=== PATIENT | female | born 1990 | race Caucasian/White ===

== ENCOUNTER 2023-01-03 21:58 | Emergency (ER) | payer OTHER, SELFPAY ==
--- NOTE | ~2023-01-03 | CT_ITS ---
EXAMINATION: CT abdomen pelvis w con DATE: 01/04/2023 01:39 INDICATION: Left lower quadrant abdominal tenderness, bloody stools TECHNIQUE: Computed tomography (CT) of the abdomen and pelvis was performed with 100 CC Omnipaque 350 intravenous contrast. Automated exposure control and iterative reconstruction technique were employe d. Exam dose: 1491.62 mGy-cm total exam DLP. COMPARISON: None. FINDINGS: The lung bases are clear. Normal heart size. No pericardial or pleural effusion. Diffuse hepatic steatosis. No hepatic, splenic, pancreatic, and adrenal or left renal space occupying mass lesion is detected. Status post right nephrectomy. Status post cholecystectomy. Normal appendix. No bowel obstruction, bowel wall thickening, pneumatosis or intraperitoneal free air . Normal caliber of the abdominal aorta no intraperitoneal or retroperitoneal or pelvic mass lesion or adenopathy or ascites. 2.1 x 3.1 cm left ovarian cyst. The uterus is retroverted. Urinary bladder is unremarkable. Included skeletal structures are unremarkable. IMPRESSION: Hepatic steatosis Status post cholecystectomy Status post right nephrectomy Normal appendix Left ovarian cyst Reviewed, dictated and finalized at [facility] Reviewed, dictated and finalized at [facility].
[2023-01-03 22:01] VITALS: BP 144/97; PULSE 108; RESP 20; TEMP 36.6; O2SAT 100
[2023-01-03 22:16] LABS: Basophils Absolute Auto 0.1 K/mm3 (0.0-0.1); Basophils Percent Auto 0.6 % (0.2-1.2); Eosinophils Absolute Auto 0.3 K/mm3 (0-0.3); Eosinophils Percent Auto 1.9 % (0-4.4); Hematocrit 41.6 % (37.0-47.0); Hemoglobin 13.7 g/dL (12.0-15.0); Immature Granulocyte Absolute 0.04 K/mm3 (0.00-0.031); Immature Granulocyte Percent A 0.3 % (0-0.5); Lymphocytes Percent Auto 26.9 % (18.3-44.2); Mean Corpuscular HGB Conc 32.9 g/dl (32-36); Mean Corpuscular Hemoglobin 28.4 pg (26-34); Mean Corpuscular Volume 86.3 fl (80-100); Mean Platelet Volume 9.4 fl (7.4-10.4); Monocytes Absolute Auto 0.9 K/mm3 (0.1-0.6); Monocytes Percent Auto 6.9 % (2.6-8.5); Neutrophils Absolute Auto 8.5 K/mm3 (1.3-6.7); Neutrophils Percent Auto 63.4 % (45.5-73.1); Platelet Count Result 339 k/mm3 (150-375); Red Blood Count 4.82 M/mm3 (4.2-5.4); Red Cell Distribution Width 12.9 % (11.5-14.5); White Blood Count 13.4 K/mm3 (4.5-10.0)
[2023-01-03 22:38] LABS: Appearance Urine Clear (Clear); Bacteria Urine None Seen /hpf; Bilirubin Urine Negative (Negative); Blood Urine Negative (Negative); Color Urine Yellow (Yellow); Glucose Urine UA Negative (Negative); Ketones Urine Negative (Negative); Leukocyte Esterase Ur Trace LEU/UL (Negative); Nitrate Urine Negative (Negative); Non Pathogenic Casts 0-2; Protein Urine Negative (Negative); RBC Urine 0-2 /hpf (0-2); Specific Grav Ur 1.022 (1.001-1.035); Squamous Epithelial Cell Urine None seen /hpf (Few); Urobilinogen Urine 0.2 mg/dL (<2.0); WBC Urine 0-5 /hpf; pH Urine 5.5 (5.0-9.0)
[2023-01-03 22:41] LABS: Add Urine Microscopic? YES
[2023-01-03 23:06] LABS: Alanine Aminotransferase 31 U/L (6-35); Albumin Level 4.2 g/dL (3.5-5.1); Alkaline Phosphatase 88 U/L (38-126); Anion Gap 9 mmol/L (8-16); Aspartate Amino Transferase 23 U/L (14-36); Bilirubin,Total 0.5 mg/dL (0.2-1.3); Blood Urea Nitrogen 15 mg/dL (7-17); Calcium 8.7 mg/dL (8.4-10.2); Carbon Dioxide 26 mmol/L (22-30); Chloride 102 mmol/L (98-107); Estimated CRCL calculation 125 ml/min; Estimated Glomerular Filt Rate > 60; Glucose 123 mg/dL (65-110); Lipase 104 U/L (23-300); Potassium 3.9 mmol/L (3.4-5.0); Sodium 137 mmol/L (137-145)
--- NOTE | 2023-01-04 00:56 | ED.ABDPAIN ---
HPI - Abdominal Pain General Chief Complaint: Abdominal Pain <EVELIO Yates Last Filed: 01/04/23 03:59> Stated Complaint: abd pain <EVELIO Yates Last Filed: 01/04/23 03:59> Time Seen by Provider: 01/04/23 00:08 <EVELIO Yates Last Filed: 01/04/23 03:59> History of Present Illness HPI narrative: Patient is a 32-year-old female here for evaluation of pelvic/lower abdominal cramping the past day. Patient states that she was seen by her MANAGER ADMINISTRATIVE last week for abnormal vaginal discharge and was diagnosed with BV. She was placed on Flagyl and completes her course today. States that since then she has developed a mild pelvic cramping, today the cramping increased and she was doubled over in pain. Pain is most severe in her left lower quadrant. She has a history of IBS and hemorrhoids and has been having increased bloody bowel movements over the past several days, has been using MiraLAX with improvement of her symptoms. Her vaginal discharge has improved, she had no vaginal bleeding, fevers, chills, vomiting, diarrhea. <EVELIO Yates Last Filed: 01/04/23 03:59> Related Data Allergies/Adverse Reactions: Allergies Allergy/AdvReac Type Severity Reaction Status Date / Time doxycycline Allergy Intermediate HIVES Verified 02/10/19 09:15 NSAIDS (Non-Steroidal Allergy Mild S/O Verified 02/10/19 09:15 Anti-Inflamma NEPHRECTOMY-ADVISED TO REFRAIN BY ASSEMBLER LEATHER GOODS <EVELIO Yates Last Filed: 01/04/23 03:59> Review of Systems Review of Systems: Gen.: Denies fevers or chills Eyes: Denies eye pain or visual change ENT: Denies congestion Respiratory: Denies shortness of breath or cough CV: Denies chest pain or palpitations GI: Reports abdominal pain, nausea denies burning, urgency, frequency or hematuria Musculoskeletal: Denies back pain or muscle pain Neuro: Denies numbness, tingling, weakness or focal weakness Skin: Denies rash Except as documented, all other systems reviewed and negative <Leena Parson PA-C - Last Filed: 01/04/23 03:59> Exam Narrative: APPEARANCE: No acute distress, nontoxic, resting in bed HEENT: Normocephalic, atraumatic EYES: PERRL, EOMI NECK: Supple, nontender, full range of motion without pain, no meningismus RESPIRATORY: No respiratory distress, clear to auscultation bilaterally with no rhonchi wheezing or rales CARDIOVASCULAR: RRR, no murmur ABDOMINAL: Tender to palpation in the left lower quadrant with moderate guarding, no rebound tenderness. : Complete visualization of the cervix is limited due to body habitus. Visualized portions are clear. There is a moderate amount of thin white discharge in the vaginal vault. Whiff test is negative. No CMT. MUSCULOSKELETAL: Moves all extremities. No clubbing, cyanosis or edema. NEURO: A and O ?3, following commands, speech normal, cranial nerves II through XII grossly intact,muscle strength 5 out of 5 bilateral upper and lower extremities SKIN:: Warm, dry. Normal Color PSYCHIATRIC: Normal affect/mood <Leena Parson PA-C - Last Filed: 01/04/23 03:59> Course Course Emergency Course: 0700: Signed out to the oncoming physician pending CT abdomen pelvis. <Jose Ramirez MD - Last Filed: 01/04/23 06:40> PEOPLESOFT DEVELOPER/PA Physician Supervision This is a was performed by both a physician and an APC. I performed all aspects of the MDM as documented w/ the following additions: 32-year-old female presenting with abdominal pain. White count slightly elevated. Metabolic panel within normal limits. Urinalysis did not indicate UTI. patient was signed out to the oncoming physician pending completion of her CT abdomen pelvis. <Jose Ramirez MD - Last Filed: 01/04/23 06:40> Reevaluation(s) Reevaluation #1: Patient care was signed out to me by Dr. Ramirez Plan at signout was to await for the CT scan with anticipated discharge to
[2023-01-04] MEDS: MORPHINE SULFATE (*CRX) 4 MG/ML INJ IV PUSH (01:00)
[2023-01-04] MEDS: ONDANSETRON INJ 4 MG/2 ML VIAL IV PUSH (01:00)
[2023-01-04 01:23] LABS: Lactic Acid Reflex 0.9 mmol/L (0.7-2.0)
[2023-01-04] MEDS: SODIUM CHLORIDE 0.9% IV 1,000 ML 999 ML IV CONT (02:26)
[2023-01-04] MEDS: MORPHINE SULFATE (*CRX) 2 MG/ML INJ IV PUSH (02:44)
[2023-01-04 02:48] VITALS: BP 130/77; PULSE 80; RESP 18; TEMP 36.6; O2SAT 99
[2023-01-04 04:30] VITALS: BP 121/71; PULSE 90; RESP 18; TEMP 36.6; O2SAT 99
[2023-01-04] MEDS: FAMOTIDINE 20 MG/2 ML VIAL IV PUSH (04:30)
[2023-01-04] MEDS: HYDROmorphone HCL INJ (*CRX) 1 MG/ML SYR 0.5 MG IV PUSH (06:56)
[2023-01-04 06:57] VITALS: BP 111/69; PULSE 80; RESP 18; O2SAT 99
[2023-01-04 07:21] VITALS: BP 126/78; PULSE 73; RESP 16; O2SAT 99
[2023-01-04 09:22] VITALS: BP 130/77; PULSE 76; RESP 16; O2SAT 100
== END 2023-01-04 09:23 | disposition home or self-care (01) ==
PROVIDERS: Emergency Medicine; Emergency Provider Physician Assistant; PCP Advanced Practice Midwife
DX: R10.32 Left lower quadrant pain (principal)
CPT/HCPCS: 36415; 74177; 80053; 81001; 81025; 83605; 83690; 85025; 87491; 87591; 87808; 96361; 96374; 96375; 99284; J1170; J2270; J2405; J7030; Q9967

== ENCOUNTER 2023-02-10 13:00 | Outpatient (RCR) | payer OTHER, SELFPAY ==
--- NOTE | 2023-01-17 10:40 | PTOPEVAL1 ---
Assessment and note entered by Evelyne Page DPT Evaluation Information Assessment Status Evaluation Subjective Information Pt reports pelvic pain, will get severe cramping and it is often the day after intercourse. Describes as feeling like period cramping or like a bruise. Diagnosed with bacterial vaginosis about 2 weeks ago and reports a lot of pain while she was taking the medicine for it. Has had the pelvic pain on and off for a few years but has gotten worse and more persistent. Reports when she is in pain she has trouble doing anything like cooking dinner, tends to just want to sit with a heating pad. Highest pain 10/10 and lowest 0/10. Went to ER for pain while taking the medicine for the BV. Urinates less than 10 times a night, recently urinating 1 time at night and sometimes feels sore . Leaks urine daily, the amount will vary depending on how often she coughs, sneezes, etc. Volume is typically small, has had instances where she will leak her full bladder but not often. BM usually 3-4 times a day. No periods- uterine ablation, but did have a history of heavy and painful periods. Pt has been 3 times, 3 vaginal deliveries in 2012, 2014, 2017. History of gall stones and was induced with her first, tearing with all 3. Pt reports family history of fibromyalgia, PCOS, and endo. Has a history of constipation, will often get bleeding from BM. Has to splint in order to have a BM often. Reported Pain Level Pain Score 1: Self Report Assessment PT Clinical Summary The patient is presenting to skilled therapy with a history of worsening pelvic pain. She also reports daily urinary incontinence. She presents with decreased hip/core strength, increased pelvic floor muscle tone and pain with palpation of pelvic floor. These impairments are contributing to her significant pain and difficulty with ADL's as well as her incontinence. She will highly benefit from therapy to reduce pain and improve function. Plan of Care Interventions Hot Pack/Cold Pack,Manual Therapy,Neuro Re- education,Patient/Caregiver Education,Therapeutic Activities,Therapeutic Exercise,Self-Care/Home Management PT Services Indicated Yes Treatment Frequency and
--- NOTE | 2023-01-29 11:35 | PCPTNOTE ---
Patient called to cancel appointment due to illness.
--- NOTE | 2023-02-20 12:40 | PCPTNOTE ---
Patient called to cancel ten minutes prior to appointment time due to illness.
--- NOTE | 2023-02-26 14:10 | PCPTNOTE ---
Patient did not show up for appointment scheduled on 02/26/23.
--- NOTE | 2023-03-03 13:24 | PCPTNOTE ---
Patient did no show up for appointment scheduled 03/03/23.
--- NOTE | 2023-03-24 13:20 | PTOPDC ---
Assessment and note entered by Evelyne Page, DPT Evaluation Information Assessment Status Discharge - Pt Not Present Subjective Information - Assessment PT Clinical Summary Patient has not attended therapy since 02/10/23. Per our attendance policy she will be discharged this date. Plan of Care PT Services Indicated No
== END 2023-03-24 14:09 | disposition home or self-care (01) ==
LOC: ANHGOSHPT 13:00
PROVIDERS: PCP Advanced Practice Midwife; Visit Provider Advanced Practice Midwife
DX: R10.2 Pelvic and perineal pain (principal)
CPT/HCPCS: 97110; 97112; 97140; 97163; 99199

== ENCOUNTER 2023-07-02 00:58 | Day surgery (SDC) | payer OTHER, SELFPAY ==
[2023-06-23 15:35] VITALS: BMI 46.4
--- NOTE | 2023-06-23 15:36 | PC.NURSE ---
Report to the Outpatient Waiting Room, entrance under the green pavilion located off [facility], at time _0600_ on date _[id number]_. Planned Procedure Time: _0730_. Time changes happen often and if your time is changed the preop area will call you the afternoon before. - You and your visitor will be asked to self-screen and do not enter if you have any COVID symptoms. - A mask is optional within the hospital at this time. Patients may have clear liquids (water, carbonated beverages, clear teas, apple juice) until 3 hours prior to surgery with a maximum of 20 ounces. - No food from midnight until time of surgery Take the following medications with a SIP of water the morning of surgery: ____None DO NOT STOP ANY OF YOUR OTHER PRESCRIPTION MEDICATIONS PRIOR TO SURGERY ?EXCEPT THE FOLLOWING Medications to discontinue per physician ____None Date to take last dose Please no make-up, nail tanzanian, hairspray, perfume, deodorant, or body powder the day of surgery. No jewelry (including any body piercings) or valuables the day of surgery, leave them at home. Please take a shower or bath the night before, or the morning of, surgery with an antibacterial soap. Wear comfortable, loose fitting clothing. - Jewelry must be removed prior to entering the operating room. Rings and piercings that are not removed may be cut off. - The hospital will not accept responsibility for valuables. - Please leave all valuables, including medications, at home the day of surgery. If you are going home after surgery, a licensed oil transport driver must drive you home. - NO public transportation without another adult if you receive anesthesia. - We recommend that an adult stay with you for 24 hours following discharge. - We also recommend that you do not drive, make important decision, drink alcoholic beverages, or take any drugs that were not prescribed by your health care provider for at least 24 hours after your discharge time. Follow any additional instructions given to you from your surgeon. If you or anyone in your household have experienced Covid symptoms in the past week, please notify your surgeon or the nurse liaison at the phone number below for possible testing. Telephone instructions given to __Patient___and asked if any additional questions and then verbalized understanding. Patient advised to call surgeon office or pre surgery nurse liaison [phone] if any additional questions.
[2023-07-02] VITALS (8 sets, daily range): BP systolic 120–155; BP diastolic 81–92; PULSE 70–90; RESP 13–20; TEMP 36.2–36.3; O2SAT 97–100
[2023-07-02] MEDS: ACETAMINOPHEN 500 MG TABLET 1000 MG PO (06:30)
[2023-07-02] MEDS: SCOPOLAMINE 1.5 MG PATCH TRANSDERM (06:47)
[2023-07-02] MEDS: LACTATED RINGERS 1,000 ML 30 ML IV CONT (06:48)
--- NOTE | 2023-07-02 07:01 | P.PNAN_ITS ---
Anes - Initial Pre Proc Eval Procedure: Operation Date: 07/02/23 07:30 Proposed Procedures p Diagnostic Laparoscopy - Ravi Bhatt MD Date/Time: 07/02/23 07:01 Surgeon: Ravi Bhatt MD Pre Op Diagnosis: Pelvic Pain Patient Data Age: 33 Gender: F Height: 1.63 m Weight: 121.5 kg Last Vital Signs Temp 36.3 C L 07/02/23 06:26 Pulse 90 07/02/23 06:26 Resp 20 07/02/23 06:26 BP 134/86 07/02/23 06:26 Pulse Ox 98 07/02/23 06:26 O2 Del Method Room Air 07/02/23 06:26 Allergies Allergy/AdvReac Type Severity Reaction Status Date / Time doxycycline Allergy Intermediate HIVES Verified 07/02/23 06:24 NSAIDS (Non-Steroidal Allergy Mild S/O Verified 07/02/23 06:24 Anti-Inflamma NEPHRECTOMY-ADVISED TO REFRAIN BY HUMAN PERFORMANCE CONSULTANT Home Medications Medication Instructions Recorded Confirmed Type cyclobenzaprine 10 mg tablet 10 mg PO TID PRN Pain 06/23/23 06/23/23 History sumatriptan 5 mg/actuation nasal 5 mg intranasal DAILY PRN Migraine 06/23/23 06/23/23 History spray Headache sumatriptan succinate 25 mg tablet 25 mg PO DAILY PRN Migraine 06/23/23 06/23/23 History Headache tramadol 50 mg tablet 50 mg PO TID PRN Pain 06/23/23 06/23/23 History Patient hx anesthesia problems: none Family hx anesthesia problems: none Results Review: All pre-operative results and documents have been reviewed as part of the pre- operative evaluation. [facility] Past Medical History Medical History (Updated 07/02/23 @ 07:01 by Chris Espinoza MD) GERD (gastroesophageal reflux disease) Morbid obesity Social History Social History Smoking status: Never smoker Alcohol intake: current Other substance usage details: thc gummies for anxiety. Living arrangements: with family Spiritual care concerns: No Anes - Eval Final PreProcedure Day of Procedure 07/02/23 07:01 Patient weight: morbidly obese Heart: regular rate and rhythm Lungs: clear to auscultation Airway: Mallampati scale class III Neurological: alert and oriented Last oral intake: >/= 8 hours ASA classification: III Emergent: no Anesthetic plan: proceed Anesthesia type and monitoring: general ETT and standard monitoring Results Review: All pre-operative results and documents have been reviewed as part of the pre- operative evaluation. Informed Consent: The patient's anesthetic plan and its attendant risks and benefits were d iscussed with the patient/family/POA. Questions were solicited and answers provided to the satisfaction of the patient/family/POA.
--- NOTE | 2023-07-02 07:16 | WPDHPUPDATE1 ---
History and Physical Update Update Date/Time: 07/02/23 07:16 History and Physical has been reviewed, including an updated exam of the patient. There are NO changes in the patient's condition. Risks, benefits, and alternatives have been discussed and questions answered. Patient agrees to proceed with procedure.
[2023-07-02] MEDS: fentaNYL CITRATE INJ (*CRX) 100 MCG/2 ML VIAL 25 MCG IV PUSH ×4 (08:36→09:18)
--- NOTE | 2023-07-02 08:41 | W.PM.PROC2 ---
Procedure Note - Detailed Date of Procedure 07/02/23 Pre-op Diagnosis Pelvic Pain, left ovarian cyst Post-op Diagnosis Other (Left paratubal cyst) Procedure Performed Diagnostic laparoscopy Surgeon Ravi Bhatt MD Anesthesia General Indications Pelvic pain Findings Left paratubal cyst closely associated with the left ovary with linear connection at the distal end. Easily from the tube. Otherwise normal pelvis with some increased vascularity in the posterior cul-de-sac bilaterally. Description of Procedure The patient was taken to the operating room. She was prepped and draped in the dorsal lithotomy position after induction general anesthesia. A 5 mm incision was made with a scalpel on the abdominal skin in the left upper quadrant of the abdomen. A 5 mm trocar was inserted into the intra-abdominal cavity under direct visualization the scope. In the same fashion a 5 mm left lower quadrant trocar was inserted and a 5 mm infraumbilical trocar was inserted. Left paratubal cystectomy was performed. Cautery and scissors were used to separate the tube from the left ovary. It was taken out the left lower quadrant trocar site The pelvis was irrigated. The pneumoperitoneum was reduced. The trocars were removed. Skin was closed with subcuticular 4 micro. The patient's incisions were covered with Dermabond. She was taken recovery room in stable condition. Sponge lap and needle counts were correct x2. Complications No immediate complications Condition Stable Disposition Same day
[2023-07-02] MEDS: oxyCODONE HCL (*CRX) 5 MG TAB IR PO (09:50)
== END 2023-07-02 10:20 | disposition home or self-care (01) ==
PROVIDERS: PCP Family Medicine Sports Medicine; Visit Provider Obstetrics & Gynecology
PROC: (CPT 49320; principal; 2023-07-02 07:30)
DX: N83.8 Other noninflammatory disorders of ovary, fallopian tube and broad ligament (principal); E66.01 Morbid (severe) obesity due to excess calories; Z68.42 Body mass index [BMI] 45.0-49.9, adult; F12.90 Cannabis use, unspecified, uncomplicated
CPT/HCPCS: 58662; 88305; A9270; J0330; J2250; J2405; J2704; J3010; J7030; J7120; Q9968

== ENCOUNTER 2023-09-17 10:16 | Emergency (ER) | payer OTHER, SELFPAY ==
--- NOTE | ~2023-09-17 | XR_ITS ---
Thoracic spine: Clinical Indication: Back pain AP and lateral views were performed. No fracture is seen. There is normal alignment of the vertebrae. The intervertebral disc spaces appe ar normal. Paravertebral soft tissues appear normal. Impression: No significant abnormalities noted. Reviewed, dictated and finalized at [facility]. O SCRIPT WRITER Impression: No significant abnormalities noted.
[2023-09-17 10:32] VITALS: BP 124/95; PULSE 53; RESP 16; TEMP 36.3; O2SAT 99
[2023-09-17 10:40] VITALS: BP 124/95; PULSE 53; RESP 16; TEMP 36.3; O2SAT 99
--- NOTE | 2023-09-17 10:47 | ED.BACK ---
HPI - Back Pain/Injury General Chief Complaint: Back Pain/Injury Stated Complaint: BACK SPASMS Time Seen by Provider: 09/17/23 10:47 Source: patient Mode of arrival: ambulatory Limitations: no limitations History of Present Illness HPI Narrative: 33-year-old female presents complaint mid back spasm, tightness. Patient reports pain to right mid back for over a month it comes and goes. States it is annoying muscle pain, has been taking her 's cyclobenzaprine to treat pain and it does relieve the symptoms. Last took cyclobenzaprine last night and medication is now gone. Was at work this morning and having spasms all across mid back. Had to leave work early due to symptoms. Ambulatory with steady gait. No urinary symptoms. No radiation of pain to lower extremities, no numbness or tingling to lower extremities. All systems reviewed and negative except as noted above. Related Data Home Medications Medication Instructions Recorded Confirmed sumatriptan 5 mg/actuation nasal 5 mg intranasal DAILY PRN Migraine 06/23/23 09/17/23 spray Headache sumatriptan succinate 25 mg tablet 25 mg PO DAILY PRN Migraine 06/23/23 09/17/23 Headache Allergies Allergy/AdvReac Type Severity Reaction Status Date / Time doxycycline Allergy Intermediate HIVES Verified 09/17/23 10:33 NSAIDS (Non-Steroidal Allergy Mild S/O Verified 09/17/23 10:33 Anti-Inflamma NEPHRECTOMY-ADVISED TO REFRAIN BY DOG LICENSE OFFICER SUPERVISOR Review of Systems Review of Systems: CONSTITUTIONAL: Denies fever, chills, or sweats. EYES: Denies visual changes, redness, or discharge. ENT: Denies rhinorrhea, congestion, sore throat, or otalgia. CARDIOVASCULAR: Denies chest pain, palpitations, or edema. RESPIRATORY: Denies cough or dyspnea. GASTROINTESTINAL: Denies abdominal pain, nausea, vomiting, or diarrhea. GENITOURINARY: Denies dysuria or hematuria. SKIN: Denies rash or itching. MUSCULOSKELETAL: Ports mid back pain with spasm. NEUROLOGIC: Denies headache, numbness, or weakness. PSYCHIATRIC: Denies anxiety or depression. All other systems reviewed are negative, except as documented in HPI. [facility] Past Medical History Medical History (Updated 09/17/23 @ 11:39 by Mara Varghese NP) GERD (gastroesophageal reflux disease) Morbid obesity Social History Social History Smoking status: Never smoker Alcohol intake: current Other substance usage details: thc gummies for anxiety. Living arrangements: with family Spiritual care concerns: No Comments At time of signature, agree with nursing past medical, surgical, social and family history. There is no relevant family history pertinent to the presenting complaint. Exam Narrative: GENERAL: This is a well-nourished, well-developed patient, in no apparent distress. HEAD: normocephalic, atraumatic. EYES: PERRL. Sclera clear/white. Vision is grossly intact. EARS: External ears normal NOSE: External nose normal NECK: Neck supple, non-tender without lymphadenopathy, masses or thyromegaly. CARDIOVASCULAR: Regular rate and rhythm without murmurs, gallops, or rubs. RESPIRATORY: Clear to auscultation. Breath sounds equal bilaterally. No wheezes, rales, or rhonchi. SKIN: warm, Dry, intact with no suspicious lesions or rash, good texture and turgor. NEURO: awake, alert, and oriented to person, place and time. There were no obvious focal neurologic abnormalities. EXTREMITIES: No joint tenderness, effusion, or edema noted. BACK: tenderness to T10, T11, R thoracic muscular tenderness on palpation. ROM intact. Course Course Level of Care: Express Care Visit Vital Signs Vital signs: Vital Signs Temperature 36.3 C L 09/17/23 10:32 Pulse Rate 53 L 09/17/23 10:32 Respiratory Rate 16 09/17/23 10:32 Blood Pressure 124/95 H 09/17/23 10:32 Pulse Oximetry 99 09/17/23 10:32 Temperature 36.3 C L 09/17/23 10:40 Puls
== END 2023-09-17 11:43 | disposition home or self-care (01) ==
PROVIDERS: Emergency Provider Nurse Practitioner Family; PCP Internal Medicine Rheumatology
DX: S29.012A Strain of muscle and tendon of back wall of thorax, initial encounter (principal); X58.XXXA Exposure to other specified factors, initial encounter; K21.9 Gastro-esophageal reflux disease without esophagitis; E66.01 Morbid (severe) obesity due to excess calories; Z68.42 Body mass index [BMI] 45.0-49.9, adult
CPT/HCPCS: 72072; 99213; G0463

== ENCOUNTER 2024-08-24 17:33 | Emergency (ER) | payer OTHER, SELFPAY ==
--- NOTE | ~2024-08-24 | CT_ITS ---
EXAMINATION: CT brain wo con DATE: 08/24/2024 18:45 INDICATION: R sided SANTIAGO, vision changes . TECHNIQUE: Computed tomography (CT) of the head was performed without intravenous contrast. The mA wa s adjusted according to patient size. Iterative reconstruction technique was employed. The dose-lengt h product was 605.33 mGy-cm. COMPARISON: None. FINDINGS: No acute intracranial hemorrhage or extra-axial fluid collection. No hydrocephalus, mass, or herniation. No acute ischemic infarct. Unremarkable dural venous sinus attenuation. No acute osseous abnormality. The aerated spaces are clear. Arachnoid cyst in the posterior fossa. IMPRESSION: No acute intracranial process. Reviewed, dictated and finalized at location K. INGS DRAFTER
[2024-08-24 17:42] VITALS: BP 148/108; PULSE 85; RESP 16; TEMP 36.4; O2SAT 96
--- NOTE | 2024-08-24 18:37 | ED_ITS ---
HPI - General Adult General Chief complaint: Unspecified <Coco Lundberg APRN - Last Filed: 08/24/24 18:42> Stated complaint: numbness below the eye since this morning <Coco Lundberg APRN - Last Filed: 08/24/24 18:42> Time Seen by Provider: 08/24/24 18:25 <Coco Lundberg APRN - Last Filed: 08/24/24 18:42> Focused HPI: Patient is a 34-year-old female who presents to the ER with complaints of right sided facial numbness surrounding her right eye socket. She reports her symptoms started this morning when she woke up. The muscles on the right side of her jaw have been twitching and her right eye stings. She also endorses a right-sided headache that started this morning, but is now radiating up the back of her head. Patient reports she also has a metallic taste in her mouth, but she reports she started Desvenlafaxine five weeks ago and first noticed that symptoms when she started the medication. She denies any extremity weakness/ numbness/tingling, recent fevers, or rashes. GENERAL: Well-appearing, well-nourished, and in no acute distress. HEAD: Normocephalic, atraumatic. CHEST: Clear to auscultation. ?No respiratory distress. HEART: Regular rate and rhythm.? NEURO: ?Alert and oriented x3. Patient screened in triage and initial orders placed.? ?Additional care and dis position to be based upon?diagnostic testing and treatment. <Coco Lundberg APRN - Last Filed: 08/24/24 18:42> Related Data Home medications: Home Medications Medication Instructions Recorded Confirmed sumatriptan 5 mg/actuation nasal 5 mg intranasal DAILY PRN Migraine 06/23/23 09/17/23 spray Headache sumatriptan succinate 25 mg tablet 25 mg PO DAILY PRN Migraine 06/23/23 09/17/23 Headache <Coco Lundberg APRN - Last Filed: 08/24/24 18:42> Allergies/adverse reactions: Allergies Allergy/AdvReac Type Severity Reaction Status Date / Time doxycycline Allergy Intermediate HIVES Verified 09/17/23 10:33 NSAIDS (Non-Steroidal Allergy Mild S/O Verified 09/17/23 10:33 Anti-Inflamma NEPHRECTOMY-ADVISED TO REFRAIN BY CHAIR SPRING ASSEMBLER <Coco Lundberg APRN - Last Filed: 08/24/24 18:42> Review of Systems Review of Systems: CONSTITUTIONAL: Denies fever EYES: Denies visual changes GASTROINTESTINAL: Denies vomiting SKIN: Denies rash NEUROLOGIC: Reports headache. Denies numbness, or weakness. <Leena Chilel PA-C - Last Filed: 08/24/24 23:08> All systems reviewed & are unremarkable except as noted in HPI and below <Leena Chilel PA-C - Last Filed: 08/24/24 23:08> PMFSH Past Medical History Medical History: Medical History (Updated 08/24/24 @ 22:58 by Leena Chilel PA-C) GERD (gastroesophageal reflux disease) History of migraine Morbid obesity <Coco Lundberg APRN - Last Filed: 08/24/24 18:42> Surgical History Surgical History: Surgical History (Updated 08/24/24 @ 22:55 by Leena Chilel PA-C) History of nephrectomy <Coco Lundberg APRN - Last Filed: 08/24/24 18:42> Social History Social History: Social History Smoking status: Never smoker Alcohol intake: current Other substance usage details: thc gummies for anxiety. Living arrangements: with family Spiritual care concerns: No <Coco Lundberg APRN - Last Filed: 08/24/24 18:42> Exam Narrative: GENERAL: Well-appearing, well-nourished, and in no acute distress. HEAD: Normocephalic, atraumatic. EYES: PERRLA and EOMI. ENT: Nares clear, no rhinorrhea or epistaxis. Mucous membranes moist. Oropharynx without tonsillar hypertrophy exudate or other lesions. Bilateral TMs pearly borjas non-bulging NECK: Supple. No adenopathy or masses. CHEST: Clear to auscultation. No respiratory distress. No wheezes rales or rhonchi HEART: Regular rate and rhythm. No murmur heard. Normal peripheral pulses. ABDOMEN: Soft, nontender, nondistended, normal active bowel sounds. EXTREMITIES: Normal range of motion. No edema. Strength equal in bilateral upper and lower extremities (5/5) SKIN: Warm, dry, no rash. NEURO: No focal deficits. Alert and oriented x3. Cranial nerves 2-12 grossly intact. Normal gait PSYCH: Normal mood and affect <Leena Chilel PA-C - Last Filed: 08/24/24 23:08> Course Course Emergency Course: Patient updated on her workup. Reports improvement of her headache after [place]. She would like to be discharged <Leena Chilel PA-C - Last Filed: 08/24/24 23:08> Vital Signs Vital signs: Vital Signs Temperature 97.6 F 08/24/24 17:42 Pulse Rate 85 08/24/24 17:42 Respiratory Rate 16 08/24/24 17:42 Blood Pressure 148/108 H 08/24/24 17:42 Pulse Oximetry 96 08/24/24 17:42 Temperature 97.6 F 08/24/24 17:42 Pulse Rate 75 08/24/24 22:50 Respiratory Rate 18 08/24/24 22:50 Blood Pressure 137/96 H 08/24/24 22:50 Pulse Oximetry 99 08/24/24 22:50 <Coco Lundberg APRN - Last Filed: 08/24/24 18:42> Vital Signs Temperature 97.6 F 08/24/24 17:42 Pulse Rate 85 08/24/24 17:42 Respiratory Rate 16 08/24/24 17:42 Blood Pressure 148/108 H 08/24/24 17:42 Pulse Oximetry 96 08/24/24 17:42 Temperature 97.6 F 08/24/24 17:42 Pulse Rate 75 08/24/24 22:50 Respiratory Rate 18 08/24/24 22:50 Blood Pressure 137/96 H 08/24/24 22:50 Pulse Oximetry 99 08/24/24 22:50 <Leena Chilel PA-C - Last Filed: 08/24/24 23:08> Medical Decision Making MDM Narrative Medical decision making narrative: Patient presents the emergency department for tingling noted around her right eye. Also reporting an associated headache. She does have history of migraines. She is afebrile and nontoxic appearing. She is neurologically intact. CT brain without acute findings. Patient was updated on her workup thus far. She received a dose of [place] after medical screening exam with improvement in her headache. Reports she will have follow-up with her primary doctor tomorrow. She was given warnings to return to the ER <Leena Chilel PA-C - Last Filed: 08/24/24 23:08> Differential Diagnosis Differential Diagnosis: Huang's palsy, migraine, shingles <Leena Chilel PA-C - Last Filed: 08/24/24 23:08> Vital Signs Vital Signs: Vital Signs Temperature 97.6 F 08/24/24 17:42 Pulse Rate 85 08/24/24 17:42 Respiratory Rate 16 08/24/24 17:42 Blood Pressure 148/108 H 08/24/24 17:42 Pulse Oximetry 96 08/24/24 17:42 Temperature 97.6 F 08/24/24 17:42 Pulse Rate 75 08/24/24 22:50 Respiratory Rate 18 08/24/24 22:50 Blood Pressure 137/96 H 08/24/24 22:50 Pulse Oximetry 99 08/24/24 22:50 <Coco Lundberg, WHEEL INSTALLER - Last Filed: 08/24/24 18:42> Vital Signs Temperature 97.6 F 08/24/24 17:42 Pulse Rate 85 08/24/24 17:42 Respiratory Rate 16 08/24/24 17:42 Blood Pressure 148/108 H 08/24/24 17:42 Pulse Oximetry 96 08/24/24 17:42 Temperature 97.6 F 08/24/24 17:42 Pulse Rate 75 08/24/24 22:50 Respiratory Rate 18 08/24/24 22:50 Blood Pressure 137/96 H 08/24/24 22:50 Pulse Oximetry 99 08/24/24 22:50 <EVELIO Caicedo Last Filed: 08/24/24 23:08> Imaging Data Radiologist's impression: ITS Impressions Head CT 08/24/24 18:52 IMPRESSION: No acute intracranial process. <EVELIO Caicedo Last Filed: 08/24/24 23:08> Critical Care Time Critical Care Time Critical Care Time: No <EVELIO Caicedo Last Filed: 08/24/24 23:08> Discharge Plan Discharge Clinical Impression: Headache Qualifiers: Headache type: unspecified Headache chronicity pattern: acute headache Intractability: not intractable Qualified Code(s): R51.9 - Headache, unspecified <Coco Lundberg APRN - Last Filed: 08/24/24 18:42> Patient Disposition: Home, Self-Care <Coco Lundberg APRN - Last Filed: 08/24/24 18:42> Condition: Stable <Coco Lundberg APRN - Last Filed: 08/24/24 18:42> Instructions: Acute Headache (ED) <Coco Lundberg APRN - Last Filed: 08/24/24 18:42> Additional Instructions: Return to the ER if you experience fever, vision changes, vomiting, numbness/weakness, rash or any other symptoms that are concerning to you Follow up with your primary care doctor <Coco Lundberg APRN - Last Filed: 08/24/24 18:42> Prescriptions: No Action cyclobenzaprine 10 mg tablet 10 mg PO Q8H PRN (Reason: muscle spasm) Qty: 30 0RF sumatriptan succinate 25 mg tablet 25 mg PO DAILY PRN (Reason: Migraine Headache) sumatriptan 5 mg/actuation spray,non-aerosol 5 mg INTRANASAL DAILY PRN (Reason: Migraine Headache) <Coco Lundberg APRN - Last Filed: 08/24/24 18:42> Follow-up/Referrals: Peter,ESTEFANÍA Marcus [Primary Care Provider] - <Coco Lundberg APRN - Last Filed: 08/24/24 18:42>
[2024-08-24] MEDS: HYDROcodone/acetaminophen (*CRX) 5-325 MG TABLET 1 TAB PO (20:16)
[2024-08-24 22:50] VITALS: BP 137/96; PULSE 75; RESP 18; O2SAT 99
== END 2024-08-24 23:02 | disposition home or self-care (01) ==
PROVIDERS: Emergency Provider Physician Assistant; PCP Internal Medicine Rheumatology
DX: R51.9 Headache, unspecified (principal); K21.9 Gastro-esophageal reflux disease without esophagitis; E66.01 Morbid (severe) obesity due to excess calories; Z68.42 Body mass index [BMI] 45.0-49.9, adult
CPT/HCPCS: 70450; 99284; A9270

== ENCOUNTER 2024-09-01 09:42 | Emergency (ER) | payer OTHER, SELFPAY ==
--- NOTE | ~2024-09-01 | CT_ITS ---
EXAMINATION: CT brain wo con DATE: 09/01/2024 11:00 INDICATION: Headache. Head injury. TECHNIQUE: Computed tomography (CT) of the head was performed without intravenous contrast. The mA wa s adjusted according to patient size. Iterative reconstruction technique was employed. The dose-lengt h product was 605.33 mGy-cm. COMPARISON: Head CT 08/24/2024 FINDINGS: There is no intracranial hemorrhage, acute infarction, or abnormal intracranial mass lesion . There is a 5.9 x 2.5 cm arachnoid cyst posterior to the cerebellum. The ventricles are normal in si ze. The paranasal sinuses are clear. The mastoid air cells are normal. The orbits are normal. IMPRESSION: 1. No etiology for the patient's symptoms. Reviewed, dictated and finalized at location A. DATION RELATIONS DIRECTOR
--- NOTE | ~2024-09-01 | CT_ITS ---
EXAMINATION: CT cervical spine wo con DATE: 09/01/2024 11:00 INDICATION: Head injury. Neck pain. TECHNIQUE: Computed tomography (CT) of the cervical spine was performed without intravenous contrast. Automated exposure control and iterative reconstruction technique were employed. The dose-length pro duct was 497.48 mGy-cm. COMPARISON: None FINDINGS: There is 9 degrees dextrocurvature of cervical spine. Vertebral body heights and interverte bral disc heights are normal. C1 ring is ununited posteriorly, a normal variant. At C7-T1, there is m ild bilateral facet joint osteoarthritis. No neural foraminal stenosis or central canal stenosis. IMPRESSION: 1. No fracture. Reviewed, dictated and finalized at location A. BASE MANAGER IMPRESSION: 1. No fracture.
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
[2024-09-01 09:43] VITALS: BP 150/84; PULSE 81; RESP 16; TEMP 36.6; O2SAT 99
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
[2024-09-01] MEDS: MORPHINE SULFATE (*CRX) 4 MG/ML INJ IV PUSH (10:26)
[2024-09-01] MEDS: ONDANSETRON INJ 4 MG/2 ML VIAL IV PUSH (10:26)
[2024-09-01 10:55] LABS: Estimated CRCL calculation 111 ml/min; Estimated Glomerular Filt Rate > 60
[2024-09-01] MEDS: SODIUM CHLORIDE 0.9% IV 1,000 ML 999 ML IV CONT (11:27)
[2024-09-01 13:00] VITALS: BP 156/108; PULSE 75; RESP 16; O2SAT 98
== END 2024-09-01 13:00 | disposition home or self-care (01) ==
PROVIDERS: Emergency Provider Physician Assistant; PCP Internal Medicine Rheumatology
DX: S16.1XXA Strain of muscle, fascia and tendon at neck level, initial encounter (principal); S39.012A Strain of muscle, fascia and tendon of lower back, initial encounter; N28.9 Disorder of kidney and ureter, unspecified; E66.01 Morbid (severe) obesity due to excess calories; Z68.42 Body mass index [BMI] 45.0-49.9, adult; K21.9 Gastro-esophageal reflux disease without esophagitis; Z90.5 Acquired absence of kidney; Z90.49 Acquired absence of other specified parts of digestive tract; K76.0 Fatty (change of) liver, not elsewhere classified; V49.40XA Driver injured in collision with unspecified motor vehicles in traffic accident, initial encounter
CPT/HCPCS: 36415; 70450; 71260; 72125; 72129; 72132; 74177; 96361; 96374; 96375; 99284; J2270; J2405; J7030; Q9967

== ENCOUNTER 2024-10-11 10:50 | Outpatient (CLI) | payer BC, SELFPAY ==
--- NOTE | ~2024-10-11 | XR_ITS ---
XR shoulder LT min 2V Ordering provider: Hayes Wilkins, [place] History: . Lt shoulder pain . Comparison: None. FINDINGS: BONES: No acute fracture or dislocation. JOINT SPACES: The acromioclavicular joint is normal. The glenohumeral joint is normal. SOFT TISSUES: Normal. IMPRESSION: No acute osseous abnormality left shoulder. Reviewed, dictated and finalized at location A. COPTER CREW CHIEF
== END 2024-10-11 10:51 | disposition home or self-care (01) ==
PROVIDERS: PCP Internal Medicine Rheumatology; Visit Provider Chiropractor
DX: M25.512 Pain in left shoulder (principal)
CPT/HCPCS: 73030

== ENCOUNTER 2024-10-26 15:04 | Outpatient (CLI) | payer BC, SELFPAY ==
--- NOTE | ~2024-10-26 | MR_ITS ---
EXAMINATION: MR shoulder LT wo con DATE: 10/26/2024 15:42 INDICATION: Left shoulder injury. TECHNIQUE: Magnetic resonance imaging (MRI) of the left shoulder was performed without intravenous co ntrast. Sequences included axial PD-weighted FS FSE, coronal oblique PD-weighted FS FSE and T2-weight ed FS FSE, and sagittal oblique T2-weighted FS FSE and T1-weighted FSE. COMPARISON: Left shoulder radiographs 10/11/2024 FINDINGS: Coracoacromial arch: The acromion undersurface is curved in morphology (type II). There is mild acromioclavicular joint os teoarthritis. There is mild subacromial/subdeltoid bursitis. Rotator cuff: There is mild supraspinatus and infraspinatus tendinopathy. Teres minor tendon is normal. The subscap ularis tendon is normal. The rotator cuff muscle bellies are normal. Biceps tendon and glenoid labrum: Biceps tendon is in bicipital groove. Intra-articular biceps tendon is normal. The glenoid labrum is normal. Fluid: There is a small glenohumeral joint effusion. Bones/cartilage: Glenoid cartilage is normal. Humeral head cartilage is normal. IMPRESSION: 1. Mild rotator cuff tendinopathy. No tear. 2. Mild acromioclavicular joint osteoarthritis. 3. Mild subacromial/subdeltoid bursitis. 4. Small glenohumeral joint effusion. Reviewed, dictated and finalized at location A. DISCOVERY INFORMATICS SPECIALIST
== END 2024-10-26 15:05 | disposition home or self-care (01) ==
PROVIDERS: PCP Chiropractor; Visit Provider Internal Medicine Rheumatology
DX: S47.2XXD Crushing injury of left shoulder and upper arm, subsequent encounter (principal); X58.XXXA Exposure to other specified factors, initial encounter; M19.012 Primary osteoarthritis, left shoulder; M25.412 Effusion, left shoulder; M75.52 Bursitis of left shoulder
CPT/HCPCS: 73221

== ENCOUNTER 2024-12-03 14:11 | Emergency (ER) | payer BC, SELFPAY ==
[2024-12-03 14:58] VITALS: BP 137/86; PULSE 127; RESP 16; TEMP 36.5; O2SAT 98
--- NOTE | 2024-12-03 15:09 | ED.URI ---
HPI - URI/Sore Throat General Chief Complaint: Upper Respiratory Infection Stated Complaint: Fever and Vomiting Source: patient and RN notes reviewed Mode of arrival: ambulatory Limitations: no limitations History of Present Illness HPI Narrative: 34-year-old female presented for complaint of headache, body aches, sinus pressure/congestion, cough, fatigue, fever/chills. Reports 2 episodes of vomiting today. Drinking liquid IV. Son with influenza. Denies sob, wheezing. The taking anything for symptoms vomiting. MD elicited complaint: cough Related Data Home Medications ?Medication ?Instructions ?Recorded ?Confirmed ?Last Taken ?Type sumatriptan 5 mg/actuation nasal 5 mg intranasal DAILY PRN Migraine 06/23/23 12/03/24 07/01/23 History spray Headache desvenlafaxine succinate 50 mg 50 mg PO Q24H 12/03/24 12/03/24 Unknown History tablet,extended release 24 hr levothyroxine 25 mcg tablet 25 mcg PO DAILY 12/03/24 12/03/24 Unknown History methylphenidate HCl 18 mg 18 mg PO DAILY 12/03/24 12/03/24 Unknown History tablet,extended release 24 hr sumatriptan succinate 100 mg tablet 100 mg PO Q2H PRN migraine headache 12/03/24 12/03/24 Unknown History Allergies Allergy/AdvReac Type Severity Reaction Status Date / Time doxycycline Allergy Intermediate HIVES Verified 12/03/24 14:38 NSAIDS (Non-Steroidal Allergy Mild S/O Verified 12/03/24 14:38 Anti-Inflamma NEPHRECTOMY-ADVISED TO REFRAIN BY OBSTETRICS AND GYNECOLOGY PROFESSOR Review of Systems Review of Systems: Per HPI [facility] Past Medical History Medical History History of migraine GERD (gastroesophageal reflux disease) Morbid obesity Surgical History Surgical History History of nephrectomy Social History Social History Smoking status: Never smoker Alcohol intake: current Other substance usage details: thc gummies for anxiety. Living arrangements: with family Spiritual care concerns: No Exam Narrative: GENERAL: Ill-appearing, nontoxic no acute distress. EYES: conjunctivae clear ENT: Mucous membranes moist. TM pearly borjas with dull light reflex bilaterally; no tragal tenderness. Oropharynx erythematous without lesions or exudate, no drooling, no hoarseness, no trismus, uvula midline. No tripod positioning, muffled voice, soft palate or pharyngeal wall bulging NECK: Supple. No lymphadenopathy CHEST: Clear to auscultation, breath sounds equal. No wheezing, rhonchi, rales, or stridor. No respiratory distress, speaks in full sentences. HEART: Regular rate and rhythm. No murmur heard. SKIN: Warm, dry, no rash. NEURO: Alert and oriented x3. PSYCH: Normal mood and affect Course Course Emergency Course: Patient is aware of diagnosis, understands and agrees to treatment plan. Anticipatory guidance given. Patient agrees to follow-up as directed and is aware of reasons to seek care at the emergency department. Portions of this record may have been created with voice recognition software Level of Care: Express Care Visit Vital Signs Vital signs: Vital Signs Temperature 97.7 F 12/03/24 14:58 Pulse Rate 127 H 12/03/24 14:58 Respiratory Rate 16 12/03/24 14:58 Blood Pressure 137/86 12/03/24 14:58 Pulse Oximetry 98 12/03/24 14:58 Temperature 97.7 F 12/03/24 14:58 Pulse Rate 127 H 12/03/24 14:58 Respiratory Rate 16 12/03/24 14:58 Blood Pressure 137/86 12/03/24 14:58 Pulse Oximetry 98 12/03/24 14:58 reviewed MDM - URI/Sore Throat MDM Narrative Medical decision making narrative: Negative flu, COVID, strep. Likely too early for detecting influenza. Discussed physical exam findings. Advised supportive measures and signs/symptoms to go to the ER. Pt is appropriate for outpt treatment and f/u. Differential Diagnosis Differential diagnosis: Likely upper respiratory infection, sinusitis and viral infection Lab Data Labs: Lab Results 12/03/24 Range/Units 15:20 POC Influenza A Ag Negative (Negative) POC Influenza B Ag Negative (Negative) POC SARS CoV-2 Ag Negative (Negative) Discharge Plan Discharge Clinical Impression: Viral infection Patient Disposition: Home, Self-Care Condition: Stable Instructions: Influenza (ED) Additional Instructions: Influenza negative. You should avoid crowds until you are fever free for 24 hours without the use of fever reducing medications, or the symptoms are improved Rest. Drink plenty of fluids. Tylenol 1000mg every 8 hours as needed for pain/fever Flonase spray and Zyrtec (or Claritin/Maggy) for sinus pressure/congestion over the counter Cough syrup may cause drowsiness; avoid driving or take it at night time. Stay hydrated. Take small sips of fluid containing electrolytes frequently. Clear liquids (broth, jello, tea, sprite, pedialyte) [place] foods (bananas, rice, applesauce, toast, crackers) Avoid fatty, greasy, fried or spicy foods. Limit dairy until symptoms are improved. You should go to the hospital if you experience persistent nausea and vomiting that does not resolve and does not allow you to tolerate any food or fluids, fevers, increasing abdominal pain, persistent diarrhea, dizziness, fainting, or for any other concerns. Follow up with primary care provider in 3 days. Patient Language: [place] Prescriptions: New ondansetron 4 mg tablet,disintegrating 4 mg PO Q8H PRN (Reason: nausea and vomiting) Qty: 12 0RF No Action cyclobenzaprine 10 mg tablet 10 mg PO Q8H PRN (Reason: muscle spasm) Qty: 30 0RF sumatriptan succinate 100 mg tablet 100 mg PO Q2H PRN (Reason: migraine headache) desvenlafaxine succinate 50 mg tablet extended release 24 hr 50 mg PO Q24H levothyroxine 25 mcg tablet 25 mcg PO DAILY methylphenidate HCl 18 mg tablet extended release 24hr 18 mg PO DAILY sumatriptan 5 mg/actuation spray,non-aerosol 5 mg INTRANASAL DAILY PRN (Reason: Migraine Headache) tramadol 50 mg tablet 50 mg PO Q6H PRN (Reason: pain) Qty: 10 0RF methocarbamol 750 mg tablet 1,500 mg PO TID PRN (Reason: muscle spasm) Qty: 15 0RF Follow-up/Referrals: Peter,ESTEFANÍA Marcus [Primary Care Provider] - Stand Alone Forms: Work/School Release IP
[2024-12-03 15:22] LABS: EDCOVIDSCREEN Negative (Negative); EDINFLUASCREEN Negative (Negative); EDINFLUBSCREEN Negative (Negative)
== END 2024-12-03 15:33 | disposition home or self-care (01) ==
PROVIDERS: Emergency Provider Nurse Practitioner Family; PCP Internal Medicine Rheumatology
DX: B34.9 Viral infection, unspecified (principal); Z79.899 Other long term (current) drug therapy; Z20.822 Contact with and (suspected) exposure to COVID-19
CPT/HCPCS: 87426; 87804; 99213; G0463

== ENCOUNTER 2025-04-02 17:03 | Emergency (ER) | payer BC, SELFPAY ==
--- OUTSIDE RECORDS SUMMARY | 2025-04-02 17:05 | XMS_ITS ---
Author Organization Unknown Medications Medication Instructions Effective Dates (start - stop) Status 0.5 ML semaglutide 0.5 MG/ML Auto-Injector [Wegovy] - Completed topiramate 25 MG Oral Tablet [id number] 0:00:00Z - Completed fluconazole 150 MG Oral Tablet 2023-10-30 T00:00:00Z - Completed prednisone 10 MG Oral Tablet [id number] 0:00:00Z - Completed lorazepam 0.5 MG Oral Tablet [id number] 0:00:00Z - Completed - - Compl eted mupirocin 0.02 MG/MG Topical Ointment - Completed omeprazole 20 MG Delayed Rel ease Oral Capsule - Completed docusate sodium 50 MG / sennosides, INTERMEDIATE 8.6 MG Oral Tablet [Senexon S] - Completed - - Compl eted hydroxyzine pamoate 25 MG Or al Capsule - Completed nitrofurantoin, macrocrystal s 25 MG / nitrofurantoin, monohydrate 75 MG Oral Capsule - Completed omeprazole 20 MG Delayed Rel ease Oral Capsule - Completed levothyroxine sodium 0.025 M G Oral Tablet - Completed alprazolam 0.25 MG Oral Tablet 2023-08-27 T00:00:00Z - Completed cyclobenzaprine hydrochlorid e 10 MG Oral Tablet - Completed sumatriptan 25 MG Oral Tablet 2023-07-22 00:00:00Z - Completed metronidazole 500 MG Oral Tablet 00:00:00Z - Completed levothyroxine sodium 0.025 M G Oral Tablet - Completed hydroxyzine pamoate 25 MG Or al Capsule - Completed allopurinol 100 MG Oral Tablet 2023-09-25 T00:00:00Z - Completed tramadol hydrochloride 50 MG Oral Tablet - Completed phentermine hydrochloride 30 MG Oral Capsule - Completed tramadol hydrochloride 50 MG Oral Tablet - Completed quetiapine 25 MG Oral Tablet [id number] 0:00:00Z - Completed amoxicillin 875 MG / clavula shaw 125 MG Oral Tablet - Completed atorvastatin 10 MG Oral Tablet 2023-08-27 T00:00:00Z - Completed methocarbamol 750 MG Oral Tablet 00:00:00Z - Completed levothyroxine sodium 0.025 M G Oral Tablet - Completed - - Compl eted - - Compl eted acetaminophen 325 MG / hydro codone bitartrate 5 MG Oral Tablet - Completed fluconazole 150 MG Oral Tablet 2024-04-13 T00:00:00Z - Completed quetiapine 25 MG Oral Tablet [id number] 0:00:00Z - Completed fluconazole 150 MG Oral Tablet 2024-01-04 T00:00:00Z - Completed topiramate 25 MG Oral Tablet [id number] 0:00:00Z - Completed fluconazole 150 MG Oral Tablet 2023-10-28 T00:00:00Z - Completed sumatriptan 5 MG/ACTUAT [place] - Completed phentermine hydrochloride 15 MG Oral Capsule - Completed Patient Care team information Name Category Status Period Participants - - Proposed period not known -
--- OUTSIDE RECORDS SUMMARY | 2025-04-02 17:05 | XMS_ITS | Patient Health Record ---
Author Organization [facility] Office Address [address] [facility] [address] [place] [address] Care Team Providers Care Mercury Recoverer Name Role Phone Angeline Green Primary Care Provider Unavailab Jarrett Mcleod Unavailable [phone] Desyandy Leena Unavailable [phone] Allergies Allergen (clinical drug ingredient) Drug/Non Drug Allergy documented on EMR Reaction Allergy Type Onset Date Status diazepam Valium Unknown Drug Allergy Active doxycycline Doxycycline hives Drug Allergy Act cammie Non-steroidal anti-inflammatory agent (FN) NSAIDs Unknown Drug Allergy Active Results Component Value Reference Range Notes IRON, TIBC AND FERRITIN PANE L (5616) Reviewed date:01/31/2025 11:32:47 AM Interpretation: Performing Lab:[email or web address]-[id number] Yolanda Caballero, [id number] Stefanie Cordova MD Notes/Report: NON-FASTING; NON-FASTING; NON-FASTING; NON-FASTING; NON-FAST IRON, TOTAL 85 40-190 mcg/dL IRON BINDING CAPACITY 329 250-450 mcg/dL (arben c) % SATURATION 26 16-45 % (calc) FERRITIN 75 16-154 ng/mL LIPID PANEL, STANDARD (7600) Reviewed date:01/31/2025 11:32:47 AM Interpretation: Performing Lab:[facility] [id number] [facility] HospitalUxycfkfRE[address] Stefanie Cordova Notes/Report: NON-FASTING; NON-FASTING; NON-FASTING; NON-FASTING; NON-FAST CHOLESTEROL, TOTAL 198 <200 mg/dL HDL CHOLESTEROL 63 > OR = 50 mg/dL TRIGLYCERIDES 81 <150 mg/dL LDL-CHOLESTEROL 117 Reference range: <100 Desirable range <100 mg/dL for primary prevention; <70 mg/dL for patients with CHD or diabetic patients with > or = 2 CHD risk factors. LDL-C is now calculated using the Hayden calculation, which is a validated novel method providing better accuracy than the Friedewald equation in the estimation of LDL-C. Crow FLYNN et al. OTILIO. 2013;310(19): 4570-3673 (http://education.HipSwap/faq/SDB941) CHOL/HDLC RATIO 3.1 <5.0 (calc) NON HDL CHOLESTEROL 135 <130 mg/dL (calc) For patients with diabetes plus 1 major ASCVD risk factor, treating to a non-HDL-C goal of <100 mg/dL (LDL-C of <70 mg/dL) is considered a therapeutic option. COMPREHENSIVE METABOLIC PANJulienne Nobles (69042) Reviewed date:01/31/2025 11:32:47 AM Interpretation: Performing Lab:[place] [facility]NCal[place] [address] [place] [id number] [facility] Notes/Report: NON-FASTING; NON-FASTING; NON-FASTING; NON-FASTING; NON-FAST GLUCOSE 87 65-99 mg/dL Fasting reference interval UREA NITROGEN (BUN) 19 7-25 mg/dL CREATININE 0.70 0.50-0.97 mg/dL EGFR 115 > OR = 60 mL/min/1.73m2 BUN/CREATININE RATIO SEE NOTE: 6-22 (calc) Not Reported: BUN and Creatinine are within reference range. SODIUM 136 135-146 mmol/L POTASSIUM 4.3 3.5-5.3 mmol/L CHLORIDE 101 98-110 mmol/L CARBON DIOXIDE 28 20-32 mmol/L CALCIUM 9.2 8.6-10.2 mg/dL PROTEIN, TOTAL 6.9 6.1-8.1 g/dL ALBUMIN 4.1 3.6-5.1 g/dL GLOBULIN 2.8 1.9-3.7 g/dL (calc) ALBUMIN/GLOBULIN RATIO 1.5 1.0-2.5 (calc) BILIRUBIN, TOTAL 0.5 0.2-1.2 mg/dL ALKALINE PHOSPHATASE 83 31-125 U/L AST 13 10-30 U/L ALT 18 6-29 U/L MAGNESIUM (622) Reviewed date:01/31/2025 11:32:47 AM Interpretation: Performing Lab:Quan BARBOUR YaptaCal[place] [address] [address] Notes/Report: NON-FASTING; NON-FASTING; NON-FASTING; NON-FASTING; NON-FAST MAGNESIUM 2.1 1.5-2.5 mg/dL PHOSPHATE ( PHOSPHORUS) (7 18) Reviewed date:01/31/2025 11:32:47 AM Interpretation: Performing Lab:[place]OURCal[place] [address] [address] XjodfvyPM[address] [facility] Notes/Report: NON-FASTING; NON-FASTING; NON-FASTING; NON-FASTING; NON-FAST PHOSPHATE ( PHOSPHORUS) 3.1 2.5-4.5 mg/dL CBC (H/H, RBC, INDICES, WBC, PLT) (1759) Reviewed date:01/31/2025 11:32:47 AM Interpretation: Performing Lab:[facility] [id number] [address] [id number] [facility] Notes/Report: NON-FASTING; NON-FASTING; NON-FASTING; NON-FASTING; NON-FAST WHITE BLOOD CELL COUNT 11.2 3.8-10.8 Thousand/ uL RED BLOOD CELL COUNT 4.72 3.80-5.10 Million/uL HEMOGLOBIN 13.7 11.7-15.5 g/dL HEMATOCRIT 42.2 35.0-45.0 % MCV 89.4 80.0-100.0 fL MCH 29.0 27.0-33.0 pg MCHC 32.5 32.0-36.0 g/dL For adults, a slight decrease in the calculated MCHC value (in the range of 30 to 32 g/dL) is most likely not clinically significant; however, it should be interpreted with caution in correlation with other red cell parameters and the patient's clinical condition. RDW 12.9 11.0-15.0 % PLATELET COUNT 310 140-400 Thousand/uL MPV 9.4 7.5-12.5 fL PROTHROMBIN TIME-INR (8847) Reviewed date:01/31/2025 11:32:47 AM Interpretation: Performing Lab:[facility] [id number] [address] NzamzzlIC[address] [facility] Notes/Report: NON-FASTING; NON-FASTING; NON-FASTING; NON-FASTING; NON-FAST INR 1.0 Reference Range 0.9-1.1 Moderate-intensity Warfarin Therapy 2.0-3.0 Higher-intensity Warfarin Therapy 3.0-4.0 PT 10.8 9.0-11.5 sec For additional information, please refer to http://Gemmyo.NextEnergy/faq/COJ795 (This link is being provided for informational/ educational purposes only.) PARTIAL THROMBOPLASTIN TIME, ACTIVATED (763) Reviewed date:01/31/2025 11:32:47 AM Interpretation: Performing Lab:[place]NCal[place] [address] [address] Notes/Report: NON-FASTING; NON-FASTING; NON-FASTING; NON-FASTING; NON-FAST PARTIAL THROMBOPLASTIN TIME, ACTIVATED 30 23-32 sec This test has not been validated for monitoring unfractionated heparin therapy. For testing that is validated for this type of therapy, please refer to the Heparin Anti-Xa assay (test code 94995). For additional information, please refer to http://education.[facility]/faq/PTL289 (This link is being provided for informational/educational purposes only.) HEMOGLOBIN A1c (496) Reviewed date:01/31/2025 11:32:47 AM Interpretation: Performing Lab:[place] [address] [address] Notes/Report: NON-FASTING; NON-FASTING; NON-FASTING; NON-FASTING; NON-FAST HEMOGLOBIN A1c 5.5 <5.7 % of total Hgb Standards of Medical Care in Diabetes(ADA). For the purpose of screening for the presence of diabetes: <5.7% Consistent with the absence of diabetes 5.7-6.4% Consistent with increased risk for diabetes (prediabetes) > or =6.5% Consistent with diabetes This assay result is consistent with a decreased risk of diabetes. Currently, no consensus exists regarding use of hemoglobin A1c for diagnosis of diabetes in children. According to [place] Diabetes Association (ADA) guidelines, hemoglobin A1c <7.0% represents optimal control in non- diabetic patients. Different metrics may apply to specific patient populations. VITAMIN B12/FOLATE, SERUM PA SOL (2635) Reviewed date:01/31/2025 11:32:47 AM Interpretation: Performing Lab:Quan MERAZ-Cgywpg78025 Yolanda Caballero, IdmfjgTO[address] Stefanie Cordova MD Notes/Report: NON-FASTING; NON-FASTING; NON-FASTING; NON-FASTING; NON-FAST VITAMIN B12 207 859-1977 pg/mL Please Note: Although the reference range for vitamin B12 is 200-1100 pg/mL, it has been reported that between 5 and 10% of patients with values between 200 and 400 pg/mL may experience neuropsychiatric and hematologic abnormalities due to occult B12 deficiency; less than 1% of patients with values above 400 pg/mL will have symptoms. FOLATE, SERUM >24.0 Reference Range Low: <3.4 Borderline: 3.4-5.4 Normal: >5.4 VITAMIN D,25-OH,TOTAL,IA (17 306) Reviewed date:01/31/2025 11:32:47 AM Interpretation: Performing Lab:Quan MERAZ-Firyht28881 Yolanda Caballero, WojhgkMG[address] Stefanie Cordova MD Notes/Report: NON-FASTING; NON-FASTING; NON-FASTING; NON-FASTING; NON-FAST VITAMIN D,25-OH,TOTAL,IA 36 30-100 ng/mL Vitamin D Status 25-OH Vitamin D: Deficiency: <20 ng/mL Insufficiency: 20 - 29 ng/mL Optimal: > or = 30 ng/mL For 25-OH Vitamin D testing on patients on D2-supplementation and patients for whom quantitation of D2 and D3 fractions is required, the QuestAssureD(TM) 25-OH VIT D, (D2,D3), LC/MS/MS is recommended: order code 12920 (patients >2yrs). See Note 1 Note 1 For additional information, please refer to http://education.WolfGIS.com/faq/DKV767 (This link is being provided for informational/ educational purposes only.) PTH, INTACT WITHOUT CALCIUM (30595) Reviewed date:01/31/2025 11:32:47 AM Interpretation: Performing Lab:Quan MERAZ YaptaTiffanieVtgbey76734 Yolanda Caballero, GaqneaUG[address] Stefanie Cordova MD Notes/Report: NON-FASTING; NON-FASTING; NON-FASTING; NON-FASTING; NON-FAST PARATHYROID HORMONE, INTACT 33 16-77 pg/mL Interpretive Guide Intact PTH Calcium ------- Normal Parathyroid Normal Normal Hypoparathyroidism Low or Low Normal Low Hyperparathyroidism Primary Normal or High High Secondary High Normal or Low Tertiary High High Non-Parathyroid Hypercalcemia Low or Low Normal High VITAMIN B1 (THIAMINE), BLOOD , LC/MS/MS (5042) Reviewed date:01/31/2025 11:32:47 AM Interpretation: Performing Lab:Sim, [facility]-SraHoqylw[address] [place] [address], [address] HospitalOwemnrabnwCM[address] She Barros MD,PhD Notes/Report: NON-FASTING; NON-FASTING; NON-FASTING; NON-FASTING; NON-FAST VITAMIN B1 (THIAMINE), BLOOD, LC/MS/MS 148 78-185 nmol/L (Note) Vitamin supplementation within 24 hours prior to blood draw may affect the accuracy of the results. This test was developed and its analytical performance characteristics have been determined by [facility]. It has not been cleared or approved by FDA. This assay has been validated pursuant to the CLIA regulations and is used for clinical purposes. [facility] med fusion [address] [place] [address],[address] [facility] [id number] She Barros MD, PhD Reason For Referral Reason Pre - Bariatric Surg iwona Clearance Diagnosis 1 Morbid obesity (E66. 01) Referral Organization [facility] Office Referring Provider First Name Jarrett Referring Provider Last Name Matthew Referring Provider Speciality Surgery Referred Provider Claus Abdi Referred Provider Specialty Cardiology Referral Priority Routine Medications Medication SIG (Take, Route, Frequency, Duration) Notes Start Date End Date Status Pristiq 50 MG 1 tablet Orally Once a day Not-Taking ZyrTEC 10 MG 1 tablet Orally Once a day Not-Taking SUMAtriptan Succinate 100 MG 1 tablet as needed, may take second dose at least 2 hours after first dose up to 2 tablets per day as needed Orally Once a day Not-Taking LORazepam 0.5 MG 1 tablet at bedtime as needed Orally Once a day Not-Taking Ergocalciferol 1.25 MG (43401 UT) 1 capsule Orally every 7 days; Duration: 60 days 02/01/2025 04/02/2025 Active Cyanocobalamin 1000 MCG 1 tablet Orally Once a day; Duration: 60 days 02/01/2025 04/02/2025 Active Concerta 18 MG 1 tablet in the morning Orally Once a day Active QUEtiapine Fumarate 50 MG 1 tablet at be dtime Orally Once a day Active Dicyclomine HCl 10 MG 2 capsules Orally Three times a day prn Not-Taking [place]-3 Fish Oil 1000 MG 1 capsule Orall y Three times a day Active Cyclobenzaprine HCl 10 MG 1 tablet at be dtime as needed Orally Once a day Not-Taking Vitamin D3 1326224 UNIT/GM as directed Active Flonase Allergy Relief 50 MCG/ACT 1 spray in each nostril Nasally Twice a day Not-Taking traMADol HCl 50 MG 1 tablet as needed Orally Once a day Active Omeprazole 40 MG 1 capsule 1/2 to 1 hour before morning meal Orally Once a day; Duration: 30 day(s) 02/17/2025 Active Levothyroxine Sodium 25 MCG 1 tablet in the morning on an empty stomach Orally Once a day Active Social History Tobacco Use: Social History Observation Description Date Details (start date - stop date) Never Smoker NA - NA Tobacco Use/Smoking Question Answer Notes Tobacco use: nonsmoker Alcohol Screen (Audit-C) Question Answer Notes Did you have a drink contain ing alcohol in the past year? Yes How often did you have 6 or more drinks on one occasion in the past year? Never (0 point) How many drinks did you have on a typical day when you were drinking in the past year? 1 or 2 drinks (0 point) How often did you have a dri nk containing alcohol in the past year? Monthly or less (1 point) Problems Problem Type SNOMED Code ICD Code Onset Dates Problem Status W/U Status Risk Notes Problem Hypothyroidism (09478895) Hypothyroidism, unspecified (E03.9) Active confirmed Problem Vitamin deficiency (97704249) Deficiency of other vitamins (E56.8) Active confirmed Problem Anxiety disorder (258397456) Anxiety disorder, unspecified (F41.9) Active confirmed Problem Absent kidney (665796831) Acquired absence of kidney (Z90.5) Active confirmed Problem Vitamin D deficiency (44121447) Vitamin D deficiency (E55.9) Active confirmed Problem Vitamin deficiency (68698038) Vitamin deficiency (E56.9) Active confirmed Problem Gastric reflux (052146817) Gastric reflux (K21.9) Active confirmed Problem Type II diabetes mellitus without complication (924652305) Type 2 diabetes mellitus without complication, without long-term current use of insulin (E11.9) Active confirmed Problem Morbid obesity (686142490) Morbid obesity (E66.01) Active confirmed Problem Tendency to bleed (383355814) Tendency to bleed (D69.9) Active confirmed Problem Mixed hyperlipidemia (884311697) Hyperlipidemia, mixed (E78.2) Active confirmed Vital Signs Heart Rate 91 /min 03/25/2025 Height-cm 162.56 cm 03/25/2025 Blood pressure diastolic 86 mm Hg 03/25/2025 Weight-kg 114.31 kg 03/25/2025 Height 64 in 03/25/2025 Blood pressure systolic 133 mm Hg 03/25/2025 Weight 252 lbs 03/25/2025 BMI 43.25 kg/m2 03/25/2025 Encounters Encounter Location Date Provider Diagnosis [facility] [address] [facility] [address] [place] [address] 02/11/2025 Jarrett Matthew Morbid obesity E66.01 ; Gastric reflux K21.9 ; Anxiety disorder, unspecified F41.9 ; Deficiency of other vitamins E56.8 ; Counseling and coordination of care Z71.89 ; Vitamin deficiency E56.9 ; Acquired absence of kidney Z90.5 ; Hypothyroidism, unspecified E03.9 and Hyperlipidemia, mixed E78.[address] [facility] [address] [facility] [address] [place] [address] 02/28/2025 Jarrett Matthew Morbid obesity E66.01 ; S/P bariatric surgery Z98.84 ; Vitamin deficiency E56.9 ; Counseling and coordination of care Z71.89 ; Gastric reflux K21.9 ; Anxiety disorder, unspecified F41.9 ; Deficiency of other vitamins E56.8 ; Acquired absence of kidney Z90.5 ; Hypothyroidism, unspecified E03.9 and Hyperlipidemia, mixed E78.[address] [facility] [address] [facility] [address] [place] [address] 03/07/2025 Leena Desbiens Morbid obesity E66.01 ; S/P bariatric surgery Z98.84 ; Vitamin deficiency E56.9 ; Counseling and coordination of care Z71.89 ; Gastric reflux K21.9 ; Anxiety disorder, unspecified F41.9 ; Deficiency of other vitamins E56.8 ; Acquired absence of kidney Z90.5 ; Hypothyroidism, unspecified E03.9 and Hyperlipidemia, mixed E78.[address] [facility] [address] [facility] [address] [place] [address] 03/25/2025 Leena Desbiens S/P bariatric surgery Z98.84 ; Vitamin deficiency E56.9 ; Gastric reflux K21.9 ; Counseling and coordination of care Z71.89 ; Morbid obesity E66.01 ; Acquired absence of kidney Z90.5 ; Hypothyroidism, unspecified E03.9 and Hyperlipidemia, mixed E78.[address] [facility] [address] [facility] [address] [place] [address] 12/27/2024 Jarrett Sudhakaran Morbid obesity E66.01 ; Gastric reflux K21.9 ; Anxiety disorder, unspecified F41.9 ; Acquired absence of kidney Z90.5 ; Vitamin deficiency E56.9 ; Hypothyroidism, unspecified E03.9 ; Hyperlipidemia, mixed E78.2 and Counseling and coordination of care Z71.89 [facility] [address] [facility] [address] [place] [address] 01/27/2025 Leena Desbiens Morbid obesity E66.01 ; Gastric reflux K21.9 ; Anxiety disorder, unspecified F41.9 ; Vitamin deficiency E56.9 ; Counseling and coordination of care Z71.89 ; Acquired absence of kidney Z90.5 ; Hypothyroidism, unspecified E03.9 and Hyperlipidemia, mixed E78.2 [facility] [address] [facility] [address] [place] [address] 01/05/2025 Jarrett Sudhakaran Morbid obesity E66.[address] [facility] [address] [facility] [address] [place] [address] 01/31/2025 Jarrett Sudmichael B12 deficiency E53.8 and Vitamin D deficiency E55.9 [facility] [address] [place] [address] 02/08/2025 Jarrett Sudmichael [facility] [address] [place] [address] 02/17/2025 Jarrett Sudladonnaan [facility] [address] [place] [address] 02/24/2025 Jarrett Sudmichael [facility] [address] [place] [address] 03/21/2025 Jarrett Sudguillerminakartheo Assessments Encounter Date Diagnosis (ICD Code) Assessment Notes Treatment Notes Treatment Clinical Notes Section Notes 12/27/2024 Gastric reflux (ICD-10 - K21.9) Complains of reflux symptoms occasionally. Om omepraole PRRN We'll plan for an EGD to rule out H. pylori and any anatomic abnormality. 12/27/2024 Morbid obesity (ICD-10 - E66.01) Patient was recommended to optimize pre-op weight [...] gastric bypass. The use of a skilled pier master assistant will be required in the operating room due to the complexity of the case. Will plan to have physician pier master assistant or another highly trained surgeon monogram machine operator for this case. 01/05/2025 Morbid obesity (ICD-10 - E66.01) 01/27/2025 Morbid obesity (ICD-10 - E66.01) Weight change as in weight history. Total Weight lost since start of the program: -3 lbs. The patient had visited with the Dietitian since the last visit and are adjusting the diet. They started on an exercise program is helping with a weight loss plan. Continue on liquid protein diet replacement therapy. Based on the assessment of her obesity history and comorbid conditions, I recommend it is medically necessary for the patient to have bariatric surgery. Patient is pursuing sleeve gastrectomy. The use of a skilled pier master assistant will be required in the operating room due to the complexity of the case. Will plan to have physician pier master assistant or another highly trained surgeon monogram machine operator for this case. 01/31/2025 Vitamin D deficiency (ICD-10 - E55.9) 01/31/2025 B12 deficiency (ICD-10 - E53.8) 02/11/2025 Morbid obesity (ICD-10 - E66.01) Weight change as in weight history. Total Weight lost since start of the program: -3lbs Based on the assessment of her obesity history and comorbid conditions, I recommend it is medically necessary for the patient to have bariatric surgery. The use of a skilled pier master assistant will be required in the operating room due to the complexity of the case. Will plan to have physician pier master assistant or another highly trained surgeon monogram machine operator for this case. Weight change as in weight history. Total Weight lost since start of the program: -3 lbs. The patient had visited with the Dietitian since the last visit and are adjusting the diet. They started on an exercise program is helping with a weight loss plan. Continue on liquid protein diet replacement therapy. The use of a skilled pier master assistant will be required in the operating room due to the complexity of the case. Will plan to have physician pier master assistant or another highly trained surgeon monogram machine operator for this case. Patient was recommended to [...] bariatric surgery. Patient is pursuing sleeve gastrectomy. 02/28/2025 Morbid obesity (ICD-10 - E66.01) Change [...] gastric bypass. The use of a skilled pier master assistant will be required in the operating room due to the complexity of the case. Will plan to have physician pier master assistant or another highly trained surgeon monogram machine operator for this case. Weight change as in [...] achieved it. The use of a skilled pier master assistant will be required in the operating room due to the complexity of the case. Will plan to have physician pier master assistant or another highly trained surgeon monogram machine operator for this case. Patient was recommended to [...] gastric bypass. The use of a skilled pier master assistant will be required in the operating room due to the complexity of the case. Will plan to have physician pier master assistant or another highly trained surgeon monogram machine operator for this case. 03/07/2025 Morbid obesity (ICD-10 - E66.01) Change [...] on liquid protein diet replacement therapy. 03/25/2025 S/P bariatric surgery (ICD-10 - Z98.84) Surgery: s/p:Robotic sleeve gastrectomy . Date of surgery 02/22/25 . @ [facility] by Jarrett Castro Doing well postoperatively. Wounds healing well. Wounds healed well. No hernia palpable. Continue Actigall. Continue Prilosec for 6 months after surgery. Continue vitamins No lifting restriction . May use fibre supplementation like Bene fiber 1-2 teaspoon twice daily in the protein supplementation to prevent constipation. 03/25/2025 Vitamin deficiency (ICD-10 - E56.9) Will obtain routine post op labs before next visit 03/07/2025 S/P bariatric surgery (ICD-10 - Z98.84) s/p:Robotic sleeve gastrectomy . Date of surgery 02/22/25 . @ [facility] by Jarrett Castro Doing well postoperatively. Wounds [...] the protein supplementation to prevent constipation. 02/28/2025 S/P bariatric surgery (ICD-10 - Z98.84) s/p:. Date of surgery . @ [facility] , by Dr. Jarrett Castro Doing well [...] in the protein supplementation to prevent constipation. 02/11/2025 Gastric reflux (ICD-10 - K21.9) EGD done on 01/20/[address] Jarrett Castro reported no abnormalities, hiatal hernia. I will visualize the hiatal hernia inside the abdomen, and if it is significant enough to be repaired I will repair it, along with bariatric surgery. Pt complains of reflux symptoms occasionally. Complains of reflux symptoms occasionally. On Omeprazole PRN. 01/27/2025 Gastric reflux (ICD-10 - K21.9) EGD done on 01/20/25 by Jarrett Castro reported No abnormalities, Pathology H Pylori negative. 12/27/2024 Anxiety disorder, unspecified (ICD-10 - F41.9) Patient anxious about surgery and the course. Explained in detail the surgery. If on SSRI or anxiety medication, I will continue the same now and perioperatively. I will obtain a psychiatric evaluation for pre-operative clearance. 12/27/2024 Acquired absence of kidney (ICD-10 - Z90.5) H/o Right nephrectomy 2007. Kidney functions normal now. There is a left flank incision with no hernia. Patient had a Lap endometriosis and Cholecystectomy after this surgery, with minimal adhesions. So Laparoscopic Sleeve Gastrectomy is possible. 01/27/2025 Anxiety disorder, unspecified (ICD-10 - F41.9) Patient anxious about surgery and the course. Explained in detail the surgery. If on SSRI or anxiety medication, I will continue the same now and perioperatively. I will obtain a psychiatric evaluation for pre-operative clearance 02/11/2025 Anxiety disorder, unspecified (ICD-10 - F41.9) Patient [...] a psychiatric evaluation for pre-operative clearance. 02/28/2025 Vitamin deficiency (ICD-10 - E56.9) Obesity is associated with high incidence of vitamin deficiency. Will check blood for Vitamin D, Thiamin and B12 deficiency. Obesity is associated with high incidence of vitamin deficiency. Will check blood for Vitamin D, Thiamin and B12 deficiency. 03/07/2025 Vitamin deficiency (ICD-10 - E56.9) Starting patient on post op vitamin protocol Obesity is associated with high incidence of vitamin deficiency. Will check blood for Vitamin D, Thiamin and B12 deficiency. Obesity is associated with high incidence of vitamin deficiency. Will check blood for Vitamin D, Thiamin and B12 deficiency. 03/25/2025 Gastric reflux (ICD-10 - K21.9) No reflux symptoms since surgery 03/25/2025 Morbid obesity (ICD-10 - E66.01) Change [...] on liquid protein diet replacement therapy. 03/07/2025 Counseling and coordination of care (ICD-10 - Z71.89) Follow up with special agent fbi as scheduled I counseled the patient on [...] 10 minutes per day. Follow up with special agent fbi as scheduled Labs: None. Routine post op [...] Date and Place. Surgery: Date: Place: [facility] Patient should qualify for staying more than 2 midnights in hospital. Patient education, risk explained and consent : The patient meets the criteria as set by the [employer] [place] [employer] that recommends bariatric surgery on [...] and having very close follow-up with a special agent fbi and me. In addition they must continue [...] has attended pre operative education class by training program manager and the dietitian, but they will have additional education provided by the training program manager and special agent fbi at [facility]. Because of the significant changes in eating habits they will have to see a special agent fbi following surgery. I have informed them that [...] Xray. 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 Follow up with special agent fbi as scheduled 02/28/2025 Counseling and coordination of care (ICD-10 - Z71.89) Follow up with special agent fbi as scheduled Labs: None. Routine post op [...] Date and Place. Surgery: Date: Place: [facility] Patient should qualify for staying more than 2 midnights in hospital. Patient education, risk explained and consent : The patient meets the criteria as set by the [employer] [place] [employer] that recommends bariatric surgery on [...] and having very close follow-up with a special agent fbi and me. In addition they must continue [...] has attended pre operative education class by training program manager and the dietitian, but they will have additional education provided by the training program manager and special agent fbi at [facility]. Because of the significant changes in eating habits they will have to see a special agent fbi following surgery. I have informed them that [...] Xray. Dietitian consult for diet counseling EGD 02/11/2025 Deficiency of other vitamins (ICD-10 - E56.8) Labs completed to check for vitamin and mineral deficiencies. Replaced as necessary. 01/27/2025 Vitamin deficiency (ICD-10 - E56.9) Obesity is associated with high incidence of vitamin deficiency. Will check blood for Vitamin D, Thiamin and B12 deficiency 12/27/2024 Vitamin deficiency (ICD-10 - E56.9) Obesity is associated with high incidence of vitamin deficiency. Will check blood for Vitamin D, Thiamin and B12 deficiency. 01/27/2025 Counseling and coordination of care (ICD-10 - Z71.89) Counseled the patient about coordination of pre op testing and evaluations required. The following are testing or referrals that require follow up. Psychology/psychiat ry consult for pre-operative clearance. Blood work to evaluate for any vitamin and mineral deficiency. Cardiac consult for risk assessment and optimization before surgery 12/27/2024 Hypothyroidism, unspecified (ICD-10 - E03.9) Currently managed by primary care doctor. Will recheck TSH and will adjust medication as needed. 02/11/2025 Counseling and coordination of care (ICD-10 - Z71.89) Proposed Surgery, Date and Place. Surgery: Robotic Sleeve Gastrectomy Date: 02/22/2025 Place: [facility] Patient should qualify for staying more than 2 midnights in hospital. Patient education, risk explained and consent : The patient meets the criteria as set by the [employer] that recommends bariatric surgery on [...] and having very close follow-up with a special agent fbi and me. In addition they must continue [...] has attended pre operative education class by training program manager and the dietitian, but they will have additional education provided by the training program manager and special agent fbi at [facility]. Because of the significant changes in eating habits they will have to see a special agent fbi following surgery. I have informed them that [...] anatomic abnormality. Complains of reflux symptoms occasionally. [facility] We'll plan for an EGD to rule out H. pylori and any anatomic abnormality. 03/07/2025 Gastric reflux (ICD-10 - K21.9) EGD [...] anatomic abnormality. Complains of reflux symptoms occasionally. [facility] We'll plan for an EGD to rule out H. pylori and any anatomic abnormality. 03/25/2025 Acquired absence of kidney (ICD-10 - [...] and will adjust medication as needed. 03/07/2025 Anxiety disorder, unspecified (ICD-10 - F41.9) [...] a psychiatric evaluation for pre-operative clearance. 02/28/2025 Anxiety disorder, unspecified (ICD-10 - F41.9) [...] obtain a psychiatric evaluation for pre-operative clearance. 02/11/2025 Vitamin deficiency (ICD-10 - E56.9) Obesity is associated with high incidence of vitamin deficiency. Will check blood for Vitamin D, Thiamin and B12 deficiency. Obesity is associated with high incidence of vitamin deficiency. Will check blood for Vitamin D, Thiamin and B12 deficiency. 01/27/2025 Acquired absence of kidney (ICD-10 - Z90.5) H/o Right nephrectomy 2007. Kidney functions normal now. There is a left flank incision with no hernia. Patient had a Lap endometriosis and Cholecystectomy after this surgery, with minimal adhesions. So Laparoscopic Sleeve Gastrectomy is possible. 12/27/2024 Hyperlipidemia, mixed (ICD-10 - E78.2) Currently on no medication. Will check the Lipid panel. Patient was advised to decrease sugar and carbs in the diet and also fried food. Bariatric surgery will help improve the condition. 01/27/2025 Hypothyroidism, unspecified (ICD-10 - E03.9) Currently managed by primary care doctor. Will recheck TSH and will adjust medication as needed. 12/27/2024 Counseling and coordination of care (ICD-10 - Z71.89) Counseled the patient about coordination of pre op testing and evaluations required. The following are testing or referrals that require follow up. Psychology/psychiat ry consult for pre-operative clearance. Blood work to evaluate for any vitamin and mineral deficiency. EKG and Chest Xray. Dietitian consult for diet counseling EGD 02/11/2025 Acquired absence of kidney (ICD-10 - Z90.5) H/o Right nephrectomy 2007. Kidney functions normal now. There is a left flank incision with no hernia. Patient had a Lap endometriosis and Cholecystectomy after this surgery, with minimal adhesions. So Laparoscopic Sleeve Gastrectomy is possible. 03/07/2025 Deficiency of other vitamins (ICD-10 - E56.8) Labs completed to check for vitamin and mineral deficiencies. Replaced as necessary. 02/28/2025 Deficiency of other vitamins (ICD-10 - E56.8) Labs completed to check for vitamin and mineral deficiencies. Replaced as necessary. 03/25/2025 Hyperlipidemia, mixed (ICD-10 - E78.2) Currently on no medication. Will check the Lipid panel. Patient was advised to decrease sugar and carbs in the diet and also fried food. Bariatric surgery will help improve the condition. 03/07/2025 Acquired absence of kidney (ICD-10 - Z90.5) H/o Right nephrectomy 2007. Kidney functions normal now. There is a left flank incision with no hernia. Patient had a Lap endometriosis and Cholecystectomy after this surgery, with minimal adhesions. So Laparoscopic Sleeve Gastrectomy is possible. 02/11/2025 Hypothyroidism, unspecified (ICD-10 - E03.9) Currently managed by primary care doctor. Will recheck TSH and will adjust medication as needed. 02/28/2025 Acquired absence of kidney (ICD-10 - Z90.5) H/o Right nephrectomy 2007. Kidney functions normal now. There is a left flank incision with no hernia. Patient had a Lap endometriosis and Cholecystectomy after this surgery, with minimal adhesions. So Laparoscopic Sleeve Gastrectomy is possible. 01/27/2025 Hyperlipidemia, mixed (ICD-10 - E78.2) Currently on no medication. Will check the Lipid panel. Patient was advised to decrease sugar and carbs in the diet and also fried food. Bariatric surgery will help improve the condition. 02/11/2025 Hyperlipidemia, mixed (ICD-10 - E78.2) Currently on no medication. Will check the Lipid panel. Patient was advised to decrease sugar and carbs in the diet and also fried food. Bariatric surgery will help improve the condition. 02/28/2025 Hypothyroidism, unspecified (ICD-10 - E03.9) Currently managed by primary care doctor. Will recheck TSH and will adjust medication as needed. 03/07/2025 Hypothyroidism, unspecified (ICD-10 - E03.9) Currently managed by primary care doctor. Will recheck TSH and will adjust medication as needed. 02/28/2025 Hyperlipidemia, mixed (ICD-10 - E78.2) Currently on no medication. Will check the Lipid panel. Patient was advised to decrease sugar and carbs in the diet and also fried food. Bariatric surgery will help improve the condition. 03/07/2025 Hyperlipidemia, mixed (ICD-10 - E78.2) Currently on no medication. Will check the Lipid panel. Patient was advised to decrease sugar and carbs in the diet and also fried food. Bariatric surgery will help improve the condition. 02/11/2025 Other The patient meets the criteria as set by the [employer] that recommends bariatric surgery on [...] and having very close follow-up with a special agent fbi and me. In addition they must attend [...] will have additional education provided by the training program manager and special agent fbi at [facility]. Because of the significant changes in eating habits they will have to see a special agent fbi prior to and following surgery. I have [...] as improve or resolve comorbid medical conditions. 02/28/2025 Other The patient meets the criteria as set by the [employer] that recommends bariatric surgery on [...] and having very close follow-up with a special agent fbi and me. In addition they must attend [...] will have additional education provided by the training program manager and special agent fbi at [facility]. Because of the significant changes in eating habits they will have to see a special agent fbi prior to and following surgery. I have [...] as improve or resolve comorbid medical conditions. 03/07/2025 Other The patient meets the criteria as set by the [employer] that recommends bariatric surgery on [...] and having very close follow-up with a special agent fbi and me. In addition they must attend [...] will have additional education provided by the training program manager and special agent fbi at [facility]. Because of the significant changes in eating habits they will have to see a special agent fbi prior to and following surgery. I have [...] as improve or resolve comorbid medical conditions. 03/25/2025 Other 12/27/2024 Other The patient meets the criteria as set by the [employer] that recommends bariatric surgery on [...] and having very close follow-up with a special agent fbi and me. In addition they must attend [...] will have additional education provided by the training program manager and special agent fbi at [facility]. Because of the significant changes in eating habits they will have to see a special agent fbi prior to and following surgery. I have [...] as improve or resolve comorbid medical conditions. 01/27/2025 Other Plan Of Treatment Pending Test Test Name Order Date Electrocardiogram (ECG) 12/27/2024 Chest X-ray PA and lateral 12/27/2024 VITAMIN B12 (927) 01/31/2025 VITAMIN D,25-OH,TOTAL,IA (32263) 025 Next Appt Details Provider Name:Leena Jack , 05/23/2025 10:00:00 AM, [address], [place], [address], Provider Name:Leena Jack , 08/22/2025 10:30:00 AM, [address], [place], [address], Provider Name:Jarrett venegas, 02/24/2026 10:30:00 AM, [address] [facility] [address], [place], [address], Insurance Providers Payer Name Payer Address Payer Phone Subscriber Number Group Number Insured Name Patient Relationship to Insured Coverage Start Date Coverage End Date [facility] [address] [place] [address] [id number] Jyoti May Self - patient is the insured 4 Medical (General) History Medical History History ICD Code Please check off any of the following medical conditions you currently have or have had in the past:: Anxiety,Arthritis,Allergies,Depression,Fatty Liver,Fibromyalgia,GERD,Gallstones,Heartburn (acid reflux),Hemorrhoids,high cholesterol,Hypothyroidism,Kidney Stones / Disease,Snoring Do you have any other diseas e, condition or problem not listed above that you feel we should know about? If so, Please explain:: Migraines Surgical History Surgery Date(Month/Year) Right nephrectomy, gallbladd er removal, laparoscopic endometriosis exploratory procedure, uterine ablation, tonsillectomy, adenoidectomy gastric sleeve 02/22/25
--- OUTSIDE RECORDS SUMMARY | 2025-04-02 17:05 | XMS_ITS ---
Author Organization [facility] Office Address [address] [place] [address] Care Team Providers Care Plug Wirer Name Role Phone Angeline Green Primary Care Provider Unavailab neda Jarrett Castro Unavailable [phone] Leena Santiago Unavailable [phone] Allergies Allergen (clinical drug ingredient) Drug/Non Drug [...] Date End Date Status Cyanocobalamin 1000 MCG 1 tablet Orally Once a day; Duration: 60 days 02/01/2025 04/02/2025 Active Concerta 18 MG 1 tablet in the morning Orally Once a day Active QUEtiapine Fumarate 50 MG 1 tablet at be dtime Orally Once a day Active Wayne-3 Fish Oil 1000 MG 1 capsule Orall y Three times a day Active Vitamin D3 8135363 UNIT/GM as directed Active Cyclobenzaprine HCl 10 MG 1 tablet at be dtime as needed Orally Once a day Not-Taking Flonase Allergy Relief 50 MCG/ACT 1 spray [...] Once a day Active Pristiq 50 MG 1 tablet Orally Once [...] a day Not-Taking Dicyclomine HCl 10 MG 2 capsules Orally Three times a day prn Not-Taking Ergocalciferol 1.25 MG (39420 UT) 1 capsule Orally every 7 days; Duration: 60 days 02/01/2025 04/02/2025 Active Social History Tobacco Use: Social History Observation Description Date Details (start date - stop date) Never Smoker NA - NA Tobacco Use/Smoking Question Answer Notes Tobacco use: nonsmoker Vital Signs Blood pressure systolic 133 mm Hg 03/25/20 25 Blood pressure diastolic 86 mm Hg 025 Heart Rate 91 /min 03/25/2025 Height 64 in 03/25/2025 Weight 252 lbs 03/25/2025 BMI 43.25 kg/m2 03/25/2025 Height-cm 162.56 cm 03/25/2025 Weight-kg 114.31 kg 03/25/2025 Encounters Encounter Location Date Provider Diagnosis [facility] [id number] [place] [address] [address] [place] [address] 03/25/2025 Leena Santiago S/P bariatric surger y [...] . Date of surgery 02/22/25 . @ [facility] by Jarrett Castro Doing well postoperatively. 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 Follow up with nutrition faculty member as scheduled 03/25/2025 Morbid obesity (ICD-10 - [...] Bariatric surgery will help improve the condition. 03/25/2025 Other Plan Of Treatment Treatment Notes Assessment Notes S/P bariatric surgery Surgery: s/p:Robotic sleeve gastrectomy . Date of surgery 02/22/25 . @ [facility] by Jarrett Castro Doing well postoperatively. 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 Follow up with nutrition faculty member as scheduled Morbid obesity Change in weight [...] 3 month post op visit Provider Name:Leena Santiago , 05/23/2025 10:00:00 AM, [address], [place], [address], Provider Name:Leena Sanitago , 08/22/2025 10:30:00 AM, [address], [place], [address], Provider Name:Jarrett Rayo venegas, 02/24/2026 10:30:00 AM, [address], [place], [address], Progress Notes * Tyson MAYOB:1990 ( 35 yo F)Acc No.[id number]:03/25/2025 Patient: Belinda JAFFEVladislavDcJyoti Provider: Julienne Santiago PA-C :1990 A ge:35 Y S ex:Female Date:03/25/2025 Address:[address] [place], [place] [id number] Pcp:Angeline Green Check Out:12:22 PM 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 1 month PO VSG f/u. 2. [place] Post op 1 month. * HPI: P ost Op: Post op 1 month s /p Robotic Sleeve Gastrectomy 02/22/2025. S upport Groups P t is attending online. P rotein 6 0-75 grams per day. F luids 4 5 oz per day. E xercise D oing light exercises per day (eg. 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 Vitamins P atient is taking post op vitamins per protocol.. P ost op Course P atient is [...] sychiatric: - N egative. * Medical History: P lease check off any of the following medical conditions you currently have or have had in the past:: Anxiety,Arthritis,Allergies,Depression,Fatty Liver,Fibromyalgia,GERD,Gallstones,Heartburn (acid reflux),Hemorrhoids,high cholesterol,Hypothyroidism,Kidney Stones / Disease,Snoring, Do you have any other disease, condition or problem not listed above that you feel we should know about? If so, Please explain:: Migraines. * Medications: T aking Levothyroxine Sodium 25 MCG Tablet 1 tablet in the morning on an empty stomach Orally Once a day , Taking Omeprazole 40 MG Capsule Delayed Release 1 capsule 1/2 to 1 hour before morning meal Orally Once a day , Taking traMADol HCl 50 MG Tablet 1 tablet as needed Orally Once a day , Taking Vitamin D3 4070751 UNIT/GM Liquid as directed , Taking Wayne-3 Fish Oil 1000 MG Capsule 1 capsule Orally Three times a day , Taking QUEtiapine Fumarate 50 MG Tablet 1 tablet at bedtime Orally Once a day , Taking Concerta 18 MG Tablet Extended Release 1 tablet in the morning Orally Once a day , Taking Cyanocobalamin 1000 MCG Tablet 1 tablet Orally Once a day , stop date 04/02/2025, Taking Ergocalciferol 1.25 MG (94004 UT) Capsule 1 capsule Orally every 7 days , stop date 04/02/2025, Not-Taking LORazepam 0.5 MG Tablet 1 tablet at bedtime as needed Orally Once a day , Not-Taking SUMAtriptan Succinate 100 MG Tablet 1 tablet as needed, may take second dose at least 2 hours after first dose up to 2 tablets per day as needed Orally Once a day , Not-Taking ZyrTEC 10 MG Tablet Chewable 1 tablet Orally Once a day , Not-Taking Pristiq 50 MG Tablet Extended Release 24 Hour 1 tablet Orally Once a day , Not-Taking Dicyclomine HCl 10 MG Capsule 2 capsules Orally Three times a day prn , Not-Taking Flonase Allergy Relief 50 MCG/ACT Suspension 1 spray in each nostril Nasally Twice a day , Not-Taking Cyclobenzaprine HCl 10 MG Tablet 1 tablet at bedtime as needed Orally Once a day , Medication List reviewed and reconciled with the patient * Allergies: D oxycycline: hives - Criticality High, NSAIDs - Criticality High, Valium - Criticality High. Objective: * Vitals: B P:133/86mm Hg, HR:91/min, [...] . Date of surgery 02/22/25 . @ [facility] by Jarrett Castro Doing well postoperatively. Wounds [...] Notes: No reflux symptoms since surgery 5. 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 Follow up with nutrition faculty member as scheduled 6. A cquired absence of [...] Bariatric surgery will help improve the condition. ? 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
--- OUTSIDE RECORDS SUMMARY | 2025-04-02 17:05 | XMS_ITS | Clinical Summary ---
Author Organization [facility] Address [address] [place] [address] Care Team Providers Care Carpet Layer Name Role Phone Addison Berumen MD Unavailable [phone] Angeline Green NP Primary Care Provider [phone] Allergies Active Allergy Reactions Criticality Noted Date Comments Adhesive Unknown,Redness High 09/16/2019 Diazepam Headache Low 12/07/2020 Doxycycline Hives Medium 08/31/2020 Nsaids (Non-Steroidal Anti-Inflammatory Drug) Other (See comments) Low Can damage her kidney. Medications cyclobenzaprin e (FLEXERIL) 10 mg tablet Take 1 tablet (10 mg total) by mouth 2 (two) times a day as needed for muscle spasms 30 tablet 1 12/01/19 22 Active SUMAtriptan (IMITREX) 5 mg/actuation nasal sprayIndicatio ns:Migraine Administer 1 spray (5 mg total) into one nostril every 2 (two) hours as needed for migraine 6 each 1 11/19/19 23 Active traMADoL (ULTRAM) 50 mg tabletIndicati ons:Chronic pain syndrome Take 1 tablet (50 mg total) by mouth every 8 (eight) hours as needed for pain 60 tablet 11/22/19 23 Active dicyclomine (BENTYL) 10 mg capsule TAKE 1 CAPSULE (10 MG TOTAL) BY MOUTH 3 TIMES A DAY NEEDED FOR ABDOMINAL CRAMPING 90 capsule 06/03/20 23 Active UNABLE TO FIND Place 4 each under the tongue daily Med Name: Vitamin D sublingual spray - 4 sprays a day, 20,000 IU Active omega-3 fatty acids/fish oil (OMEGA 3 FISH OIL ORAL) Take 2 capsules by mouth daily Active MAGNESIUM L-THREONATE ORAL Take 2 tablets by mouth daily Active SUMAtriptan (IMITREX) 25 mg tabletIndicati ons:Migraine Take 1 tablet (25 mg total) by mouth once as needed for migraine May repeat dose once in 2 hours if no relief. Do not exceed 2 doses in 24 hours. 9 tablet 07/18/20 23 Active omeprazole (PriLOSEC) 20 mg capsuleIndicat ions:Gastroeso phageal reflux disease without esophagitis Take 2 capsules (40 mg total) by mouth 2 (two) times a day . Refills after this to come from her monologist 360 capsule 08/28/20 Active hydrOXYzine (VISTARIL) 25 mg capsule TAKE 1 CAPSULE BY MOUTH THREE TIMES A DAY NEEDED 09/03/20 Active atorvastatin (LIPITOR) 10 mg tablet TAKE 1 TABLET BY MOUTH EVERY DAY FOR 30 DAYS 08/27/20 23 Active levothyroxine (SYNTHROID) 25 mcg tablet TAKE 1 TABLET BY MOUTH EVERY DAY IN THE MORNING ON EMPTY STOMACH FOR 30 DAYS 08/27/20 23 Active simethicone (GAS-X) 125 mg capsule Take one pill up to 4 times daily as needed for problematic cramping, bloating, gas, or nausea issues. 120 capsule 3 09/19/20 23 Active senna-docusate (PERICOLACE) 8.6-50 mg Take 1-2 pills daily as needed for constipation issues. 60 tablet 3 09/19/20 23 Active LORazepam (ATIVAN) 0.5 mg tablet TAKE 1 TABLET BY MOUTH EVERY DAY AT BEDTIME NEEDED FOR 30 DAYS 11/06/19 24 Active phentermine 15 mg capsule TAKE 1 CAPSULE BY MOUTH EVERY DAY FOR 30 DAYS Active topiramate (TOPAMAX) 25 mg tablet Take 1 tablet (25 mg total) by mouth daily Act cammie Active Problems Problem Noted Date Diagnosed Date Hepatic steatosis 09/19/2023 History of cholecystectomy 09/19/2023 Chronic gastritis without bleeding 09/19/2023 Family history of cirrhosis of liver 09/19/2023 Slow transit constipation 09/19/2023 Gastroesophageal reflux disease 09/19/2023 Irritable bowel syndrome with constipation and d iarrhea 09/19/2023 Fatty liver 09/19/2023 S/P laparoscopic cholecystectomy 09/19/2023 FH: liver disease 09/19/2023 FH: colonic polyps 09/19/2023 Migraine without aura and wi thout status migrainosus, not intractable 07/18/2023 Assessment & Plan (07/18/2023 3:24 PM CDT): Patient gets a few times a month. Has Imitrex nasal as well as oral. Needs a refill on the oral. Patient rarely does take NSAIDs when Tylenol insufficient. Chronic pain in female pelvis 07/18/2023 Assessment & Plan (07/18/2023 3:25 PM CDT): Ultimately this would be deferred to Gynecology. She has had evaluation by Urology in the past and reports it was actually negative for interstitial cystitis. Has previously done pelvic floor physical therapy. Patient is wondering if this may be a degree of fibromyalgia and requests a referral to specialist for further evaluation. 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 She feels her mood is better since seeing a senior product development scientist. She did not like her psychiatrist so stops seeing them as she was unhappy with their recommendations to start medications other than the Seroquel. Patient did feel like Seroquel helped but reports Psychiatry did not want her to stay on it long-term by itself. Patient is able to contract for safety. I did give her the contact information for some alternative psychiatrist that she may try Assessment & Plan (05/08/2023 9:55 AM CDT): Continuing current regimen BP looks fine Discussed Ativan, ADHD meds. As Dr. Berumen is planning ADHD testing we likely should wait until the results. Let me know on the timing As long as THC remains abstained-from, we would have a freer hand to do therapies other than Strattera Awaiting labs ADD (attention deficit disorder) 12/07/2020 Overview (08/29/2023): Needs to see Psychiatry for management given comorbid anxiety and depression as well as history of marijuana use. Assessment & Plan (07/18/2023 3:35 PM CDT): Appears to been given the diagnosis in 2020 by her PCP at time that she was doing with comorbid anxiety. Unclear if this was ever truly ADHD or was related to anxiety depression. She was seeing Psychiatry but stopped seeing them as they would not prescribe her stimulant medications while using marijuana and they wanted her to start an alternative medication addition to the Seroquel for her comorbid anxiety and depression. Discussed with patient that treatment of potential ADHD in his setting of comorbid anxiety and depression would have to be deferred to Psychiatry. Assessment & Plan (06/12/2021 1:29 PM CDT): Increase concerta to 36 mg Assessment & Plan (12/07/2020 1:09 PM ALARM SECURITY OR SURVEILLANCE MONITOR): concerta 18 IBS (irritable bowel syndrome) 06/14/2020 Overview (07/18/2023): Reports diarrhea greater than constipation. Followed by GI remotely but needs new GI Assessment & Plan (07/18/2023 3:23 PM CDT): Struggles with diarrhea more so than constipation. Chronic condition. Flares when her mental health is not doing as well was under more stress. Patient needs a new GI doctor to follow with an request an updated referral given her previous GI physician has left. Referral provided Assessment & Plan (07/13/2020 3:23 PM CDT): Cont bentyl Assessment & Plan (06/14/2020 3:02 PM CDT): Cont benadryl Chronic pain syndrome 06/14/2020 Assessment & Plan (07/18/2023 3:26 PM CDT): We will refer to Rheumatology for their opinion. Ideally should not be on narcotics long-term. We will agree to sparing use of tramadol but if needing regularly then she will have to see pain management for this. Discussed with patient that use of narcotics for fibromyalgia most chronic pain syndromes is not recommended and if needed regularly needs to come from pain management physician. Discussed the use of narcotics and illicit substances like marijuana the same time is recommended against Assessment & Plan (07/13/2020 3:23 PM CDT): Cont elavil Assessment & Plan (06/14/2020 3:03 PM CDT): Add elavil 10 mg at hs Bulging lumbar disc 01/22/2018 MELANY (generalized anxiety disorder) 09/08/2017 Overview (08/29/2023): Patient needs to see psych if struggles with her mood for long-term management. Currently off medications and refusing to see psych as feels her mood is okay with use of occasional marijuana Patient had a gene site done by Psychiatry, Dr. Berumen. Antidepressants: Appears that she will respond better to Pristiq, Viibryd, Fetzima. Moderate interaction for trazodone, celexa, Lexapro, Prozac, Effexor, Wellbutrin. Recommended against use of Zoloft, amitriptyline, duloxetine, Luvox, nortriptyline, Paxil, Trintellix, imipramine, doxepin, desipramine, clomipramine, mirtazapine, selegiline Anxiolytics: Use as directed alprazolam, buspirone, clonazepam, Lunesta, day vertigo, Belsomra, Restoril and Ambien. Moderate interaction for Librium, Ativan, Serax, tranxene. Avoid diazepam and propranolol Preferred antipsychotics Saphris, Vraylar, kept light up, Latuda, Invega, Geodon, Navane Preferred mood stabilizers Tegretol, Lamictal, Trileptal and Depakote. Okay to use dexmethylphenidate, methylphenidate, guanfacine Assessment & Plan (07/18/2023 3:27 PM CDT): Patient had been followed by Psychiatry but stopped seeing them as she did not like the medical recommendations. Patient felt Seroquel was very effective for her mood. She is now seeing a senior product development scientist and notes mood is doing much better. She defers need for medication currently. She is aware that if mood struggles significantly then she will have to get back in with Psychiatry. I did provide her with contact information for an alternative Psychiatry group in the area that she may try. Assessment & Plan (10/23/2021 5:27 PM ALARM SECURITY OR SURVEILLANCE MONITOR): Add buspar Morbid obesity with BMI of 45.0-49.9, adult ([facility]) 09/08/2017 Assessment & Plan (07/18/2023 3:30 PM CDT): Chronic. Poorly controlled. Patient currently does not get much exercise other than walking to her classes. Given patient is not currently doing aggressive diet and exercise program she would not be a good candidate for use of weight loss drugs. Given patient's underlying mental health issues I would not be comfortable prescribing phentermine given there is increased risk for dependence. Using a medication that contains topiramate would be recommended against until mental status is been shown to be more stable given risk for aggravating underlying issues. She has some genetic markers as suggest bupropion would be an infected drug so this makes something like Contrave unlikely to be beneficial. She could be considered potentially for use of something like Wegovy if following aggressive diet and exercise program but if not working on the other half of the weight loss spectrum then I would be hesitant to use this given there is extremely high-risk recurrent weight gain with stopping it even if continue with diet and lifestyle. Additionally given patient's chronic gastric symptoms of indigestion and diarrhea she may not be able to tolerate the gastric side effects associated with the GLP 1 agonist. She was counseled at length to instead work on diet and behavioral modifications to help her with her weight loss Assessment & Plan (11/19/2022 8:53 PM ALARM SECURITY OR SURVEILLANCE MONITOR): BMI Follow-up includes: nutrition counseling, exercise counseling and education provided. Assessment & Plan (07/16/2022 3:09 PM CDT): Working on diet and exercise. Start Adipex-P for 3 months. Side effects discussed. Gastroesophageal reflux disease without esophagi tis 09/08/2017 Assessment & Plan (07/18/2023 3:24 PM CDT): Patient reports chronic acid indigestion/reflux with a history of severely high acid levels. Has had esophagitis in the past. Was followed by GI and was apparently recommended to stay on b.i.d. PPI long-term. No history of H pylori or ulcers. Patient is requesting a temporary refill on her PPI until can establish with new GI doctor. We did discuss risks with chronic use of PPIs including risk for low vitamin-D, B12 as well as magnesium. Patient reports she was previously intolerant to famotidine Assessment & Plan (10/23/2021 5:28 PM ALARM SECURITY OR SURVEILLANCE MONITOR): Start tagamet Assessment & Plan (01/04/2021 2:19 PM CDT): Currently on PPI, but concerned about bottle selector effects with her kidney - will f/u with nephrology for medication recommendation S/p nephrectomy 04/06/2013 Overview (09/18/2020): Right kidney removed Baseline 24hr urine 12/28/12 with less than measurable amount of protein Assessment & Plan (07/18/2023 3:35 PM CDT): Patient was advised that she should avoid use of NSAIDs given risk for damaging her 1 remaining kidney. She use extra-strength Tylenol for pain. We will agree to give her very rare use of tramadol. However this becomes a daily use then it will need to be stopped or she will have to see pain management long-term for management. Resolved Problems Problem Noted Date Diagnosed Date Resolved Date Encounter for medical examin priscila to establish care 11/19/2022 07/18/2023 Acute non-recurrent maxillary sinusitis 12/31/2021 07/18/2023 Assessment & Plan (12/31/2021 3:33 PM CDT): [facility] discharge follow-up 12/21/2021 07/18/2023 Assessment & Plan (11/19/2022 8:55 PM ALARM SECURITY OR SURVEILLANCE MONITOR): A(n) initial well visit to establish care has been performed today. Jyoti May is not up to date on screening tests. She is in need of Cervical cancer screening- . She is up to date on needed preventative vaccinations. We discussed healthy lifestyle habits, educational material has been given. Medications reviewed, changes documented as per the medical record and discussed with patient along with risks vs benefits. Considering podiatry Strattera trial, but I want to have the CAARS filled out before starting the med Labs as ordered Assessment & Plan (12/21/2021 10:59 AM CDT): Depression meds adjusted while in the hospital meds reviewed and reconciled Stopped her buspar and sertraline 3 day sago Still going to therapy Upper respiratory infection 08/06/2021 10/23/2021 Assessment & Plan (08/06/2021 2:41 PM ALARM SECURITY OR SURVEILLANCE MONITOR): pablo [facility]ana covid test Flank pain 03/15/2021 07/18/2023 Dysuria 03/15/2021 07/18/2023 Assessment & Plan (03/15/2021 11:54 AM CDT): -Continues to have dysuria. Could possibly be from residual inflammation from infection. -She tried Azo and reports it did not help. PLAN: -Given her history of diagnosis of IC, will have her follow IC diet until symptoms resolve. -She will be scheduled for cystoscopy due to gross hematuria. -Will follow up a few weeks after cysto to re-evaluate. Gross hematuria 03/15/2021 07/18/2023 Assessment & Plan (03/15/2021 11:54 AM CDT): -Patient concerned about amount of gross hematuria and given her history of R nephrectomy would like to ensure nothing more serious is going on. -She had CT done 03/07/21 and 09/2020. PLAN: -Will schedule cystoscopy for further evaluation UTI (urinary tract infection) 03/08/2021 10/23/2021 Assessment & Plan (03/08/2021 5:01 PM CDT): Change to cipro Depression 12/07/2020 07/18/2023 Assessment & Plan (09/05/2021 3:39 PM ALARM SECURITY OR SURVEILLANCE MONITOR): Add zoloft 25 mg Update 3 weeks Call if worsening Assessment & Plan (12/07/2020 1:07 PM ALARM SECURITY OR SURVEILLANCE MONITOR): lexapro Cough 07/13/2020 07/18/2023 Assessment & Plan (07/13/2020 3:28 PM CDT): singulair Atypical mole 07/13/2020 07/18/2023 Assessment & Plan (07/13/2020 3:31 PM CDT): Has been followed by derm Refer to derm Annual physical exam 06/14/2020 023 Assessment & Plan (06/12/2021 1:30 PM CDT): cb c Chem 7 Lipid lft tsh Free t4 Assessment & Plan (06/14/2020 2:55 PM CDT): Cont rx Hx of unilateral nephrectomy 09/08/2017 07/18/2023 Assessment & Plan (03/15/2021 11:37 AM CDT): -Performed around age 17 due to lowered kidney function and damaged ureter 2/2 stone. Cholecystitis 04/06/2013 07/18/2023 GBS (group B streptococcus) UTI complicating 04/06/2013 07/18/2023 Kidney stones 09/29/2007 07/18/2023 Assessment & Plan (03/15/2021 11:46 AM CDT): -History of multiple kidney stones around age 17 and was her first episode and had surgically treated. -Has had intermittent left flank pain. -CT done 03/07 showed no stones. She had CT 09/2020 and 01/2019 which did not note stones. PLAN: -Based on past imaging, it is unlikely that stone is cause of her pain. If she did pass stone that was not caught on imaging, it was likely small and passed on her own. CT doesn't note any further stones in kidney. -She was instructed to continue to hydrate well. Interstitial cystitis 09/29/20072022 Assessment & Plan (07/18/2023 3:31 PM CDT): Patient actually denies having this diagnosis. Reports she was seen by Urology remotely for this and they felt it was not interstitial cystitis Assessment & Plan (10/23/2021 5:27 PM ALARM SECURITY OR SURVEILLANCE MONITOR): Refer to PT for pelvic floor PT Assessment & Plan (03/15/2021 11:57 AM CDT): -Diagnosed many years ago by outside provider due to UTI symptoms and only 3 of 13 cultures positive. -She was previously on Elmiron; however, this was causing hair loss and stopped this. She has not had symptoms until last week. PLAN: -Handout on IC given to patient. Instructed to closely follow IC diet. Immunizations Immunization Administration Dates Next Due Influenza, Quadrivalent, Kasia l Culture-based MDCK, Preservative Free, Antibiotic Free, Intramuscular 07/08/2022,07/06/2021 Influenza, Trivalent, Cell Culture-based MDCK, Preservative Free, Antibiotic Free, Intramuscular 07/08/2022 Influenza, Unspecified 06/29/2021(Deferr ed: Patient Refused),06/29/2020(Deferred: Patient Refused) Pfizer SARS-CoV-2 Monovalent Vaccination (12+ Yrs) PURPLE 10/05/2021,09/14/2021 Pfizer Sars-Cov-2 Bivalent V accination (12+ YRS) 07/08/2022 Tdap 07/07/2015 Surgical History Surgery Date Site/Laterality Comments ABLATION 09/29/2018 - 09/28/2019 CHOLECYSTECTOMY 07/30/2013 - 08/28/2013 NEPHRECTOMY 07/30/2008 - 08/28/2008 Right TONSILLECTOMY 09/29/2001 - 09/28/2002 TOE SURGERY 09/29/1994 - 09/28/1995 ingrown toenails ADENOIDECTOMY 09/29/1992 - 09/28/1993 UPPER GASTROINTESTINAL ENDOSCOPY 03/29/2020 - 04/28/2020 COLONOSCOPY 09/29/2019 - 09/28/2020 DIAGNOSTIC LAPAROSCOPY 07/02/2023 Left paratubal cystectomy for left paratubal/ovarian cyst done at [facility] by Dr. Bhatt LAPAROSCOPIC ENDOMETRIOSIS FULGURATION 07/04/2023 Medical History Medical History Date Comments Kidney stones 2007 GERD (gastroesophageal reflux disease) 2008 IBS (irritable bowel syndrome) ADHD (attention deficit hyperactivity disorder) Depression GBS (group B streptococcus) UTI complicating pre gnancy 04/06/2013 Family History Medical History Relation Name Comments Cancer Father Heart disease Father Hodgkin's lymphoma Father exposure to Agent Riggins Leukemia Father Pancreatitis Father Colon polyps Mother Diabetes Mother Fibromyalgia Mother Anxiety disorder Other Depression Other Migraines Other Sudden Cardiac Paternal Grandmother Family history of sudden cardiac (SCD) - (Added by TW Conv) Diabetes Sister 1 Fibromyalgia Sister 1 Fibromyalgia Sister 2 Fibromyalgia Sister 3 Fibromyalgia Sister 4 Fibromyalgia Sister 5 Hypertension Sister 5 Relation Name Status Comments Brother Alive Daughter Alive Father Mother Alive Other Paternal Grandmother Sister 1 Alive Sister 2 Alive Sister 3 Alive Sister 4 Alive Sister 5 Alive Son 1 Alive Son 2 Alive Social History Tobacco Use Types Packs/Day Years Used Date Smoking Tobacco: Never Smokeless Tobacco: Never Tobacco Cessation:Counseling Given: Not Answered Alcohol Use Standard Drinks/Week Comments Never 0 (1 standard drink = 0.6 oz pur e alcohol) AUDIT-C Answer Date Recorded Q1: How often do you have a drink containing alc ohol? Never 09/19/2023 Average Number of Drinks Not on file 023 Frequency of Binge Drinking Not on file 08/30 PHQ-2 Answer Date Recorded PHQ-2 Total Score (If total score is 3 or more points, staff should administer the PHQ-9) 1 07/18/2023 Personal Safety Answer Date Recorded Have you ever been in or are you currently in a harmful physical or emotional relationship or is someone making you feel afraid or unsafe? 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 Not on file Not on file Not on file Obstetrics History Para Term AB IAB SAB Ectopic Multiple Livin g Live Births 1 Date Outcome GA Total Labor Labor/2nd/3rd Weight Sex Type Anes PTL Serina A1 A5 Name Clin Last Filed Vital Signs Vital Sign Reading Time Taken Comments Blood Pressure 148/78 12/15/2023 6:10 PM CDT Pulse 113 12/15/2023 6:10 PM CDT Temperature 36.8 C (98.3 F) 08/22/2023 8:17 AM ALARM SECURITY OR SURVEILLANCE MONITOR Respiratory Rate 14 12/15/2023 6:10 PM CDT Oxygen Saturation 98% 12/15/2023 6:10 PM CDT Inhaled Oxygen Concentration - - Weight 127 kg (280 lb) 12/15/2023 6:10 PM CDT Height 162.6 cm (5' 4) 12/15/2023 6:10 PM CDT Body Mass Index 48.06 12/15/2023 6:10 PM CDT Plan of Treatment Health Maintenance Due Date Last Done Comments Hepatitis C Screening 1989 Varicella Vaccines (1 of 2 - 13+ 2-dose series) 2002 Hepatitis B Screening 2007 Pneumococcal vaccine <65 (1 of 2 - PCV) 01/11/2008 Cervical Cancer Screening 12/01/2021 12/01/2020 Regular Well Visit/Exam 18-64 11/19/2023 11/19/2022, 07/16/2022, 06/12/2021, Additional history exists Covid-19 Vaccine ( season) 2024 07/08/2022, 10/05/2021, 09/14/2021 Depression Screening 07/18/2024 07/18/2023, 07/18/2023, 05/05/2023, Additional history exists Influenza Vaccine (#1) 2025 2, 07/08/2022, 07/06/2021 DTaP/Tdap/Td Vaccine (2 - Td or Tdap) 07/07/2025 07/07/2015 HPV Vaccines Aged Out No longer eligi ble based on patient's age to complete this topic Procedures Procedure Name Priority Date/Time Associated Diagnosis Comments HM PAP SMEAR WITH HPV Routine 12/01/2020 from Last 3 Months or Most Recently Relevant to Health Maintenance Results * HM PAP SMEAR WITH HPV (12/01/2020) Historical Provider HEALTH MAINTENANCE Final Result from Last 3 Months or Most Recently Relevant to Health Maintenance Insurance [facility] Care Teams Carpet Layer Relationship Specialty Start Date End Date Angeline Green NP [address] [place] [address] PCP - General Family Medicine 09/19/23 Addison Berumen MD [address] [place] [address] Referring Physician Psychiatry 05/05/23
--- OUTSIDE RECORDS SUMMARY | 2025-04-02 17:05 | XMS_ITS | Encounter Summary ---
Author Organization [facility] Facility Care Team Providers Care Solutions Operator Name Role Phone Simon Vance DO Primary Care Provider + Juan Sánchez DO Primary Care Provider + Armaan Chaudhary MD Primary Care Provider [phone] Addison Berumen MD Unavailable [phone] Doretha Morales MD Primary Care Provider Angeline Green NP Primary Care Provider [phone] Encounter Details Date Type Department Care Team (Latest Contact Info) Description 01/29/2017 Orders Only [facility] CLINCON[facility] ProviderDanika MD [address] [place] [address] Social History Tobacco Use Types Packs/Day Years Used Date Smoking Tobacco: Never Comments Unknown Sex and Gender Information Value Date Recorded Sex Assigned at Not on file 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 us Historical Provider Final Res ult documented in this encounter Visit Diagnoses Not on filedocumented in this encounter Additional Health Concerns Infection Onset Date Last Indicated Resolved Time COVID: Suspected 09/18/2020 09/19/2020 09/20/2020 6:26 AM SOAP INSPECTOR COVID19 09/19/2020 09/19/2020 10/03/2020 3:07 AM SOAP INSPECTOR COVID: Recovered Comment:Added based on recent COVID infection. 10/03/2020 11/28/2020 01/31/2021 3:05 AM C DT COVID: Suspected 10/18/2022 10/18/2022 10/18/2022 5:36 PM SOAP INSPECTOR COVID: Suspected 10/18/2022 10/18/2022 10/18/2022 10:16 PM SOAP INSPECTOR COVID: Suspected 10/24/2022 10/24/2022 10/24/2022 2:08 PM SOAP INSPECTOR COVID: Suspected 11/05/2022 11/05/2022 11/05/2022 2:48 PM SOAP INSPECTOR COVID: Suspected 06/05/2023 06/05/2023 06/05/2023 5:32 PM CDT COVID: Suspected 06/05/2023 06/05/2023 06/05/2023 11:23 PM CDT COVID: Suspected 08/22/2023 08/22/2023 08/22/2023 8:20 AM SOAP INSPECTOR COVID: Suspected 08/22/2023 08/22/2023 08/22/2023 8:21 AM SOAP INSPECTOR COVID19 08/22/2023 08/22/2023 09/01/2023 3:06 AM SOAP INSPECTOR COVID: Recovered Comment:Added based on recent COVID infection. 09/01/2023 09/19/2023 11/30/2023 3:[address] COVID: Suspected 12/15/2023 12/15/2023 12/15/2023 6:28 PM CDT Influenza, adult 12/15/2023 12/15/2023 12/22/2023 3:05 AM CDT documented as of this encounter Care Teams Solutions Operator Relationship Specialty Start Date End Date Simon Vance DO [address] [address] PCP - General 11/13/18 05/30/20 Juan Sánchez DO [address] [facility] [address] [place] [address] PCP - General Family Medicine 05/31/20 11/18/22 Armaan Chaudhary MD [address] [facility] [address] [place] [address] PCP - General Family Medicine 11/19/22 07/17/23 Doretha Morales MD [address] [place] [address] PCP - General Family Medicine 07/18/23 09/18/23 Angeline Green, CIGAR MAKER [address] [place] [address] PCP - General Family Medicine 09/19/23 Addison Berumen MD [address] [place] [address] Referring Physician Psychiatry 05/05/23 documented as of this encounter
--- OUTSIDE RECORDS SUMMARY | 2025-04-02 17:05 | XMS_ITS | Encounter Summary ---
Author Organization [facility] Healthcare Address [address] [place] [address] Care Team Providers Care Patient Care Associate Name Role Phone Addison Berumen MD Unavailable [phone] Angeline Green NP Primary Care Provider [phone] Reason for Visit * Auth/Cert (Routine) Specialty Diagnoses / Procedures Referred By Janet petit Referred To Contact Diagnoses Gastroesophageal reflux disease, unspecified whether esophagitis present Irritable bowel syndrome with constipation and diarrhea Chronic superficial gastritis without bleeding Fatty liver S/P laparoscopic cholecystectomy FH: liver disease FH: colonic polyps Gastroesophageal reflux disease, unspecified whether esophagitis present [K21.9] Irritable bowel syndrome with constipation and diarrhea [K58.2] Chronic superficial gastritis without bleeding [K29.30] Fatty liver [K76.0] S/P laparoscopic cholecystectomy [Z90.49] FH: liver disease [Z83.79] FH: colonic polyps [Z83.719] Procedures PA ESOPHAGOGASTRODUODENOSCOPY TRANSORAL DIAGNOSTIC ESOPHAGOGASTRODUODENOSCOPY Referral ID Status Reason Start Date Expiration Date Visits Re quested Visits Authorized [id number] 1 1 Encounter Details Date Type Department Care Team (Late st Contact Info) Description 05/26/2024 Hospital Encounter [facility] [address] [place] [address] Phil Jasmine MD [address] [place] [address] [place] [address] Social History Tobacco Use Types Packs/Day Years Used Date Smoking Tobacco: Never Smokeless Tobacco: Never Alcohol Use Standard Drinks/Week Comments Never 0 [...] on file 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 Advised pt to contact GI office when ready to r/s. Pt verbalized understanding. documented in this encounter Plan of Treatment Not on file documented as of this encounter Visit Diagnoses Diagnosis Chronic gastritis without bleeding Gastroesophageal reflux disease Esophageal reflux Irritable bowel syndrome with constipation and diarrhea Fatty liver Other chronic nonalcoholic liver disease S/P laparoscopic cholecystectomy Other postprocedural status FH: liver disease Family history of other digestive disorders FH: colonic polyps Family history of colonic polyps documented in this encounter Admitting Diagnoses Diagnosis Chronic gastritis without bleeding Gastroesophageal reflux disease Esophageal reflux Irritable bowel syndrome with constipation and diarrhea Fatty liver Other chronic nonalcoholic liver disease S/P laparoscopic cholecystectomy Other postprocedural status FH: liver disease Family history of other digestive disorders FH: colonic polyps Family history of colonic polyps documented in this encounter Care Teams Patient Care Associate Relationship Specialty Start Date End Date Angeline Green NP [address] [place] [address] PCP - General Family Medicine 09/19/23 Addison Berumen MD [address] [place] [address] Referring Physician Psychiatry 05/05/23 documented as of this encounter
--- OUTSIDE RECORDS SUMMARY | 2025-04-02 17:05 | XMS_ITS ---
Author Organization [facility] Office Address [address] [facility] [address] [place] [address] Care Team Providers Care Roads Supervisor Name Role Phone Angeline Green Primary Care Provider Unavailab Jarrett Mcleod Unavailable [phone] Leena Santiago Unavailable [phone] Allergies Allergen (clinical drug ingredient) Drug/Non Drug [...] End Date Status QUEtiapine Fumarate 50 MG 1 tablet at be dtime Orally Once a day Not-Taking Pristiq 50 MG 1 tablet Orally Once a day Active ZyrTEC 10 MG 1 tablet Orally Once a day Active Levothyroxine Sodium 25 MCG 1 tablet in the morning on an empty stomach Orally Once a day Active Omeprazole 40 MG 1 capsule 1/2 to 1 hour before morning meal Orally Once a day; Duration: 30 day(s) 02/17/2025 Active Ergocalciferol 1.25 MG (95695 UT) 1 capsule Orally every 7 days; Duration: 60 days 02/01/2025 04/02/2025 Not-Taking [place]-3 Fish Oil 1000 MG 1 capsule Orall y Three times a day Not-Taking SUMAtriptan Succinate 100 MG 1 tablet as needed, may take second dose at least 2 hours after first dose up to 2 tablets per day as needed Orally Once a day Active Vitamin D3 9123521 UNIT/GM as directed Not-Taking LORazepam 0.5 MG 1 tablet at bedtime as needed Orally Once a day Active Concerta 18 MG 1 tablet in the morning Orally Once a day Not-Taking Cyanocobalamin 1000 MCG 1 tablet Orally Once a day; Duration: 60 days 02/01/2025 04/02/2025 Not-Taking Cyclobenzaprine HCl 10 MG 1 tablet at be dtime as needed Orally Once a day Active traMADol HCl 50 MG 1 tablet as needed Orally Once a day Active Flonase Allergy Relief 50 MCG/ACT 1 [...] 03/07/2025 Encounters Encounter Location Date Provider Diagnosis [facility] [address] [place] [address] [address] [place] [address] 03/07/2025 Leena Santiago Morbid obesity E66.0 1 [...] . Date of surgery 02/22/25 . @ [facility] by Jarrett Castro Doing well postoperatively. [...] care (ICD-10 - Z71.89) Follow up with hand quilter as scheduled I counseled the patient on [...] 10 minutes per day. Follow up with hand quilter as scheduled Labs: None. Routine post op [...] Surgery, Date and Place. Surgery: Date: Place: [facility] Patient should qualify for staying more than 2 midnights in hospital. Patient education, risk explained and consent : The patient meets the criteria as set by the National [employer] of Health that recommends bariatric surgery on [...] and having very close follow-up with a hand quilter and me. In addition they must continue [...] has attended pre operative education class by c programmer and the dietitian, but they will have additional education provided by the c programmer and hand quilter at [facility]. Because of the significant changes in eating habits they will have to see a hand quilter following surgery. I have informed them that [...] the criteria as set by the National [employer] of Health that recommends bariatric surgery on [...] and having very close follow-up with a hand quilter and me. In addition they must attend [...] will have additional education provided by the c programmer and hand quilter at [facility]. Because of the significant changes in eating habits they will have to see a hand quilter prior to and following surgery. I have [...] . Date of surgery 02/22/25 . @ [facility] by Jarrett Castro Doing well postoperatively. [...] and coordination of care Follow up with hand quilter as scheduled I counseled the patient on [...] 10 minutes per day. Follow up with hand quilter as scheduled Labs: None. Routine post op [...] Surgery, Date and Place. Surgery: Date: Place: [facility] Patient should qualify for staying more than 2 midnights in hospital. Patient education, risk explained and consent : The patient meets the criteria as set by the National [employer] of Health that recommends bariatric surgery on [...] and having very close follow-up with a hand quilter and me. In addition they must continue [...] has attended pre operative education class by c programmer and the dietitian, but they will have additional education provided by the c programmer and hand quilter at [facility]. Because of the significant changes in eating habits they will have to see a hand quilter following surgery. I have informed them that [...] the criteria as set by the National [employer] of Health that recommends bariatric surgery on [...] and having very close follow-up with a hand quilter and me. In addition they must attend [...] will have additional education provided by the c programmer and hand quilter at [facility]. Because of the significant changes in eating habits they will have to see a hand quilter prior to and following surgery. I have [...] month follow up Provider Name:Leena Santiago , 05/23/2025 10:00:00 AM, [address], [place], [address], Provider Name:Leena Santiago , 08/22/2025 10:30:00 AM, [address], [place], [address], Provider Name:Jarrett venegas, 02/24/2026 10:30:00 AM, [address], [place], [address], Progress Notes * Tyson MAYOB:1990 ( 35 yo F)Acc No.[id number]:03/07/2025 Patient: Jyoti GUERRA Provider: Julienne Santiago PA-C :1990 A ge:35 Y S ex:Female Date:03/07/2025 Address:[address] [place], [place] [id number] Pcp:Angeline Green Check In:09:35 AM CSTCheck O ut:10:34 AM INFORMATION SYSTEMS DIRECTOR Subjective: * Chief Complaints: * 1 . 2 week PO VSG f/u. 2. Arcadio Post op 2 weeks. 3. Post Op Visit. * HPI: P ost Op: Post op [...] Please explain:: Migraines. * Medications: T aking LORazepam 0.5 MG Tablet 1 tablet at bedtime as needed Orally Once a day , Taking SUMAtriptan Succinate 100 MG Tablet 1 tablet as needed, may take second dose at least 2 hours after first dose up to 2 tablets per day as needed Orally Once a day , Taking ZyrTEC 10 MG Tablet Chewable 1 tablet Orally Once a day , Taking Pristiq 50 MG Tablet Extended Release 24 Hour 1 tablet Orally Once a day , Taking Levothyroxine Sodium 25 MCG Tablet 1 tablet in the morning on an empty stomach Orally Once a day , Taking Omeprazole 40 MG Capsule Delayed Release 1 capsule 1/2 to 1 hour before morning meal Orally Once a day , Taking Dicyclomine HCl 10 MG Capsule 2 capsules Orally Three times a day prn , Taking Flonase Allergy Relief 50 MCG/ACT Suspension 1 spray in each nostril Nasally Twice a day , Taking Cyclobenzaprine HCl 10 MG Tablet 1 tablet at bedtime as needed Orally Once a day , Taking traMADol HCl 50 MG Tablet 1 tablet as needed Orally Once a day , Not-Taking Vitamin D3 4382533 UNIT/GM Liquid as directed , Not-Taking [place]-3 Fish Oil 1000 MG Capsule 1 capsule Orally Three times a day , Not-Taking QUEtiapine Fumarate 50 MG Tablet 1 tablet at bedtime Orally Once a day , Not-Taking Concerta 18 MG Tablet Extended Release 1 tablet in the morning Orally Once a day , Not-Taking Cyanocobalamin 1000 MCG Tablet 1 tablet Orally Once a day , stop date 04/02/2025, Not-Taking Ergocalciferol 1.25 MG (87312 UT) Capsule 1 capsule Orally every 7 days , stop date 04/02/2025, Discontinued Repatha 140 MG/ML Solution Prefilled Syringe 1 mL Subcutaneous , Medication List reviewed and reconciled with the patient * Allergies: D oxycycline: hives - Criticality High, NSAIDs - Criticality High, Valium - Criticality High. Objective: * Vitals: B P:130/74mm Hg, HR:70/min, [...] . Date of surgery 02/22/25 . @ [facility] by Jarrett Castro Doing well postoperatively. [...] coordination of care Notes: Follow up with hand quilter as scheduled I counseled the patient on [...] 10 minutes per day. Follow up with hand quilter as scheduled Labs: None. Routine post op [...] Surgery, Date and Place. Surgery: Date: Place: [facility] Patient should qualify for staying more than 2 midnights in hospital. Patient education, risk explained and consent :The patient meets the criteria as set by the National [place] of Health that recommends bariatric surgery on [...] and having very close follow-up with a hand quilter and me. In addition they must continue [...] has attended pre operative education class by c programmer and the dietitian, but they will have additional education provided by the c programmer and hand quilter at [facility]. Because of the significant changes in eating habits they will have to see a hand quilter following surgery. I have informed them that the diet after surgery is a gradual progression from clear liquids to solid foods over a period of time. Bariatric surgery can affect them psychologically and emotionally, therefore they may require post-operative therapy with a psychologist. They will have to make sure that they are willing to make the commitment for life and be an active participant.Covid-19 specific risk with bariatric surgery, I explained [...] counseling EGD 5. G astric reflux Notes: EGD done on : by reported no [...] obtain a psychiatric evaluation for pre-operative clearance. ? 7. D eficiency of other vitamins Notes: [...] surgery will help improve the condition. ? 11. O thers Notes: The patient meets the criteria as set by the National [place] of Health that recommends bariatric surgery on [...] and having very close follow-up with a hand quilter and me. In addition they must attend [...] will have additional education provided by the c programmer and hand quilter at [facility]. Because of the significant changes in eating habits they will have to see a hand quilter prior to and following surgery. I have [...] 2 Weeks (Reason: 1 month follow up) * Billing Information: * Visit Code: * Procedure Codes: * Electronic signature of CAROLINE Craven on 04/02/2025 at 05:04 PM CDT Sign off status: Pending * Provider: Julienne Santiago PA-C Date: 03/07/2025 Generated for Porsche oliveira/Lisandra/Da on: 04/02/2025 05:04 PM CDT History and Physical Notes * [...] Index Post Op Post op Patient is 2 wee ks , s/p Robotic Sleeve Gastrectomy 02/22/25 [...]
--- OUTSIDE RECORDS SUMMARY | 2025-04-02 17:05 | XMS_ITS | Referral Summary ---
Author Organization [facility] at the [facility] Address [address] [place] [address] Care Team Providers Care Elder Assistant Name Role Phone Addison Berumen MD Unavailable [phone] Angeline Green NP Primary Care Provider [phone] Allergies Active Allergy Reactions Criticality Noted Date [...] Refills after this to come from her veneer manufacturer 360 capsule 08/28/20 Active hydrOXYzine (VISTARIL) 25 [...] her mood is better since seeing a nylon winder. 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 She is now seeing a nylon winder and notes mood is doing much better. She defers need for medication currently. She is aware that if mood struggles significantly then she will have to get back in with Psychiatry. I did provide her with contact information for an alternative Psychiatry group in the area that she may try. Assessment & Plan (10/23/2021 5:27 PM FRUIT OR NUT CROPS FARM MANAGER): Add buspar Morbid obesity with BMI of 45.0-49.9, adult ([facility]) 09/08/2017 Assessment & Plan (07/18/2023 [...] loss Assessment & Plan (11/19/2022 8:53 PM FRUIT OR NUT CROPS FARM MANAGER): BMI Follow-up includes: nutrition counseling, exercise counseling [...] famotidine Assessment & Plan (10/23/2021 5:28 PM FRUIT OR NUT CROPS FARM MANAGER): Start tagamet Assessment & Plan (01/04/2021 2:19 PM CDT): Currently on PPI, but concerned about ocean transportation intermediary effects with her kidney - will f/u [...] 07/18/2023 Assessment & Plan (11/19/2022 8:55 PM FRUIT OR NUT CROPS FARM MANAGER): A(n) initial well visit to establish care [...] 10/23/2021 Assessment & Plan (08/06/2021 2:41 PM FRUIT OR NUT CROPS FARM MANAGER): pablo saldana covid test Flank pain 03/15/2021 [...] 07/18/2023 Assessment & Plan (09/05/2021 3:39 PM FRUIT OR NUT CROPS FARM MANAGER): Add zoloft 25 mg Update 3 weeks Call if worsening Assessment & Plan (12/07/2020 1:07 PM FRUIT OR NUT CROPS FARM MANAGER): lexapro Cough 07/13/2020 07/18/2023 Assessment & Plan [...] cystitis Assessment & Plan (10/23/2021 5:27 PM FRUIT OR NUT CROPS FARM MANAGER): Refer to PT for pelvic floor PT [...] V accination (12+ YRS) 07/08/2022 Tdap 07/07/2015 Social History Tobacco Use Types Packs/Day Years [...] on file Legal Sex Female 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 Gender Identity Not on file Sexual Orientation Not on file 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 Not on file Not on file Last Filed Vital Signs Vital Sign Reading Time Taken Comments Blood Pressure 148/78 12/15/2023 6:10 PM CDT Pulse 113 12/15/2023 6:10 PM CDT Temperature 36.8 C (98.3 F) 08/22/2023 8:17 AM FRUIT OR NUT CROPS FARM MANAGER Respiratory Rate 14 12/15/2023 6:10 PM CDT Oxygen Saturation 98% 12/15/2023 6:10 PM CDT Inhaled Oxygen Concentration - - Weight 127 kg (280 lb) 12/15/2023 6:10 PM CDT Height 162.6 cm (5' 4) 12/15/2023 6:10 PM CDT Body Mass Index 48.06 12/15/2023 6:10 PM CDT Plan of Treatment Not on file Procedures Procedure Name Priority Date/Time Associated Diagnosis Comments PAP SMEAR WITH HPV Routine 12/01/2020 from Last 3 Months or Most Recently Relevant to Health Maintenance Results * PAP SMEAR WITH HPV (12/01/2020) Historical Provider HEALTH MAINTENANCE Final Result from Last 3 Months or Most Recently Relevant to Health Maintenance Insurance [facility] [address] [place] [address] [facility] Care Teams Elder Assistant Relationship Specialty Start Date End Date Angeline Green NP [address] [place] [address] PCP - General Family Medicine 09/19/23 Addison Berumen MD [address] [place] [address] Referring Physician Psychiatry 05/05/23
--- OUTSIDE RECORDS SUMMARY | 2025-04-02 17:06 | XMS_ITS | Clinical Summary ---
Author Organization [facility] Address [address] [place] [address] Care Team Providers Care Dsp Engineer Name Role Phone None, Provider MD Primary Care Provider Unavaila ble Allergies Active Allergy Reactions Criticality Noted Date Comments Doxycycline Rash Low 12/19/2014 Nsaids GI Upset 12/19/2014 Only 1 kidney Medications nystatin ointment 10/19/2019 Active fluconazole 200 MG tablet 10/21/2019 Active Multiple Vitamins-Minera ls (MULTIVITAMIN ADULT OR) Take 1 tablet by mouth daily. Active traMADol 50 MG tablet 10/13/2019 Active cyclobenzaprine 5 MG tablet Take 5 mg by mouth 3 (three) times daily as needed for Muscle Spasms. Active NON FORMULARYIndica tions:Q sciences, full spectrum hemp oil, antiinflammator y, Q max, Q biotics Indications: Q sciences, full spectrum hemp oil, antiinflammat ory, Q max, Q biotics Active rizatriptan (MAXALT) 5 MG tablet Take 1 tablet (5 mg total) by mouth as needed for Migraine. May repeat in 2 hours if needed times one dose 30 tablet 02/07/2024 Active Family History Medical History Relation Comments Cancer Father Hypertension Father Diabetes Mother Relation Status Comments Father Mother Alive Social History Tobacco Use Types Packs/Day Years Used Date Smoking Tobacco: Never Smokeless Tobacco: Never Alcohol Use Standard Drinks/Week Comments No 0 (1 standard drink = 0.6 oz pur e alcohol) AUDIT-C Answer Date Recorded Frequency of Alcohol Consumption Never 01/05/2019 Average Number of Drinks Not on file 019 Frequency of Binge Drinking Not on file 05/2019 Comments No Sex and Gender Information Value Date Recorded Sex Assigned at Not on file Legal Sex Female 8:04 PM CDT Gender Identity Not on file Sexual Orientation Not on file Last Filed Vital Signs Vital Sign Reading Time Taken Comments Blood Pressure 135/83 02/07/2024 5:25 PM CDT Pulse 70 02/07/2024 5:25 PM CDT Temperature 36.1 C (97 F) 02/07/2024 4:07 PM CDT Respiratory Rate 18 02/07/2024 5:25 PM CDT Oxygen Saturation 100% 02/07/2024 5:25 PM CDT Inhaled Oxygen Concentration - - Weight 123.4 kg (272 lb) 02/07/2024 4:07 PM CDT Height 162.6 cm (5' 4) 02/07/2024 4:07 PM CDT Body Mass Index 46.69 02/07/2024 4:07 PM CDT Plan of Treatment Health Maintenance Due Date Last Done Comments Cervical Cancer Screening Pa p Smear (Age 30 to 64) Every 3 Years 1989 Annual Physical 01/11/1992 Hepatitis C 2007 Hepatitis B Vaccines (1 of 3 - 19+ 3-dose series) 01/11/2008 Cervical Cancer Screening Pa p with HPV Testing (Age 30 to 64) Every 5 Years 2019 Cervical Cancer Screening wi th HPV 2019 COVID-19 Vaccine (2023-2 5 season) 2024 07/08/2022, 10/05/2021, 09/14/2021 DTaP, Tdap and Td Vaccines ( 2 - Td or Tdap) 07/07/2025 07/07/2015 HPV Vaccines Aged Out No longer eligi ble based on patient's age to complete this topic Meningococcal B Vaccine Aged Out No l onger eligible based on patient's age to complete this topic Meningococcal Vaccine Aged Out No bella gui eligible based on patient's age to complete this topic Pneumococcal Vaccine: Pediatrics (0 to 5 Years) and At-Risk Patients (6 to 49 Years) Aged Out No longer eligible b ased on patient's age to complete this topic RSV Immunizations Under 20 Months Aged Out No longer eligible b ased on patient's age to complete this topic Insurance [employer] Care Teams Dsp Engineer Relationship Specialty Start Date End Date None, Provider, PCP - General 07/08/19
--- OUTSIDE RECORDS SUMMARY | 2025-04-02 17:06 | XMS_ITS | Encounter Summary ---
Author Organization [facility] Address [address] [place] [address] Care Team Providers Care Plasma Table Operator Name Role Phone None, Provider Primary Care Provider Elva dubose Encounter Details Date Type Department Care Team (Late st Contact Info) Description 04/14/2020 Prep for Procedure [facility] [place], [place] [id number] Yue Harris MD [address] [place] [address] Social History Tobacco Use Types Packs/Day Years [...] on file Sexual Orientation Not on file COVID-19 Exposure Response Date Recorded In the last month, have you been in contact with someone who was confirmed or suspected to have Coronavirus / COVID-19? No / Unsure 04/14/2020 12:01 PM CDT documented as of this encounter Plan of Treatment Not on file documented as of this encounter Results * RESPIRATORY PCR PANEL 2 ([facility] PATIENTS ONLY) (04/13/2020 9:25 AM CDT) ADENOVIRUS PCR (RESP) NOT DETECTED NOT DETECTED 04/13/2020 1:50 PM CDT [facility] CORONAVIRUS 229E PCR (RESP) NOT DETECTED NOT DETECTED 04/13/2020 1:50 PM CDT [facility] CORONAVIRUS HKU1 PCR (RESP) NOT DETECTED NOT DETECTED 04/13/2020 1:50 PM CDT [facility] CORONAVIRUS NL63 PCR (RESP) NOT DETECTED NOT DETECTED 04/13/2020 1:50 PM CDT [facility] CORONAVIRUS OC43 PCR (RESP) NOT DETECTED NOT DETECTED 04/13/2020 1:50 PM CDT [facility] METAPNEUMOVIRUS PCR (RESP) NOT DETECTED NOT DETECTED 04/13/2020 1:50 PM CDT [facility] RHINOVIRUS/ENTEROV IRUS PCR (RESP) NOT DETECTED NOT DETECTED 04/13/2020 1:50 PM CDT [facility] INFLUENZA A PCR (RESP) NOT DETECTED NOT DETECTED 04/13/2020 1:50 PM CDT [facility] INFLUENZA B PCR (RESP) NOT DETECTED NOT DETECTED 04/13/2020 1:50 PM CDT [facility] PARAINFLUENZA 1 PCR (RESP) NOT DETECTED NOT DETECTED 04/13/2020 1:50 PM CDT [facility] PARAINFLUENZA 2 PCR (RESP) NOT DETECTED NOT DETECTED 04/13/2020 1:50 PM CDT [facility] PARAINFLUENZA 3 PCR (RESP) NOT DETECTED NOT DETECTED 04/13/2020 1:50 PM CDT [facility] PARAINFLUENZA 4 PCR (RESP) NOT DETECTED NOT DETECTED 04/13/2020 1:50 PM CDT [facility] RSV PCR (RESP) NOT DETECTED NOT DETECTED 04/13/2020 1:50 PM CDT [facility] B PARAPERTUSIS PCR (RESP) NOT DETECTED NOT DETECTED 04/13/2020 1:50 PM CDT [facility] BORDETELLA PERTUSSIS PCR (RESP) NOT DETECTED NOT DETECTED 04/13/2020 1:50 PM CDT [facility] CHLAMYDOPHILA PNEUMONIAE PCR (RESP) NOT DETECTED NOT DETECTED 04/13/2020 1:50 PM CDT [facility] MYCOPLASMA PNEUMONIAE PCR (RESP) NOT DETECTED NOT DETECTED 04/13/2020 1:50 PM CDT [facility] CORONAVIRUS SARS COV 2 PCR (RESP) NOT DETECTED NOT DETECTED 04/13/2020 1:50 PM CDT [facility] Comment: THE SARS-CoV-2 TEST HAS BEEN AUTHORIZED BY THE FDA UNDER AN EUA FOR USE BY AUTHORIZED LABORATORIES. NASOPHARYNGEAL STRUCTURE / Unknown 04/13/2020 9:25 AM CDT Yue Harris MD MICROBIOLOGY - GENERAL ORDERAB LES Final Result [facility] [address] [place] [address], [place] [phone] documented in this encounter Visit Diagnoses Diagnosis Heartburn- Primary documented in this encounter Care Teams Plasma Table Operator Relationship Specialty Start Date End Date None, Provider, PCP - General 07/08/19 documented as of this encounter
--- OUTSIDE RECORDS SUMMARY | 2025-04-02 17:06 | XMS_ITS | Data Portability ---
Author Organization [facility], [place] Address [address] [place] [address] Care Team Providers Care Accountant Cost Name Role Phone KASEY LANCASTER Primary Care Provider Assessment Encounter Date Assessment Date Assessment LastModified by Organization Details LastModified Time 11/17/2024 11/17/2024 Annual gynecological exam performed. Patient will come back in a year unless there are new symptoms. Suggest Calcium with Vitamin D if not eating in diet. Patient advised to get annual flu shot. Recommend yearly physicals and preform monthly breast exams. Genetic testing is available for patients with family history of cancer. Engage in safe sexual practices, use condoms. Encouraged to have daily exercise. Avoid tobacco and illicit drugs, moderation of alcohol. If BMI greater than 25 dietary consult advised. If you have any questions please call or email. pap collected Not available 11/17/2024 17:21:34 Plan of Treatment Reminders Order Date Submit Date Provider Last Modified By Organization Details Last Modified Time Details Appointments None recorded. Lab None recorded. Referral None recorded. Procedures None recorded. Surgeries None recorded. Imaging None recorded. Medication Orders Nystop 100,000 unit/gram topical powder 025 025 [id number], [address] [facility], [place], [place], [id number], 17:22:02 Patient TargetsNo targets recorded. Patient InstructionsNo instructions recorded. Reason for Referral None Reported. Results Created Date Observation Date Name Description Value Unit Range Abnormal Flag Note LastModifiedBy Organization Detail LastModifiedTime 11/17/1911/17/2024 IMAGE GUIDE D PAP AND HPV REGAR DLESS image guided Pap, HPV regardless of Pap result SEE RESULT S BELOW CASE REPOR T: Cytol ogy Gynec ologi arben Repor t Case: [id number] Autho wilberto grimm Provi ja: Finesse red, Monica RobinsLata, ESTEFANÍA Matias cted: 11/17 1727 Order ing Locat ion: [place] [facility] Recei lc: 11/18 0142 First Erica n: Kat Kolb Speci men: Eriac lee Pap - Image d, Cervi x STATE MENT OF ADEQU ACY: Satis facto ry for evalu ation Trans forma tion zone compo nent prese nt ----- ----- ----- ----- ----- ----- ----- ----- ----- ----- ----- ----- ----- ----- ----- ----- ----- ---- FINAL DIAGN OSIS: Negat cammie for Intra epith elial Ijeoma herndon or Yaa schaffer (NIL) . Elect megan carlson by Kat venegas on 2024 at 1425 [facility] [facility]IAN ----- ----- ----- ----- ----- ----- ----- ----- ----- ----- ----- ----- ----- ----- ----- ----- ----- ---- HPV RESUL TS: HPV mRNA E6/E7 : No HPV mRNA Detec evelyn NOTE: This high risk HPV mRNA assay detec ts fourt een high- risk HPV types (16, 18, 31, 33, 35, 39, 45, 51, 52, 56, 58, 59, 66, 68) witho ut diffe renti ation . COMME NT: This speci men was revie wed by a Cytot echno logis t and/o r Patho logis t (as indic ated in this repor t) after evalu ation using the Thinp rep Imagi ng Syste m. CLINI ARBEN INFOR MATIO N: Menst rual Statu s: LMP (if appli cable ): Clini arben Histo ry/Pr eviou s Pap: Type of Neopl dior (if appli cable ): Signi fican t Clini arben Findi ngs: Other Histo ry: Hormo db (if appli cable ): PAP EDUCA CJ L NOTE: The Pap Test is a scree jesus test with an inher ent false negat cammie rate. Liqui d-bas ed sampl ing may decre ase, but will not elimi shaw, false negat cammie resul ts. A negat cammie resul t does not precl ude the prese nce and/o r devel opmen t of disea se, since the prese nce of abnor mal cells in the sampl e depen ds on the locat ion of the lesio n and sampl ing techn ique. Joel nued regul ar scree jesus is the best metho d of cance r preve ntion . If repor evelyn cytol ogic findi ng do not corre late with physi arben and/o r histo rical findi ngs, furth er inves tigat ion is recom martín d, as clini francesco joy nted. Not Available [facility] (Lab) [address], [place], [address], 11/21/2024 23:59:00 Result Notes None recorded. Problems Name Problem SNOMED Code Status Onset Date Resolution Date Notes Provider Name and Address Organization Details Recorded Time Finding of menstrua l bleeding Completed 201810/05/2020 Excessiv e and frequent menstrua tion with regular cycle;Re corded Elsewher e: No Locat ion: [facility] S ource: EHR Retail Assistant Store Manager mary: N Shahnaz ce ID: 0001 Huan lable Time: 04:30:00 PM Katie Duffy [facility], [facility] 1 12:46:08 Chronic intersti tial cystitis [id number] Active 2018 Intersti tial cystitis (chronic ) with hematuri a;Record ed Elsewher e: No Locat ion: Alexandrayoly jamee [facility] S ource: EHR Retail Assistant Store Manager mary: N Nayelyti ce ID: 0001 Huan lable Time: 01:00:00 PM Not Available [facility] 0 18:48:53 Pain in female genitali a Completed 201810/05/2020 Dysmenor shivani, unspecif ied;Logan rded Elsewher e: No Locat ion: Alexandrayoly jamee [facility] S ource: EHR Retail Assistant Store Manager mary: N Nayelyti ce ID: 0001 Huan lable Time: 09:00:00 AM Katie lane [facility] 12:46:[address] Concept Completed 201910/05/2020 Encntr for lace burn out tender exam (general ) (routine ) w/o abn findings ;Recorde d Elsewher e: No Locat ion: Sarah jamee [facility] S ource: EHR Retail Assistant Store Manager mary: N Nayelyti ce ID: 0001 Huan lable Time: 10:00:00 AM Katie lane [facility] 12:46:[address] Concept Completed 201910/05/2020 Encntr for routine child health exam w/o abnormal findings ;Recorde d Elsewher e: No Locat ion: Alexandraangelica jamee [facility] S ource: EHR Retail Assistant Store Manager mary: N Nayelyti ce ID: 0001 Huan lable Time: 10:00:00 AM Katie lane [facility] 1 12:46:15 Acute vaginiti s [id number] Completed 201910/05/2020 Vaginiti s;Record ed Elsewher e: No Locat ion: Alexandrayoly jamee [facility] S ource: EHR Retail Assistant Store Manager mary: N Nayelyti ce ID: 0001 Huan lable Time: 04:00:00 PM Katie lane [facility] 1 12:45:55 Pelvic and perineal pain [id number] Completed 201810/05/2020 Pelvic and perineal pain;Rec orded Elsewher e: No Locat ion: [facility] S ource: EHR Retail Assistant Store Manager mary: N Practi ce ID: 0001 Huan lable Time: 11:30:00 AM Katie Duffy [facility] 12:46:28 Abnormal uterine bleeding [id number] 100 Completed 201810/05/2020 Other specifie d abnormal uterine and vaginal bleeding ;Recorde d Elsewher e: No Locat ion: [facility] S ource: EHR Prac lola ID: 0001 Huan lable Time: 09:30:00 AM Katie Duffy [facility] 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 12:45:57 Blood leukocyt e number above referenc e range [id number] Completed 201810/05/2020 Elevated white blood cell count, unspecif ied;Prac lola ID: 0001 Katie Duffy [facility] 12:46:11 Attentio n deficit hyperact ivity disorder 646577540 Active 2023 Katie Duffy [facility] 4 09:58:21 Anxiety 61372076 Active 2023 Katie Duffy [facility] 4 09:58:30 Problem Notes None recorded. Procedures Surgical History Date Name Laterality Status Provider Name and Address Organization Details Recorded Time 11/17/19 25 Date of Last Pap Smear completed Katie Duffy [facility] 11/17/2024 18:18:30 07/02/20 23 LAPAROSCOPY, DIAGNOSTIC (SURG) completed Suad Meek [facility] 07/03/2023 09:51:17 04/12/20 20 completed Katie Duffy [facility] 12/25/2022 16:18:28 04/12/20 20 Date of Last Colonoscopy completed Katie Duffy [facility] 12/25/2022 16:18:28 04/12/20 20 Colonoscopy completed Katieparag Duffy [facility] 01/01/2023 20:36:51 02/18/20 19 Hysteroscopy completed Katieparag Duffy [facility] 02/04/2020 13:52:38 12/24/19 19 endometrial biopsy completed Katieparag Duffy [facility] 01/01/2023 20:37:07 07/30/20 13 [facility] 13:53:20 07/30/20 08 excision of right kidney completed Katieparag Duffy [facility] 02/04/2020 13:45:28 09/29/19 08 procedure on kidney completed Katie Duffy [facility] 11/17/2024 20:26:57 09/29/19 08 procedure on kidney completed Katie Duffy [facility] 11/17/2024 20:27:10 09/29/19 08 procedure on kidney completed Katie Duffy [facility] 11/17/2024 20:27:21 09/29/19 08 procedure on kidney completed Katieparag Duffy [facility] 11/17/2024 20:27:32 09/29/19 08 procedure on kidney completed Katie Duffy [facility] 02/04/2020 13:51:28 09/29/19 06 extraction of wisdom tooth completed Katieparag Duffy [facility] 06/08/2024 10:05:53 06/29/20 02 Tonsillectomy completed [facility] 02/04/2020 13:43:03 09/29/18 95 procedure on toenail completed [facility] 06/08/2024 10:06:15 Imaging Results None recorded. Procedure Notes None recorded. Medical Equipment None Reported. Allergies Allergen ID Allergen Name Allergen Category Reaction Reaction Severity Criticality Documentation Date Start Date Code Code System Note Provider Name and Address Organization Details Recorded Time 510 Non-stero idal anti-infl ammatory agent (product) medicatio n Not available Not available Not available 02/04/2020 98980 005 SNOMED Katie Duffy [facility], [facility] 0 12:57:07 Medications Name Sig Start Date Stop Date Status Note LastModified by Organization Details LastModified Time quetiapin e 25 mg tablet TAKE 1 TABLET BY MOUTH EVERY DAY AT BEDTIME FOR 30 DAYS 11/17 completed Not Available Not Available Not Available cyclobenz aprine 10 mg tablet TAKE 1 TABLET BY MOUTH DAILY AT BEDTIME NEEDED active Not Available Not Available No t Available amoxicill in 500 mg capsule TAKE 1 CAPSULE BY MOUTH TWICE A DAY FOR 7 DAYS 12/25 completed Not Available Not Available Not Available prednison e 10 mg tablet TAKE 2 TABLETS BY MOUTH ONCE A DAY FOR 9 DAYS 06/08 completed Not Available Not Available Not Available clindamyc in HCl 300 mg capsule take 1 capsule by oral route every 12 hours x 7 days 10/05 completed Prescrib ed Elsewher e: No [facility] M odify By: cfrieder ich Enco unter DateTime : 10/14/19 10:05:30 AM Not Available Not Available Not Available trazodone 50 mg tablet TAKE 1 TO 2 TABLETS BY MOUTH ONCE A DAY AT BEDTIME NEEDED 30 DAYS 11/17 completed Not Available Not Available Not Available atorvasta tin 10 mg tablet TAKE 1 TABLET BY MOUTH EVERY DAY FOR 30 DAYS 06/08 completed Not Available Not Available Not Available azithromy debra 250 mg tablet TAKE 2 TABLETS BY MOUTH TODAY, THEN TAKE 1 TABLET DAILY FOR 4 DAYS 06/25 completed Not Available Not Available Not Available nystatin 100,000 unit/gram topical ointment 02/03 completed Not Available Not Available Not Available fluconazo le 150 mg tablet TAKE 1 TABLET BY MOUTH ONCE FOR 1 DAY active Not Available Not Available No t Available cimetidin e 400 mg tablet TAKE 1 TABLET (400 MG TOTAL) BY MOUTH 2 TIMES A DAY 12/25 completed Not Available Not Available Not Available sumatript an 100 mg tablet TAKE 1 TABLET BY MOUTH AT ONSET OF HEADACHE . MAY REPEAT 1 DOSE AFTER AT LEAST 2 HOURS OF NO RELIEF active Not Available Not Available No t Available hydrocodo ne 5 mg-acetam inophen 325 mg tablet TAKE 1 TABLET BY MOUTH EVERY 4 HOURS NEEDED FOR PAIN 06/08 completed Not Available Not Available Not Available fluconazo le 200 mg tablet take 1 tablet by oral route 02/03 completed Not Available Not Available Not Available sucralfat e 1 gram tablet TK 1 T PO BID 12/25 completed Not Available Not Available Not Available sumatript an 25 mg tablet PLEASE SEE ATTACHED FOR DETAILED DIRECTIO NS active Not Available Not Available No t Available prednison e 20 mg tablet TAKE 2 TABLETS (40 MG) BY MOUTH DAILY FOR 5 DAYS TAKE WITH FOOD 06/08 completed Not Available Not Available Not Available dextroamp hetamine- amphetami ne 10 mg tablet TAKE 1 TABLET BY MOUTH TWICE A DAY FOR 30 DAYS 11/17 completed Not Available Not Available Not Available rizatript an 10 mg tablet PLEASE SEE ATTACHED FOR DETAILED DIRECTIO NS 12/25 completed Not Available Not Available Not Available sumatript an 5 mg/actuat ion nasal spray ADMINIST ER 1 SPRAY (5 MG TOTAL) INTO ONE NOSTRIL EVERY 2 HOURS NEEDED FOR MIGRAINE 06/08 completed Not Available Not Available Not Available phentermi ne 15 mg capsule TAKE 1 CAPSULE BY MOUTH EVERY DAY FOR 30 DAYS 06/08 completed Not Available Not Available Not Available topiramat e 25 mg tablet TAKE 1 TABLET BY MOUTH ONCE A DAY 06/08 completed Not Available Not Available Not Available metronida zole 500 mg tablet TAKE 1 TABLET BY MOUTH EVERY 12 HOURS FOR 7 DAYS 06/08 completed Not Available Not Available Not Available phentermi ne 37.5 mg tablet TAKE 1 TABLET BY MOUTH DAILY BEFORE BREAKFAS T 12/25 completed Not Available Not Available Not Available acetamino phen 300 mg-codein e 30 mg tablet TAKE 1 TABLET BY MOUTH EVERY 8 HOURS NEEDED 12/25 completed Not Available Not Available Not Available allopurin ol 100 mg tablet TAKE 1 TABLET BY MOUTH EVERY DAY FOR 90 DAYS 06/08 completed Not Available Not Available Not Available tramadol 50 mg tablet TAKE 1 TABLET BY MOUTH FOUR TIMES DAILY NEEDED active Not Available Not Available No t Available acetamino phen 500 mg tablet 12/25 completed Not Available Not Available Not Available phentermi ne 30 mg capsule TAKE 1 CAPSULE BY MOUTH EVERY DAY FOR 30 DAYS 06/08 completed Not Available Not Available Not Available Cholestyr amine Light 4 gram powder for suspensio n in a packet DIS THE CONTENTS OF 1 PACKET IN LIQUID AND DRINK PO QD FOR 1 MONTH 01/08 completed Not Available Not Available Not Available levothyro xine 25 mcg tablet TAKE 1 TABLET BY MOUTH EVERY DAY IN THE MORNING ON EMPTY STOMACH FOR 90 DAYS active Not Available Not Available No t Available nystatin- triamcino lone 100,000 unit/gram -0.1 % topical ointment apply by topical route 2 times every day to the affected area(s) x 5 days 12/25 completed Prescrib tameka Lopez e: No Locat ion: [facility] M odify By: liang gonzalez DateTime : 10/19/19 10:45:35 AM Not Available Not Available Not Available alprazola m 0.25 mg tablet TAKE 1 TABLET BY MOUTH TWICE A DAY 5 DAYS 06/08 completed Not Available Not Available Not Available omeprazol e 10 mg capsule,d elayed release TAKE 1 CAPSULE BY MOUTH ONCE A DAY 30 MINUTES BEFORE MORNING MEAL FOR 90 DAYS 11/17 completed Not Available Not Available Not Available lorazepam 0.5 mg tablet TAKE 1 TABLET BY MOUTH ONCE A DAY AT BEDTIME NEEDED FOR 30 DAYS active Not Available Not Available No t Available methocarb usama 750 mg tablet TAKE 2 TABLETS BY MOUTH THREE TIMES A DAY NEEDED FOR MUSCLE SPASM active Not Available Not Available No t Available clindamyc in 1 % topical gel APPLY TO FACE TWICE A DAY 12/25 completed Not Available Not Available Not Available amitripty line 10 mg tablet 10/05 completed Not Available Not Available Not Available Proctozon e-HC 2.5 % topical cream perineal applicato r IDRIS TO RECTUM BID FOR 2 WEEKS 12/01 completed Not Available Not Available Not Available cephalexi n 500 mg capsule 02/03 completed Not Available Not Available Not Available triamcino lone acetonide 0.1 % topical ointment 02/03 completed Not Available Not Available Not Available lidocaine 5 % topical patch APPLY 1 PATCH TOPICALL Y DAILY NEEDED FOR PAIN LEAVE ON MOST PAINFUL AREA FOR UP TO 12 HRS active Not Available Not Available No t Available omeprazol e 20 mg capsule,d elayed release PLEASE SEE ATTACHED FOR DETAILED DIRECTIO NS active Not Available Not Available No t Available monteluka st 10 mg tablet 12/25 completed Not Available Not Available Not Available mupirocin 2 % topical ointment 06/08 completed Not Available Not Available Not Available ergocalci ferol (vitamin D2) 1,250 mcg (50,000 unit) capsule TAKE 1 CAPSULE BY MOUTH ONCE A WEEK 06/08 completed Not Available Not Available Not Available methylpre dnisolone 4 mg tablets in a dose pack TAKE 6 TABLETS ON DAY 1 DIRECTED ON PACKAGE AND DECREASE BY 1 TAB EACH DAY FOR A TOTAL OF 6 DAYS 06/08 completed Not Available Not Available Not Available ondansetr on 4 mg disintegr ating tablet DISSOLVE 1 TABLET ON THE TONGUE EVERY 8 HOURS NEEDED FOR NAUSEA OR VOMITING active Not Available Not Available No t Available cefdinir 300 mg capsule TAKE 1 CAPSULE BY MOUTH TWICE A DAY FOR 10 DAYS 06/08 completed Not Available Not Available Not Available methylphe nidate ER 18 mg tablet,ex tended release 24 hr TAKE 1 TABLET BY MOUTH DAILY IN THE MORNING active Not Available Not Available No t Available fluticaso ne propionat e 50 mcg/actua tion nasal spray,cesar pension SHAKE LIQUID AND USE 1 SPRAY IN EACH NOSTRIL TWICE DAILY FOR 10 DAYS active Not Available Not Available No t Available dicyclomi ne 10 mg capsule TAKE 1 CAPSULE (10 MG TOTAL) BY MOUTH 3 TIMES A DAY NEEDED FOR ABDOMINA L CRAMPING active Not Available Not Available No t Available diazepam 5 mg tablet 12/25 completed Not Available Not Available Not Available amoxicill in 875 mg-potass ium clavulana te 125 mg tablet TAKE 1 TABLET BY MOUTH EVERY 12 HOURS FOR 7 DAYS 06/08 completed Not Available Not Available Not Available hydroxyzi ne pamoate 25 mg capsule TAKE 1 CAPSULE BY MOUTH THREE TIMES A DAY NEEDED 06/08 completed Not Available Not Available Not Available sumatript an 6 mg/0.5 mL subcutane ous pen injector 06/08 completed Not Available Not Available Not Available azithromy debra 500 mg tablet TAKE 1 TABLET BY MOUTH DAILY FOR 5 DAYS 11/17 completed Not Available Not Available Not Available Strattera 40 mg capsule TAKE 1 CAPSULE BY MOUTH DAILY. 06/25 completed Not Available Not Available Not Available nitrofura ntoin monohydra te/macroc rystals 100 mg capsule TAKE 1 CAPSULE BY MOUTH EVERY 12 HOURS FOR 5 DAYS 06/08 completed Not Available Not Available Not Available Flexeril 10/05 completed Not Available Not Available Not Available ProAir HFA 90 mcg/actua tion aerosol inhaler 02/03 completed Not Available Not Available Not Available quetiapin e 50 mg tablet TAKE 1 TABLET BY MOUTH DAILY AT BEDTIME active Not Available Not Available No t Available Amrix 15 mg capsule,e xtended release take 1 capsule by oral route every day 10/05 completed Prescrib ed Elsewher e: Yes Loca tion: [facility] M odify By: [email or web address] Robins [email or web address] DateTime : 10/12/19 04:00:00 PM Not Available Not Available Not Available lisdexamf etamine 20 mg capsule TAKE 1 CAPSULE BY MOUTH ONCE A DAY IN THE MORNING FOR 30 DAYS 06/08 completed Not Available Not Available Not Available desvenlaf axine succinate ER 50 mg tablet,ex tended release 24 hr TAKE 1 TABLET BY MOUTH DAILY active Not Available Not Available No t Available Senexon-S 8.6 mg-50 mg tablet TAKE 1-2 TABLETS BY MOUTH DAILY NEEDED FOR CONSTIPA TION ISSUES. active Not Available Not Available No t Available Probiotic 06/08 completed Not Available Not Available Not Available tramadol ER 300 mg capsule 24 hr,extend ed release take 1 capsule by oral route every day 10/05 completed Prescrib ed Elsewher e: Yes Loca tion: [facility] M odify By: barbara ross DateTime : 10/12/19 04:00:00 PM Not Available Not Available Not Available desvenlaf axine ER 50 mg tablet,ex tended release 24 hr TAKE 1 TABLET BY MOUTH ONCE A DAY FOR 30 DAYS 11/17 completed Not Available Not Available Not Available multivit 37-iron 27 mg-Lmfola te 1.13 mg-algalo il,soy 581.28 mg capsule Take by oral route. 10/05 completed Not Available Not Available Not Available desvenlaf axine succinate ER 25 mg tablet,ex tended release 24 hr TAKE 1 TABLET BY MOUTH EVERY DAY IN THE MORNING 06/25 completed Not Available Not Available Not Available Wegovy 0.25 mg/0.5 mL subcutane ous pen injector INJECT 0.5 ML SUBCUTAN EOUSLY ONCE WEEKLY 06/08 completed Not Available Not Available Not Available Klayesta 100,000 unit/gram topical powder APPLY TOPICALL Y TO THE AFFECTED AREA TWICE DAILY active Not Available Not Available No t Available Vitals Date Recorded Body height Body mass index (BMI) Body weight Systolic And Diastolic Provider Name and Address Organization Details Last Updated DateTime 11/17/2024 161.93 cm 46.5 kg/m2 150385.35 g 119/84 mm[Hg] Katie Duffy [facility] 11/17/2024 16:28:57 Date Recorded Body height Body mass index (BMI) Body weight Systolic And Diastolic Provider Name and Address Organization Details Last Updated DateTime 06/08/2024 161.93 cm 45.7 kg/m2 558039.39 g 128/82 mm[Hg] Katie Duffy [facility] 06/08/2024 09:55:53 Date Recorded Body height Body mass index (BMI) Body weight Systolic And Diastolic Provider Name and Address Organization Details Last Updated DateTime 06/26/2023 161.93 cm 47.1 kg/m2 512098.12 g 127/83 mm[Hg] Jenifer [facility] 06/26/2023 12:32:55 Date Recorded Body height Body mass index (BMI) Body weight Systolic And Diastolic Provider Name and Address Organization Details Last Updated DateTime 07/09/2023 161.93 cm 47.1 kg/m2 234800.12 g 121/82 mm[Hg] Jenifer Thomas [facility] 07/09/2023 16:59:07 Social History Question Answer Notes LastModified by Organizat ion Details LastModified Time Tobacco Smoking Status Never Smoker Coco Henning ariana, [facility] 07/09/2023 16:39:07 If You Are , What Was Your Level Of Alcohol Consumption Prior To ? None [email or web address] Information not available 07/09/2023 How Many Years Have You Consumed Alcohol? 15 Information not available 06/12/2023 Are You Blind Or Do You Have Difficulty Seeing? No [email or web address] Information n ot available 12/01/2020 What Is Your Level Of Caffeine Consumption? Occasional [email or web address] Information not available 12/01/2020 In The 14 Days Before Symptom Onset, Have You Had Close Contact With A Laboratory-confirm ed COVID-19 While That Case Was Ill? No [email or web address] Information n ot available 12/01/2020 In The 14 Days Before Symptom Onset, Have You Had Close Contact With A Person Who Is Under Investigation For COVID-19 While That Person Was Ill? No [email or web address] Information not available 12/01/2020 Have You Been To An Area Known To Be High Risk For COVID-19? No [email or web address] Information not available 12/01/2020 Are You Deaf Or Do You Have Serious Difficulty Hearing? No [email or web address] Information not available 12/01/2020 What Type Of Diet Are You Following? REGULAR [email or web address] Information n ot available 12/01/2020 What Is The Highest Grade Or Level Of School You Have Completed Or The Highest Degree You Have Received? AD43374-5 [email or web address] Information not available 12/25/2022 Are There Any Guns Present In Your Home? No [email or web address] Information not available 12/25/2022 What Was The Date Of Your Most Recent Tobacco Screening? 06/08/2024 [email or web address] Information not available 06/08/2024 Do You Use Protection During Sex? No [email or web address] Information not available 12/25/2022 Do You Use Your Seat Belt Or Car Seat Routinely? Yes Information not available 12/01/2020 Do You Have Smoke And Carbon Monoxide Detectors In Your Home? Yes [email or web address] Information not available 12/01/2020 How Much Tobacco Do You Smoke? No Information not available 02/04/2020 Do You Use Sunscreen Routinely? No Information not available 06/12/2023 Has Tobacco Cessation Counseling Been Provided? No Information not available 07/09/2023 Have You Used IV Drugs? No [email or web address] Information not available 12/25/2022 Do You Have Difficulty Walking Or Climbing Stairs? No [email or web address] Information not available 06/08/2024 Sex: Unknown Functional Status Question Answer Note LastModified by Organizat ion Details LastModified Time Do you use any illicit or recreational drugs? No [email or web address] Information not available 12/01/2020 Do you or have you ever used any other forms of tobacco or nicotine? No [email or web address] Information not available 07/09/2023 What is your level of alcohol consumption? Occasional [email or web address] Information not available 12/25/2022 Do you or have you ever used smokeless tobacco? Never used smokeless tobacco [email or web address] Information not available 07/09/2023 Are you able to walk? YESWOREST [email or web address] Information not available 12/01/2020 Are you able to care for yourself? 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 No [email or web address] Information not available 06/08/2024 Do you or have you ever used e-cigarettes or vape? Never used electronic cigarettes [email or web address] Information not available 07/09/2023 What is your exercise level? Occasional [email or web address] Information not available 02/04/2020 Mental Status Question Answer Note LastModified by Organization D etails LastModified Time Do you feel stressed (tense, restless, nervous, or anxious, or unable to sleep at night)? [id number] [email or web address] Information not available 12/25/2022 Family History Relationship Description Onset Age of this Age Resolved Age Notes LastModified by Organization Details LastModified Time Mother Diabetes mellitus Not available 2022 16:59:12 Mother Malignant neoplasm of skin 50 [email or web address] Not available 11/17 16:30:10 Mother Polyp of colon 60 [email or web address] Not available 11/17 16:30:10 Mother Mental disorder Not available 2022 16:59:12 Mother Disorder of thyroid gland [email or web address] Not available 11/17 16:30:10 Maternal Uncle Diabetes mellitus Not available 2022 16:59:12 Maternal Uncle Mental disorder Not available 2022 16:59:12 Maternal Uncle Disorder of thyroid gland [email or web address] Not available 11/17 16:30:10 Maternal Uncle Diabetes mellitus [email or web address] Not available 11/17 16:30:10 Maternal Uncle Disorder of thyroid gland [email or web address] Not available 11/17 16:30:10 Maternal Uncle Diabetes mellitus [email or web address] Not available 11/17 16:30:10 Maternal Uncle Mental disorder Not available 11/17 16:30:10 Maternal Uncle Disorder of thyroid gland [email or web address] Not available 11/17 16:30:10 Maternal Uncle Diabetes mellitus Not available 11/17 16:30:10 Maternal Uncle Mental disorder [email or web address] Not available 11/17 16:30:10 Paternal Grandmother Hypercholest erolemia Not available 2022 16:59:12 Paternal Grandmother Hypertensive disorder Not available 2022 16:59:12 Paternal Grandmother Heart disease Not available 2022 16:59:12 Sister Asthma Not available 07/09/2023 16:59:12 Sister Pulmonary embolism [email or web address] Not available 11/17 16:30:10 Sister Polycystic ovary syndrome [email or web address] Not available 11/17 16:30:10 Sister Cyst of ovary [email or web address] Not available 11/17 16:30:10 Sister Mental disorder Not available 2022 16:59:12 Sister Disorder of thyroid gland Not available 2022 16:59:12 Sister Asthma Not available 07/09/2023 16:59:12 Sister Disorder of thyroid gland Not available 2022 16:59:12 Sister Asthma Not available 07/09/2023 16:59:12 Sister Mental disorder Not available 2022 16:59:12 Sister Disorder of thyroid gland Not available 11/17 16:30:10 Sister Asthma Not available 07/09/2023 16:59:12 Sister Mental disorder Not available 2022 16:59:12 Sister Substance abuse [email or web address] Not available 11/17 16:30:10 Sister Diabetes mellitus [email or web address] Not available 11/17 16:30:10 Father Leukemia 62 [email or web address] Not availab le 11/17/2024 16:30:10 Father Heart disease Not available 2022 16:59:12 Father Mental disorder Not available 2022 16:59:12 Father Substance abuse [email or web address] Not available 11/17 16:30:10 Brother Mental disorder Not available 2022 16:59:12 Brother Mental disorder [email or web address] Not available 11/17 16:30:10 Brother Mental disorder [email or web address] Not available 11/17 16:30:10 Brother Substance abuse [email or web address] Not available 11/17 16:30:10 Paternal Grandfather Heart disease Not available 2022 16:59:12 Paternal Grandfather Diabetes mellitus [email or web address] Not available 11/17 16:30:10 Paternal Grandfather Kidney disease [email or web address] Not available 11/17 16:30:10 Maternal Grandfather Diabetes mellitus [email or web address] Not available 11/17 16:30:10 Medical History Condition Response Other Y Blood Transfusion N Dermatologic Disorders N Gestational Diabetes N Anxiety Disorder Y Autoimmune disease N Arthritis Y Polyps N Infertility N Acid Reflux (GERD) Y Cancer N Varicosities N Stroke N Neurologic/Epilepsy Y Fibromyalgia Y Headaches Y Kidney Disease Y Heart Problems N Kidney or Bladder Problems Y Eating Disorder N Art (IVF or FET) N Hepatitis/Liver Disease N No Past Medical History N Urinary Tract Infection Y Asthma N Trauma/Violence N Thrombophilias N Allergies (Food, seasonal, environmental ) Y Breast Cancer N Drug/Latex Allergies/Reactions Y Lung Disease N Defects or Inherited Disease N Breast Problem N Hematologic disorders N Anesthesia Complications N History of STI N Deep Vein Thrombosis N Polycystic ovary syndrome Y History of abnormal pap N Endometriosis N High Cholesterol Y Thyroid Problems N GI Problems Y Anemia N Psychiatric Illness Y Ovarian Cancer N Diabetes N Pulmonary (TB, Asthma) N Eczema N Abuse/Domestic Violence N Depression/ depression Y Heart Disease N Pre-Eclampsia N Hypertension N Osteoporosis N Gynecological History Statement/Question Response Date of Last Mammogram Date of LMP 11/16/2024 STIs/STDs N HPV Vaccine Y Current Control Method Partner Vas ectomy Age at First Child 23 Date of Last Colonoscopy 04/12/2020 Sexually Active? Y Partner Vasectomy Date of DEXA bone scan Date of Last Pap Smear 11/17/2024 Sexual Problems? Y Desired Control Method Ablation LMP Definite 04/12/2020 Obstetrics History GPAL:G 3 P 3 0 0 3 Type Value Full Term 3 Living 3 Total 3 Past Encounters Encounter ID Performer Location Encounter Start Date Encounter Closed Date Diagnosis/Indication Diagnosis SNOMED-CT Code Diagnosis ICD10 Code Diagnosis Note [id number] Monica Kaba CNM [place] [address] [address] 02/04/2020 11:05:58 02/04/2020 12:08:09 Painless rectal bleeding 078949224 K62.5 [id number] Monica Kaba CNM [place] [address],[place] [address] 10/05/2020 12:10:17 10/06/2020 18:30:50 Cyst of ovary 20250086 N83.209 [id number] Abraham Gomez MD [place] [address],[place] [address] 10/05/2020 12:10:37 10/05/2020 12:45:20 Pain in pelvis 02406906 R10.2 [id number] Monica Kaba [place] [address],[place] [address] 12/01/2020 10:12:06 12/01/2020 12:53:13 Gynecologic examination 96319222 Z01.419 Anxiety 76294999 F41.9 discussed detention meds vs short term, short term can be addictive, will try #20 ativan 0.5mg if using too often will rec daily ssri, pt aware, if any suicidal thoughts to ED [id number] Monica Kaba [facility] [address],[place] [address] 12/25/2022 15:10:57 12/25/2022 16:37:43 Vaginal enterocele 425023085 N81.5 Pain in pelvis 33540215 R10.2 Anxiety 10356104 F41.9 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 gomez, monitor sxs [id number] Abraham Gomez MD [place] [address],[place] [address] 01/09/2023 16:48:17 01/09/2023 17:39:02 Pain in pelvis 66205509 R10.2 [id number] Abraham Gomez MD [place] [address],[place] [address] 06/12/2023 16:04:39 06/12/2023 17:14:40 Pain in pelvis 94265634 R10.2 33-year-ol d female with pelvic pain. She has cyclic pelvic pain. She has pain with bowel movements. She has some pain with intercours e. She has failed medical treatment. She had a trial of an IUD few years ago that failed. She also failed physical therapy. She had several weeks of physical therapy. She has not noticed any improvemen t. We talked about treatment options. Talked about medical treatment options in detail. Talked about diagnostic laparoscop y. I explained the procedure her in detail. She would like to move forward. We agreed to diagnostic laparoscop y. She will return 1 week before the surgery for the informed consent process. She understand s there is risk. We spent 40 minutes face-to-fa ce. More than 50% was counseling . We made a decision to perform surgery. [id number] Abraham Gomez MD [place] [address],[place] [address] 06/26/2023 12:25:41 06/27/2023 09:33:16 Pain in pelvis 58458191 R10.2 This patient is a 33-year-ol d female with pelvic pain. We have agreed perform diagnostic laparoscop y. She understand s the risks, benefits, and alternativ es. She has completed the informed consent process and is ready to proceed. [id number] Abraham Gomez MD [place] [address],[place] [address] 07/04/2023 09:23:39 07/04/2023 09:35:55 [id number] Abraham Gomez MD [place] [address],[place] [address] 07/09/2023 16:38:47 07/10/2023 08:40:05 Postoperative care [id number] Z48.89 this patient is a 33-year-ol d female who presents for postoperat cammie follow-up. She is 1 week postop from diagnostic laparoscop y. Her scope was essentiall y normal. We talked about her pain again. We talked about pain in other areas of her body. She seems to have a more global pain syndrome. She will see a rheumatolo gist. She is recovering normally from the procedure. Her incisions are clean dry and intact. Abraham Gomez MD [place] [address] [address] 06/08/2024 09:37:18 06/10/2024 01:20:56 Abscess of vulva 42272678 N76.4 34-year-ol d female presents for vulvar lesion. Patient reports a single vulvar lesion. This is similar to other she has had over the past year. They occur occasional ly. She is able to rupture them and have pus egress from the lesion. It is small. It is less than a cm. It is tender. It is firm. Exam- single vulvar lesion of the labia minora on the right anterior aspect of the vulva. It is draining purulent fluid. It is small. It appears to be healing. To observe. No treatment required. Considered antibiotic s but will observe. Discussed prevention . Offered prevention . These only occur 3 to 4 times a year and she does not want to treat every day [id number] Monica Kaba CNM [place] [address] [address] 11/17/2024 15:47:10 11/17/2024 17:25:08 Gynecologic examination 10839734 Z01.419 Health Concerns Section Related Observation LastModified by Organization Detai ls LastModified Time None Recorded Concern Status LastModified by Organization Details LastModified Time None Recorded Advance Directives Directive None Recorded Payers Insurance Date Sequence Insurance Name Policy Number Policy Zhu Covered Member ID Zhu Member ID Guarantor Name 11/17/2024 1 [employer] [id number] Jyoti May [id number] Jyoti May 11/17/2024 1 MACHELLE May [id number] Jyoti May 11/17/2024 1 [facility] - DOS PRIOR TO 2021 (MEDICAID REPLACEMENT - HMO) Jyoti May [id number] Jyoti May 12/16/2022 1 [facility] ([place] [id number] Marc May [id number] Jyoti May 06/09/2023 1 [facility] - DOS ON OR AFTER 21 (MEDICAID REPLACEMENT - HMO) Marc May [id number] Jyoti May Notes Date Note Type Note Provider Name and Address Organization Details Recorded Time 06/26/2023 text/html This patient is a 33-year-old female with pelvic pain. We have agreed to perform diagnostic laparoscopy. The patient understands the procedure. The procedure was described to the patient in great detail. the patient also understands the risks. The risks were also explained in detail. She understands that injuries May occur during surgery. She understands these injuries can result in hospitalization, more surgery, and severe illness. She understands there is risk of hemorrhage and infection. Abraham Gomez MD [address], [place], [address], [facility] 06/26/2023 22:57:40 07/09/2023 text/html this patient is a 33-year-old female who presents for postoperative follow-up. She is 1 week postop from diagnostic laparoscopy. Her scope was essentially normal. We talked about her pain again. We talked about pain in other areas of her body. She seems to have a more global pain syndrome. She will see a director of materials management. She is recovering normally from the procedure. Her incisions are clean dry and intact. Abraham Gomez MD [address], [place], [address], [facility] 07/09/2023 19:20:28 06/08/2024 text/html 34-year-old femvipul red presents for vulvar lesion. Patient reports a single vulvar lesion. This is similar to other she has had over the past year. They occur occasionally. She is able to rupture them and have pus egress from the lesion. It is small. It is less than a cm. It is tender. It is firm. Exam- single vulvar lesion of the labia minora on the right anterior aspect of the vulva. It is draining purulent fluid. It is small. It appears to be healing. To observe. No treatment required. Considered antibiotics but will observe. Discussed prevention. Offered prevention. These only occur 3 to 4 times a year and she does not want to treat every day Abraham Gomez MD [address], [place], [address], [facility] 06/09/2024 22:47:09 11/17/2024 text/html Annual GYNReport ed bypatient.Menstrual cycle:spotting once a month since ablation Urinary symptoms:No hematuria; No incontinence Vulva:No genital lesion Vagina:Normal vaginal discharge Breast:yeast under breast Sexual complaints:No sexual complaints; No pain during intercourse; Normal libido Menopausal Symptoms:No menopausal symptoms; Normal vaginal lubrication Psychological symptoms:No depression; No anxiety; No PMDD Preventive measures:Encourage self breast examination; Encourage regular exercise; Encourage no tobacco useNotes:seeing pcp for depression, on mood stabilizer since mom dies, 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 11/17/2024 17:22:13 OBGyn Episode Ob Episode Information Episode Created Date Number of Fetuses Patient Bloodtype Patient rh Status Prepregnancy Weight lbs Domestic Partner Domestic Partner Phone Father Name Social Services Manager Status 02/04/20 20 1 CLOSED Fetus Data First Name Last Name Admitted to NICU Weight (g) Sex Living Outcome Pediatric Complications Fetus ID Race Codes Race Delivery Type 4252.42 5 M Full Term 1272 Vaginal Delivery Lavell Calculation Initial Lavell Date Initial Exam Date Initial Exam Provider Initial Ultrasound Date Last Menstrual Period Date Ultra Sound Weeks Gestation 0 Eighteen To Twenty Week Lavell Update Ultra Sound Date Fundal Height At Umbil Quickening Date Ultra Sound Latest Weeks Gestation Final Lavell Confirmed By Final Lavell Confirmed Date Final Lavell Date Ultra Sound Latest Days Gestation 0 0 Menstrual History Last Menstrual Date Menses Monthly On Bcp Conception Prior Menses Frequency Hcg Plus Date Menarche Onset Age Delivery Information Delivery Date Delivery Type Labor Anesthesia Weeks Gestation Incision Type Labor Labor Length Hrs Delivered By Post Complications Tubal Sterilization Discharge Date Comments 5 39 had history of labor Discharge Information Feeding Method Contraceptive Method Maternal HG B and HCT Levels Ob Episode Information Episode Created Date Number of Fetuses Patient Bloodtype Patient rh Status Prepregnancy Weight lbs Domestic Partner Domestic Partner Phone Father Name Social Services Manager Status 02/04/20 20 1 CLOSED Fetus Data First Name Last Name Admitted to NICU Weight (g) Sex Living Outcome Pediatric Complications Fetus ID Race Codes Race Delivery Type 3288.54 2 F Full Term 1273 Vaginal Delivery Lavell Calculation Initial Lavell Date Initial Exam Date Initial Exam Provider Initial Ultrasound Date Last Menstrual Period Date Ultra Sound Weeks Gestation 0 Eighteen To Twenty Week Lavell Update Ultra Sound Date Fundal Height At Umbil Quickening Date Ultra Sound Latest Weeks Gestation Final Lavell Confirmed By Final Lavell Confirmed Date Final Lavell Date Ultra Sound Latest Days Gestation 0 0 Menstrual History Last Menstrual Date Menses Monthly On Bcp Conception Prior Menses Frequency Hcg Plus Date Menarche Onset Age Delivery Information Delivery Date Delivery Type Labor Anesthesia Weeks Gestation Incision Type Labor Labor Length Hrs Delivered By Post Complications Tubal Sterilization Discharge Date Comments 3 38 history labor/ elevated liver enzymes, gall bladder issues Discharge Information Feeding Method Contraceptive Method Maternal HG B and HCT Levels Ob Episode Information Episode Created Date Number of Fetuses Patient Bloodtype Patient rh Status Prepregnancy Weight lbs Domestic Partner Domestic Partner Phone Father Name Social Services Manager Status 02/04/20 20 1 CLOSED Fetus Data First Name Last Name Admitted to NICU Weight (g) Sex Living Outcome Pediatric Complications Fetus ID Race Codes Race Delivery Type 3855.53 2 M Full Term 1274 Vaginal Delivery Lavell Calculation Initial Lavell Date Initial Exam Date Initial Exam Provider Initial Ultrasound Date Last Menstrual Period Date Ultra Sound Weeks Gestation 0 Eighteen To Twenty Week Lavell Update Ultra Sound Date Fundal Height At Umbil Quickening Date Ultra Sound Latest Weeks Gestation Final Lavell Confirmed By Final Lavell Confirmed Date Final Lavell Date Ultra Sound Latest Days Gestation 0 0 Menstrual History Last Menstrual Date Menses Monthly On Bcp Conception Prior Menses Frequency Hcg Plus Date Menarche Onset Age Delivery Information Delivery Date Delivery Type Labor Anesthesia Weeks Gestation Incision Type Labor Labor Length Hrs Delivered By Post Complications Tubal Sterilization Discharge Date Comments 7 39 Discharge Information Feeding Method Contraceptive Method Maternal HG B and HCT Levels
--- OUTSIDE RECORDS SUMMARY | 2025-04-02 17:06 | XMS_ITS | Encounter Summary ---
Author Organization [facility] Facility Care Team Providers Care Interpreter Deaf Name Role Phone Simon Vance DO Primary Care Provider + Juan Sánchez DO Primary Care Provider + Armaan Chaudhary MD Primary Care Provider [phone] Addison Berumen MD Unavailable [phone] Doretha Morales MD Primary Care Provider Angeline Green NP Primary Care Provider [phone] Encounter Details Date Type Department Care Team (Latest Contact Info) Description 11/29/2016 Orders Only [facility] ProviderDanika MD [address] [place] [address] Social History Tobacco Use Types Packs/Day Years Used Date Smoking Tobacco: Never Comments Unknown Sex and Gender Information Value Date Recorded Sex Assigned at Not on file Legal Sex Female 9:05 PM CHAIN PEGGER Gender Identity Not on file Sexual Orientation Not on file documented as of this encounter Plan of Treatment Not on file documented as of this encounter Procedures Procedure Name Priority Date/Time Associated Diagnosis Comments SCAN - LABS 01/07/2017 12:00 AM CDT documented in this encounter Results * SCAN - LABS (01/07/2017 12:00 AM CDT) Narrative 01/07/2017 12:00 AM CDT Ordered by an unspecified provider. us Historical Provider Final Res ult documented in this encounter Visit Diagnoses Not on filedocumented in this encounter Additional Health Concerns Infection Onset Date Last Indicated Resolved Time COVID: Suspected 09/18/2020 09/19/2020 09/20/2020 6:26 AM CHAIN PEGGER COVID19 09/19/2020 09/19/2020 10/03/2020 3:07 AM CHAIN PEGGER COVID: Recovered Comment:Added based on recent COVID infection. 10/03/2020 11/28/2020 01/31/2021 3:05 AM C DT COVID: Suspected 10/18/2022 10/18/2022 10/18/2022 5:36 PM CHAIN PEGGER COVID: Suspected 10/18/2022 10/18/2022 10/18/2022 10:16 PM CHAIN PEGGER COVID: Suspected 10/24/2022 10/24/2022 10/24/2022 2:08 PM CHAIN PEGGER COVID: Suspected 11/05/2022 11/05/2022 11/05/2022 2:48 PM CHAIN PEGGER COVID: Suspected 06/05/2023 06/05/2023 06/05/2023 5:32 PM CDT COVID: Suspected 06/05/2023 06/05/2023 06/05/2023 11:23 PM CDT COVID: Suspected 08/22/2023 08/22/2023 08/22/2023 8:20 AM CHAIN PEGGER COVID: Suspected 08/22/2023 08/22/2023 08/22/2023 8:21 AM CHAIN PEGGER COVID19 08/22/2023 08/22/2023 09/01/2023 3:06 AM CHAIN PEGGER COVID: Recovered Comment:Added based on recent COVID infection. 09/01/2023 09/19/2023 11/30/2023 3:[address] COVID: Suspected 12/15/2023 12/15/2023 12/15/2023 6:28 PM CDT Influenza, adult 12/15/2023 12/15/2023 12/22/2023 3:05 AM CDT documented as of this encounter Care Teams Interpreter Deaf Relationship Specialty Start Date End Date Simon Vance DO [address] [address] PCP - General 11/13/18 05/30/20 Juan Sánchez DO [address] [facility] [address] [place] [address] PCP - General Family Medicine 05/31/20 11/18/22 Armaan Chaudhary MD [address] [facility] [address] [place] [address] PCP - General Family Medicine 11/19/22 07/17/23 Doretha Morales MD [address] [place] [address] PCP - General Family Medicine 07/18/23 09/18/23 Angeline Green, VETERINARY PRACTITIONER [address] [place] [address] PCP - General Family Medicine 09/19/23 Addison Berumen MD [address] [place] [address] Referring Physician Psychiatry 05/05/23 documented as of this encounter
--- OUTSIDE RECORDS SUMMARY | 2025-04-02 17:06 | XMS_ITS | Clinical Summary ---
Author Organization [facility] Address [address] [place] [address] Care Team Providers Care Presser Hand Name Role Phone Unavailable Primary Care Provider Unavailabl e Source Comments [facility],non-owned Affiliates and Associated Physician Practices is amultiple site organization consisting of ambulatory clinics and hospital sitesin [place], [place], [place] and [place]. This disclosure is being madepursuant to the Care Everywhere program and may not contain all informatio navailable regarding this patient. Last updated 18.[facility] Allergies No known active allergies Medications * Be aware that medications may not be up to date on this document. Alwaysverify current medications with the patient. Vit-Fe Fumarate-FA ( VITAMIN) 28-0.8 MG tablet Take 1 Tab by mouth once daily. Active potassium citrate (UROCIT K 10) 10 MEQ (1080 MG) tablet Take by mouth 2 times daily after meals. Active famotidine (PEPCID) 20 MG tablet Take 20 mg by mouth 2 times daily after meals. Active promethazine-cod eine (PHENERGAN WITH CODEINE) 6.25-10 MG/5ML solution Take 5 mL by mouth every 4 hours as needed. 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 Family history of cardiomyopathy 04/06/2013 Cholecystitis 04/06/2013 Family History Medical History Relation Name Comments Heart Disease Father Hypertension Father HI Father Diabetes Maternal Grandfather Heart Disease Maternal Grandfather Hypertension Maternal Grandfather HI Maternal Grandfather Thyroid Disease Mother hypothyroidi sm Kidney Disease Paternal Grandfather Heart Disease Paternal Grandmother Relation Name Status Comments Father Maternal Grandfather Mother Paternal Grandfather Paternal Grandmother Social History Tobacco Use Types Packs/Day Years Used Date Smoking Tobacco: Never Smokeless Tobacco: Never Alcohol Use Standard Drinks/Week Comments No 0 (1 standard drink = 0.6 oz pur e alcohol) Comments No Sex and Gender Information Value Date Recorded Sex Assigned at Not on file Legal Sex Female 5:23 AM CDT Gender Identity Not on file Sexual Orientation Not on file Last Filed Vital Signs Vital Sign Reading Time Taken Comments Blood Pressure 126/74 06/02/2013 12:10 PM CDT Pulse 73 05/19/2013 5:21 PM CDT Temperature 36.6 C (97.8 F) 05/19/2013 5:21 PM CDT Respiratory Rate 18 05/19/2013 8:35 PM CDT Oxygen Saturation 98% 04/09/2013 9:00 AM CDT Inhaled Oxygen Concentration - - Weight 109.8 kg (242 lb) 06/02/2013 12:10 PM CDT Height 162.6 cm (5' 4) 06/02/2013 12:10 PM CDT Body Mass Index 41.54 06/02/2013 12:10 PM CDT Plan of Treatment Health Maintenance Due Date Last Done Comments HIV SCREENING 01/11/2004 HEPATITIS C SCREENING 01/06/2007 DTAP/TDAP/TD VACCINES (1 - Tdap) 01/11/2008 HEPATITIS B VACCINE (1 of 3 - 19+ 3-dose series) 01/11/2008 PAP SMEAR 2010 COVID-19 VACCINE (1 - 2023-2 5 season) 2024 DEPRESSION SCREENING 09/29/2024 INFLUENZA VACCINE (Season Ended) 2025 ZOSTER VACCINE (1 of 2) 2039 HIB VACCINE Aged Out No longer eligi ble based on patient's age to complete this topic HPV VACCINE Aged Out No longer eligi ble based on patient's age to complete this topic MENINGOCOCCAL (Group B) VACC INE SHARED DECISION-MAKING Aged Out No longer eligibl e based on patient's age to complete this topic MENINGOCOCCAL GROUPS A/C/Y/W VACCINE Aged Out No longer eligible b ased on patient's age to complete this topic PNEUMOCOCCAL VACCINE Aged Out No long er eligible based on patient's age to complete this topic Insurance [facility] Advance Directives * FULL RESUSCITATION (Latest Code Status on File) Date Activated Date Inactivated Comments 04/06/2013 4:40 PM 04/09/2013 2:12 PM
--- OUTSIDE RECORDS SUMMARY | 2025-04-02 17:06 | XMS_ITS ---
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 Name Role Phone Angeline Green Primary Care Provider Unavailab neda KaurGabriel rodriguezu Unavailable [phone] Allergies Allergen (clinical drug ingredient) Drug/Non Drug [...] Concerta 18 MG 1 tablet in the morn ing Orally Once a day Active Ergocalciferol 1.25 MG (60052 UT) 1 capsule Orally every 7 days; Duration: 60 days 02/01/2025 04/02/2025 Active traMADol HCl 50 MG 1 tablet as needed Orally Once a day Active Cyclobenzaprine HCl 10 MG 1 tablet at be dtime as needed Orally Once a day Active Omeprazole 40 MG 1 capsule 1/2 to 1 h our before morning meal Orally Once a day; Duration: 30 day(s) 02/17/2025 Active Levothyroxine Sodium 25 MCG 1 tablet in the morning on an empty stomach Orally Once a day Active Repatha 140 MG/ML 1 mL Subcutaneous Active Flonase Allergy Relief 50 MCG/ACT 1 spray in each nostril Nasally Twice a day Active Dicyclomine HCl 10 MG 2 capsules Orally Three times a day prn Active ZyrTEC 10 MG 1 tablet Orally Once a day Active Darlington-3 Fish Oil 1000 MG 1 capsule Orall y Three times a day Active Pristiq 50 MG 1 tablet Orally Once a day Active QUEtiapine Fumarate 50 MG 1 tablet at be dtime Orally Once a day Active Omeprazole 20 MG 1 capsule 1/2 to 1 h our before morning meal Orally Once a day Active LORazepam 0.5 MG 1 tablet at bedtime as needed Orally Once a day Active SUMAtriptan Succinate 100 MG 1 tablet as needed, may take second dose at least 2 hours after first dose up to 2 tablets per day as needed Orally Once a day Active Vitamin D3 4665367 UNIT/GM as directed Active Social History Tobacco Use: [...] 02/28/2025 Encounters Encounter Location Date Provider [facility] [id number] [place] [address] [address] [place] [address] 02/28/2025 Jarrett Kaurguillerminachiquitatheo Morbid obesity E66.01 ; S/P bariatric surgery [...] gastric bypass. The use of a skilled assistant art director will be required in the operating room due to the complexity of the case. Will plan to have physician office support assistant or another highly trained surgeon personal insurance advisor for this case. Weight change as in [...] achieved it. The use of a skilled assistant art director will be required in the operating room due to the complexity of the case. Will plan to have physician office support assistant or another highly trained surgeon personal insurance advisor for this case. Patient was recommended to [...] gastric bypass. The use of a skilled assistant art director will be required in the operating room due to the complexity of the case. Will plan to have physician office support assistant or another highly trained surgeon personal insurance advisor for this case. 02/28/2025 S/P bariatric surgery (ICD-10 - Z98.84) s/p:. Date of surgery . @ [facility] , by Dr. Jarrett Castro Doing well [...] care (ICD-10 - Z71.89) Follow up with floriculture professor as scheduled Labs: None. Routine post op [...] Surgery, Date and Place. Surgery: Date: Place: [facility] Patient should qualify for staying more than 2 midnights in hospital. Patient education, risk explained and consent : The patient meets the criteria as set by the [place] [employer] that recommends bariatric surgery on [...] and having very close follow-up with a floriculture professor and me. In addition they must continue [...] has attended pre operative education class by computer numerical control programmer and the dietitian, but they will have additional education provided by the computer numerical control programmer and floriculture professor at [facility]. Because of the significant changes in eating habits they will have to see a floriculture professor following surgery. I have informed them that [...] the criteria as set by the [place] [employer] that recommends bariatric surgery on [...] and having very close follow-up with a floriculture professor and me. In addition they must attend [...] will have additional education provided by the computer numerical control programmer and floriculture professor at [facility]. Because of the significant changes in eating habits they will have to see a floriculture professor prior to and following surgery. I have [...] gastric bypass. The use of a skilled assistant art director will be required in the operating room due to the complexity of the case. Will plan to have physician office support assistant or another highly trained surgeon personal insurance advisor for this case. Weight change as in [...] achieved it. The use of a skilled assistant art director will be required in the operating room due to the complexity of the case. Will plan to have physician office support assistant or another highly trained surgeon personal insurance advisor for this case. Patient was recommended to [...] gastric bypass. The use of a skilled assistant art director will be required in the operating room due to the complexity of the case. Will plan to have physician office support assistant or another highly trained surgeon personal insurance advisor for this case. S/P bariatric surgery s/p:. Date of surgery . @ [facility] , by Dr. Jarrett Castro Doing well [...] and coordination of care Follow up with floriculture professor as scheduled Labs: None. Routine post op [...] Surgery, Date and Place. Surgery: Date: Place: [facility] Patient should qualify for staying more than 2 midnights in hospital. Patient education, risk explained and consent : The patient meets the criteria as set by the [place] [employer] that recommends bariatric surgery on [...] and having very close follow-up with a floriculture professor and me. In addition they must continue [...] has attended pre operative education class by computer numerical control programmer and the dietitian, but they will have additional education provided by the computer numerical control programmer and floriculture professor at [facility]. Because of the significant changes in eating habits they will have to see a floriculture professor following surgery. I have informed them that [...] the criteria as set by the [employer] [place] [employer] that recommends bariatric surgery on [...] and having very close follow-up with a floriculture professor and me. In addition they must attend [...] will have additional education provided by the computer numerical control programmer and floriculture professor at [facility]. Because of the significant changes in eating habits they will have to see a floriculture professor prior to and following surgery. I have [...] Reason: 2 weeks post op Provider Name:Leena aSntiago , 05/23/2025 10:00:00 AM, [address], [place], [address], Provider Name:Leena Santiago , 08/22/2025 10:30:00 AM, [address], [place], [address], Provider Name:Jarrett Rayo venegas, 02/24/2026 10:30:00 AM, [address], [place], [address], Progress Notes * Tyson MAYOB:1990 ( 35 yo F)Acc No.[id number]:02/28/2025 Patient: Jyoti GUERRA Provider: Tor Castro MD :1990 A ge:35 Y S ex:Female Date:02/28/2025 Address:[address] [place] [address] Pcp:Angeline Green Check In:10:42 AM CSTCheck O ut:11:09 AM 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 1 week PO VSG f/u. 2. [place] Post op 1 week. 3. Post Op Visit. * HPI: P [...] Once a day , Taking Vitamin D3 [id number] UNIT/GM Liquid as directed , Taking Omeprazole 20 MG Capsule Delayed Release 1 capsule 1/2 to 1 hour before morning meal Orally Once a day , Taking [place]-3 Fish Oil 1000 MG Capsule 1 capsule Orally Three times a day , Taking ZyrTEC 10 MG Tablet Chewable 1 tablet Orally Once a day , Taking QUEtiapine Fumarate 50 MG Tablet 1 tablet at bedtime Orally Once a day , Taking Pristiq 50 MG Tablet Extended Release 24 Hour 1 tablet Orally Once a day , Taking Levothyroxine Sodium 25 MCG Tablet 1 tablet in the morning on an empty stomach Orally Once a day , Taking Omeprazole 40 MG Capsule Delayed Release 1 capsule 1/2 to 1 hour before morning meal Orally Once a day , Taking Repatha 140 MG/ML Solution Prefilled Syringe 1 mL Subcutaneous , Taking Dicyclomine HCl 10 MG Capsule [...] needed Orally Once a day , Taking Concerta 18 MG Tablet Extended Release 1 tablet in the morning Orally Once a day , Taking Cyanocobalamin 1000 MCG Tablet 1 tablet Orally Once a day , stop date 04/02/2025, Taking Ergocalciferol 1.25 MG (97515 UT) Capsule 1 capsule Orally every 7 days , stop date 04/02/2025 * Allergies: D oxycycline: hives - Criticality High, NSAIDs - Criticality High, Valium - Criticality High. Objective: * Vitals: B P:132/80mm Hg, HR:74/min, [...] Notes: s/p:. Date of surgery . @ [facility] , by Dr. Jarrett Castro Doing well [...] coordination of care Notes: Follow up with floriculture professor as scheduled Labs: None. Routine post op [...] Surgery, Date and Place. Surgery: Date: Place: [facility] Patient should qualify for staying more than 2 midnights in hospital. Patient education, risk explained and consent :The patient meets the criteria as set by the [place] [employer] that recommends bariatric surgery on [...] and having very close follow-up with a floriculture professor and me. In addition they must continue [...] has attended pre operative education class by computer numerical control programmer and the dietitian, but they will have additional education provided by the computer numerical control programmer and floriculture professor at [facility]. Because of the significant changes in eating habits they will have to see a floriculture professor following surgery. I have informed them that [...] the criteria as set by the [place] [employer] that recommends bariatric surgery on [...] and having very close follow-up with a floriculture professor and me. In addition they must attend [...] will have additional education provided by the computer numerical control programmer and floriculture professor at [facility]. Because of the significant changes in eating habits they will have to see a floriculture professor prior to and following surgery. I have [...] op) * Billing Information: * Visit Code: 32964 Postop visit. 

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
--- OUTSIDE RECORDS SUMMARY | 2025-04-02 17:06 | XMS_ITS | Clinical Summary ---
Author Organization [facility] Address [address] [place] [phone] Phone Care Team Providers Care Front Desk Worker Name Role Phone Bertin Medley MD Primary Care Provider [phone] Allergies Active Allergy Reactions Criticality Noted Date Comments Adhesive Rash Low 01/11/2025 Banana Hives High 02/11/2025 Doxycycline Hives High 12/19/2014 Latex Hives High 02/02/2025 Pt states she gets welts Nsaids (Non-Steroidal Anti-Inflammatory Drug) Other (See Comments) 12/19/2014 Only 1 kidney Medications multivitamin (DAILY-WILMAR) tablet Take 1 Tab by mouth daily. Active cyclobenzaprine (FLEXERIL) 10 mg tablet 1 tablet at bedtime as needed Orally Once a day Active desvenlafaxine (PRISTIQ) 50 mg Extended Release 24 hour tablet Take 1 Tablet by mouth daily. Will be weaning and change to 25mg Active dicyclomine (BENTYL) 10 mg capsule TAKE 1 CAPSULE (10 MG TOTAL) BY MOUTH 3 TIMES A DAY NEEDED FOR ABDOMINAL CRAMPING 3 Active levothyroxine 25 mcg tablet TAKE 1 TABLET BY MOUTH EVERY DAY IN THE MORNING ON EMPTY STOMACH FOR 90 DAYS 3 Active LORazepam (ATIVAN) 0.5 mg tablet Take 0.5 mg by mouth every 8 hours as needed for Anxiety. 4 Active methylphenidate ER 18 mg tablet,extended release 24 hr Take 1 Tablet by mouth daily in the morning. Active QUEtiapine (SEROquel) 50 mg tablet Take 1 Tablet by mouth daily at bedtime. Active SUMAtriptan (IMITREX) 100 mg tablet TAKE 1 TABLET BY MOUTH AT ONSET OF HEADACHE. MAY REPEAT 1 DOSE AFTER AT LEAST 2 HOURS OF NO RELIEF Active traMADol (ULTRAM) 50 mg tablet Take 1 Tablet by mouth 4 times daily as needed. 3 Active Cetirizine (ZyrTEC) 10 mg Capsule Take 10 mg by mouth daily. 5 Active OMEGA-3 FATTY ACIDS-FISH OIL ORAL Take 1 Tablet by mouth daily. With COQ10 Active omeprazole (PriLOSEC) 40 mg Capsule, Delayed Release(E.C.) Take 1 Capsule (40 mg) by mouth daily. 30 Capsule 2 5 Active ondansetron (ZOFRAN ODT) 4 mg Tablet, Rapid Dissolve Dissolve 1 Tablet (4 mg) on top of tongue, then swallow with saliva every 8 hours as needed for Nausea/Vomiting . 20 Tablet 02/23/2025 12:48 PM CDT 5 Active naloxone (NARCAN) 4 mg/spray [place], Non-Aerosol EMERGENCY USE ONLY: Administer 1 spray (4 mg) in one nostril one time. May repeat in alternating nostrils every 2-3 min until responsive or EMS arrives. 2 Each 3 5 Active sennosides-docu sate sodium (SENNA-S) 8.6-50 mg tablet Take 1 Tablet by mouth daily for 10 days. 10 Tablet 02/23/2025 12:48 PM CDT 5 03/05/20 25 Active Problems Problem Noted Date Diagnosed Date Morbid obesity due to excess calories 02/22/2025 S/P laparoscopic sleeve gastrectomy 02/22/2025 Leukocytosis 02/22/2025 Anxiety and depression 02/22/2025 Encounters Date Type Department Care Team Description 03/16/2025 External Device Data STL ABSTRACTION Provider, Abstract 02/22/2025 10:18 AM CDT Anesthesia Event [facility] Operating Room [address] [place] [address] Lotus Brown MD [place], [place], [place] 02/22/2025 9:55 AM CDT - 02/22/2025 12:19 PM CDT Surgery [facility] Operating Room [address] [place] [address] Jarrett Castro MD ROBOTIC ASSISTED VERTICAL SLEEVE GASTRECTOMY 02/22/2025 7:26 AM CDT - 02/23/2025 1:00 PM CDT Hospital Encounter [facility] General Surgery [address] [place] [address] Jarrett Castro MD Morbid obesity due to excess calories ([facility]) Discharge Disposition: Home or Self Care 02/22/2025 External Device Data STL ABSTRACTION Provider, Abstract 02/17/2025 External Device Data STL ABSTRACTION Provider, Abstract 02/16/2025 External Device Data STL ABSTRACTION Provider, Abstract 02/11/2025 10:37 AM CDT - 02/11/2025 11:59 PM CDT Hospital Encounter [facility] Pre Surgical Assessment [address] [place] [phone] Jarrett Castro MD Discharge Disposition: Home or Self Care 01/20/2025 10:00 AM CDT - 01/20/2025 10:20 AM CDT Surgery [facility] Endoscopy Services [id number] [place] [phone] Jarrett Castro MD ESOPHAGOGASTRODUODENOSCOPY 01/20/2025 9:57 AM CDT Anesthesia Event [facility] End[facility] Services [id number] [place] [phone] Selina Wolf MD 01/20/2025 8:54 AM CDT - 01/20/2025 11:01 AM CDT Hospital Encounter [facility] Endoscopy Services [id number] [place] [phone] Jarrett Castro MD GERD (gastroesophageal reflux disease) Discharge Disposition: Home or Self Care from Last 3 Months Social History Tobacco Use Types Packs/Day Years Used Date Smoking Tobacco: Never Alcohol Use Standard Drinks/Week Comments Yes 0 (1 standard drink = 0.6 oz pur e alcohol) occasional Feeling Safe Answer Date Recorded Are you in a relationship wi th someone who hurts you emotionally and/or physically? No 02/22/2025 Comments No Sex and Gender Information Value Date Recorded Sex Assigned at Not on file Legal Sex Female 9:02 PM CDT Gender Identity Not on file Sexual Orientation Not on file Last Filed Vital Signs Vital Sign Reading Time Taken Comments Blood Pressure 108/62 02/23/2025 11:39 AM CDT Pulse 73 02/23/2025 11:39 AM CDT Temperature 37.1 C (98.8 F) 02/23/2025 11:39 AM CDT Respiratory Rate 18 02/23/2025 11:3 9 AM CDT Oxygen Saturation 95% 02/23/2025 11: 39 AM CDT Inhaled Oxygen Concentration - - Weight 122.1 kg (269 lb 3.2 oz) 02/22/2025 9:52 AM CDT Height 162.6 cm (5' 4) 02/22/2025 9:52 AM CDT Body Mass Index 46.21 02/22/2025 9:52 AM CDT Plan of Treatment Health Maintenance Due Date Last Done Comments DIABETES ANNUAL FOOT EXAM 2007 DIABETES ANNUAL RETINAL EXAM 2007 DIABETES MICROALBUMIN ANNUAL SCREEN 2007 LDL CHOLESTEROL ANNUAL 2007 HEPATITIS B VACCINES (1 of 3 - 19+ 3-dose series) 01/11/2008 HPV/Cotest (21-29) 2010 HPV/Cotest (30-65) 2019 COVID-19 Vaccine ( - 2023-2 5 season) 2024 07/08/2022, 10/05/2021, 09/14/2021 INFLUENZA VACCINE (#1) 2025 , 07/08/2022, 07/06/2021 DTAP/TDAP/TD VACCINES (2 - T d or Tdap) 07/07/2025 07/07/2015 DIABETES HBA1C Q 6 MONTHS 08/03/2025 01/31/2025 CERVICAL CANCER SCREENING 11/17/2027 PAP SMEAR 11/17/2027 11/17/2024 HPV VACCINES Aged Out No longer eligi ble based on patient's age to complete this topic Procedures Procedure Name Priority Date/Time Associated Diagnosis Comments COMPREHENSIVE METABOLIC PANEL Routine 11:10 AM CDT CBC WITH DIFFERENTIAL Routine 02/23/2025 11:09 AM CDT EXTRA TUBE (URINE CONTAINER) Routine 9:30 AM CDT EXTRA TUBE Routine 02/23/2025 9:30 AM CDT EXTRA TUBE (URINE HERNANDEZ) Routine 02/24/20 9:30 AM CDT URINALYSIS W/REFLEX MICROSCOPIC Routine 02/23/2025 9:30 AM CDT CBC WITHOUT DIFFERENTIAL Routine 025 2:10 PM CDT PHOSPHORUS Routine 02/22/2025 2:05 PM CDT MAGNESIUM LEVEL Routine 02/22/2025 2:05 PM CDT COMPREHENSIVE METABOLIC PANEL Routine 2:05 PM CDT PATHOLOGY Pathology 02/22/2025 11:19 AM CDT MA ANESTHESIA BLOCK PB PLACEHOLDER CHARGE Routine 02/22/2025 10:38 AM CDT MA ANES INSERT ENDOTRACHEAL AIRWAY Routine 02/22/2025 10:25 AM CDT MA LAPS GSTRC RSTRICTIV PX LONGITUDINAL GASTRECTOMY 02/22/2025 9:55 AM CDT MORBID OBESITY Special Needs CAROLINE LYNNE TO ASSIST. LATEX ALLERGY POC , URINE Routine 02/22/2025 8:43 AM CDT HCG QUALITATIVE, SERUM Routine 11:38 AM CDT UPPER ENDOSCOPY REPORT 10:16 AM CDT PATHOLOGY Pathology 01/20/2025 10:07 AM CDT GERD (gastroesophag eal reflux disease) MA ESOPHAGOGASTRODUODENOSCOP Y TRANSORAL DIAGNOSTIC 01/20/2025 10:00 AM CDT GERD (gastroesophag eal reflux disease) POC , URINE Routine 01/20/2025 9:19 AM CDT from Last 3 Months Results * (ABNORMAL) COMPREHENSIVE METABOLIC PANEL (02/23/2025 11:10 AM CDT) Only the most recent of2 resultswithin the time period is included. SODIUM 135(L) 136 - 145 mmol/L 02/23/2025 11:45 AM CDT [facility] POTASSIUM 4.4 3.4 - 5.1 mmol/L 02/23/2025 11:45 AM CDT [facility] CHLORIDE 103 98 - 107 mmol/L 02/23/2025 11:45 AM CDT [facility] CO2 22 22 - 29 mmol/L 02/23/2025 11:45 AM T [facility] CALCIUM 8.6 8.6 - 10.4 mg/dL 02/23/2025 11:45 AM T [facility] BUN 6 6 - 20 mg/dL 02/23/2025 11:45 AM CDT [facility] CREATININE 0.72 0.51 - 0.95 mg/dL 02/23/2025 11:45 AM T [facility] GLUCOSE 95 74 - 99 mg/dL 02/23/2025 11:45 AM T [facility] TOTAL PROTEIN 6.0(L) 6.3 - 8.7 g/dL 02/23/2025 11:45 AM T [facility] ALBUMIN 3.3(L) 3.5 - 5.2 g/dL 02/23/2025 11:45 AM CDT [facility] BILIRUBIN TOTAL 0.4 0.0 - 1.2 mg/dL 02/23/2025 11:45 AM T [facility] ALKALINE PHOSPHATASE 81 40 - 150 U/L 02/23/2025 11:45 AM CDT [facility] AST 21 0 - 33 U/L 02/23/2025 11:45 AM CDT [facility] ALT 27 0 - 33 U/L 02/23/2025 11:45 AM T [facility] GFR >60 >=60 mL/min/1.7 3 sq meter 02/23/2025 11:45 AM T [facility] Comment:eGFR calculated with 2020 CKD-EPI equation. Vegetarian diet, extremely high or low muscle mass, and may affect results. Cystatin C with Glomerular Filtration Rate is a suitable alternative for these patients. ANION GAP 10 8 - 16 mmol/L 02/23/2025 11:45 AM T [facility] Blood Venipuncture / Unknown 02/23/2025 11:10 AM CDT 02/23/2025 11:17 AM CDT Cesia Ellis MD CHEMISTRY ORDERABLES Fi nal Result [facility] CLIA# [id number] [place] [address] * (ABNORMAL) CBC WITH DIFFERENTIAL (02/23/2025 11:09 AM CDT) WBC 12.6(H) 4.0 - 9.8 K/uL 02/23/2025 11:23 AM T [facility] RBC 3.87(L) 3.90 - 4.90 M/uL 02/23/2025 11:23 AM [facility] HEMOGLOBIN 11.4(L) 11.8 - 14.8 g/dL 02/23/2025 11:23 AM [facility] HEMATOCRIT 34.4(L) 35.5 - 44.0 % 02/23/2025 11:23 AM T [facility] MCV 88.9 82.0 - 99.0 fL 02/23/2025 11:23 AM T [facility] MCH 29.5 27.2 - 32.6 pg 02/23/2025 11:23 AM T [facility] MCHC 33.1 31.5 - 35.5 g/dL 02/23/2025 11:23 AM CDT [facility] RDW 13.3 11.5 - 14.5 % 02/23/2025 11:23 AM CDT [facility] RDW-STDEV 42.7 37.1 - 48.7 fL 02/23/2025 11:23 AM CDT [facility] PLATELETS 244 140 - 350 K/uL 02/23/2025 11:23 AM CDT [facility] MPV 9.1(L) 9.3 - 12.4 fL 02/23/2025 11:23 AM CDT [facility] NEUTROPHILS 69 % 02/23/2025 11:23 AM CDT [facility] LYMPHOCYTES 22 % 02/23/2025 11:23 AM CDT [facility] MONOCYTES 8 % 02/23/2025 11:23 AM CDT [facility] EOSINOPHILS 0 % 02/23/2025 11:23 AM CDT [facility] BASOPHILS 0 % 02/23/2025 11:23 AM CDT [facility] IMMATURE GRANULOCYTES 0 % 02/23/2025 11:23 AM CDT [facility] NEUTROPHIL ABSOLUTE 8.66(H) 1.90 - 7.00 K/uL 02/23/2025 11:23 AM CDT [facility] LYMPHOCYTE ABSOLUTE 2.79 0.70 - 4.50 K/uL 02/23/2025 11:23 AM CDT [facility] MONOCYTE ABSOLUTE 0.99 0.10 - 1.30 K/uL 02/23/2025 11:23 AM CDT [facility] EOSINOPHIL ABSOLUTE 0.04 0.00 - 0.70 K/uL 02/23/2025 11:23 AM CDT [facility] BASOPHILS ABSOLUTE 0.05 0.00 - 0.20 K/uL 02/23/2025 11:23 AM CDT [facility] IMMATURE GRANULOCYTES ABSOLUTE 0.05(H) 0.00 - 0.03 K/uL 02/23/2025 11:23 AM CDT [facility] Blood Venipuncture / Unknown 02/23/2025 11:09 AM CDT 02/23/2025 11:21 AM CDT Cesia Ellis MD HEMATOLOGY ORDERABLES F inal Result Performing Organization Address City/[facility]/ZIP Co de Phone Number [facility] CLIA# [id number] [place] [address] * EXTRA TUBE (URINE HERNANDEZ) (02/23/2025 9:30 AM CDT) Urine URINE SPECIMEN OBTAINED BY CLEAN CATCH PROCEDURE / Unknown Collection / Unknown 02/23/2025 9:30 AM CDT 02/23/2025 9:30 AM CDT Cesia Ellis MD URINE ORDERABLES Final Result Performing Organization Address [facility] Co de Phone Number [facility] CLIA# [id number] [place] [address] * EXTRA TUBE (URINE CONTAINER) (02/23/2025 9:30 AM CDT) Urine URINE SPECIMEN OBTAINED BY CLEAN CATCH PROCEDURE / Unknown Collection / Unknown 02/23/2025 9:30 AM CDT 02/23/2025 9:32 AM CDT Jarrett Castro MD URINE ORDERABLES Final Resul t Performing Organization Address [facility] Co de Phone Number [facility] CLIA# [id number] [place] [address] * (ABNORMAL) URINALYSIS WITH REFLEX MICROSCOPIC (02/23/2025 9:30 AM CDT) COLOR UA Yellow Pale to Dark Yellow 02/23/2025 9:38 AM CDT [facility] CLARITY UA Clear Clear 02/23/2025 9:38 AM CDT [facility] SPECIFIC GRAVITY UA 1.016 1.003 - 1.035 02/23/2025 9:38 AM CDT [facility] PH UA 5.0 5.0 - 8.0 02/23/2025 9:38 AM CDT [facility] LEUKOCYTE ESTERASE UA Negative Negative 02/23/2025 9:38 AM CDT [facility] NITRITE UA Negative Negative 02/23/2025 9:38 AM CDT [facility] PROTEIN UA Negative Negative 02/23/2025 9:38 AM CDT [facility] GLUCOSE UA Negative Negative 02/23/2025 9:38 AM CDT [facility] KETONES UA 3+(A) Negative 02/23/2025 9:38 AM CDT [facility] UROBILINOGEN UA Normal <2.0 mg/dL 9:38 AM CDT [facility] BILIRUBIN UA Negative Negative 02/23/2025 9:38 AM CDT [facility] BLOOD UA Negative Negative 02/23/2025 9:38 AM CDT [facility] WBC UA 0-2 0 - 2 /hpf 02/23/2025 9:38 AM CDT [facility] RBC UA 0-2 0 - 2 /hpf 02/23/2025 9:38 AM CDT [facility] BACTERIA UA Negative Negative /hpf 02/23/2025 9:38 AM CDT [facility] EPITHELIAL CELLS, URINE 0-5 0 - 5 /hpf 02/23/2025 9:38 AM CDT [facility] HYALINE CAST 0-2 None Seen, 0-2 /lpf 02/23/2025 9:38 AM T [facility] Urine URINE SPECIMEN OBTAINED BY CLEAN CATCH PROCEDURE / Unknown Collection / Unknown 02/23/2025 9:30 AM CDT 02/23/2025 9:30 AM CDT Cesia Ellis MD URINE ORDERABLES Final Result [facility] CLIA# [id number] [place] [address] * (ABNORMAL) CBC WITHOUT DIFFERENTIAL (02/22/2025 2:10 PM CDT) WBC 15.1(H) 4.0 - 9.8 K/uL 02/22/2025 2:44 PM CDT [facility] RBC 4.57 3.90 - 4.90 M/uL 02/22/2025 2:44 PM CDT [facility] HEMOGLOBIN 13.2 11.8 - 14.8 g/dL 02/22/2025 2:44 PM CDT [facility] HEMATOCRIT 40.9 35.5 - 44.0 % 02/22/2025 2:44 PM CDT [facility] MCV 89.5 82.0 - 99.0 fL 02/22/2025 2:44 PM CDT [facility] MCH 28.9 27.2 - 32.6 pg 02/22/2025 2:44 PM CDT [facility] MCHC 32.3 31.5 - 35.5 g/dL 02/22/2025 2:44 PM CDT [facility] PLATELETS 269 140 - 350 K/uL 02/22/2025 2:44 PM CDT [facility] MPV 9.3 9.3 - 12.4 fL 02/22/2025 2:44 PM CDT [facility] RDW 13.1 11.5 - 14.5 % 02/22/2025 2:44 PM CDT [facility] RDW-STDEV 42.4 37.1 - 48.7 fL 02/22/2025 2:44 PM CDT [facility] Blood Venipuncture / Unknown 02/22/2025 2:10 PM CDT 02/22/2025 2:10 PM CDT Jarrett Castro MD HEMATOLOGY ORDERABLES Final Result Performing Organization Address City/[facility]/ZIP Co de Phone Number [facility] [id number] [place] [address] * PHOSPHORUS (02/22/2025 2:05 PM CDT) PHOSPHORUS 3.1 2.5 - 4.5 mg/dL 02/22/2025 2:20 PM CDT [facility] Blood Venipuncture / Unknown 02/22/2025 2:05 PM CDT 02/22/2025 2:05 PM CDT Jarrett Castro MD CHEMISTRY ORDERABLES Final R esult Performing Organization Address [facility] Co de Phone Number [facility] [id number] [place] [address] * MAGNESIUM LEVEL (02/22/2025 2:05 PM CDT) MAGNESIUM 1.8 1.6 - 2.6 mg/dL 02/22/2025 2:20 PM CDT [facility] Blood Venipuncture / Unknown 02/22/2025 2:05 PM CDT 02/22/2025 2:05 PM CDT Jarrett Castro MD CHEMISTRY ORDERABLES Final R esult [facility] [id number] [place] [address] * PATHOLOGY (02/22/2025 11:19 AM CDT) Only the most recent of2 resultswithin the time period is included. CASE REPORT Surgical Pathology Report Case: [id number] Authorizing Provider: Jarrett Castro MD Collected: 02/22/2025 11:19 AM Ordering Location: [facility] Received: 02/23/2025 08:24 AM Operating Room Pathologist: Tabitha Banks MD Specimen: Stomach, stomach remnant 02/25/2025 2:50 PM CDT [facility] FINAL DIAGNOSIS Stomach, gastrectomy - Mild chronic gastritis - No evidence of H pylori on H and E stained slide elk 02/25/2025 2:50 PM CDT [facility] at 1450 CDT GROSS DESCRIPTION Received in formalin labeled with the patient's name and stomach is a 15 x 4 x 4 cm portion of stomach with a 15 send is opened to show folds. A client representative section is submitted in A1. 02/25/2025 2:50 PM CDT [facility] MICROSCOPIC DESCRIPTION Microscopic examination confirms the diagnosis. 02/25/2025 2:50 PM CDT [facility] OPERATIVE PROCEDURE 1: GASTRECTOMY LONGITUDINAL ROBOTIC XI 02/25/2025 2:50 PM CDT [facility] CLINICAL INFORMATION MORBID OBESITY 02/25/2025 2:50 PM CDT [facility] COMMENT Immunohistochemical stains were performed, if any, and interpreted at [facility] ([facility]) Laboratory with appropriately staining controls. This test was developed and its performance characteristics determined by [facility] Lab. It has not been cleared or approved by the US Food and Drug Administration. The FDA does not require this test to go through premarket FDA review. This test is used for clinical purposes, and should not be regarded as investigational or for research. This lab is certified under CLIA to perform high complexity testing. Estrogen and progesterone receptor staining has not been validated in our lab on decalcified tissue; decalcification may decrease immunoreactivity for these and other antigens. 02/25/2025 2:50 PM CDT [facility] Tissue ENTIRE STOMACH / Unknown Collection / Unknown 02/22/2025 11:19 AM CDT 02/23/2025 8:24 AM CDT Jarrett Castro MD PATHOLOGY/CYTOLOGY ORDERABLE S Final Result [facility]# [id number] [place] [address] * MA ANESTHESIA BLOCK PB PLACEHOLDER CHARGE (02/22/2025 10:38 AM CDT) Narrative Irene Garcia MD - 02/22/2025 10:38 AM CDT Irene Garcia MD 02/22/2025 10:40 AM Patient location during procedure: OR Start time: 02/22/2025 10:25 AM Reason for block: at surgeon's request and post-op pain management Staffing Performed: Anesthesiologist (/) Authorized by: Irene Garcia MD Performed by: Irene Garcia MD Golf Caddie: Mandy Quintero RN Preanesthetic Checklist Completed: patient identified, IV checked, site marked, risks and benefits discussed, surgical consent, monitors and equipment checked, pre-op evaluation and timeout performed Hand hygiene performed prior to procedure Patient was prepped and draped in usual sterile fashion Mask worn Patient position: Supine Prep: ChloraPrep Patient monitoring: Continuous pulse oximetry, Heart rate, EKG and Non-invasive blood pressure Block Region: Truncal Block Block Type: TAP Laterality: Right Injection technique: Single-shot Haslett Identification: ultrasound guided Skin Infiltration: Lidocaine 1% Local injected: Bupivacaine 0.5% (30cc) Needle Needle type: Short-bevel Needle gauge: 21 G Needle length: 3.5 in Needle localization: Ultrasound guidance Nerve Stimulator or Paresthesia Response Motor response or paresthesia obtained mA ms Depth (cm) Sedation Given: Patient Response: Awake Assessment Paresthesia pain: None Heart rate change: no Slow fractionated injection: yes Narrative Injections made incrementally with aspirations every (mL): 5 Events: Ultrasound image placed permanently in chart, Image stored electronically in record and no block events Additional Notes Regional Nerve Block I have discussed with the patient the placement of a nerve plexus block for andry-operative and post-operative pain management. This discussion included potential risks, benefits, complications and side effects. I have also discussed alternative methods of post-operative analgesia. The patient accepts associated risks and wishes to proceed with the procedure. Time out performed prior to procedure. PROCEDURE NOTE: Nerve plexus blockade Surgical procedure: Procedure(s): ROBOTIC ASSISTED VERTICAL SLEEVE GASTRECTOMY Diagnosis:bilateral abdominal pain Block performed: Bilateral Rectus Sheath nerve block Skin prep: chlorohexidine Needle: 21Ga. 90mm (3.5inch) stimuquik needle Technique: Ultrasound guided Local anesthetic: 0.5% Marcaine Volume: 30 ml in 5ml increments after negative aspiration Observations: Blood aspirated No; Paresthesia No; Painful paresthesia upon injection No Complications: none Sedation: 0 mg midazolam Irene Garcia MD PROCEDURE/MINOR SURGICAL ORDERABLES Final Result * MA ANES INSERT ENDOTRACHEAL AIRWAY (02/22/2025 10:25 AM CDT) Narrative Lj Vidal AA - 02/22/2025 10:25 AM CDT Lj Vidal AA 02/22/2025 10:50 AM Airway Date/Time: 02/22/2025 10:25 AM Location: OR Plan: routine intubation Patient Identity Confirmed by: Verbally with patient and armband Airway: not difficult Staffing Performed: GUTTER INSTALLER/CAA Authorized by: Lj Vidal AA Performed by: Lj Vidal AA Indications and Patient Condition: Indications for Airway Management: Anesthesia Sedation Level: general anesthesia Preoxygenated: yes Patient Position: Sniffing Mask Difficulty Assessment: 1 - vent by mask Plan to extubate at end of case: Yes Final Airway Details: Final Airway Type: Endotracheal airway ETT Cuffed: Yes Cuff Volume (mL): 7 Technique Used for Successful ETT Placement: Direct laryngoscopy Devices/Methods Used in Placement: Intubating stylet Blade Type: straight blade Blade Size: 2 Insertion Site: Oral ETT Size (mm): 7.0 Measured from: Teeth ETT to Teeth (cm): 21 Tube secured with: Tape Placement Verified by: auscultation, end tidal CO2 and chest rise Cormack-Lehane Classification: Grade IIa - partial view of glottis Number of Attempts at Approach: 1 Additional Procedure Information: atraumatic and dentition unchanged us Lj CARTER PROCEDURE/MINOR SURGICAL ORDERAB LES Final Result * POC , URINE (02/22/2025 8:43 AM CDT) Only the most recent of2 resultswithin the time period is included. HCG QUAL URINE POC Negative Negative, Indeterminate [facility] POINT OF CARE INTERNAL KIT QC POC Pass Pass [facility] POINT OF CARE KIT LOT NUMBER POC [phone] [facility] POINT OF CARE KIT EXP DATE POC 08/25/2026 [facility] POINT OF CARE Urine 02/22/2025 8:43 AM CDT us Jarrett Castro MD POINT OF CARE TESTING Final Result Performing Organization Address City/[facility]/ZIP Co de Phone Number [facility] POINT OF CARE CLIA # [id number] [place] [address] * HCG QUALITATIVE, BLOOD (02/11/2025 11:38 AM CDT) HCG QUAL, BLOOD Negative Negative 02/11/2025 1:20 PM CDT [facility] Blood Venipuncture / Unknown 02/11/2025 11:38 AM CDT 02/11/2025 1:19 PM CDT us Jarrett Castro MD CHEMISTRY ORDERABLES Final R esult [facility] CLIA# [id number] [place] [address] * UPPER ENDOSCOPY REPORT (01/20/2025 10:16 AM CDT) Narrative Procedure Note Jarrett Castro MD - 01/20/2025 10:16 AM CDT [facility] Endoscopy Patient Name: Jyoti May Procedure Date: 01/20/2025 Date of : 1990 Attending MD: Jarrett Castro MD, Procedure: Upper GI endoscopy Indications: Suspected gastro-esophageal reflux disease Providers: Jarrett Castro MD Referring MD: Angeline Green Medicines: Monitored Anesthesia Care Complications: No immediate complications. Procedure: Informed consent was obtained for the procedure, including moderate sedation after risks were discussed. Based on the pre-procedure assessment, including review of the patient's medical history, medications, allergies, and review of systems, the patient was deemed to be an appropriate candidate for sedation. A timeout was performed. Continuous ECG monitoring, pulse oximetry, blood pressure monitoring, and direct observation were performed. The Endoscope was introduced through the mouth, and advanced to the second part of duodenum. The upper GI endoscopy was accomplished without difficulty. The patient tolerated the procedure well. Findings: The Z-line was regular and was found 39 cm from the incisors. The entire examined stomach was normal. Biopsies were taken with a cold forceps for Helicobacter pylori testing. Verification of patient identification for the specimen was done. Estimated blood loss was minimal. Biopsies were taken with a cold forceps for Helicobacter pylori testing. Verification of patient identification for the specimen was done. Estimated blood loss was minimal. The first portion of the duodenum and second portion of the duodenum were normal. Biopsies for histology were taken with a cold forceps for evaluation of celiac disease. Verification of patient identification for the specimen was done. Estimated blood loss was minimal. Impression: - Z-line regular, 39 cm from the incisors. - Normal stomach. Biopsied. - Normal first portion of the duodenum and second portion of the duodenum. Biopsied. Recommendation: - Discharge patient to home. - Resume previous diet. - Continue present medications. - Await pathology results. Procedure Code(s): --- Professional --- 16154, Esophagogastroduodenoscopy, flexible, transoral; with biopsy, single or multiple CPT copyright 2020 [employer]. All rights reserved. The codes documented in this report are preliminary and upon first officer and flight instructor review may be revised to meet current compliance requirements. Jarrett Castro MD 01/20/2025 10:16:26 AM This report has been signed electronically. Number of Addenda: [phone] [id number] [facility] [place] [address] Jarrett Castro MD GI PROCEDURE ORDERABLES [place] l Result from Last 3 Months Insurance BCBS OUT OF STATE RX [employer] Commercial RX [employer] (INTERNAL) [facility] Internal Plans Advance Directives For more information, please contact: [phone] * Full Code (Latest Code Status on File) Date Activated Date Inactivated Comments 02/22/2025 1:23 PM 02/23/2025 3:14 PM * Full Code Date Activated Date Inactivated Comments 02/22/2025 8:18 AM 02/22/2025 1:23 PM Care Teams Front Desk Worker Relationship Specialty Start Date End Date Bertin Medley MD [address] [place] [phone] PCP - General Internal Medicine 02/22/25
[2025-04-02 17:10] VITALS: BP 124/80; PULSE 90; RESP 18; TEMP 36.7; O2SAT 99
[2025-04-02 20:57] LABS: BEDSIDEPREGUCG Negative (Negative)
[2025-04-02 21:02] LABS: Hematocrit 39.6 % (37.0-47.0); Hemoglobin 12.7 g/dL (12.0-15.0); Immature Granulocyte Percent A 0.3 % (0-0.5); Lymphocytes Absolute Auto 2.50 K/mm3 (0.9-3.2); Mean Corpuscular HGB Conc 32.1 g/dl (32-36); Mean Corpuscular Hemoglobin 28.6 pg (26-34); Mean Corpuscular Volume 89.2 fl (80-100); Nucleated Red Blood Cells Absolute Auto 0.000 K/mm3 (0.0-0.012); Nucleated Red Blood Cells Perc 0.0 % (0.0-0.2); Platelet Count Result 271 k/mm3 (150-375); Red Blood Count 4.44 M/mm3 (4.2-5.4); White Blood Count 9.4 K/mm3 (4.5-10.0)
[2025-04-02 21:07] LABS: Add Urine Microscopic? YES; Appearance Urine Clear (Clear); Glucose Urine UA Negative (Negative); Leukocyte Esterase Ur Negative LEU/UL (Negative); Nitrate Urine Negative (Negative); Specific Grav Ur 1.028 (1.001-1.035)
[2025-04-02 21:12] LABS: Alanine Aminotransferase 87 U/L (6-35); Albumin Level 3.9 g/dL (3.5-5.1); Alkaline Phosphatase 96 U/L (38-126); Anion Gap 9 mmol/L (4-12); Aspartate Amino Transferase 62 U/L (14-36); Bilirubin,Total 0.5 mg/dL (0.2-1.3); Blood Urea Nitrogen 10 mg/dL (7-17); Calcium 9.5 mg/dL (8.4-10.2); Carbon Dioxide 26 mmol/L (22-30); Chloride 104 mmol/L (98-107); Estimated CRCL calculation 120 ml/min; Estimated Glomerular Filt Rate > 60; Glucose 89 mg/dL (65-110); Lipase 107 U/L (23-300); Potassium 4.0 mmol/L (3.4-5.0); Sodium 139 mmol/L (137-145); Total Protein 7.3 g/dL (6.3-8.2)
--- OUTSIDE RECORDS SUMMARY | 2025-04-02 22:12 | XMS_ITS | Clinical Summary ---
Author Organization [facility] [employer] Address [address] [place] [address] Care Team Providers Care Shoe Puller Name Role Phone Unavailable Primary Care Provider Unavailabl e Source Comments [facility] [employer],non-owned Affiliates and Associated Physician Practices is amultiple site organization consisting of ambulatory clinics and hospital sitesin [place], [place], [place] and [place]. This disclosure is being madepursuant to the Care Everywhere program and may not contain all information available regarding this patient. Last updated 18.[facility] [employer] Allergies No known active allergies Medications * [...] (04/06/2013): Dating by 10wk documented [place] in [facility] Family history of cardiomyopathy 04/06/2013 Cholecystitis 04/06/2013 Family History Medical History Relation Name Comments Heart Disease Father Hypertension Father NV Father Diabetes Maternal Grandfather Heart Disease Maternal Grandfather Hypertension Maternal Grandfather NV Maternal Grandfather Thyroid Disease Mother hypothyroidi sm [...] patient's age to complete this topic Insurance [facility] Advance Directives * FULL RESUSCITATION (Latest Code Status on File) Date Activated Date Inactivated Comments 04/06/2013 4:40 PM 04/09/2013 2:12 PM
--- OUTSIDE RECORDS SUMMARY | 2025-04-02 22:12 | XMS_ITS | Encounter Summary ---
Author Organization [facility] Address [address] [place] [address] Care Team Providers Care Group Cio Name Role Phone None, Provider Primary Care Provider Elva dubose Encounter Details Date Type Department Care Team (Late st Contact Info) Description 04/14/2020 Prep for Procedure [facility] [place], [place] [id number] Yue Harris MD [address] [place] [address] Social History Tobacco Use Types [...] DETECTED NOT DETECTED 04/13/2020 1:50 PM CDT [facility] CORONAVIRUS 229E PCR (RESP) NOT DETECTED NOT DETECTED 04/13/2020 1:50 PM CDT [facility] CORONAVIRUS HKU1 PCR (RESP) NOT DETECTED NOT DETECTED 04/13/2020 1:50 PM CDT [facility] CORONAVIRUS NL63 PCR (RESP) NOT DETECTED NOT DETECTED 04/13/2020 1:50 PM CDT [facility] CORONAVIRUS OC43 PCR (RESP) NOT DETECTED NOT DETECTED 04/13/2020 1:50 PM CDT [facility] METAPNEUMOVIRUS PCR (RESP) NOT DETECTED NOT DETECTED 04/13/2020 1:50 PM CDT [facility] RHINOVIRUS/ENTEROV IRUS PCR (RESP) NOT DETECTED NOT DETECTED 04/13/2020 1:50 PM CDT [facility] INFLUENZA A PCR (RESP) NOT DETECTED NOT DETECTED 04/13/2020 1:50 PM CDT [facility] INFLUENZA B PCR (RESP) NOT DETECTED NOT DETECTED 04/13/2020 1:50 PM CDT [facility] PARAINFLUENZA 1 PCR (RESP) NOT DETECTED NOT DETECTED 04/13/2020 1:50 PM CDT [facility] PARAINFLUENZA 2 PCR (RESP) NOT DETECTED NOT DETECTED 04/13/2020 1:50 PM CDT [facility] PARAINFLUENZA 3 PCR (RESP) NOT DETECTED NOT DETECTED 04/13/2020 1:50 PM CDT [facility] PARAINFLUENZA 4 PCR (RESP) NOT DETECTED NOT DETECTED 04/13/2020 1:50 PM CDT [facility] RSV PCR (RESP) NOT DETECTED NOT DETECTED 04/13/2020 1:50 PM CDT [facility] B PARAPERTUSIS PCR (RESP) NOT DETECTED NOT DETECTED 04/13/2020 1:50 PM CDT [facility] BORDETELLA PERTUSSIS PCR (RESP) NOT DETECTED NOT DETECTED 04/13/2020 1:50 PM CDT [facility] CHLAMYDOPHILA PNEUMONIAE PCR (RESP) NOT DETECTED NOT DETECTED 04/13/2020 1:50 PM CDT [facility] MYCOPLASMA PNEUMONIAE PCR (RESP) NOT DETECTED NOT DETECTED 04/13/2020 1:50 PM CDT [facility] CORONAVIRUS SARS COV 2 PCR (RESP) NOT DETECTED NOT DETECTED 04/13/2020 1:50 PM CDT [facility] Comment: THE SARS-CoV-2 TEST HAS BEEN AUTHORIZED BY THE FDA UNDER AN EUA FOR USE BY AUTHORIZED LABORATORIES. NASOPHARYNGEAL STRUCTURE / Unknown 04/13/2020 9:25 AM CDT Yue Harris MD MICROBIOLOGY - GENERAL ORDERAB LES Final Result [facility] [address] [place] [address], [place] [phone] documented in this encounter Visit Diagnoses Diagnosis Heartburn- Primary documented in this encounter Care Teams Group Cio Relationship Specialty Start Date End Date None, Provider, PCP - General 07/08/19 documented as of this encounter
--- OUTSIDE RECORDS SUMMARY | 2025-04-02 22:12 | XMS_ITS | Clinical Summary ---
Author Organization [facility] Address [address] [place] [phone] Phone Care Team Providers Care Commercial Insurance Underwriter Name Role Phone Bertin Medley MD Primary Care Provider [phone] Allergies Active Allergy Reactions Criticality Noted Date [...] CDT 5 Active naloxone (NARCAN) 4 mg/spray [place], Non-Aerosol EMERGENCY USE ONLY: Administer 1 spray [...] Abstract 02/22/2025 10:18 AM CDT Anesthesia Event [facility] Operating Room [address] [place] [address] Lotus Brown MD [place], [place], [place] 02/22/2025 9:55 AM CDT - 02/22/2025 12:19 PM CDT Surgery [facility] Operating Room [address] [place] [address] Jarrett Castro MD ROBOTIC ASSISTED VERTICAL SLEEVE GASTRECTOMY 02/22/2025 7:26 AM CDT - 02/23/2025 1:00 PM CDT Hospital Encounter [facility] General Surgery [address] [place] [address] Jarrett Castro MD Morbid obesity due to excess calories ([facility]) Discharge Disposition: Home or Self Care 02/22/2025 External Device Data STL ABSTRACTION Provider, Abstract 02/17/2025 External Device Data STL ABSTRACTION Provider, Abstract 02/16/2025 External Device Data STL ABSTRACTION Provider, Abstract 02/11/2025 10:37 AM CDT - 02/11/2025 11:59 PM CDT Hospital Encounter [facility] Pre Surgical Assessment [id number] [place] [phone] Jarrett Castro MD Discharge Disposition: Home or Self Care 01/20/2025 10:00 AM CDT - 01/20/2025 10:20 AM CDT Surgery [facility] Endoscopy Services [address] [place] [phone] Jarrett Castro MD ESOPHAGOGASTRODUODENOSCOPY 01/20/2025 9:57 AM CDT Anesthesia Event [facility] Endoscopy Services [id number] [place] [phone] Selina Wolf MD 01/20/2025 8:54 AM CDT - 01/20/2025 11:01 AM CDT Hospital Encounter [facility] Endoscopy Services [address] [place] [phone] Jarrett Castro MD GERD (gastroesophageal reflux disease) [...] CDT PATHOLOGY Pathology 02/22/2025 11:19 AM CDT [place] ANESTHESIA BLOCK PB PLACEHOLDER CHARGE Routine 02/22/2025 10:38 AM CDT [place] ANES INSERT ENDOTRACHEAL AIRWAY Routine 02/22/2025 10:25 AM CDT [place] LAPS GSTRC RSTRICTIV PX LONGITUDINAL GASTRECTOMY 02/22/2025 9:55 AM CDT MORBID OBESITY Special Needs CAROLINE LYNNE TO ASSIST. LATEX ALLERGY POC , URINE Routine 02/22/2025 8:43 AM CDT HCG QUALITATIVE, SERUM Routine 11:38 AM CDT UPPER ENDOSCOPY REPORT 10:16 AM CDT PATHOLOGY Pathology 01/20/2025 10:07 AM CDT GERD (gastroesophag eal reflux disease) [place] ESOPHAGOGASTRODUODENOSCOP Y TRANSORAL DIAGNOSTIC 01/20/2025 10:00 AM CDT GERD (gastroesophag eal reflux disease) POC , URINE Routine 01/20/2025 9:19 AM CDT from Last 3 Months Results * (ABNORMAL) COMPREHENSIVE METABOLIC PANEL (02/23/2025 11:10 AM CDT) Only the most recent of2 resultswithin the time period is included. SODIUM 135(L) 136 - 145 mmol/L 02/23/2025 11:45 AM CDT [facility] POTASSIUM 4.4 3.4 - 5.1 mmol/L 02/23/2025 11:45 AM CDT [facility] CHLORIDE 103 98 - 107 mmol/L 02/23/2025 11:45 AM CDT [facility] CO2 22 22 - 29 mmol/L 02/23/2025 11:45 AM T [facility] CALCIUM 8.6 8.6 - 10.4 mg/dL 02/23/2025 11:45 AM T [facility] BUN 6 6 - 20 mg/dL 02/23/2025 11:45 AM CDT [facility] CREATININE 0.72 0.51 - 0.95 mg/dL 02/23/2025 11:45 AM T [facility] GLUCOSE 95 74 - 99 mg/dL 02/23/2025 11:45 AM T [facility] TOTAL PROTEIN 6.0(L) 6.3 - 8.7 g/dL 02/23/2025 11:45 AM T [facility] ALBUMIN 3.3(L) 3.5 - 5.2 g/dL 02/23/2025 11:45 AM CDT [facility] BILIRUBIN TOTAL 0.4 0.0 - 1.2 mg/dL 02/23/2025 11:45 AM T [facility] ALKALINE PHOSPHATASE 81 40 - 150 U/L 02/23/2025 11:45 AM CDT [facility] AST 21 0 - 33 U/L 02/23/2025 11:45 AM CDT [facility] ALT 27 0 - 33 U/L 02/23/2025 11:45 AM T [facility] GFR >60 >=60 mL/min/1.7 3 sq meter 02/23/2025 11:45 AM T [facility] Comment:eGFR calculated with 2020 CKD-EPI equation. Vegetarian diet, extremely high or low muscle mass, and may affect results. Cystatin C with Glomerular Filtration Rate is a suitable alternative for these patients. ANION GAP 10 8 - 16 mmol/L 02/23/2025 11:45 AM T [facility] Blood Venipuncture / Unknown 02/23/2025 11:10 AM CDT 02/23/2025 11:17 AM CDT Cesia Ellis MD CHEMISTRY ORDERABLES Fi nal Result [facility] CLIA# [id number] [place] [address] * (ABNORMAL) CBC WITH DIFFERENTIAL (02/23/2025 11:09 AM CDT) WBC 12.6(H) 4.0 - 9.8 K/uL 02/23/2025 11:23 AM T [facility] RBC 3.87(L) 3.90 - 4.90 M/uL 02/23/2025 11:23 AM [facility] HEMOGLOBIN 11.4(L) 11.8 - 14.8 g/dL 02/23/2025 11:23 AM [facility] HEMATOCRIT 34.4(L) 35.5 - 44.0 % 02/23/2025 11:23 AM T [facility] MCV 88.9 82.0 - 99.0 fL 02/23/2025 11:23 AM T [facility] MCH 29.5 27.2 - 32.6 pg 02/23/2025 11:23 AM T [facility] MCHC 33.1 31.5 - 35.5 g/dL 02/23/2025 11:23 AM CDT [facility] RDW 13.3 11.5 - 14.5 % 02/23/2025 11:23 AM CDT [facility] RDW-STDEV 42.7 37.1 - 48.7 fL 02/23/2025 11:23 AM CDT [facility] PLATELETS 244 140 - 350 K/uL 02/23/2025 11:23 AM CDT [facility] MPV 9.1(L) 9.3 - 12.4 fL 02/23/2025 11:23 AM CDT [facility] NEUTROPHILS 69 % 02/23/2025 11:23 AM CDT [facility] LYMPHOCYTES 22 % 02/23/2025 11:23 AM CDT [facility] MONOCYTES 8 % 02/23/2025 11:23 AM CDT [facility] EOSINOPHILS 0 % 02/23/2025 11:23 AM CDT [facility] BASOPHILS 0 % 02/23/2025 11:23 AM CDT [facility] IMMATURE GRANULOCYTES 0 % 02/23/2025 11:23 AM CDT [facility] NEUTROPHIL ABSOLUTE 8.66(H) 1.90 - 7.00 K/uL 02/23/2025 11:23 AM CDT [facility] LYMPHOCYTE ABSOLUTE 2.79 0.70 - 4.50 K/uL 02/23/2025 11:23 AM CDT [facility] MONOCYTE ABSOLUTE 0.99 0.10 - 1.30 K/uL 02/23/2025 11:23 AM CDT [facility] EOSINOPHIL ABSOLUTE 0.04 0.00 - 0.70 K/uL 02/23/2025 11:23 AM CDT [facility] BASOPHILS ABSOLUTE 0.05 0.00 - 0.20 K/uL 02/23/2025 11:23 AM CDT [facility] IMMATURE GRANULOCYTES ABSOLUTE 0.05(H) 0.00 - 0.03 K/uL 02/23/2025 11:23 AM CDT [facility] [employer] [facility] Blood Venipuncture / Unknown 02/23/2025 11:09 AM CDT 02/23/2025 11:21 AM CDT Cesia Ellis MD HEMATOLOGY ORDERABLES F inal Result Performing Organization Address City/[facility]/ZIP Co de Phone Number [facility] CLIA# [id number] [place] [address] * EXTRA TUBE (URINE HERNANDEZ) (02/23/2025 9:30 AM CDT) Urine URINE SPECIMEN OBTAINED BY CLEAN CATCH PROCEDURE / Unknown Collection / Unknown 02/23/2025 9:30 AM CDT 02/23/2025 9:30 AM CDT Cesia Ellis MD URINE ORDERABLES Final Result Performing Organization Address [facility] Co de Phone Number [facility] [employer] [facility] CLIA# [id number] [place] [address] * EXTRA TUBE (URINE CONTAINER) (02/23/2025 9:30 AM CDT) Urine URINE SPECIMEN OBTAINED BY CLEAN CATCH PROCEDURE / Unknown Collection / Unknown 02/23/2025 9:30 AM CDT 02/23/2025 9:32 AM CDT Jarrett Castro MD URINE ORDERABLES Final Resul t Performing Organization Address [facility] Co de Phone Number [facility] [employer] [facility] CLIA# [id number] [place] [address] * (ABNORMAL) URINALYSIS WITH REFLEX MICROSCOPIC (02/23/2025 9:30 AM CDT) COLOR UA Yellow Pale to Dark Yellow 02/23/2025 9:38 AM CDT [facility] CLARITY UA Clear Clear 02/23/2025 9:38 AM CDT [facility] SPECIFIC GRAVITY UA 1.016 1.003 - 1.035 02/23/2025 9:38 AM CDT [facility] PH UA 5.0 5.0 - 8.0 02/23/2025 9:38 AM CDT [facility] LEUKOCYTE ESTERASE UA Negative Negative 02/23/2025 9:38 AM CDT [facility] NITRITE UA Negative Negative 02/23/2025 9:38 AM CDT [facility] PROTEIN UA Negative Negative 02/23/2025 9:38 AM CDT [facility] GLUCOSE UA Negative Negative 02/23/2025 9:38 AM CDT [facility] KETONES UA 3+(A) Negative 02/23/2025 9:38 AM CDT [facility] UROBILINOGEN UA Normal <2.0 mg/dL 9:38 AM CDT [facility] BILIRUBIN UA Negative Negative 02/23/2025 9:38 AM CDT [facility] BLOOD UA Negative Negative 02/23/2025 9:38 AM CDT [facility] WBC UA 0-2 0 - 2 /hpf 02/23/2025 9:38 AM CDT [facility] RBC UA 0-2 0 - 2 /hpf 02/23/2025 9:38 AM CDT [facility] BACTERIA UA Negative Negative /hpf 02/23/2025 9:38 AM CDT [facility] EPITHELIAL CELLS, URINE 0-5 0 - 5 /hpf 02/23/2025 9:38 AM CDT [facility] HYALINE CAST 0-2 None Seen, 0-2 /lpf 02/23/2025 9:38 AM T [facility] Urine URINE SPECIMEN OBTAINED BY CLEAN CATCH PROCEDURE / Unknown Collection / Unknown 02/23/2025 9:30 AM CDT 02/23/2025 9:30 AM CDT Cesia Ellis MD URINE ORDERABLES Final Result [facility] CLIA# [id number] [place] [address] * (ABNORMAL) CBC WITHOUT DIFFERENTIAL (02/22/2025 2:10 PM CDT) WBC 15.1(H) 4.0 - 9.8 K/uL 02/22/2025 2:44 PM CDT [facility] RBC 4.57 3.90 - 4.90 M/uL 02/22/2025 2:44 PM CDT [facility] HEMOGLOBIN 13.2 11.8 - 14.8 g/dL 02/22/2025 2:44 PM CDT [facility] HEMATOCRIT 40.9 35.5 - 44.0 % 02/22/2025 2:44 PM CDT [facility] MCV 89.5 82.0 - 99.0 fL 02/22/2025 2:44 PM CDT [facility] MCH 28.9 27.2 - 32.6 pg 02/22/2025 2:44 PM CDT [facility] MCHC 32.3 31.5 - 35.5 g/dL 02/22/2025 2:44 PM CDT [facility] PLATELETS 269 140 - 350 K/uL 02/22/2025 2:44 PM CDT [facility] MPV 9.3 9.3 - 12.4 fL 02/22/2025 2:44 PM CDT [facility] RDW 13.1 11.5 - 14.5 % 02/22/2025 2:44 PM CDT [facility] RDW-STDEV 42.4 37.1 - 48.7 fL 02/22/2025 2:44 PM CDT [facility] Blood Venipuncture / Unknown 02/22/2025 2:10 PM CDT 02/22/2025 2:10 PM CDT Jarrett Castro MD HEMATOLOGY ORDERABLES Final Result Performing Organization Address City/[facility]/ZIP Co de Phone Number [facility]# [id number] [address] [place] [address] * PHOSPHORUS (02/22/2025 2:05 PM CDT) PHOSPHORUS 3.1 2.5 - 4.5 mg/dL 02/22/2025 2:20 PM CDT [facility] Blood Venipuncture / Unknown 02/22/2025 2:05 PM CDT 02/22/2025 2:05 PM CDT Jarrett Castro MD CHEMISTRY ORDERABLES Final R esult Performing Organization Address [facility] Co de Phone Number [facility]# [id number] [place] [address] * MAGNESIUM LEVEL (02/22/2025 2:05 PM CDT) MAGNESIUM 1.8 1.6 - 2.6 mg/dL 02/22/2025 2:20 PM CDT [facility] Blood Venipuncture / Unknown 02/22/2025 2:05 PM CDT 02/22/2025 2:05 PM CDT Jarrett Castro MD CHEMISTRY ORDERABLES Final R esult [facility]# [id number] [place] [address] * PATHOLOGY (02/22/2025 11:19 AM CDT) Only the most recent of2 resultswithin the time period is included. CASE REPORT Surgical Pathology Report Case: [id number] Authorizing Provider: Jarrett Castro MD Collected: 02/22/2025 11:19 AM Ordering Location: [facility] Received: 02/23/2025 08:24 AM Operating Room Pathologist: Tabitha Banks MD Specimen: Stomach, stomach remnant 02/25/2025 2:50 PM CDT [facility] FINAL DIAGNOSIS Stomach, gastrectomy - Mild chronic gastritis - No evidence of H pylori on H and E stained slide elk 02/25/2025 2:50 PM CDT [facility] at 1450 CDT GROSS DESCRIPTION Received in formalin labeled with the patient's name and stomach is a 15 x 4 x 4 cm portion of stomach with a 15 send is opened to show folds. A senior outside sales representative section is submitted in A1. 02/25/2025 2:50 PM CDT [facility] MICROSCOPIC DESCRIPTION Microscopic examination confirms the diagnosis. 02/25/2025 2:50 PM CDT [facility] OPERATIVE PROCEDURE 1: GASTRECTOMY LONGITUDINAL ROBOTIC XI 02/25/2025 2:50 PM CDT [facility] CLINICAL INFORMATION MORBID OBESITY 02/25/2025 2:50 PM CDT [facility] COMMENT Immunohistochemical stains were performed, if any, and interpreted at [facility] ([facility]) Laboratory with appropriately staining controls. This test was developed and its performance characteristics determined by [facility] Lab. It has not [...] and other antigens. 02/25/2025 2:50 PM CDT [facility] Tissue ENTIRE STOMACH / Unknown Collection / Unknown 02/22/2025 11:19 AM CDT 02/23/2025 8:24 AM CDT Jarrett Castro MD PATHOLOGY/CYTOLOGY ORDERABLE S Final Result [facility]# [id number] [place] [address] * [place] ANESTHESIA BLOCK PB PLACEHOLDER CHARGE (02/22/2025 10:38 AM CDT) Narrative Irene Garcia MD - 02/22/2025 10:38 AM CDT Irene Garcia MD 02/22/2025 10:40 AM Patient location during procedure: OR Start time: 02/22/2025 10:25 AM Reason for block: at surgeon's request and post-op pain management Staffing Performed: Anesthesiologist (/) Authorized by: Irene Garcia MD Performed by: Irene Garcia MD Dairy Helper: Mandy Quintero RN Preanesthetic Checklist Completed: patient [...] Type: TAP Laterality: Right Injection technique: Single-shot [place] Identification: ultrasound guided Skin Infiltration: Lidocaine 1% [...] MD PROCEDURE/MINOR SURGICAL ORDERABLES Final Result * [place] ANES INSERT ENDOTRACHEAL AIRWAY (02/22/2025 10:25 AM CDT) Narrative Lj Vidal AA - 02/22/2025 10:25 AM CDT Lj Vidal AA 02/22/2025 10:50 AM Airway Date/Time: 02/22/2025 10:25 AM Location: OR Plan: routine intubation Patient Identity Confirmed by: Verbally with patient and armband Airway: not difficult Staffing Performed: SUPERVISOR CIGARETTE MAKING DEPARTMENT/CAA Authorized by: Lj Vidal AA Performed by: [...] HCG QUAL URINE POC Negative Negative, Indeterminate [facility] POINT OF CARE INTERNAL KIT QC POC Pass Pass [facility] POINT OF CARE KIT LOT NUMBER POC [phone] [facility] POINT OF CARE KIT EXP DATE POC 08/25/2026 [facility] POINT OF CARE Urine 02/22/2025 8:43 AM CDT us Jarrett Castro MD POINT OF CARE TESTING Final Result Performing Organization Address City/[facility]/ZIP Co de Phone Number [facility] POINT OF CARE CLIA # [id number] [place] [address] * HCG QUALITATIVE, BLOOD (02/11/2025 11:38 AM CDT) HCG QUAL, BLOOD Negative Negative 02/11/2025 1:20 PM CDT [facility] Blood Venipuncture / Unknown 02/11/2025 11:38 AM CDT 02/11/2025 1:19 PM CDT us Jarrett Castro MD CHEMISTRY ORDERABLES Final R esult [facility] CLIA# [id number] [place] [address] * UPPER ENDOSCOPY REPORT (01/20/2025 10:16 AM CDT) Narrative Procedure Note Jarrett Castro MD - 01/20/2025 10:16 AM CDT [facility] Endoscopy Patient Name: Jyoti May [...] pathology results. Procedure Code(s): --- Professional --- 58368, Esophagogastroduodenoscopy, flexible, transoral; with biopsy, single or multiple CPT copyright 2020 [employer]. All rights reserved. The codes documented in this report are preliminary and upon bench hand review may be revised to meet current compliance requirements. Jarrett Castro MD 01/20/2025 10:16:26 AM This report has been signed electronically. Number of Addenda: [id number] [facility] [place] [address] Jarrett Castro MD GI PROCEDURE ORDERABLES Florence l Result from Last 3 Months Insurance BCBS OUT OF STATE RX [employer] Commercial RX [employer] PL[employer] (INTERNAL) [facility] Internal Plans Advance Directives For more information, please contact: [phone] * Full Code (Latest Code Status on File) Date Activated Date Inactivated Comments 02/22/2025 1:23 PM 02/23/2025 3:14 PM * Full Code Date Activated Date Inactivated Comments 02/22/2025 8:18 AM 02/22/2025 1:23 PM Care Teams Commercial Insurance Underwriter Relationship Specialty Start Date End Date Bertin Medley MD [address] [facility] [address] [place] [phone] PCP - General Internal Medicine 02/22/25
--- OUTSIDE RECORDS SUMMARY | 2025-04-02 22:12 | XMS_ITS | Encounter Summary ---
Author Organization [facility] Facility Care Team Providers Care Cardiology Clinical Nurse Specialist Name Role Phone Simon Vance DO Primary Care Provider + Juan Sánchez DO Primary Care Provider + Armaan Chaudhary MD Primary Care Provider [phone] Addison Berumen MD Unavailable [phone] Doretha Morales MD Primary Care Provider Angeline Green NP Primary Care Provider [phone] Encounter Details Date Type Department Care Team (Latest Contact Info) Description 01/29/2017 Orders Only [facility] CLINCONV ProviderDanika MD [address] [place] [address] Social History Tobacco Use Types Packs/Day Years Used Date Smoking Tobacco: Never Comments Unknown Sex and Gender Information Value Date Recorded Sex Assigned at Not on file Legal Sex Female 9:05 PM RN X RAY Gender Identity Not on file Sexual Orientation [...] COVID: Suspected 09/18/2020 09/19/2020 09/20/2020 6:26 AM RN X RAY COVID19 09/19/2020 09/19/2020 10/03/2020 3:07 AM RN X RAY COVID: Recovered Comment:Added based on recent COVID infection. 10/03/2020 11/28/2020 01/31/2021 3:05 AM C DT COVID: Suspected 10/18/2022 10/18/2022 10/18/2022 5:36 PM RN X RAY COVID: Suspected 10/18/2022 10/18/2022 10/18/2022 10:16 PM RN X RAY COVID: Suspected 10/24/2022 10/24/2022 10/24/2022 2:08 PM RN X RAY COVID: Suspected 11/05/2022 11/05/2022 11/05/2022 2:48 PM RN X RAY COVID: Suspected 06/05/2023 06/05/2023 06/05/2023 5:32 PM CDT COVID: Suspected 06/05/2023 06/05/2023 06/05/2023 11:23 PM CDT COVID: Suspected 08/22/2023 08/22/2023 08/22/2023 8:20 AM RN X RAY COVID: Suspected 08/22/2023 08/22/2023 08/22/2023 8:21 AM RN X RAY COVID19 08/22/2023 08/22/2023 09/01/2023 3:06 AM RN X RAY COVID: Recovered Comment:Added based on recent COVID infection. 09/01/2023 09/19/2023 11/30/2023 3:[address] COVID: Suspected 12/15/2023 12/15/2023 12/15/2023 6:28 PM CDT Influenza, adult 12/15/2023 12/15/2023 12/22/2023 3:05 AM CDT documented as of this encounter Care Teams Cardiology Clinical Nurse Specialist Relationship Specialty Start Date End Date Simon Vance DO [address] [address] PCP - General 11/13/18 05/30/20 Juan Sánchez DO [address] [facility] [address] [place] [address] PCP - General Family Medicine 05/31/20 11/18/22 Armaan Chaudhary MD [address] [facility] [address] [place] [address] PCP - General Family Medicine 11/19/22 07/17/23 Doretha Morales MD [address] [place] [address] PCP - General Family Medicine 07/18/23 09/18/23 Angeline Green, TROUBLE CLERK [address] [place] [address] PCP - General Family Medicine 09/19/23 Addison Berumen MD [address] [place] [address] Referring Physician Psychiatry 05/05/23 documented as of this encounter
--- OUTSIDE RECORDS SUMMARY | 2025-04-02 22:12 | XMS_ITS | Encounter Summary ---
Author Organization [facility] Healthcare Address [address] [place] [address] Care Team Providers Care Nut Sorter Operator Name Role Phone Addison Berumen MD Unavailable [phone] Angeline Green NP Primary Care Provider [phone] Reason for Visit * Auth/Cert (Routine) Specialty [...] disease [Z83.79] FH: colonic polyps [Z83.719] Procedures [place] ESOPHAGOGASTRODUODENOSCOPY TRANSORAL DIAGNOSTIC ESOPHAGOGASTRODUODENOSCOPY Referral ID Status Reason Start Date Expiration Date Visits Re quested Visits Authorized [id number] 1 1 Encounter Details Date Type Department Care Team (Late st Contact Info) Description 05/26/2024 Hospital Encounter [facility] [address] [place] [address] Phil Jasmine MD [address] [place] [address] [place] [address] Social History Tobacco Use Types Packs/Day Years [...] on file Legal Sex Female 9:05 PM QUANTITATIVE RESEARCH ANALYST Gender Identity Not on file Sexual Orientation Not on file 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 Advised pt to contact GI office when [...] polyps documented in this encounter Care Teams Nut Sorter Operator Relationship Specialty Start Date End Date Angeline Green NP [address] [place] [id number] PCP - General Family Medicine 09/19/23 Addison Berumen MD [address] [place] [id number] Referring Physician Psychiatry 05/05/23 documented as of this encounter
--- OUTSIDE RECORDS SUMMARY | 2025-04-02 22:12 | XMS_ITS | Clinical Summary ---
Author Organization [facility] at the [facility] Address [address] [place] [address] Care Team Providers Care College Or [employer] Faculty Member Name Role Phone Addison Berumen MD Unavailable [phone] Angeline Green NP Primary Care Provider [phone] Allergies Active Allergy Reactions Criticality Noted Date [...] Refills after this to come from her case planner 360 capsule 08/28/20 Active hydrOXYzine (VISTARIL) 25 [...] her mood is better since seeing a seed potato cutter. She did not like her psychiatrist so [...] mg Assessment & Plan (12/07/2020 1:09 PM SUPERVISOR TOWER): concerta 18 IBS (irritable bowel syndrome) 06/14/2020 [...] her mood. She is now seeing a seed potato cutter and notes mood is doing much better. She defers need for medication currently. She is aware that if mood struggles significantly then she will have to get back in with Psychiatry. I did provide her with contact information for an alternative Psychiatry group in the area that she may try. 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 - will f/u [...] 07/18/2023 Assessment & Plan (11/19/2022 8:55 PM SUPERVISOR TOWER): A(n) initial well visit to establish care [...] 10/23/2021 Assessment & Plan (08/06/2021 2:41 PM SUPERVISOR TOWER): pablo saldana covid test Flank pain 03/15/2021 [...] 07/18/2023 Assessment & Plan (09/05/2021 3:39 PM SUPERVISOR TOWER): Add zoloft 25 mg Update 3 weeks Call if worsening Assessment & Plan (12/07/2020 1:07 PM SUPERVISOR TOWER): lexapro Cough 07/13/2020 07/18/2023 Assessment & Plan [...] cystitis Assessment & Plan (10/23/2021 5:27 PM SUPERVISOR TOWER): Refer to PT for pelvic floor PT [...] cystectomy for left paratubal/ovarian cyst done at [facility] by Dr. Bhatt LAPAROSCOPIC ENDOMETRIOSIS FULGURATION 07/04/2023 Medical History Medical History Date Comments Kidney stones 2007 GERD (gastroesophageal reflux disease) 2008 IBS (irritable bowel syndrome) ADHD (attention deficit hyperactivity disorder) Depression GBS (group B streptococcus) UTI complicating pre gnancy 04/06/2013 Family History Medical History Relation Name Comments Cancer Father Heart disease Father Hodgkin's lymphoma Father exposure to Agent [place] Leukemia Father Pancreatitis Father Colon polyps Mother [...] on file Legal Sex Female 9:05 PM SUPERVISOR TOWER Gender Identity Not on file Sexual Orientation Not on file 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 Not on file Not [...] 36.8 C (98.3 F) 08/22/2023 8:17 AM SUPERVISOR TOWER Respiratory Rate 14 12/15/2023 6:10 PM CDT [...] Relevant to Health Maintenance Insurance [facility] Care Teams College Or University Faculty Member Relationship Specialty Start Date End Date Angeline Green NP [address] [place] [address] PCP - General Family Medicine 09/19/23 Addison Berumen MD [address] [place] [address] Referring Physician Psychiatry 05/05/23
--- OUTSIDE RECORDS SUMMARY | 2025-04-02 22:12 | XMS_ITS ---
Author Organization Unknown Medications Medication Instructions Effective Dates (start - stop) Status 0.5 ML semaglutide 0.5 MG/ML Auto-Injector [Wegovy] - Completed topiramate 25 MG Oral Tablet [id number] 0:00:00Z - Completed fluconazole 150 MG Oral Tablet 2023-10-30 T00:00:00Z - Completed prednisone 10 MG Oral Tablet [id number] 0:00:00Z - Completed lorazepam 0.5 MG Oral Tablet [id number] 0:00:00Z - Completed - - Compl eted mupirocin 0.02 MG/MG Topical Ointment - Completed omeprazole 20 MG Delayed Rel ease Oral Capsule - Completed docusate sodium 50 MG / sennosides, HALF-WAY 8.6 MG Oral Tablet [Senexon S] - [...] - Completed quetiapine 25 MG Oral Tablet [id number] 0:00:00Z - Completed amoxicillin 875 MG / [...] - Completed quetiapine 25 MG Oral Tablet [id number] 0:00:00Z - Completed fluconazole 150 MG Oral Tablet 2024-01-04 T00:00:00Z - Completed topiramate 25 MG Oral Tablet [id number] 0:00:00Z - Completed fluconazole 150 MG Oral Tablet 2023-10-28 T00:00:00Z - Completed sumatriptan 5 MG/ACTUAT [place] - Completed phentermine hydrochloride 15 MG Oral Capsule - Completed Patient Care team information Name Category Status Period Participants - - Proposed period not known -
--- OUTSIDE RECORDS SUMMARY | 2025-04-02 22:12 | XMS_ITS | Encounter Summary ---
Author Organization [facility] Facility Care Team Providers Care Service Administrator Name Role Phone Simon Vance DO Primary Care Provider + Juan Sánchez DO Primary Care Provider + Armaan Chaudhary MD Primary Care Provider [phone] Addison Berumen MD Unavailable [phone] Doretha Morales MD Primary Care Provider Angeline Green NP Primary Care Provider [phone] Encounter Details Date Type Department Care Team (Latest Contact Info) Description 11/29/2016 Orders Only [facility]INCON[facility] ProviderDanika MD [address] [place] [id number] Social History Tobacco Use Types Packs/Day Years Used Date Smoking Tobacco: Never Comments Unknown Sex and Gender Information Value Date Recorded Sex Assigned at Not on file Legal Sex Female 9:05 PM FAMILY REUNIFICATION SPECIALIST Gender Identity Not on file Sexual [...] COVID: Suspected 09/18/2020 09/19/2020 09/20/2020 6:26 AM FAMILY REUNIFICATION SPECIALIST COVID19 09/19/2020 09/19/2020 10/03/2020 3:07 AM FAMILY REUNIFICATION SPECIALIST COVID: Recovered Comment:Added based on recent COVID infection. 10/03/2020 11/28/2020 01/31/2021 3:05 AM C DT COVID: Suspected 10/18/2022 10/18/2022 10/18/2022 5:36 PM FAMILY REUNIFICATION SPECIALIST COVID: Suspected 10/18/2022 10/18/2022 10/18/2022 10:16 PM FAMILY REUNIFICATION SPECIALIST COVID: Suspected 10/24/2022 10/24/2022 10/24/2022 2:08 PM FAMILY REUNIFICATION SPECIALIST COVID: Suspected 11/05/2022 11/05/2022 11/05/2022 2:48 PM FAMILY REUNIFICATION SPECIALIST COVID: Suspected 06/05/2023 06/05/2023 06/05/2023 5:32 PM CDT COVID: Suspected 06/05/2023 06/05/2023 06/05/2023 11:23 PM CDT COVID: Suspected 08/22/2023 08/22/2023 08/22/2023 8:20 AM FAMILY REUNIFICATION SPECIALIST COVID: Suspected 08/22/2023 08/22/2023 08/22/2023 8:21 AM FAMILY REUNIFICATION SPECIALIST COVID19 08/22/2023 08/22/2023 09/01/2023 3:06 AM FAMILY REUNIFICATION SPECIALIST COVID: Recovered Comment:Added based on recent COVID infection. 09/01/2023 09/19/2023 11/30/2023 3:[address] COVID: Suspected 12/15/2023 12/15/2023 12/15/2023 6:28 PM CDT Influenza, adult 12/15/2023 12/15/2023 12/22/2023 3:05 AM CDT documented as of this encounter Care Teams Service Administrator Relationship Specialty Start Date End Date Simon Vance DO [address] [address] PCP - General 11/13/18 05/30/20 Juan Sánchez DO [address] [facility] [address] [place] [address] PCP - General Family Medicine 05/31/20 11/18/22 Armaan Chaudhary MD [address] [facility] [address] [place] [address] PCP - General Family Medicine 11/19/22 07/17/23 Doretha Morales MD [address] [place] [address] PCP - General Family Medicine 07/18/23 09/18/23 Angeline Green, STEWARD/STEWARDESS [address] [place] [address] PCP - General Family Medicine 09/19/23 Addison Berumen MD [address] [place] [address] Referring Physician Psychiatry 05/05/23 documented as of this encounter
--- OUTSIDE RECORDS SUMMARY | 2025-04-02 22:12 | XMS_ITS | Clinical Summary ---
Author Organization [facility] Address [address] [place] [address] Care Team Providers Care Therapist Respiratory Name Role Phone None, Provider MD Primary [...] this topic Insurance [employer] Care Teams Therapist Respiratory Relationship Specialty Start Date End Date None, Provider, PCP - General 07/08/19
--- OUTSIDE RECORDS SUMMARY | 2025-04-02 22:12 | XMS_ITS | Referral Summary ---
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 She did not like her psychiatrist so [...] mg Assessment & Plan (12/07/2020 1:09 PM OFFAL BALER): concerta 18 IBS (irritable bowel syndrome) 06/14/2020 [...] her mood. She is now seeing a furniture repair technician and notes mood is doing much better. She defers need for medication currently. She is aware that if mood struggles significantly then she will have to get back in with Psychiatry. I did provide her with contact information for an alternative Psychiatry group in the area that she may try. 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 - will f/u [...] 07/18/2023 Assessment & Plan (11/19/2022 8:55 PM OFFAL BALER): A(n) initial well visit to establish care [...] 10/23/2021 Assessment & Plan (08/06/2021 2:41 PM OFFAL BALER): pablo saldana covid test Flank pain 03/15/2021 [...] 07/18/2023 Assessment & Plan (09/05/2021 3:39 PM OFFAL BALER): Add zoloft 25 mg Update 3 weeks Call if worsening Assessment & Plan (12/07/2020 1:07 PM OFFAL BALER): lexapro Cough 07/13/2020 07/18/2023 Assessment & Plan [...] cystitis Assessment & Plan (10/23/2021 5:27 PM OFFAL BALER): Refer to PT for pelvic floor PT [...] on file Legal Sex Female 9:05 PM OFFAL BALER Gender Identity Not on file Sexual Orientation Not on file 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 Not on file Not on file Last Filed Vital Signs Vital Sign Reading Time Taken Comments Blood Pressure 148/78 12/15/2023 6:10 PM CDT Pulse 113 12/15/2023 6:10 PM CDT Temperature 36.8 C (98.3 F) 08/22/2023 8:17 AM OFFAL BALER Respiratory Rate 14 12/15/2023 6:10 PM CDT [...] Most Recently Relevant to Health Maintenance Insurance [facility] [place] [address] [place] [address] [facility] Care Teams Hand Inserter Operator Relationship Specialty Start Date End Date Angeline Green NP [address] [place] [address] PCP - General Family Medicine 09/19/23 Addison Berumen MD [address] [place] [address] Referring Physician Psychiatry 05/05/23
[2025-04-02 22:19] VITALS: BP 120/84; PULSE 85; RESP 17; O2SAT 100
[2025-04-02] MEDS: LACTATED RINGERS 1,000 ML 999 ML IV CONT ×2 (22:28)
[2025-04-02] MEDS: ONDANSETRON INJ 4 MG/2 ML VIAL IV PUSH (22:28)
--- NOTE | 2025-04-02 22:59 | ED_ITS ---
HPI - Nausea/Vomiting/Diarrhea General Chief complaint: Nausea/Vomiting/Diarrhea Stated complaint: 'I think im dehydrated Time Seen by Provider: 04/02/25 21:59 History of Present Illness HPI Narrative: 35-year-old female that is approximately 5 weeks postop from a sleeve gastrectomy with her surgeon over at [facility]. She has been doing well postoperatively and been recovering and eating and drinking as appropriate. She still has multiple lifestyle changes that she is getting used to. For last week or so she has been noticing that she had some mild intermittent nausea and woke up today with a headache and given the hot weather she felt like she was dehydrated. She came to the ER for IV hydration after talking to her doctor. Patient denies any abdominal pain, diarrhea, fever, chills. She is requesting IV fluids. Not any acute distress, no recent hospital or ER visits otherwise. Can follow-up with regular doctor on outpatient basis. Related Data Home Medications ?Medication ?Instructions ?Recorded ?Confirmed ?Last Taken ?Type sumatriptan 5 mg/actuation nasal 5 mg intranasal DAILY PRN Migraine 06/23/23 12/03/24 07/01/23 History spray Headache desvenlafaxine succinate 50 mg 50 mg PO Q24H 12/03/24 12/03/24 Unknown History tablet,extended release 24 hr levothyroxine 25 mcg tablet 25 mcg PO DAILY 12/03/24 12/03/24 Unknown History methylphenidate HCl 18 mg 18 mg PO DAILY 12/03/24 12/03/24 Unknown History tablet,extended release 24 hr sumatriptan succinate 100 mg tablet 100 mg PO Q2H PRN migraine headache 12/03/24 12/03/24 Unknown History Allergies Allergy/AdvReac Type Severity Reaction Status Date / Time doxycycline Allergy Intermediate HIVES Verified 12/03/24 14:38 NSAIDS (Non-Steroidal Allergy Mild S/O Verified 12/03/24 14:38 Anti-Inflamma NEPHRECTOMY-ADVISED TO REFRAIN BY MOTOR VEHICLE LECTURER Review of Systems 2 Review of Systems: As [facility] Past Medical History Medical History History of migraine GERD (gastroesophageal reflux disease) Morbid obesity Surgical History Surgical History History of nephrectomy Social History Social History Smoking status: Never smoker Alcohol intake: current Other substance usage details: thc gummies for anxiety. Living arrangements: with family Spiritual care concerns: No Exam 2 Narrative: GENERAL: Morbidly obese but otherwise well-appearing not any acute distress HEAD: [Normocephalic, atraumatic.] EYES: [PERRLA and EOMI.] ENT: Nares clear, no rhinorrhea or epistaxis. Mucous membranes moist. NECK: Supple. CHEST: [Clear to auscultation. No respiratory distress.] HEART: [Regular rate and rhythm]. No murmur heard. [Normal peripheral pulses.] ABDOMEN: [Soft, nondistended], [nontender], [No rigidity or guarding] EXTREMITIES: Normal range of motion. [No edema.] SKIN: Warm, dry, no rash. NEURO: [No focal deficits]. Alert and oriented [x3.] PSYCH: [Normal mood and affect.] Course Vital Signs Vital signs: Vital Signs Temperature 36.7 C 04/02/25 17:10 Pulse Rate 90 04/02/25 17:10 Respiratory Rate 18 04/02/25 17:10 Blood Pressure 124/80 04/02/25 17:10 Pulse Oximetry 99 04/02/25 17:10 Temperature 36.7 C 04/02/25 17:10 Pulse Rate 77 04/03/25 00:00 Respiratory Rate 18 04/03/25 00:00 Blood Pressure 122/81 04/03/25 00:00 Pulse Oximetry 96 04/03/25 00:00 MDM - Nausea/Vomiting/Diarrhea MDM Narrative Medical decision making narrative: 35-year-old female that is approximately 5 weeks postop from a sleeve gastrectomy with her surgeon over at [facility]. She has been doing well postoperatively and been recovering and eating and drinking as appropriate. She still has multiple lifestyle changes that she is getting used to. For last week or so she has been noticing that she had some mild intermittent nausea and woke up today with a headache and given the hot weather she felt like she was dehydrated. She came to the ER for IV hydration after talking to her doctor. Patient denies any abdominal pain, diarrhea, fever, chills. She is requesting IV fluids. Not any acute distress, no recent hospital or ER visits otherwise. Can follow-up with regular doctor on outpatient basis. Patient is not any acute distress and overall well-appearing, no nausea vomiting while here in the emergency department. She has normal vital signs with any tachycardia, fever, hypoxia or blood pressure concerns. Slightly dry mucous membranes but not profoundly dehydrated. Given her historical features with a knee sleeve gastrectomy she could be having some absorption issues or decreased oral intake especially with the hot weather. IV was established and basic laboratory studies including CBC, CMP, urinalysis and lipase were obtained to rule electrolyte deficiencies, kidney injury, dehydration or other findings. She is given 2 L of fluid. She was requesting Tylenol for mild headache and she was given the looks her given her new gastrectomy she cannot take tablets yet. Laboratory studies are all reassuring with no leukocytosis or anemia. Normal platelet count. Electrolytes are unremarkable with normal BUN and creatinine, normal glucose, the LFTs mildly elevated above normal but not significantly so. Normal lipase. She does have some ketones in her urine but no other signs of infections so does sound like dehydration is her cause. Negative test. Patient was given 2 L of hydration, Tylenol and Zofran and felt improved. Given her stable vital signs unremarkable after she can be safely discharged with outpatient follow-up which she verbalized understanding to need to call her doctor on Friday for follow-up schedule. Patient safely discharged given return precautions. Medical Records Attestation: I reviewed the patient's medical records. Lab Data Attestation: I reviewed the patient's lab results. 04/02/25 20:47 04/02/25 20:47 Labs: Lab Results 04/02/25 04/02/25 04/02/25 Range/Units 20:47 20:54 20:56 WBC 9.4 (4.5-10.0) K/mm3 RBC 4.44 (4.2-5.4) M/mm3 Hgb 12.7 (12.0-15.0) g/dL Hct 39.6 (37.0-47.0) % MCV 89.2 (80-100) fl MCH 28.6 (26-34) pg MCHC 32.1 (32-36) g/dl RDW 14.1 (11.5-14.5) % Plt Count 271 (150-375) k/mm3 MPV 9.9 (7.4-10.4) fl Immature Gran % (Auto) 0.3 (0-0.5) % Neut % (Auto) 64.6 (45.5-73.1) % Lymph % (Auto) 26.7 (18.3-44.2) % Mathews % (Auto) 6.3 (2.6-8.5) % Eos % (Auto) 1.7 (0-4.4) % Baso % (Auto) 0.4 (0.2-1.2) % Lymph # (Auto) 2.50 (0.9-3.2) K/mm3 Mathews # (Auto) 0.6 (0.1-0.6) K/mm3 Eos # (Auto) 0.2 (0-0.3) K/mm3 Baso # (Auto) 0.0 (0.0-0.1) K/mm3 Abs Immat Gran (auto) 0.03 (0.00-0.031) K/mm3 Absolute Neuts (auto) 6.0 (1.3-6.7) K/mm3 Absolute Nucleated RBC 0.000 (0.0-0.012) K/mm3 Nucleated RBC % 0.0 (0.0-0.2) % Sodium 139 (137-145) mmol/L Potassium 4.0 (3.4-5.0) mmol/L Chloride 104 (98-107) mmol/L Carbon Dioxide 26 (22-30) mmol/L Anion Gap 9 (4-12) mmol/L BUN 10 D (7-17) mg/dL Creatinine 0.69 L (0.7-1.0) mg/dL Estim Creat Clear Calc 120 ml/min Estimated GFR > 60 (59 - ) Glucose 89 (65-110) mg/dL Calcium 9.5 (8.4-10.2) mg/dL Total Bilirubin 0.5 (0.2-1.3) mg/dL AST 62 H (14-36) U/L ALT 87 H (6-35) U/L Alkaline Phosphatase 96 (38-126) U/L Total Protein 7.3 (6.3-8.2) g/dL Albumin 3.9 (3.5-5.1) g/dL Lipase 107 (23-300) U/L Urine Color Dark yellow (Yellow) Urine Appearance Clear (Clear) Urine pH 6.0 (5.0-9.0) Ur Specific Channing 1.028 (1.001-1.035) Urine Protein Negative (Negative) mg/dL Urine Glucose (UA) Negative (Negative) mg/dL Urine Ketones 1+ H (Negative) mg/dL Ur Blood (Man) Negative (Negative) Urine Nitrate Negative (Negative) Urine Bilirubin Negative (Negative) Urine Urobilinogen 1.0 (<2.0) mg/dL Leukocyte Esterase Rfl Negative (Negative) MARILU/UL POC Urine HCG, Qual Negative (Negative) Discharge Plan Discharge Clinical Impression: Acute dehydration, Status post sleeve gastrectomy Patient Disposition: Home Condition: Stable Instructions: Antibiotic Form, Dehydration (ED) Additional Instructions: We have provided you several L of fluid hydration here and some Zofran/Tylenol. Call your doctor on Friday to schedule close outpatient follow-up visit for repeat labs. Your liver function panel is mildly elevated but not concerning and can be safely walked on outpatient basis with repeat labs and could very well be secondary to the surgical procedures and the dehydration. Return with any new or worsening concerns, inability tolerate oral intake, profound dehydration or any other issues otherwise follow-up outpatient. Patient Language: Mongolian Prescriptions: No Action cyclobenzaprine 10 mg tablet 10 mg PO Q8H PRN (Reason: muscle spasm) Qty: 30 0RF sumatriptan succinate 100 mg tablet 100 mg PO Q2H PRN (Reason: migraine headache) desvenlafaxine succinate 50 mg tablet extended release 24 hr 50 mg PO Q24H levothyroxine 25 mcg tablet 25 mcg PO DAILY methylphenidate HCl 18 mg tablet extended release 24hr 18 mg PO DAILY ondansetron 4 mg tablet,disintegrating 4 mg PO Q8H PRN (Reason: nausea and vomiting) Qty: 12 0RF sumatriptan 5 mg/actuation spray,non-aerosol 5 mg INTRANASAL DAILY PRN (Reason: Migraine Headache) tramadol 50 mg tablet 50 mg PO Q6H PRN (Reason: pain) Qty: 10 0RF methocarbamol 750 mg tablet 1,500 mg PO TID PRN (Reason: muscle spasm) Qty: 15 0RF Follow-up/Referrals: Peter,ESTEFANÍA Marcus [Primary Care Provider] - Time of Disposition: 23:08
[2025-04-02] MEDS: ACETAMINOPHEN ELIXIR 325 MG/10.15 ML UDC 650 MG PO (23:41)
[2025-04-03] VITALS: BP 122/81; PULSE 77; RESP 18; O2SAT 96
== END 2025-04-03 00:30 | disposition home or self-care (01) ==
PROVIDERS: Emergency Provider Student in an Organized Health Care Education/Training Program; PCP Internal Medicine Rheumatology
DX: E86.0 Dehydration (principal); Z98.84 Bariatric surgery status; K21.9 Gastro-esophageal reflux disease without esophagitis; E66.01 Morbid (severe) obesity due to excess calories; Z68.41 Body mass index [BMI] 40.0-44.9, adult; Z90.5 Acquired absence of kidney; Z79.899 Other long term (current) drug therapy
CPT/HCPCS: 36415; 80053; 81001; 81025; 83690; 85025; 96361; 96374; 99284; A9270; J2405; J7120

== ENCOUNTER 2025-07-24 18:42 | Emergency (ER) | payer BC, SELFPAY ==
--- OUTSIDE RECORDS SUMMARY | 2017-05-13 19:00 | XMS_ITS | Continuity of Care Document ---
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 tel:[phone] Family History Family Member Type Diagnosis Age At Onset No Information Payers Payer name Insurance type Covered constitution party ID Authoriza tion(s) [employer] PPO [id number] [employer] [id number] Social History Type Description Quantity Date Captured Comments Sex Female Smoking Status No Information Chief Complaint And Reason For Visit No Information History Of Present Illness Encounter Date Complaint History Of Prese nt Illness No Information Instructions Date Instruction Additional Infor mation No Information Assessments Type Assessment Date No Information
--- OUTSIDE RECORDS SUMMARY | 2025-02-28 05:30 | XMS_ITS ---
Author Organization [facility] Office Address [address] [facility] [address] [place] [address] Care Team Providers Care Faculty Research Assistant Name Role Phone Angeline Green Primary Care Provider Unavailab neda KaurGabriel rodriguezu Unavailable [phone] Allergies Allergen (clinical drug ingredient) Drug/Non Drug Allergy documented on EMR Reaction Allergy Type Onset Date Status diazepam Valium Unknown Drug Allergy Active doxycycline Doxycycline hives Drug Allergy Act cammie Non-steroidal anti-inflammatory agent (FN) NSAIDs Unknown Drug Allergy Active REASON FOR VISIT 1 week PO VSG f/u, [place] Post op 1 week, Post Op Visit Medications Medication SIG (Take, Route, Frequency, Duration) Notes Start Date End Date Status Cyanocobalamin 1000 MCG Tablet 1 tablet Orally Once a day; Duration: 60 days 02/01/2025 04/02/2025 Active Concerta 18 MG Tablet Extended Release 1 tablet in the morning Orally Once a day Active Ergocalciferol 1.25 MG (35110 UT) Capsule 1 capsule Orally every 7 days; Duration: 60 days 02/01/2025 04/02/2025 Active traMADol HCl 50 MG Tablet 1 tablet as ne eded Orally Once a day Active Cyclobenzaprine HCl 10 MG Tablet 1 tablet at bedtime as needed Orally Once a day Active Omeprazole 40 MG Capsule Delayed Release 1 capsule 1/2 to 1 hour before morning meal Orally Once a day; Duration: 30 day(s) 02/17/2025 Active Levothyroxine Sodium 25 MCG Tablet 1 tablet in the morning on an empty stomach Orally Once a day Active Repatha 140 MG/ML Solution Prefilled Syringe 1 mL Subcutaneous Activ e Flonase Allergy Relief 50 MCG/ACT Suspension 1 spray in each nostril Nasally Twice a day Active Dicyclomine HCl 10 MG Capsule 2 capsules Orally Three times a day prn Active ZyrTEC 10 MG Tablet Chewable 1 tablet Orally Once a day Active [place]-3 Fish Oil 1000 MG Capsule 1 capsule Orally Three times a day Active Pristiq 50 MG Tablet Extended Release 24 Hour 1 tablet Orally Once a day Active QUEtiapine Fumarate 50 MG Tablet 1 tablet at bedtime Orally Once a day Active Omeprazole 20 MG Capsule Delayed Release 1 capsule 1/2 to 1 hour before morning meal Orally Once a day Active LORazepam 0.5 MG Tablet 1 tablet at bedt iris as needed Orally Once a day Active SUMAtriptan Succinate 100 MG Tablet 1 tablet as needed, may take second dose at least 2 hours after first dose up to 2 tablets per day as needed Orally Once a day Active Vitamin D3 [id number] UNIT/GM Liquid as directed Active Social History Tobacco Use: Social History Observation Description Date Details (start date - stop date) Never Smoker NA - NA Social History Tobacco Use: Social Info Question Answer Notes Tobacco Use/Smoking Tobacco use: nonsmoker Vital Signs Blood pressure systolic 132 mm Hg 02/29/20 25 Blood pressure diastolic 80 mm Hg 025 Heart Rate 74 /min 02/28/2025 Height 64 in 02/28/2025 Weight 263.4 lbs 02/28/2025 BMI 45.21 kg/m2 02/28/2025 Height-cm 162.56 cm 02/28/2025 Weight-kg 119.48 kg 02/28/2025 Encounters Encounter Location Date Provider [facility] [id number] [place] [address] [address] [place] [address] 02/28/2025 Jarrett Castro Morbid obesity E66.01 ; S/P bariatric surgery Z98.84 ; Vitamin deficiency E56.9 ; Counseling and coordination of care Z71.89 ; Gastric reflux K21.9 ; Anxiety disorder, unspecified F41.9 ; Deficiency of other vitamins E56.8 ; Acquired absence of kidney Z90.5 ; Hypothyroidism, unspecified E03.9 and Hyperlipidemia, mixed E78.2 Assessments Encounter Date Diagnosis (ICD Code) Assessment Notes Treatment Notes Treatment Clinical Notes Section Notes 02/28/2025 Morbid obesity (ICD-10 - E66.01) Change in weight as noted in the weight history above. Current BMI #bmi with weight of #courtney Total weight loss since starting the program: Patient is losing weight. Patient is controlling Carbs and Sugar well. Controlling portions well., Patient was recommended to take about 60-80 g of protein per day, and get involved in an exercise plan. The patient is also recommended to attend support group meetings.I also explained that they should take 2 adult multivitamin tablets, and 1500 mg of calcium citrate and B12 supplementation 1000 mcg daily, starting 2 weeks after surgery. Patient was made aware of the nutrition deficiency should they fail to take supplementation. Weight change as in weight history. Total Weight lost since start of the program: The patient had visited with the Dietitian since the last visit and are adjusting the diet. They started on an exercise program is helping with a weight loss plan. Continue on liquid protein diet replacement therapy. Mandatory weigh loss before surgery pounds. Has achieved it. Patient has a 6 months primary care physician supervised diet requirement. Has completed /6 months. Based on the assessment of her obesity history and comorbid conditions, I recommend it is medically necessary for the patient to have bariatric surgery. Patient is pursuing sleeve gastrectomy. / darlin-en-y gastric bypass. The use of a skilled aquatics assistant department head will be required in the operating room due to the complexity of the case. Will plan to have physician operations assistant or another highly trained surgeon sill worker for this case. Weight change as in weight history. Total Weight lost since start of the program: -3 lbs. The patient had visited with the Dietitian since the last visit and are adjusting the diet. They started on an exercise program is helping with a weight loss plan. Continue on liquid protein diet replacement therapy. Mandatory weigh loss before surgery pounds. Has achieved it. The use of a skilled aquatics assistant department head will be required in the operating room due to the complexity of the case. Will plan to have physician operations assistant or another highly trained surgeon sill worker for this case. Patient was recommended to optimize pre-op weight loss with liquid protein diet replacement therapy. All different dietary supplements were discussed. Patient was also recommended to optimize exercise and to be engaged in an exercise program. I will refer the patient to a dietitian for diet counseling. Based on the assessment of her obesity history and comorbid conditions, I recommend it is medically necessary for the patient to have bariatric surgery. Patient is pursuing sleeve gastrectomy. / darlin-en-y gastric bypass. The use of a skilled aquatics assistant department head will be required in the operating room due to the complexity of the case. Will plan to have physician operations assistant or another highly trained surgeon sill worker for this case. 02/28/2025 S/P bariatric surgery (ICD-10 - Z98.84) s/p:. Date of surgery . @ [facility] , by Dr. Jarrett Castro Doing well postoperatively. Operative note reviewed with patient. Wound care discussed. Wounds healing well. No hernia palpable. Start Actigall 10 days after surgery for 3 months. Continue Prilosec for 6 months after surgery. Start Vitamins 2 week after surgery. Continue liquid diet until 2 week post op visit No lifting more than 10 pounds for 2 weeks after surgery. No lifting restriction May use fibre supplementation like Bene fiber 1-2 teaspoon twice daily in the protein supplementation to prevent constipation. 02/28/2025 Vitamin deficiency (ICD-10 - E56.9) Obesity is associated with high incidence of vitamin deficiency. Will check blood for Vitamin D, Thiamin and B12 deficiency. Obesity is associated with high incidence of vitamin deficiency. Will check blood for Vitamin D, Thiamin and B12 deficiency. 02/28/2025 Counseling and coordination of care (ICD-10 - Z71.89) Follow up with mechanical systems designer as scheduled Labs: None. Routine post op labsI counseled the patient on continuing Behavior and Lifestyle Modifications : Eat 1-2 small meals daily and protein supplementation. Recommended to take about 60-80 g of protein per day. Eliminate high caloric beverages. Do not graze between meals. Portion control, measuring portions, showed portion control plates. Choosing low sugar, high protein items. Reducing stress and emotional eating. Incorporating fruits and vegetables in moderation. Taking 20 minutes to eat a meal. Patient was instructed to keep a food journal. Patient was counseled on the need for routine exercise plan, at least 10 minutes per day. Proposed Surgery, Date and Place. Surgery: Date: Place: [facility] Patient should qualify for staying more than 2 midnights in hospital. Patient education, risk explained and consent : The patient meets the criteria as set by the National Prole of Health that recommends bariatric surgery on people with a body mass index greater than 40 kg/msq or with a body mass index greater than 35 kg/msq with co-morbid conditions. I have discussed with hem at great length the definition of morbid obesity and the indications for surgery. I have explained to themthat the surgery is not a cure. This is not a cosmetic surgery and they will still require active participation with exercise, diet, and having very close follow-up with a mechanical systems designer and me. In addition they must continue to attend post-operatively, in order to increase long-term success. I have discussed with them at great length the different types of bariatric procedures that are being performed. I have shown them a diagram explaining how the surgery works and how weight loss is accomplished. I have discussed with them at great length that the gastric bypass surgery is successful in helping the patient lose about 60-80 % of excess body weight and that this mainly occurs within the first two years post-operatively. After that, weight may plateau and there may be no further weight loss. Conversely, I advised that with the gastric sleeve resection, theyy can reasonably expect to lose 40-75 % of excess body weight. Again, this will mainly occur in the first two years post-op. After that time, weight may plateau and there may be no further weight loss. Additionally, in the case of the gastric sleeve resection, I have advised the patient that this surgery may be performed as a stand-alone procedure to achieve the desired outcome, or as a staging operation in preparation for further weight loss surgery. The patient has acknowledged their understanding that more surgery may be necessary in order to achieve an acceptable weight loss outcome. I have discussed at great length with the risks include, but are not limited to: , anastomotic leak, obstruction, bleeding, hematoma, seroma, poor wound healing, hernia formation, further surgeries, further surgeries if too much weight loss occurs, injury to liver, spleen, stomach pancreatic injury, kidney injury, diaphragmatic and heart injury, bowel injury, vessel injury and nerve injury. In discussing complications of surgeries, I placed special emphasis on esophagus gastric/bowel perforation leading to possible sepsis and , and deep vein thrombosis leading to possible pulmonary embolism and . With the gastric bypass, there are the additional potential risks such as anastomotic leak, gastric pouch necrosis, total gastrectomy, intestinal reconstruction, internal hernias, and gastrostomy tube.With the gastric sleeve, there are the additional potential risks such as sleeve stricture and spiraling. and sepsis. Any of these could require further surgery. Other risks include DVT, PE, pneumonia, wound dehiscence, hernia, wound infection, the need for dilatations of her gastrojejunostomy, and the inability to lose appropriate weight and keep it off. We discussed that our goal is to ameliorate her medical problems and not to obtain a specific body mass index. All surgeries may be performed laparoscopically, however the possibility exists that any procedure may have to be converted to the open approach. I have also discussed with them the possibility of long-term complications with metabolic, nutritional, and mineral derangements that are present with all three surgeries. I have made the aware that all these surgeries require a lifetime commitment surgery and the patient needs to be an active participant with the program. I have made them aware that after any of the surgeries they will have a very small pouch / sleeve, which will limit the quantity of food that they will be able to eat and the foods they needs to avoid in order to prevent discomfort or failure to lose weight. I have informed the patient that they will have to take at a minimum multivitamins and possible other supplementation. This is the case with any of the surgeries we discussed. With the bariatric surgery, because of the Restrictive / malabsorptive components , after the surgery they will have to have very close follow-up and surveillance where I will see them every month for the first four months and then at least annually for life. With those office visits, at a minimum I may routinely check a CBC, CMP, Vitamin B6 and B12, a folate level and an iron profile. In addition to these vitamins checked for the gastric sleeve surgery, for gastric bypass surgery, I will also check Vitamin A, D, E, K, and Zinc levels, as needed. I made them aware of the long-term complications that can occur if they fails to have follow-up and develops derangements with different types of vitamin and mineral deficiencies. Each surgery requires a lot of teaching and education. I have discussed this with them at great length and have provided a great deal of information to the patient, they has attended pre operative education class by rpg programmer analyst and the dietitian, but they will have additional education provided by the rpg programmer analyst and mechanical systems designer at [facility]. Because of the significant changes in eating habits they will have to see a mechanical systems designer following surgery. I have informed them that the diet after surgery is a gradual progression from clear liquids to solid foods over a period of time. Bariatric surgery can affect them psychologically and emotionally, therefore they may require post-operative therapy with a psychologist. They will have to make sure that they are willing to make the commitment for life and be an active participant. Covid-19 specific risk with bariatric surgery, I explained to her the added risk of high morbidity (as high as 20%) and mortality with mary Covid-19 perioperatively or if she is a carrier at the time of surgery. Since there are only very limited knowledge currently about the virus, its behaviors and treatment modalities. I also explained to her there is a chance of mary Covid-19 in the treating facility even though we are taking extra measures to our knowledge to prevent contraction of Covid-19.I reviewed specific measures the hospital is taking to protect our patient's at this time. Our patients will be cared for on a separate floor from any Covid positive patients. All ancillary staff has specific measures in place to not cross contaminate patient's. Patient's are strongly advised to be quarantined at home 3 days prior to surgery and 2 weeks following surgery to avoid contraction of Covid 19 and associated complication. The patient echos understanding of all the above mentioned information and the above mentioned risks and benefits and wishes to proceed with surgery, possible Hiatal Hernia repair and any related procedure. Patient has signed a consent form. Counseled the patient about coordination of pre op testing and evaluations required. The following are testing or referrals that require follow up. Psychology/psychiat ry consult for pre-operative clearance. Blood work to evaluate for any vitamin and mineral deficiency. EKG and Chest Xray. Dietitian consult for diet counseling EGD Cardiac consult for risk assessment and optimization before surgery Colonoscopy UGI study Physical therapy Counseled the patient about coordination of pre op testing and evaluations required. The following are testing or referrals that require follow up. Psychology/psychiat ry consult for pre-operative clearance. Blood work to evaluate for any vitamin and mineral deficiency. EKG and Chest Xray. Dietitian consult for diet counseling EGD 02/28/2025 Gastric reflux (ICD-10 - K21.9) EGD done on : by reported no abnormalities, hiatal hernia. I will visualize the hiatal hernia inside the abdomen, and if it is significant enough to be repaired I will repair it, along with bariatric surgery. Gastritis, Z-line Irregular. Pathology H Pylori negative, H pylori Positive Started on treatment, negative for dysplasia, EGD done on by reported No abnormalities, hiatal hernia. I will visualize the hiatal hernia inside the abdomen, and if it is significant enough to be repaired I will repair it, along with bariatric surgery., Gastritis, Z-line Irregular. Pathology H Pylori negative, H pylori Positive Started on treatment, negative for dysplasia, Pt complains of reflux symptoms occasionally. We'll plan for an EGD to rule out H. pylori and any anatomic abnormality. Complains of reflux symptoms occasionally. Om omepraole PRRN We'll plan for an EGD to rule out H. pylori and any anatomic abnormality. 02/28/2025 Anxiety disorder, unspecified (ICD-10 - F41.9) Patient anxious about surgery and the course. Explained in detail the surgery. If on SSRI or anxiety medication, I will continue the same now and perioperatively. Psychiatric evaluation for pre-operative clearance obtained. Patient anxious about surgery and the course. Explained in detail the surgery. If on SSRI or anxiety medication, I will continue the same now and perioperatively. I will obtain a psychiatric evaluation for pre-operative clearance. Patient anxious about surgery and the course. Explained in detail the surgery. If on SSRI or anxiety medication, I will continue the same now and perioperatively. I will obtain a psychiatric evaluation for pre-operative clearance. 02/28/2025 Deficiency of other vitamins (ICD-10 - E56.8) Labs completed to check for vitamin and mineral deficiencies. Replaced as necessary. 02/28/2025 Acquired absence of kidney (ICD-10 - Z90.5) H/o Right nephrectomy 2007. Kidney functions normal now. There is a left flank incision with no hernia. Patient had a Lap endometriosis and Cholecystectomy after this surgery, with minimal adhesions. So Laparoscopic Sleeve Gastrectomy is possible. 02/28/2025 Hypothyroidism, unspecified (ICD-10 - E03.9) Currently managed by primary care doctor. Will recheck TSH and will adjust medication as needed. 02/28/2025 Hyperlipidemia, mixed (ICD-10 - E78.2) Currently on no medication. Will check the Lipid panel. Patient was advised to decrease sugar and carbs in the diet and also fried food. Bariatric surgery will help improve the condition. 02/28/2025 Other The patient meets the criteria as set by the National Prole of Health that recommends bariatric surgery on people with a body mass index greater than 40 kg/ms or with a body mass index greater than 35 kg/msq with co-morbid conditions. I have discussed with them at great length the definition of morbid obesity and the indications for surgery. I have explained to them that the surgery is not a cure. This is not a cosmetic surgery and she will still require active participation with exercise, diet, and having very close follow-up with a mechanical systems designer and me. In addition they must attend three support group meetings prior to surgery, and continue to attend post-operatively, in order to increase long-term success. I have discussed with them at great length the different types of bariatric procedures that are being performed. I have shown a diagram explaining how the surgery works and how weight loss is accomplished. I have discussed with them at great length that the gastric bypass surgery is successful in helping the patient lose about 60-80 % of excess body weight and that this mainly occurs within the first two years post-operatively. I have pointed out the comparison to typical lap band weight loss of 30-65 % excess body weight loss. After that, their weight may plateau and there may be no further weight loss. Conversely, I advised that with the gastric sleeve resection, they can reasonably expect to lose 40-75 % of their excess body weight. Again, this will mainly occur in the first two years post-op. After that time, their weight may plateau and there may be no further weight loss. Additionally, in the case of the gastric sleeve resection, I have advised the patient that this surgery may be performed as a stand-alone procedure to achieve the desired outcome, or as a staging operation in preparation for further weight loss surgery. They has acknowledged understanding that more surgery may be necessary in order to achieve an acceptable weight loss outcome. I have discussed at great length with the complication of all surgeries such as bleeding, hematoma, seroma, poor wound healing, hernia formation, further surgeries, further surgeries if too much weight loss occurs, injury to liver, spleen, stomach pancreatic injury, kidney injury, diaphragmatic and heart injury, bowel injury, vessel injury and nerve injury. In discussing complications of surgeries, I placed special emphasis on esophagus gastric/bowel perforation leading to possible sepsis and , and deep vein thrombosis leading to possible pulmonary embolism and . With the gastric bypass, there are the additional potential risks such as anastomotic leak, gastric pouch necrosis, total gastrectomy, intestinal reconstruction, internal hernias, and gastrostomy tube. All surgeries may be performed laparoscopically, however the possibility exists that any procedure may have to be converted to the open approach. I have also discussed with them the possibility of long-term complications with metabolic, nutritional, and mineral derangements that are present with all three surgeries. I have made them aware that all these surgeries require a lifetime commitment surgery and they need to be an active participant with the program. I have made them aware that after any of the surgeries they will have a very small pouch, which will limit the quantity of food that they will be able to eat and the foods they needs to avoid in order to prevent discomfort or failure to lose weight. I have informed them that they will have to take at a minimum multivitamins and possible other supplementation. This is the case with any of the surgeries we discussed. However, with the gastric banding surgery, because of the Restrictive component/ foreign hardware, after the surgery they will have to have very close follow-up and surveillance where I will see them every month for the first four months and then at least annually for life. With those office visits, at a minimum I may routinely check a CBC, CMP, Vitamin B6 and B12, a folate level and an iron profile. In addition to these vitamins checked for the gastric sleeve surgery, for gastric bypass surgery, I will also check Vitamin A, D, E, K, and Zinc levels, as needed. I made them aware of the long-term complications that can occur if they fail to have follow-up and develops derangements with different types of vitamin and mineral deficiencies. All of these surgeries are bariatric surgeries; therefore the pre-surgery work up may be similar for any of the procedures. Each surgery requires a lot of teaching and education. I have discussed this with her at great length and have provided a great deal of information to the patient but they will have additional education provided by the rpg programmer analyst and mechanical systems designer at [facility]. Because of the significant changes in eating habits they will have to see a mechanical systems designer prior to and following surgery. I have informed them that the diet after surgery is a gradual progression from clear liquids to solid foods over a period of time. Bariatric surgery can affect them psychologically and emotionally, therefore they will have to see a psychiatrist before the surgery and may require post-operative therapy as well. They will have to make sure that they are willing to make the commitment for life and be an active participant. Laboratory studies including CMP, CBC, TSH, Iron, Ferritin, Folate, Vitamin B1, Vitamin B12, Vitamin D and an urinalysis will be obtained prior to surgery. Based upon history and exam findings, a pulmonary function test, stress test and sleep study may be required. Given the patient's condition and for evaluation of the stomach, an upper endoscopy will be completed prior to the bariatric procedure. I have discussed and given a lot of education to the patient. I have informed them that the surgery is not a cure and that this is not a cosmetic surgery. Any of the surgeries discussed can significantly improve health as well as improve or resolve comorbid medical conditions. Plan Of Treatment Treatment Notes Assessment Notes Morbid obesity Change in weight as noted in the weight history above. Current BMI #bmi with weight of #courtney Total weight loss since starting the program: Patient is losing weight. Patient is controlling Carbs and Sugar well. Controlling portions well., Patient was recommended to take about 60-80 g of protein per day, and get involved in an exercise plan. The patient is also recommended to attend support group meetings.I also explained that they should take 2 adult multivitamin tablets, and 1500 mg of calcium citrate and B12 supplementation 1000 mcg daily, starting 2 weeks after surgery. Patient was made aware of the nutrition deficiency should they fail to take supplementation. Weight change as in weight history. Total Weight lost since start of the program: The patient had visited with the Dietitian since the last visit and are adjusting the diet. They started on an exercise program is helping with a weight loss plan. Continue on liquid protein diet replacement therapy. Mandatory weigh loss before surgery pounds. Has achieved it. Patient has a 6 months primary care physician supervised diet requirement. Has completed /6 months. Based on the assessment of her obesity history and comorbid conditions, I recommend it is medically necessary for the patient to have bariatric surgery. Patient is pursuing sleeve gastrectomy. / darlin-en-y gastric bypass. The use of a skilled aquatics assistant department head will be required in the operating room due to the complexity of the case. Will plan to have physician operations assistant or another highly trained surgeon sill worker for this case. Weight change as in weight history. Total Weight lost since start of the program: -3 lbs. The patient had visited with the Dietitian since the last visit and are adjusting the diet. They started on an exercise program is helping with a weight loss plan. Continue on liquid protein diet replacement therapy. Mandatory weigh loss before surgery pounds. Has achieved it. The use of a skilled aquatics assistant department head will be required in the operating room due to the complexity of the case. Will plan to have physician operations assistant or another highly trained surgeon sill worker for this case. Patient was recommended to optimize pre-op weight loss with liquid protein diet replacement therapy. All different dietary supplements were discussed. Patient was also recommended to optimize exercise and to be engaged in an exercise program. I will refer the patient to a dietitian for diet counseling. Based on the assessment of her obesity history and comorbid conditions, I recommend it is medically necessary for the patient to have bariatric surgery. Patient is pursuing sleeve gastrectomy. / darlin-en-y gastric bypass. The use of a skilled aquatics assistant department head will be required in the operating room due to the complexity of the case. Will plan to have physician operations assistant or another highly trained surgeon sill worker for this case. S/P bariatric surgery s/p:. Date of surgery . @ [facility] , by Dr. Jarrett Castro Doing well postoperatively. Operative note reviewed with patient. Wound care discussed. Wounds healing well. No hernia palpable. Start Actigall 10 days after surgery for 3 months. Continue Prilosec for 6 months after surgery. Start Vitamins 2 week after surgery. Continue liquid diet until 2 week post op visit No lifting more than 10 pounds for 2 weeks after surgery. No lifting restriction May use fibre supplementation like Bene fiber 1-2 teaspoon twice daily in the protein supplementation to prevent constipation. Vitamin deficiency Obesity is associate d with high incidence of vitamin deficiency. Will check blood for Vitamin D, Thiamin and B12 deficiency. Obesity is associated with high incidence of vitamin deficiency. Will check blood for Vitamin D, Thiamin and B12 deficiency. Counseling and coordination of care Follow up with mechanical systems designer as scheduled Labs: None. Routine post op labsI counseled the patient on continuing Behavior and Lifestyle Modifications : Eat 1-2 small meals daily and protein supplementation. Recommended to take about 60-80 g of protein per day. Eliminate high caloric beverages. Do not graze between meals. Portion control, measuring portions, showed portion control plates. Choosing low sugar, high protein items. Reducing stress and emotional eating. Incorporating fruits and vegetables in moderation. Taking 20 minutes to eat a meal. Patient was instructed to keep a food journal. Patient was counseled on the need for routine exercise plan, at least 10 minutes per day. Proposed Surgery, Date and Place. Surgery: Date: Place: [facility] Patient should qualify for staying more than 2 midnights in hospital. Patient education, risk explained and consent : The patient meets the criteria as set by the National [employer] of Health that recommends bariatric surgery on people with a body mass index greater than 40 kg/msq or with a body mass index greater than 35 kg/msq with co-morbid conditions. I have discussed with hem at great length the definition of morbid obesity and the indications for surgery. I have explained to themthat the surgery is not a cure. This is not a cosmetic surgery and they will still require active participation with exercise, diet, and having very close follow-up with a mechanical systems designer and me. In addition they must continue to attend post-operatively, in order to increase long-term success. I have discussed with them at great length the different types of bariatric procedures that are being performed. I have shown them a diagram explaining how the surgery works and how weight loss is accomplished. I have discussed with them at great length that the gastric bypass surgery is successful in helping the patient lose about 60-80 % of excess body weight and that this mainly occurs within the first two years post-operatively. After that, weight may plateau and there may be no further weight loss. Conversely, I advised that with the gastric sleeve resection, theyy can reasonably expect to lose 40-75 % of excess body weight. Again, this will mainly occur in the first two years post-op. After that time, weight may plateau and there may be no further weight loss. Additionally, in the case of the gastric sleeve resection, I have advised the patient that this surgery may be performed as a stand-alone procedure to achieve the desired outcome, or as a staging operation in preparation for further weight loss surgery. The patient has acknowledged their understanding that more surgery may be necessary in order to achieve an acceptable weight loss outcome. I have discussed at great length with the risks include, but are not limited to: , anastomotic leak, obstruction, bleeding, hematoma, seroma, poor wound healing, hernia formation, further surgeries, further surgeries if too much weight loss occurs, injury to liver, spleen, stomach pancreatic injury, kidney injury, diaphragmatic and heart injury, bowel injury, vessel injury and nerve injury. In discussing complications of surgeries, I placed special emphasis on esophagus gastric/bowel perforation leading to possible sepsis and , and deep vein thrombosis leading to possible pulmonary embolism and . With the gastric bypass, there are the additional potential risks such as anastomotic leak, gastric pouch necrosis, total gastrectomy, intestinal reconstruction, internal hernias, and gastrostomy tube.With the gastric sleeve, there are the additional potential risks such as sleeve stricture and spiraling. and sepsis. Any of these could require further surgery. Other risks include DVT, PE, pneumonia, wound dehiscence, hernia, wound infection, the need for dilatations of her gastrojejunostomy, and the inability to lose appropriate weight and keep it off. We discussed that our goal is to ameliorate her medical problems and not to obtain a specific body mass index. All surgeries may be performed laparoscopically, however the possibility exists that any procedure may have to be converted to the open approach. I have also discussed with them the possibility of long-term complications with metabolic, nutritional, and mineral derangements that are present with all three surgeries. I have made the aware that all these surgeries require a lifetime commitment surgery and the patient needs to be an active participant with the program. I have made them aware that after any of the surgeries they will have a very small pouch / sleeve, which will limit the quantity of food that they will be able to eat and the foods they needs to avoid in order to prevent discomfort or failure to lose weight. I have informed the patient that they will have to take at a minimum multivitamins and possible other supplementation. This is the case with any of the surgeries we discussed. With the bariatric surgery, because of the Restrictive / malabsorptive components , after the surgery they will have to have very close follow-up and surveillance where I will see them every month for the first four months and then at least annually for life. With those office visits, at a minimum I may routinely check a CBC, CMP, Vitamin B6 and B12, a folate level and an iron profile. In addition to these vitamins checked for the gastric sleeve surgery, for gastric bypass surgery, I will also check Vitamin A, D, E, K, and Zinc levels, as needed. I made them aware of the long-term complications that can occur if they fails to have follow-up and develops derangements with different types of vitamin and mineral deficiencies. Each surgery requires a lot of teaching and education. I have discussed this with them at great length and have provided a great deal of information to the patient, they has attended pre operative education class by rpg programmer analyst and the dietitian, but they will have additional education provided by the rpg programmer analyst and mechanical systems designer at [facility]. Because of the significant changes in eating habits they will have to see a mechanical systems designer following surgery. I have informed them that the diet after surgery is a gradual progression from clear liquids to solid foods over a period of time. Bariatric surgery can affect them psychologically and emotionally, therefore they may require post-operative therapy with a psychologist. They will have to make sure that they are willing to make the commitment for life and be an active participant. Covid-19 specific risk with bariatric surgery, I explained to her the added risk of high morbidity (as high as 20%) and mortality with mary Covid-19 perioperatively or if she is a carrier at the time of surgery. Since there are only very limited knowledge currently about the virus, its behaviors and treatment modalities. I also explained to her there is a chance of mary Covid-19 in the treating facility even though we are taking extra measures to our knowledge to prevent contraction of Covid-19.I reviewed specific measures the hospital is taking to protect our patient's at this time. Our patients will be cared for on a separate floor from any Covid positive patients. All ancillary staff has specific measures in place to not cross contaminate patient's. Patient's are strongly advised to be quarantined at home 3 days prior to surgery and 2 weeks following surgery to avoid contraction of Covid 19 and associated complication. The patient echos understanding of all the above mentioned information and the above mentioned risks and benefits and wishes to proceed with surgery, possible Hiatal Hernia repair and any related procedure. Patient has signed a consent form. Counseled the patient about coordination of pre op testing and evaluations required. The following are testing or referrals that require follow up. Psychology/psychiatry consult for pre-operative clearance. Blood work to evaluate for any vitamin and mineral deficiency. EKG and Chest Xray. Dietitian consult for diet counseling EGD Cardiac consult for risk assessment and optimization before surgery Colonoscopy UGI study Physical therapy Counseled the patient about coordination of pre op testing and evaluations required. The following are testing or referrals that require follow up. Psychology/psychiatry consult for pre-operative clearance. Blood work to evaluate for any vitamin and mineral deficiency. EKG and Chest Xray. Dietitian consult for diet counseling EGD Gastric reflux EGD done on : by reported no abnormalities, hiatal hernia. I will visualize the hiatal hernia inside the abdomen, and if it is significant enough to be repaired I will repair it, along with bariatric surgery. Gastritis, Z-line Irregular. Pathology H Pylori negative, H pylori Positive Started on treatment, negative for dysplasia, EGD done on by reported No abnormalities, hiatal hernia. I will visualize the hiatal hernia inside the abdomen, and if it is significant enough to be repaired I will repair it, along with bariatric surgery., Gastritis, Z-line Irregular. Pathology H Pylori negative, H pylori Positive Started on treatment, negative for dysplasia, Pt complains of reflux symptoms occasionally. We'll plan for an EGD to rule out H. pylori and any anatomic abnormality. Complains of reflux symptoms occasionally. Om omepraole PRRN We'll plan for an EGD to rule out H. pylori and any anatomic abnormality. Anxiety disorder, unspecified Patient an xious about surgery and the course. Explained in detail the surgery. If on SSRI or anxiety medication, I will continue the same now and perioperatively. Psychiatric evaluation for pre-operative clearance obtained. Patient anxious about surgery and the course. Explained in detail the surgery. If on SSRI or anxiety medication, I will continue the same now and perioperatively. I will obtain a psychiatric evaluation for pre-operative clearance. Patient anxious about surgery and the course. Explained in detail the surgery. If on SSRI or anxiety medication, I will continue the same now and perioperatively. I will obtain a psychiatric evaluation for pre-operative clearance. Deficiency of other vitamins Labs comple evelyn to check for vitamin and mineral deficiencies. Replaced as necessary. Acquired absence of kidney H/o Right nep hrectomy 2007. Kidney functions normal now. There is a left flank incision with no hernia. Patient had a Lap endometriosis and Cholecystectomy after this surgery, with minimal adhesions. So Laparoscopic Sleeve Gastrectomy is possible. Hypothyroidism, unspecified Currently ma naged by primary care doctor. Will recheck TSH and will adjust medication as needed. Hyperlipidemia, mixed Currently on no me dication. Will check the Lipid panel. Patient was advised to decrease sugar and carbs in the diet and also fried food. Bariatric surgery will help improve the condition. Other The patient meets the criteria as set by the National Prole of Health that recommends bariatric surgery on people with a body mass index greater than 40 kg/ms or with a body mass index greater than 35 kg/msq with co-morbid conditions. I have discussed with them at great length the definition of morbid obesity and the indications for surgery. I have explained to them that the surgery is not a cure. This is not a cosmetic surgery and she will still require active participation with exercise, diet, and having very close follow-up with a mechanical systems designer and me. In addition they must attend three support group meetings prior to surgery, and continue to attend post-operatively, in order to increase long-term success. I have discussed with them at great length the different types of bariatric procedures that are being performed. I have shown a diagram explaining how the surgery works and how weight loss is accomplished. I have discussed with them at great length that the gastric bypass surgery is successful in helping the patient lose about 60-80 % of excess body weight and that this mainly occurs within the first two years post-operatively. I have pointed out the comparison to typical lap band weight loss of 30-65 % excess body weight loss. After that, their weight may plateau and there may be no further weight loss. Conversely, I advised that with the gastric sleeve resection, they can reasonably expect to lose 40-75 % of their excess body weight. Again, this will mainly occur in the first two years post-op. After that time, their weight may plateau and there may be no further weight loss. Additionally, in the case of the gastric sleeve resection, I have advised the patient that this surgery may be performed as a stand-alone procedure to achieve the desired outcome, or as a staging operation in preparation for further weight loss surgery. They has acknowledged understanding that more surgery may be necessary in order to achieve an acceptable weight loss outcome. I have discussed at great length with the complication of all surgeries such as bleeding, hematoma, seroma, poor wound healing, hernia formation, further surgeries, further surgeries if too much weight loss occurs, injury to liver, spleen, stomach pancreatic injury, kidney injury, diaphragmatic and heart injury, bowel injury, vessel injury and nerve injury. In discussing complications of surgeries, I placed special emphasis on esophagus gastric/bowel perforation leading to possible sepsis and , and deep vein thrombosis leading to possible pulmonary embolism and . With the gastric bypass, there are the additional potential risks such as anastomotic leak, gastric pouch necrosis, total gastrectomy, intestinal reconstruction, internal hernias, and gastrostomy tube. All surgeries may be performed laparoscopically, however the possibility exists that any procedure may have to be converted to the open approach. I have also discussed with them the possibility of long-term complications with metabolic, nutritional, and mineral derangements that are present with all three surgeries. I have made them aware that all these surgeries require a lifetime commitment surgery and they need to be an active participant with the program. I have made them aware that after any of the surgeries they will have a very small pouch, which will limit the quantity of food that they will be able to eat and the foods they needs to avoid in order to prevent discomfort or failure to lose weight. I have informed them that they will have to take at a minimum multivitamins and possible other supplementation. This is the case with any of the surgeries we discussed. However, with the gastric banding surgery, because of the Restrictive component/ foreign hardware, after the surgery they will have to have very close follow-up and surveillance where I will see them every month for the first four months and then at least annually for life. With those office visits, at a minimum I may routinely check a CBC, CMP, Vitamin B6 and B12, a folate level and an iron profile. In addition to these vitamins checked for the gastric sleeve surgery, for gastric bypass surgery, I will also check Vitamin A, D, E, K, and Zinc levels, as needed. I made them aware of the long-term complications that can occur if they fail to have follow-up and develops derangements with different types of vitamin and mineral deficiencies. All of these surgeries are bariatric surgeries; therefore the pre-surgery work up may be similar for any of the procedures. Each surgery requires a lot of teaching and education. I have discussed this with her at great length and have provided a great deal of information to the patient but they will have additional education provided by the rpg programmer analyst and mechanical systems designer at [facility]. Because of the significant changes in eating habits they will have to see a mechanical systems designer prior to and following surgery. I have informed them that the diet after surgery is a gradual progression from clear liquids to solid foods over a period of time. Bariatric surgery can affect them psychologically and emotionally, therefore they will have to see a psychiatrist before the surgery and may require post-operative therapy as well. They will have to make sure that they are willing to make the commitment for life and be an active participant. Laboratory studies including CMP, CBC, TSH, Iron, Ferritin, Folate, Vitamin B1, Vitamin B12, Vitamin D and an urinalysis will be obtained prior to surgery. Based upon history and exam findings, a pulmonary function test, stress test and sleep study may be required. Given the patient's condition and for evaluation of the stomach, an upper endoscopy will be completed prior to the bariatric procedure. I have discussed and given a lot of education to the patient. I have informed them that the surgery is not a cure and that this is not a cosmetic surgery. Any of the surgeries discussed can significantly improve health as well as improve or resolve comorbid medical conditions. Next Appt Details Follow Up: 1 Week, Reason: 2 weeks post op Provider Name:Leena Santiago , 08/22/2025 10:30:00 AM, [address], [address], [place], [address], Provider Name:Jarrett Cade theo, 02/24/2026 10:30:00 AM, [address], [address], [place], [address], History and Physical Notes * HPI (History of Present Illness) Category Sub-Category Detail Notes Category Not es Weight History Weight History BIV:12/27/2024 W eight: 276 lbs 47.37 Index . 01/27/2025 : Weight: 273 lbs , BMI: 46.86 Index 02/11/2025 : weight: 273 lbs , BMI: 46.86 Index 02/28/2025 Weight 263.4 lbs , BMI 45.21 Index Post Op Post op Patient is 1 js k,, s/p Robotic Sleeve Gastrectomy 02/22/25 Support Groups Online Protein 45 grams Fluids 64 oz Exercise Walking 10 minutes p er day Vitamins Plan to start after 2 weeks Post op Course Patient is not havin g any issues related to bariatric surgery, The patient is not having any pain, nausea, vomiting. Bowel movement are Soft, without blood, blood tinged, dark stool The pain is controlled without any medications. The pain is controlled with current analgesics. Medications being used: Has the patient been readmitted to the hospital since the last follow up ? No Examination Category Sub-Category Detail Notes Category Not es General Examination General appearance: alert, w ell-nourished and in no acute distress Eyes: Anicteric. No Subcon junctival hemorrhage Neck / thyroid: trachea midline Abdomen: Abdomen is obese, so ft, non-tender, non-distended. No palpable visceromegaly. No palpable ventral hernias. Skin: Skin is warm and dry . No Ulcers, rashes, or lesions. Extremities: Well perfused. No gr oss joint deformity noted, Psych: The patient's mood a nd affect are appropriate. 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 Support Groups O nline. Protein 4 5 grams . Fluids 6 4 oz. Exercise W alking 10 minutes per day. Vitamins P ira to start after 2 weeks. Post op Course P atient is not having any issues related to bariatric surgery, The patient is not having any pain, nausea, vomiting. B owel movement are Soft, without blood, blood tinged, dark stool T he pain is controlled without any medications. The pain is controlled with current analgesics. Medications being used: H as the patient been readmitted to the hospital since the last follow up ?No . W eight History: Weight History B IV:12/27/2024 Weight: 276 lbs 47.37 Index?. 0 01/27/2025 : Weight: 273 lbs?, BMI: 46.86 Index 0 02/11/2025 : weight: 273 lbs , BMI: 46.86 Index 0 02/28/2025 Weight 263.4 lbs , BMI 45.21 Index . * ROS: G eneral / Constitutional: - N egative. A llergy / Immunology: - N egative. O phthalmologic: - N egative. E ndocrine: - N egative. R espiratory: - N egative. C ardiovascular: - N egative. G astrointestinal: - n egative. H ematology: - N egative. G enitourinary: - N egative. M usculoskeletal: - n egative. S kin: - N egative. P sychiatric: - N egative. * Medical History: Please check off any of the following medical conditions you currently have or have had in the past:: Anxiety,Arthritis,Allergies,Depression,Fatty Liver,Fibromyalgia,GERD,Gallstones,Heartburn (acid reflux),Hemorrhoids,high cholesterol,Hypothyroidism,Kidney Stones / Disease,Snoring Do you have any other disease, condition or problem not listed above that you feel we should know about? If so, Please explain:: Migraines Medical History Verified * Surgical History: Right nephrectomy, gallbladder removal, laparoscopic endometriosis exploratory procedure, uterine ablation, tonsillectomy, adenoidectomy gastric sleeve 02/22/25 Surgical History verified. * Hospitalization/Major Diagno stic Procedure: Denies Past Hospitalization. * Family History: F ather: Quad bypass, [place], substance abuse disorder, depression, pancreatitis, burket B cell lymphoma, leukemia. M other: NAFLD-cirrhosis, type 2 diabetes, depression, hypothyroidism, ADHD. Paternal Grandfather: PKD,. P aternal Grandmother: High cholesterol, heart attack. M aternal Grandfather: Type 2 diabetes. M aternal Grandmother: Parkinsons. B rother: Diabetes, migraines, depression, fibromyalgia, anxiety, substance abuse disorders, bipolar. F amily History Verified.. * Social History: T obacco Use: T obacco Use/Smoking T obacco use: n onsmoker S ocial History Verified. * Medications: T akingLORazepam 0.5 MG Tablet 1 tablet at bedtime as needed Orally Once a day SUMAtriptan Succinate 100 MG Tablet 1 tablet as needed, may take second dose at least 2 hours after first dose up to 2 tablets per day as needed Orally Once a day Vitamin D3 6873050 UNIT/GM Liquid as directed Omeprazole 20 MG Capsule Delayed Release 1 capsule 1/2 to 1 hour before morning meal Orally Once a day [place]-3 Fish Oil 1000 MG Capsule 1 capsule Orally Three times a day ZyrTEC 10 MG Tablet Chewable 1 tablet Orally Once a day QUEtiapine Fumarate 50 MG Tablet 1 tablet at bedtime Orally Once a day Pristiq 50 MG Tablet Extended Release 24 Hour 1 tablet Orally Once a day Levothyroxine Sodium 25 MCG Tablet 1 tablet in the morning on an empty stomach Orally Once a day Omeprazole 40 MG Capsule Delayed Release 1 capsule 1/2 to 1 hour before morning meal Orally Once a day Repatha 140 MG/ML Solution Prefilled Syringe 1 mL Subcutaneous Dicyclomine HCl 10 MG Capsule 2 capsules Orally Three times a day prn Flonase Allergy Relief 50 MCG/ACT Suspension 1 spray in each nostril Nasally Twice a day Cyclobenzaprine HCl 10 MG Tablet 1 tablet at bedtime as needed Orally Once a day traMADol HCl 50 MG Tablet 1 tablet as needed Orally Once a day Concerta 18 MG Tablet Extended Release 1 tablet in the morning Orally Once a day Cyanocobalamin 1000 MCG Tablet 1 tablet Orally Once a day , stop date 04/02/2025Ergocalciferol 1.25 MG (46751 UT) Capsule 1 capsule Orally every 7 days , stop date 04/02/2025Taking LORazepam 0.5 MG Tablet 1 tablet at bedtime as needed Orally Once a day Taking SUMAtriptan Succinate 100 MG Tablet 1 tablet as needed, may take second dose at least 2 hours after first dose up to 2 tablets per day as needed Orally Once a day Taking Vitamin D3 [id number] UNIT/GM Liquid as directed Taking Omeprazole 20 MG Capsule Delayed Release 1 capsule 1/2 to 1 hour before morning meal Orally Once a day Taking [place]-3 Fish Oil 1000 MG Capsule 1 capsule Orally Three times a day Taking ZyrTEC 10 MG Tablet Chewable 1 tablet Orally Once a day Taking QUEtiapine Fumarate 50 MG Tablet 1 tablet at bedtime Orally Once a day Taking Pristiq 50 MG Tablet Extended Release 24 Hour 1 tablet Orally Once a day Taking Levothyroxine Sodium 25 MCG Tablet 1 tablet in the morning on an empty stomach Orally Once a day Taking Omeprazole 40 MG Capsule Delayed Release 1 capsule 1/2 to 1 hour before morning meal Orally Once a day Taking Repatha 140 MG/ML Solution Prefilled Syringe 1 mL Subcutaneous Taking Dicyclomine HCl 10 MG Capsule 2 capsules Orally Three times a day prn Taking Flonase Allergy Relief 50 MCG/ACT Suspension 1 spray in each nostril Nasally Twice a day Taking Cyclobenzaprine HCl 10 MG Tablet 1 tablet at bedtime as needed Orally Once a day Taking traMADol HCl 50 MG Tablet 1 tablet as needed Orally Once a day Taking Concerta 18 MG Tablet Extended Release 1 tablet in the morning Orally Once a day Taking Cyanocobalamin 1000 MCG Tablet 1 tablet Orally Once a day , stop date 04/02/2025Taking Ergocalciferol 1.25 MG (44499 UT) Capsule 1 capsule Orally every 7 days , stop date 04/02/2025 * Allergies: D oxycycline: hives - Criticality HighNSAIDs - Criticality HighValium - Criticality HighyesAllergies Verified. Objective: * Vitals: B P:132/80mm Hg, HR:74/min, Wt:263.4lbs, Wt-k.48 kg, Ht: 64 in, Ht-cm: 162.56 cm, BMI:45.21Index, Body Surface Area: 2.32. * Examination: G eneral Examination: General appearance: a lert, well-nourished and in no acute distress. Eyes: A nicteric. No Subconjunctival hemorrhage. Neck / thyroid: t rachea midline. Skin: S kin is warm and dry. No Ulcers, rashes, or lesions.. Abdomen: A bdomen is obese, soft, non-tender, non-distended. No palpable visceromegaly. No palpable ventral hernias.. Extremities: W ell perfused. No gross joint deformity noted,. Psych: T he patient's mood and affect are appropriate..? Assessment: * Assessment: 1. M orbid obesity - E66.01 (Primary) 2 . S /P bariatric surgery - Z98.84? 3. V itamin deficiency - E56.9 4 . C ounseling and coordination of care - Z71.89 5 . G astric reflux - K21.9 6 . A nxiety disorder, unspecified - F41.9 7 . D eficiency of other vitamins - E56.8 ? 8 . A cquired absence of kidney - Z90.5 9 . H ypothyroidism, unspecified - E03.9 1 0. H yperlipidemia, mixed - E78.2 Plan: * Treatment: 2. S /P bariatric surgery Notes: s/p:. Date of surgery . @ [facility] , by Dr. Jarrett bianchi well postoperatively. Operative note reviewed with patient. Wound care discussed. W ounds healing well. No hernia palpable. Start Actigall 10 days after surgery for 3 months. Continue Prilosec for 6 months after surgery. S tart Vitamins 2 week after surgery. Continue liquid diet until 2 week post op visit No lifting more than 10 pounds for 2 weeks after surgery. No lifting restriction May use fibre supplementation like Bene fiber 1-2 teaspoon twice daily in the protein supplementation to prevent constipation. 3. V itamin deficiency Notes: Obesity is associated with high incidence of vitamin deficiency. Will check blood for Vitamin D, Thiamin and B12 deficiency. Obesity is associated with high incidence of vitamin deficiency. Will check blood for Vitamin D, Thiamin and B12 deficiency. 4. C ounseling and coordination of care Notes: Follow up with mechanical systems designer as scheduled Labs: None. Routine post op labsI counseled the patient on continuing Behavior and Lifestyle Modifications: Eat 1-2 small meals daily and protein supplementation. Recommended to take about 60-80 g of protein per day. Eliminate high caloric beverages. Do not graze between meals. Portion control, measuring portions, showed portion control plates. Choosing low sugar, high protein items. Reducing stress and emotional eating. Incorporating fruits and vegetables in moderation. Taking 20 minutes to eat a meal. Patient was instructed to keep a food journal. Patient was counseled on the need for routine exercise plan, at least 10 minutes per day.Proposed Surgery, Date and Place. Surgery: Date: Place: [facility] Patient should qualify for staying more than 2 midnights in hospital. Patient education, risk explained and consent : T he patient meets the criteria as set by the National Prole of Health that recommends bariatric surgery on people with a body mass index greater than 40 kg/msq or with a body mass index greater than 35 kg/msq with co-morbid conditions. I have discussed with hem at great length the definition of morbid obesity and the indications for surgery. I have explained to themthat the surgery is not a cure. This is not a cosmetic surgery and they will still require active participation with exercise, diet, and having very close follow-up with a mechanical systems designer and me. In addition they must continue to attend post-operatively, in order to increase long-term success. ?I have discussed with them at great length the different types of bariatric procedures that are being performed. I have shown them a diagram explaining how the surgery works and how weight loss is accomplished. I have discussed with them at great length that the gastric bypass surgery is successful in helping the patient lose about 60-80 % of excess body weight and that this mainly occurs within the first two years post-operatively. After that, weight may plateau and there may be no further weight loss. Conversely, I advised that with the gastric sleeve resection, theyy can reasonably expect to lose 40-75 % of excess body weight. Again, this will mainly occur in the first two years post-op. After that time, weight may plateau and there may be no further weight loss. Additionally, in the case of the gastric sleeve resection, I have advised the patient that this surgery may be performed as a stand-alone procedure to achieve the desired outcome, or as a staging operation in preparation for further weight loss surgery. The patient has acknowledged their understanding that more surgery may be necessary in order to achieve an acceptable weight loss outcome. I have discussed at great length with the risks include, but are not limited to: , anastomotic leak, obstruction, bleeding, hematoma, seroma, poor wound healing, hernia formation, further surgeries, further surgeries if too much weight loss occurs, injury to liver, spleen, stomach pancreatic injury, kidney injury, diaphragmatic and heart injury, bowel injury, vessel injury and nerve injury. In discussing complications of surgeries, I placed special emphasis on esophagus gastric/bowel perforation leading to possible sepsis and , and deep vein thrombosis leading to possible pulmonary embolism and . With the gastric bypass, there are the additional potential risks such as anastomotic leak, gastric pouch necrosis, total gastrectomy, intestinal reconstruction, internal hernias, and gastrostomy tube.With the gastric sleeve, there are the additional potential risks such as sleeve stricture and spiraling. and sepsis. Any of these could require further surgery. Other risks include DVT, PE, pneumonia, wound dehiscence, hernia, wound infection, the need for dilatations of her gastrojejunostomy, and the inability to lose appropriate weight and keep it off. We discussed that our goal is to ameliorate her medical problems and not to obtain a specific body mass index. All surgeries may be performed laparoscopically, however the possibility exists that any procedure may have to be converted to the open approach. I have also discussed with them the possibility of long-term complications with metabolic, nutritional, and mineral derangements that are present with all three surgeries. & #160;I have made the aware that all these surgeries require a lifetime commitment surgery and the patient n eeds to be an active participant with the program. I have made them aware that after any of the surgeries they will have a very small pouch / sleeve, which will limit the quantity of food that they will be able to eat and the foods they needs to avoid in order to prevent discomfort or failure to lose weight. I have informed the patient that they will have to take at a minimum multivitamins and possible other supplementation. This is the case with any of the surgeries we discussed. With the bariatric surgery, because of the Restrictive / malabsorptive components , after the surgery they will have to have very close follow-up and surveillance where I will see them every month for the first four months and then at least annually for life.? With those office visits, at a minimum I may routinely check a CBC, CMP, Vitamin B6 and B12, a folate level and an iron profile. In addition to these vitamins checked for the gastric sleeve surgery, for gastric bypass surgery, I will also check Vitamin A, D, E, K, and Zinc levels, as needed. I made them aware of the long-term complications that can occur if they fails to have follow-up and develops derangements with different types of vitamin and mineral deficiencies. Each surgery requires a lot of teaching and education. I have discussed this with them at great length and have provided a great deal of information to the patient, they has attended pre operative education class by rpg programmer analyst and the dietitian, but they will have additional education provided by the rpg programmer analyst and mechanical systems designer at [facility]. Because of the significant changes in eating habits they will have to see a mechanical systems designer following surgery. I have informed them that the diet after surgery is a gradual progression from clear liquids to solid foods over a period of time. B ariatric surgery can affect them psychologically and emotionally, therefore they may require post-operative therapy with a psychologist. They will have to make sure that they are w illing to make the commitment for life and be an active participant. C ovid-19 specific risk with bariatric surgery, I explained to her the added risk of high morbidity (as high as 20%) and mortality with mary Covid-19 p erioperatively or if she is a carrier at the time of surgery. S amadou there are only very limited knowledge currently about the virus, its behaviors and treatment modalities. I also explained to her there is a chance of mary Covid-19 in the treating facility even though we are taking extra measures to our knowledge to prevent contraction of Covid-19.I reviewed specific measures the hospital is taking to protect our patient's at this time. O ur patients will be cared for on a separate floor from any Covid positive patients. A ll ancillary staff has specific measures in place to not cross contaminate patient's. P atient's are strongly advised to be quarantined at home 3 days prior to surgery and 2 weeks following surgery to avoid contraction of Covid 19 and associated complication. The patient echos understanding of all the above mentioned information and the above mentioned risks and benefits and wishes to proceed with surgery, possible Hiatal Hernia repair and any related procedure. Patient has signed a consent form. Counseled the patient about coordination of pre op testing and evaluations required. The following are testing or referrals that require follow up. Psychology/psychiatry consult for pre-operative clearance. Blood work to evaluate for any vitamin and mineral deficiency. EKG and Chest Xray. Dietitian consult for diet counseling EGD Cardiac consult for risk assessment and optimization before surgery Colonoscopy UGI study Physical therapy Counseled the patient about coordination of pre op testing and evaluations required. The following are testing or referrals that require follow up. Psychology/psychiatry consult for pre-operative clearance. Blood work to evaluate for any vitamin and mineral deficiency. EKG and Chest Xray. Dietitian consult for diet counseling EGD 5. G astric reflux Notes: E GD done on : by reported no abnormalities, h iatal hernia. I will visualize the hiatal hernia inside the abdomen, and if it is significant enough to be repaired I will repair it, along with bariatric surgery. Gastritis, Z-line Irregular. Pathology H Pylori negative, H pylori Positive Started on treatment, negative for dysplasia, EGD done on by reported No abnormalities, h iatal hernia. I will visualize the hiatal hernia inside the abdomen, and if it is significant enough to be repaired I will repair it, along with bariatric surgery., Gastritis, Z-line Irregular. Pathology H Pylori negative, H pylori Positive Started on treatment, negative for dysplasia, Pt complains of reflux symptoms occasionally. We'll plan for an EGD to rule out H. pylori and any anatomic abnormality. Complains of reflux symptoms occasionally. Om omepraole PRRN We'll plan for an EGD to rule out H. pylori and any anatomic abnormality. 6. A nxiety disorder, unspecified Notes: Patient anxious about surgery and the course. Explained in detail the surgery. If on SSRI or anxiety medication, I will continue the same now and perioperatively. Psychiatric evaluation for pre-operative clearance obtained. Patient anxious about surgery and the course. Explained in detail the surgery. If on SSRI or anxiety medication, I will continue the same now and perioperatively. I will obtain a psychiatric evaluation for pre-operative clearance. Patient anxious about surgery and the course. Explained in detail the surgery. If on SSRI or anxiety medication, I will continue the same now and perioperatively. I will obtain a psychiatric evaluation for pre-operative clearance. 7. D eficiency of other vitamins Notes: Labs completed to check for vitamin and mineral deficiencies. Replaced as necessary. ? 8. A cquired absence of kidney Notes: H/o Right nephrectomy 2007. Kidney functions normal now. There is a left flank incision with no hernia. Patient had a Lap endometriosis and Cholecystectomy after this surgery, with minimal adhesions. So Laparoscopic Sleeve Gastrectomy is possible. 9. H ypothyroidism, unspecified Notes: Currently managed by primary care doctor. Will recheck TSH and will adjust medication as needed. 10. H yperlipidemia, mixed Notes: Currently on no medication. Will check the Lipid panel. Patient was advised to decrease sugar and carbs in the diet and also fried food. Bariatric surgery will help improve the condition. 11. O thers Notes: The patient meets the criteria as set by the National Prole of Health that recommends bariatric surgery on people with a body mass index greater than 40 kg/ms or with a body mass index greater than 35 kg/msq with co-morbid conditions. I have discussed with them at great length the definition of morbid obesity and the indications for surgery. I have explained to them that the surgery is not a cure. This is not a cosmetic surgery and she will still require active participation with exercise, diet, and having very close follow-up with a mechanical systems designer and me. In addition they must attend three support group meetings prior to surgery, and continue to attend post-operatively, in order to increase long-term success. I have discussed with them at great length the different types of bariatric procedures that are being performed. I have shown a diagram explaining how the surgery works and how weight loss is accomplished. I have discussed with them at great length that the gastric bypass surgery is successful in helping the patient lose about 60-80 % of excess body weight and that this mainly occurs within the first two years post-operatively. I have pointed out the comparison to typical lap band weight loss of 30-65 % excess body weight loss. After that, their weight may plateau and there may be no further weight loss. Conversely, I advised that with the gastric sleeve resection, they can reasonably expect to lose 40-75 % of their excess body weight. Again, this will mainly occur in the first two years post-op. After that time, their weight may plateau and there may be no further weight loss. Additionally, in the case of the gastric sleeve resection, I have advised the patient that this surgery may be performed as a stand-alone procedure to achieve the desired outcome, or as a staging operation in preparation for further weight loss surgery. They has acknowledged understanding that more surgery may be necessary in order to achieve an acceptable weight loss outcome. I have discussed at great length with the complication of all surgeries such as bleeding, hematoma, seroma, poor wound healing, hernia formation, further surgeries, further surgeries if too much weight loss occurs, injury to liver, spleen, stomach pancreatic injury, kidney injury, diaphragmatic and heart injury, bowel injury, vessel injury and nerve injury. In discussing complications of surgeries, I placed special emphasis on esophagus gastric/bowel perforation leading to possible sepsis and , and deep vein thrombosis leading to possible pulmonary embolism and . With the gastric bypass, there are the additional potential risks such as anastomotic leak, gastric pouch necrosis, total gastrectomy, intestinal reconstruction, internal hernias, and gastrostomy tube. All surgeries may be performed laparoscopically, however the possibility exists that any procedure may have to be converted to the open approach. I have also discussed with them the possibility of long-term complications with metabolic, nutritional, and mineral derangements that are present with all three surgeries. I have made them aware that all these surgeries require a lifetime commitment surgery and they need to be an active participant with the program. I have made them aware that after any of the surgeries they will have a very small pouch, which will limit the quantity of food that they will be able to eat and the foods they needs to avoid in order to prevent discomfort or failure to lose weight. I have informed them that they will have to take at a minimum multivitamins and possible other supplementation. This is the case with any of the surgeries we discussed. However, with the gastric banding surgery, because of the Restrictive component/ foreign hardware, after the surgery they will have to have very close follow-up and surveillance where I will see them every month for the first four months and then at least annually for life. With those office visits, at a minimum I may routinely check a CBC, CMP, Vitamin B6 and B12, a folate level and an iron profile. In addition to these vitamins checked for the gastric sleeve surgery, for gastric bypass surgery, I will also check Vitamin A, D, E, K, and Zinc levels, as needed. I made them aware of the long-term complications that can occur if they fail to have follow-up and develops derangements with different types of vitamin and mineral deficiencies. All of these surgeries are bariatric surgeries; therefore the pre-surgery work up may be similar for any of the procedures. Each surgery requires a lot of teaching and education. I have discussed this with her at great length and have provided a great deal of information to the patient but they will have additional education provided by the rpg programmer analyst and mechanical systems designer at [facility]. Because of the significant changes in eating habits they will have to see a mechanical systems designer prior to and following surgery. I have informed them that the diet after surgery is a gradual progression from clear liquids to solid foods over a period of time. Bariatric surgery can affect them psychologically and emotionally, therefore they will have to see a psychiatrist before the surgery and may require post-operative therapy as well. They will have to make sure that they are willing to make the commitment for life and be an active participant. Laboratory studies including CMP, CBC, TSH, Iron, Ferritin, Folate, Vitamin B1, Vitamin B12, Vitamin D and an urinalysis will be obtained prior to surgery. Based upon history and exam findings, a pulmonary function test, stress test and sleep study may be required. Given the patient's condition and for evaluation of the stomach, an upper endoscopy will be completed prior to the bariatric procedure. I have discussed and given a lot of education to the patient. I have informed them that the surgery is not a cure and that this is not a cosmetic surgery. Any of the surgeries discussed can significantly improve health as well as improve or resolve comorbid medical conditions. * Follow Up: 1 Week (Reason: 2 weeks post op) * Billing Information: * Visit Code: 52067 Postop visit. * Procedure Codes: Images * Flow sheet 6-2-25 * Electronic signature of Gabriel Castro MD on 07/24/2025 at 06:46 PM CDT Sign off status: Pending * Provider: Tor Castro MD Date: 0 02/28/2025 Generated for Porsche oliveira/Lisandra/Da on: 06:46 PM CDT
--- OUTSIDE RECORDS SUMMARY | 2025-03-07 05:00 | XMS_ITS ---
Author Organization [facility] Office Address [address] [place] [address] Care Team Providers Care Cloud Services Architect Name Role Phone Angeline Green Primary Care Provider Unavailab neda Jarrett Castro Unavailable [phone] Leena Santiago Unavailable [phone] Allergies Allergen (clinical drug ingredient) Drug/Non Drug Allergy documented on EMR Reaction Allergy Type Onset Date Status diazepam Valium Unknown Drug Allergy Active doxycycline Doxycycline hives Drug Allergy Act cammie Non-steroidal anti-inflammatory agent (FN) NSAIDs Unknown Drug Allergy Active REASON FOR VISIT 2 week PO VSG f/u, Arcadio Post op 2 weeks, Post Op Visit Medications Medication SIG (Take, Route, Frequency, Duration) Notes Start Date End Date Status QUEtiapine Fumarate 50 MG Tablet 1 tablet at bedtime Orally Once a day Not-Taking Pristiq 50 MG Tablet Extended Release 24 Hour 1 tablet Orally Once a day Active ZyrTEC 10 MG Tablet Chewable 1 tablet Orally Once a day Active Levothyroxine Sodium 25 MCG Tablet 1 tablet in the morning on an empty stomach Orally Once a day Active Omeprazole 40 MG Capsule Delayed Release 1 capsule 1/2 to 1 hour before morning meal Orally Once a day; Duration: 30 day(s) 02/17/2025 Active Ergocalciferol 1.25 MG (11612 UT) Capsule 1 capsule Orally every 7 days; Duration: 60 days 02/01/2025 04/02/2025 Not-Taking [place]-3 Fish Oil 1000 MG Capsule 1 capsule Orally Three times a day Not-Taking SUMAtriptan Succinate 100 MG Tablet 1 tablet as needed, may take second dose at least 2 hours after first dose up to 2 tablets per day as needed Orally Once a day Active Vitamin D3 9674935 UNIT/GM Liquid as directed Not-Taking LORazepam 0.5 MG Tablet 1 tablet at bedt iris as needed Orally Once a day Active Concerta 18 MG Tablet Extended Release 1 tablet in the morning Orally Once a day Not-Taking Cyanocobalamin 1000 MCG Tablet 1 tablet Orally Once a day; Duration: 60 days 02/01/2025 04/02/2025 Not-Taking Cyclobenzaprine HCl 10 MG Tablet 1 tablet at bedtime as needed Orally Once a day Active traMADol HCl 50 MG Tablet 1 tablet as ne eded Orally Once a day Active Flonase Allergy Relief 50 MCG/ACT Suspension 1 spray in each nostril Nasally Twice a day Active Dicyclomine HCl 10 MG Capsule 2 capsules Orally Three times a day prn Active Social History Tobacco Use: Social History Observation Description Date Details (start date - stop date) Never Smoker NA - NA Social History Tobacco Use: Social Info Question Answer Notes Tobacco Use/Smoking Tobacco use: nonsmoker Vital Signs Blood pressure systolic 130 mm Hg 03/07/20 25 Blood pressure diastolic 74 mm Hg 025 Heart Rate 70 /min 03/07/2025 Height 64 in 03/07/2025 Weight 254.4 lbs 03/07/2025 BMI 43.66 kg/m2 03/07/2025 Height-cm 162.56 cm 03/07/2025 Weight-kg 115.4 kg 03/07/2025 Encounters Encounter Location Date Provider Diagnosis [facility] [address] [place] [address] 03/07/2025 Leena Santiago Morbid obesity E66.0 1 ; S/P bariatric surgery Z98.84 ; Vitamin deficiency E56.9 ; Counseling and coordination of care Z71.89 ; Gastric reflux K21.9 ; Anxiety disorder, unspecified F41.9 ; Deficiency of other vitamins E56.8 ; Acquired absence of kidney Z90.5 ; Hypothyroidism, unspecified E03.9 and Hyperlipidemia, mixed E78.2 Assessments Encounter Date Diagnosis (ICD Code) Assessment Notes Treatment Notes Treatment Clinical Notes Section Notes 03/07/2025 Morbid obesity (ICD-10 - E66.01) Change in weight as noted in the weight history above. Current BMI 43.66 Index with weight of 254.4 lbs Total weight loss since starting the program: -22lbs Patient is losing weight. Patient is controlling [...] supplementation. Weight change as in weight history. The patient had visited with the Dietitian since the last visit and are adjusting the diet. They started on an exercise program is helping with a weight loss plan. Continue on liquid protein diet replacement therapy. 03/07/2025 S/P bariatric surgery (ICD-10 - Z98.84) s/p:Robotic sleeve gastrectomy . Date of surgery 02/22/25 . @ [facility] by Jarrett Castro Doing well postoperatively. Wounds healing well. No hernia palpable. Start Actigall 10 days after surgery for 3 months. Continue Actigall. Continue Prilosec for 6 months after surgery. Start Vitamins now, reviewed post op vitamin protocol. Ok to advance diet from liquid to puree stage. No lifting restriction May use fibre supplementation like Bene fiber 1-2 teaspoon twice daily in the protein supplementation to prevent constipation. Doing well postoperatively. Operative note reviewed with [...] in the protein supplementation to prevent constipation. 03/07/2025 Vitamin deficiency (ICD-10 - E56.9) Starting patient on post op vitamin protocol Obesity is associated with high incidence of vitamin deficiency. Will check blood for Vitamin D, Thiamin and B12 deficiency. Obesity is associated with high incidence of vitamin deficiency. Will check blood for Vitamin D, Thiamin and B12 deficiency. 03/07/2025 Counseling and coordination of care (ICD-10 - Z71.89) Follow up with community organization director as scheduled I counseled the patient on continuing Behavior and [...] plan, at least 10 minutes per day. Follow up with community organization director as scheduled Labs: None. Routine post op [...] Surgery, Date and Place. Surgery: Date: Place: [facility] Patient should qualify for staying more than 2 midnights in hospital. Patient education, risk explained and consent : The patient meets the criteria as set by the [place] of Health that recommends bariatric surgery on [...] and having very close follow-up with a community organization director and me. In addition they must continue [...] has attended pre operative education class by program technician and the dietitian, but they will have additional education provided by the program technician and community organization director at [facility]. Because of the significant changes in eating habits they will have to see a community organization director following surgery. I have informed them that [...] Xray. Dietitian consult for diet counseling EGD 03/07/2025 Gastric reflux (ICD-10 - K21.9) EGD done [...] out H. pylori and any anatomic abnormality. 03/07/2025 Anxiety disorder, unspecified (ICD-10 - F41.9) Patient [...] obtain a psychiatric evaluation for pre-operative clearance. 03/07/2025 Deficiency of other vitamins (ICD-10 - E56.8) Labs completed to check for vitamin and mineral deficiencies. Replaced as necessary. 03/07/2025 Acquired absence of kidney (ICD-10 - Z90.5) H/o Right nephrectomy 2007. Kidney functions normal now. There is a left flank incision with no hernia. Patient had a Lap endometriosis and Cholecystectomy after this surgery, with minimal adhesions. So Laparoscopic Sleeve Gastrectomy is possible. 03/07/2025 Hypothyroidism, unspecified (ICD-10 - E03.9) Currently managed by primary care doctor. Will recheck TSH and will adjust medication as needed. 03/07/2025 Hyperlipidemia, mixed (ICD-10 - E78.2) Currently on no medication. Will check the Lipid panel. Patient was advised to decrease sugar and carbs in the diet and also fried food. Bariatric surgery will help improve the condition. 03/07/2025 Other The patient meets the criteria as set by the [place] of Health that recommends bariatric surgery on [...] and having very close follow-up with a community organization director and me. In addition they must attend [...] will have additional education provided by the program technician and community organization director at [facility]. Because of the significant changes in eating habits they will have to see a community organization director prior to and following surgery. I have [...] in the weight history above. Current BMI 43.66 Index with weight of 254.4 lbs Total weight loss since starting the program: -22lbs Patient is losing weight. Patient is controlling [...] supplementation. Weight change as in weight history. The patient had visited with the Dietitian since the last visit and are adjusting the diet. They started on an exercise program is helping with a weight loss plan. Continue on liquid protein diet replacement therapy. S/P bariatric surgery s/p:Robotic sleeve gastrectomy . Date of surgery 02/22/25 . @ [facility] by Jarrett Castro Doing well postoperatively. Wounds healing well. No hernia palpable. Start Actigall 10 days after surgery for 3 months. Continue Actigall. Continue Prilosec for 6 months after surgery. Start Vitamins now, reviewed post op vitamin protocol. Ok to advance diet from liquid to puree stage. No lifting restriction May use fibre supplementation like Bene fiber 1-2 teaspoon twice daily in the protein supplementation to prevent constipation. Doing well postoperatively. Operative note reviewed with [...] protein supplementation to prevent constipation. Vitamin deficiency Starting patient on post op vitamin protocol Obesity is associated with high incidence of vitamin deficiency. Will check blood for Vitamin D, Thiamin and B12 deficiency. Obesity is associated with high incidence of vitamin deficiency. Will check blood for Vitamin D, Thiamin and B12 deficiency. Counseling and coordination of care Follow up with community organization director as scheduled I counseled the patient on continuing Behavior and [...] plan, at least 10 minutes per day. Follow up with community organization director as scheduled Labs: None. Routine post op [...] Surgery, Date and Place. Surgery: Date: Place: [facility] Patient should qualify for staying more than 2 midnights in hospital. Patient education, risk explained and consent : The patient meets the criteria as set by the [place] of Health that recommends bariatric surgery on [...] and having very close follow-up with a community organization director and me. In addition they must continue [...] has attended pre operative education class by program technician and the dietitian, but they will have additional education provided by the program technician and community organization director at [facility]. Because of the significant changes in eating habits they will have to see a community organization director following surgery. I have informed them that [...] the criteria as set by the [place] of Health that recommends bariatric surgery on [...] and having very close follow-up with a community organization director and me. In addition they must attend [...] will have additional education provided by the program technician and community organization director at [facility]. Because of the significant changes in eating habits they will have to see a community organization director prior to and following surgery. I have [...] medical conditions. Next Appt Details Follow Up: 2 Weeks, Reason: 1 month follow up Provider Name:Leena Santiago , 08/22/2025 10:30:00 AM, [address], [place], [address], Provider Name:Jarrett venegas, 02/24/2026 10:30:00 AM, [address], [place], [address], History and Physical Notes * HPI (History of Present Illness) Category Sub-Category Detail Notes Category Not es Weight History Weight History BIV: 12/27/2024 Weight: 276 lbs 47.37 Index . 01/27/2025 : Weight: 273 lbs , BMI: 46.86 Index 02/11/2025 : weight: 273 lbs , BMI: 46.86 Index 02/28/2025 Weight 263.4 lbs , BMI 45.21 Index . 03/07/2025 : Weight 254.4 lbs BMI 43.66 Index Post Op Post op Patient is Ruthie weinstein ks , s/p Robotic Sleeve Gastrectomy 02/22/25 Support Groups Online Protein 60 g Fluids 64 oz Exercise Walking 10-20 minute s per day Vitamins Plan to sart today Post op Course Patient is not havin g any issues related to bariatric surgery, The patient is not having any pain, nausea, vomiting, loose stools, any symptoms Bowel movement are Soft, without blood. Has the patient been readmitted to the hospital since the last follow up ? No Has the patient had any post bariatric surgical operations or interventions performed since the last follow up? No Examination Category Sub-Category Detail Notes Category [...] affect are appropriate. 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 S upport Groups O nline. P rotein 6 0 g. F luids 6 4 oz. E xercise W alking 10-20 minutes per day. V itamins P ira to sart today. P ost op Course Patient is not having any issues related to bariatric surgery, The patient is not having any pain, nausea, vomiting, loose stools, any symptomsBowel movement are Soft, without blood. H as the patient been readmitted to the hospital since the last follow up ?No H as the patient had any post bariatric surgical operations or interventions performed since the last follow up? No. W eight History: Weight History B IV: 0 12/27/2024 Weight: 276 lbs 47.37 Index . ?01/27/2025 : Weight: 273 lbs , BMI: 46.86 Index ?02/11/2025 : weight: 273 lbs , BMI: 46.86 Index 0 02/28/2025 Weight 263.4 lbs , BMI 45.21 Index .? 03/07/2025 : Weight 254.4 lbs BMI 43.66 Index . * ROS: G eneral / [...] * Family History: F ather: Quad bypass, [place], substance abuse disorder, depression, pancreatitis, burket B [...] T obacco Use/Smoking T obacco use: n onsmoker. Social History Verified. * Medications: T akingLORazepam 0.5 MG Tablet 1 tablet at bedtime as needed Orally Once a day SUMAtriptan Succinate 100 MG Tablet 1 tablet as needed, may take second dose at least 2 hours after first dose up to 2 tablets per day as needed Orally Once a day ZyrTEC 10 MG Tablet Chewable 1 tablet Orally Once a day Pristiq 50 MG Tablet Extended Release 24 Hour 1 tablet Orally Once a day Levothyroxine Sodium 25 MCG Tablet 1 tablet in the morning on an empty stomach Orally Once a day Omeprazole 40 MG Capsule Delayed Release 1 capsule 1/2 to 1 hour before morning meal Orally Once a day Dicyclomine HCl 10 MG Capsule 2 capsules Orally Three times a day prn Flonase Allergy Relief 50 MCG/ACT Suspension 1 spray in each nostril Nasally Twice a day Cyclobenzaprine HCl 10 MG Tablet 1 tablet at bedtime as needed Orally Once a day traMADol HCl 50 MG Tablet 1 tablet as needed Orally Once a day Taking LORazepam 0.5 MG Tablet 1 tablet at bedtime as needed Orally Once a day Taking SUMAtriptan Succinate 100 MG Tablet 1 tablet as needed, may take second dose at least 2 hours after first dose up to 2 tablets per day as needed Orally Once a day Taking ZyrTEC 10 MG Tablet Chewable 1 tablet Orally Once a day Taking Pristiq 50 MG Tablet Extended Release 24 Hour 1 tablet Orally Once a day Taking Levothyroxine Sodium 25 MCG Tablet 1 tablet in the morning on an empty stomach Orally Once a day Taking Omeprazole 40 MG Capsule Delayed Release 1 capsule 1/2 to 1 hour before morning meal Orally Once a day Taking Dicyclomine HCl 10 MG Capsule 2 capsules Orally Three times a day prn Taking Flonase Allergy Relief 50 MCG/ACT Suspension 1 spray in each nostril Nasally Twice a day Taking Cyclobenzaprine HCl 10 MG Tablet 1 tablet at bedtime as needed Orally Once a day Taking traMADol HCl 50 MG Tablet 1 tablet as needed Orally Once a day Not-TakingVitamin D3 [id number] UNIT/GM Liquid as directed [place]-3 Fish Oil 1000 MG Capsule 1 capsule Orally Three times a day QUEtiapine Fumarate 50 MG Tablet 1 tablet at bedtime Orally Once a day Concerta 18 MG Tablet Extended Release 1 tablet in the morning Orally Once a day Cyanocobalamin 1000 MCG Tablet 1 tablet Orally Once a day , stop date 04/02/2025Ergocalciferol 1.25 MG (06768 UT) Capsule 1 capsule Orally every 7 days , stop date 04/02/2025Not-Taking Vitamin D3 6466003 UNIT/GM Liquid as directed Not-Taking [place]-3 Fish Oil 1000 MG Capsule 1 capsule Orally Three times a day Not-Taking QUEtiapine Fumarate 50 MG Tablet 1 tablet at bedtime Orally Once a day Not-Taking Concerta 18 MG Tablet Extended Release 1 tablet in the morning Orally Once a day Not-Taking Cyanocobalamin 1000 MCG Tablet 1 tablet Orally Once a day , stop date 04/02/2025Not-Taking Ergocalciferol 1.25 MG (81048 UT) Capsule 1 capsule Orally every 7 days , stop date 04/02/2025DiscontinuedRepatha 140 MG/ML Solution Prefilled Syringe 1 mL Subcutaneous Medication List reviewed and reconciled with the patientDiscontinued Repatha 140 MG/ML Solution Prefilled Syringe 1 mL Subcutaneous Medication List reviewed and reconciled with the patient * Allergies: D oxycycline: hives - Criticality HighNSAIDs - Criticality HighValium - Criticality HighyesAllergies Verified. Objective: * Vitals: B P:130/74mm Hg, HR:70/min, Wt:254.4lbs, Wt-k.4 kg, Ht: 64 in, Ht-cm: 162.56 cm, BMI:43.66Index, Body Surface Area: 2.28. * Examination: G eneral Examination: General appearance: a lert, well-nourished and in no acute distress. Eyes: A nicteric. No Subconjunctival hemorrhage. Neck / thyroid: t rachea midline. Skin: S kin is warm and dry. No Ulcers, rashes, or lesions.. Abdomen: A arlene is obese, soft, non-tender, non-distended. No palpable [...] Treatment: 2. S /P bariatric surgery Notes: s/p:Robotic sleeve gastrectomy . Date of surgery 02/22/25 . @ [facility] Kofi Castro D oing well postoperatively. Wounds healing well. No hernia palpable. Start Actigall 10 days after surgery for 3 months. Continue Actigall. Continue Prilosec for 6 months after surgery. Start Vitamins now, reviewed post op vitamin protocol. Ok to advance diet from liquid to puree stage. No lifting restriction May use fibre supplementation like Bene fiber 1-2 teaspoon twice daily in the protein supplementation to prevent constipation. D oing well postoperatively. Operative note reviewed with patient. [...] prevent constipation. 3. V itamin deficiency Notes: Starting patient on post op vitamin protocol Obesity is associated with high incidence of vitamin deficiency. Will check blood for Vitamin D, Thiamin and B12 deficiency. Obesity is associated with high incidence of vitamin deficiency. Will check blood for Vitamin D, Thiamin and B12 deficiency. 4. C ounseling and coordination of care Notes: Follow up with community organization director as scheduled I counseled the patient on continuing Behavior and [...] plan, at least 10 minutes per day. Follow up with community organization director as scheduled Labs: None. Routine post op [...] Surgery, Date and Place. Surgery: Date: Place: [facility] Patient should qualify for staying more than 2 midnights in hospital. Patient education, risk explained and consent : T he patient meets the criteria as set by the [place] of Health that recommends bariatric surgery on [...] and having very close follow-up with a community organization director and me. In addition they must continue [...] has attended pre operative education class by program technician and the dietitian, but they will have additional education provided by the program technician and community organization director at [facility]. Because of the significant changes in eating habits they will have to see a community organization director following surgery. I have informed them that [...] floor from any Covid positive patients. A ancillary staff has specific measures in place [...] the criteria as set by the [place] of Health that recommends bariatric surgery on [...] and having very close follow-up with a community organization director and me. In addition they must attend [...] will have additional education provided by the program technician and community organization director at [facility]. Because of the significant changes in eating habits they will have to see a community organization director prior to and following surgery. I have [...] resolve comorbid medical conditions. * Follow Up: 2 Weeks (Reason: 1 month follow up) Billing Information: * Procedure Codes: * Electronic signature of Josue y Desbiens , PA on 07/24/2025 at 06:45 PM CDT Sign off status: Pending * Provider: Julienne Santiago PA-C Date: 0 03/07/2025 Generated for Porsche oliveira/Lisandra/Da on: 1 06:45 PM CDT
--- OUTSIDE RECORDS SUMMARY | 2025-03-25 06:00 | XMS_ITS ---
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 Name Role Phone Angeline Green Primary Care Provider Unavailab neda Jarrett Castro Unavailable [phone] Leena Santiago Unavailable [phone] Allergies Allergen (clinical drug ingredient) Drug/Non Drug Allergy documented on EMR Reaction Allergy Type Onset Date Status diazepam Valium Unknown Drug Allergy Active doxycycline Doxycycline hives Drug Allergy Act cammie Non-steroidal anti-inflammatory agent (FN) NSAIDs Unknown Drug Allergy Active REASON FOR VISIT 1 month PO VSG f/u, Arcadio Post op 1 month Medications Medication SIG (Take, Route, Frequency, Duration) Notes Start Date End Date Status Cyanocobalamin 1000 MCG Tablet 1 tablet Orally Once a day; Duration: 60 days 02/01/2025 04/02/2025 Active Concerta 18 MG Tablet Extended Release 1 tablet in the morning Orally Once a day Active QUEtiapine Fumarate 50 MG Tablet 1 tablet at bedtime Orally Once a day Active [place]-3 Fish Oil 1000 MG Capsule 1 capsule Orally Three times a day Active Vitamin D3 5199882 UNIT/GM Liquid as directed Active Cyclobenzaprine HCl 10 MG Tablet 1 tablet at bedtime as needed Orally Once a day Not-Taking Flonase Allergy Relief 50 MCG/ACT Suspension 1 spray in each nostril Nasally Twice a day Not-Taking traMADol HCl 50 MG Tablet 1 tablet as ne eded Orally Once a day Active Omeprazole 40 MG Capsule Delayed Release 1 capsule 1/2 to 1 hour before morning meal Orally Once a day; Duration: 30 day(s) 02/17/2025 Active Levothyroxine Sodium 25 MCG Tablet 1 tablet in the morning on an empty stomach Orally Once a day Active Pristiq 50 MG Tablet Extended Release 24 Hour 1 tablet Orally Once a day Not-Taking ZyrTEC 10 MG Tablet Chewable 1 tablet Orally Once a day Not-Taking SUMAtriptan Succinate 100 MG Tablet 1 tablet as needed, may take second dose at least 2 hours after first dose up to 2 tablets per day as needed Orally Once a day Not-Taking LORazepam 0.5 MG Tablet 1 tablet at bedt iris as needed Orally Once a day Not-Taking Dicyclomine HCl 10 MG Capsule 2 capsules Orally Three times a day prn Not-Taking Ergocalciferol 1.25 MG (53720 UT) Capsule 1 capsule Orally every 7 days; Duration: 60 days 02/01/2025 04/02/2025 Active Social History Tobacco Use: Social History Observation Description Date Details (start date - stop date) Never Smoker NA - NA Social History Tobacco Use: Social Info Question Answer Notes Tobacco Use/Smoking Tobacco use: nonsmoker Vital Signs Blood pressure systolic 133 mm Hg 03/25/20 25 Blood pressure diastolic 86 mm Hg 025 Heart Rate 91 /min 03/25/2025 Height 64 in 03/25/2025 Weight 252 lbs 03/25/2025 BMI 43.25 kg/m2 03/25/2025 Height-cm 162.56 cm 03/25/2025 Weight-kg 114.31 kg 03/25/2025 Encounters Encounter Location Date Provider [facility] [address] [facility] [address] [place] [address] 03/25/2025 Leena Santiago S/P bariatric surger y Z98.84 ; Vitamin deficiency E56.9 ; Gastric reflux K21.9 ; Counseling and coordination of care Z71.89 ; Morbid obesity E66.01 ; Acquired absence of kidney Z90.5 ; Hypothyroidism, unspecified E03.9 and Hyperlipidemia, mixed E78.2 Assessments Encounter Date Diagnosis (ICD Code) Assessment Notes Treatment Notes Treatment Clinical Notes Section Notes 03/25/2025 S/P bariatric surgery (ICD-10 - Z98.84) Surgery: s/p:Robotic sleeve gastrectomy . Date of surgery 02/22/25 . @ [facility] by Jarrett Castro Doing well postoperatively. Wounds healing well. Wounds healed well. No hernia palpable. Continue Actigall. Continue Prilosec for 6 months after surgery. Continue vitamins No lifting restriction . May use fibre supplementation like Bene fiber 1-2 teaspoon twice daily in the protein supplementation to prevent constipation. 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 Follow up with fire control mechanic as scheduled 03/25/2025 Morbid obesity (ICD-10 - E66.01) Change in weight as noted in the weight history above. Current BMI 43.25 Index with weight of 252 lbs Total weight loss since starting the program: -24lbs Patient is losing weight. Patient is controlling [...] Continue on liquid protein diet replacement therapy. 03/25/2025 Acquired absence of kidney (ICD-10 - Z90.5) H/o Right nephrectomy 2007. Kidney functions normal now. There is a left flank incision with no hernia. Patient had a Lap endometriosis and Cholecystectomy after this surgery, with minimal adhesions. So Laparoscopic Sleeve Gastrectomy is possible. 03/25/2025 Hypothyroidism, unspecified (ICD-10 - E03.9) Currently managed by primary care doctor. Will recheck TSH and will adjust medication as needed. 03/25/2025 Hyperlipidemia, mixed (ICD-10 - E78.2) Currently on no medication. Will check the Lipid panel. Patient was advised to decrease sugar and carbs in the diet and also fried food. Bariatric surgery will help improve the condition. Plan Of Treatment Treatment Notes Assessment Notes S/P bariatric surgery Surgery: s/p:Robotic sleeve gastrectomy . Date of surgery 02/22/25 . @ [facility] by Jarrett Castro Doing well postoperatively. Wounds healing well. Wounds healed well. No hernia palpable. Continue Actigall. Continue Prilosec for 6 months after surgery. Continue vitamins No lifting restriction . May use fibre supplementation like Bene fiber 1-2 teaspoon twice daily in the protein supplementation to prevent constipation. 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 Follow up with fire control mechanic as scheduled Morbid obesity Change in weight as noted in the weight history above. Current BMI 43.25 Index with weight of 252 lbs Total weight loss since starting the program: -24lbs Patient is losing weight. Patient is controlling [...] Continue on liquid protein diet replacement therapy. Acquired absence of kidney H/o Right nep [...] Bariatric surgery will help improve the condition. Next Appt Details Follow Up: 2 Months, Reason: 3 month post op visit Provider Name:Leena Jack , 08/22/2025 10:30:00 AM, [address], [place], [address], Provider Name:Jarrett Cade theo, 02/24/2026 10:30:00 AM, [address], [place], [address], History and Physical Notes * HPI (History of Present Illness) Category Sub-Category Detail Notes Category Not es Weight History Weight History BIV 12/27/2024 W eight: 276 lbs 47.37 Index . 01/27/2025 : Weight: 273 lbs , BMI: 46.86 Index 02/11/2025 : weight: 273 lbs , BMI: 46.86 Index 02/28/2025 Weight 263.4 lbs , BMI 45.21 Index . 03/07/2025 : Weight 254.4 lbs BMI 43.66 Index . 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 Post op Course Patient is not havin g any symptoms related to bariatric surgery, no pain, nausea, vomiting. Bowel movements are soft. Has the patient been readmitted to the [...] No palpable visceromegaly. No palpable ventral hernias. Incisions closed, healing well Skin: Skin is warm and dry . No Ulcers, rashes, or lesions. Extremities: Well perfused. No gr oss joint deformity noted, Psych: The patient's mood a nd affect are appropriate. 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 S upport Groups P t is attending online. P rotein 6 0-75 grams per day. F luids 4 5 oz per day. 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 Vitamins P atient is taking post op vitamins per protocol. P ost op Course P atient is not having any symptoms r elated to bariatric surgery, no pain, nausea, vomiting. Bowel movements are soft. H as the patient been readmitted to the hospital since the last follow up ? No H as the patient had any post bariatric surgical operations or interventions performed since the last follow up? No. W eight History: Weight History B IV 0 12/27/2024 Weight: 276 lbs 47.37 Index . ? 01/27/2025 : Weight: 273 lbs , BMI: 46.86 Index ? 02/11/2025 : weight: 273 lbs , BMI: 46.86 Index ? 0 02/28/2025 Weight 263.4 lbs , BMI 45.21 Index . 03/07/2025 : Weight 254.4 lbs BMI 43.66 Index . 0 03/25/2025?: Weight: 252 lbs BMI: 43.25 Index . * ROS: G eneral / [...] Hospitalization/Major Diagno stic Procedure: Denies Past Hospitalization. Hospitalization Verified. * Family History: F ather: Quad bypass, [place], substance abuse disorder, depression, pancreatitis, burket B [...] onsmoker. Social History Verified. * Medications: T akingLevothyroxine Sodium 25 MCG Tablet 1 tablet in the morning on an empty stomach Orally Once a day Omeprazole 40 MG Capsule Delayed Release 1 capsule 1/2 to 1 hour before morning meal Orally Once a day traMADol HCl 50 MG Tablet 1 tablet as needed Orally Once a day Vitamin D3 2502955 UNIT/GM Liquid as directed [place]-3 Fish Oil 1000 MG Capsule 1 capsule Orally Three times a day QUEtiapine Fumarate 50 MG Tablet 1 tablet at bedtime Orally Once a day Concerta 18 MG Tablet Extended Release 1 tablet in the morning Orally Once a day Cyanocobalamin 1000 MCG Tablet 1 tablet Orally Once a day , stop date 04/02/2025Ergocalciferol 1.25 MG (37845 UT) Capsule 1 capsule Orally every 7 days , stop date 04/02/2025Taking Levothyroxine Sodium 25 MCG Tablet 1 tablet in the morning on an empty stomach Orally Once a day Taking Omeprazole 40 MG Capsule Delayed Release 1 capsule 1/2 to 1 hour before morning meal Orally Once a day Taking traMADol HCl 50 MG Tablet 1 tablet as needed Orally Once a day Taking Vitamin D3 6261487 UNIT/GM Liquid as directed Taking [place]-3 Fish Oil 1000 MG Capsule 1 capsule Orally Three times a day Taking QUEtiapine Fumarate 50 MG Tablet 1 tablet at bedtime Orally Once a day Taking Concerta 18 MG Tablet Extended Release 1 tablet in the morning Orally Once a day Taking Cyanocobalamin 1000 MCG Tablet 1 tablet Orally Once a day , stop date 04/02/2025Taking Ergocalciferol 1.25 MG (09909 UT) Capsule 1 capsule Orally every 7 days , stop date 04/02/2025Not-TakingLORazepam 0.5 MG Tablet 1 tablet at bedtime [...] Hour 1 tablet Orally Once a day Dicyclomine HCl 10 MG Capsule 2 capsules Orally Three times a day prn Flonase Allergy Relief 50 MCG/ACT Suspension 1 spray in each nostril Nasally Twice a day Cyclobenzaprine HCl 10 MG Tablet 1 tablet at bedtime as needed Orally Once a day Medication List reviewed and reconciled with the patientNot-Taking LORazepam 0.5 MG Tablet 1 tablet at bedtime as needed Orally Once a day Not-Taking SUMAtriptan Succinate 100 MG Tablet 1 tablet as needed, may take second dose at least 2 hours after first dose up to 2 tablets per day as needed Orally Once a day Not-Taking ZyrTEC 10 MG Tablet Chewable 1 tablet Orally Once a day Not-Taking Pristiq 50 MG Tablet Extended Release 24 Hour 1 tablet Orally Once a day Not-Taking Dicyclomine HCl 10 MG Capsule 2 capsules Orally Three times a day prn Not-Taking Flonase Allergy Relief 50 MCG/ACT Suspension 1 spray in each nostril Nasally Twice a day Not- Taking Cyclobenzaprine HCl 10 MG Tablet 1 tablet at bedtime as needed Orally Once a day Medication List reviewed and reconciled with the patient * Allergies: D oxycycline: hives - Criticality HighNSAIDs - Criticality HighValium - Criticality HighyesAllergies Verified. Objective: * Vitals: B P:133/86mm Hg, HR:91/min, Wt:252lbs, Wt-k.31 kg, Ht: 64 in, Ht-cm: 162.56 cm, BMI:43.25Index, Body Surface Area: 2.27. * Examination: G eneral Examination: General appearance: a lert, well-nourished and in no acute distress. Eyes: A nicteric. No Subconjunctival hemorrhage. Neck / thyroid: t rachea midline. Skin: S kin is warm and dry. No Ulcers, rashes, or lesions.. Abdomen: A bdomen is obese, soft, non-tender, non-distended. No palpable visceromegaly. No palpable ventral hernias. I ncisions closed, healing well. Extremities: W ell perfused. No gross joint deformity noted,. Psych: T he patient's mood and affect are appropriate..? Assessment: * Assessment: 1. M orbid obesity - E66.01 (Primary) 2 . S /P bariatric surgery - Z98.84? 3. V itamin deficiency - E56.9 4 . G astric reflux - K21.9? 5. C haydee and coordination of care - Z71.89 6 . A cquired absence of kidney - Z90.5 7 . H ypothyroidism, unspecified - E03.9 8 . H yperlipidemia, mixed - E78.2 Plan: * Treatment: 2. S /P bariatric surgery Notes: Surgery: s/p:Robotic sleeve gastrectomy . Date of surgery 02/22/25 . @ [facility]?by Jarrett Cadetheo Doing well postoperatively. Wounds healing well. Wounds healed well. No hernia palpable. Continue Actigall. Continue Prilosec for 6 months after surgery. Continue vitamins No lifting restriction . May use fibre supplementation like Bene fiber 1-2 teaspoon twice daily in the protein supplementation to prevent constipation. 3. V itamin deficiency Notes: Will obtain routine post op labs before next visit 4. G astric reflux Notes: No reflux symptoms since surgery 5. 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 Follow up with fire control mechanic as scheduled 6. A cquired absence of kidney Notes: H/o Right nephrectomy 2007. Kidney functions normal now. There is a left flank incision with no hernia. Patient had a Lap endometriosis and Cholecystectomy after this surgery, with minimal adhesions. So Laparoscopic Sleeve Gastrectomy is possible. 7. H ypothyroidism, unspecified Notes: Currently managed by primary care doctor. Will recheck TSH and will adjust medication as needed. 8. H yperlipidemia, mixed Notes: Currently on no medication. Will check the Lipid panel. Patient was advised to decrease sugar and carbs in the diet and also fried food. Bariatric surgery will help improve the condition. * Follow Up: 2 Months (Reason: 3 month post op visit) * Billing Information: * Procedure Codes: Images * Flow sheet 03-25-2025 * Electronic signature of CAROLINE Craven on 07/24/2025 at 06:45 PM CDT Sign off status: Pending * Provider: Julienne Santiago PA-C Date: 0 03/25/2025 Generated for Porsche oliveira/Lisandra/Da on: 1 06:45 PM CDT
--- OUTSIDE RECORDS SUMMARY | 2025-05-27 05:30 | XMS_ITS ---
Author Organization [facility] Office Address [address] [facility] [place] [address] Care Team Providers Care Stretcher Operator Name Role Phone Angeline Green Primary Care Provider Unavailab neda Kaurguillerminachiquitatheo Jarrett Unavailable [phone] REASON FOR VISIT Hemorrhoid for 3 weeks, Post op Weight Loss follow up Medications Medication SIG (Take, Route, Frequency, Duration) Notes Start Date End Date Status traMADol HCl 50 MG Tablet 1 tablet as ne eded Orally Once a day Active Vitamin D3 3090333 UNIT/GM Liquid as directed Active [place]-3 Fish Oil 1000 MG Capsule 1 capsule Orally Three times a day Active QUEtiapine Fumarate 50 MG Tablet 1 tablet at bedtime Orally Once a day Active Omeprazole 40 MG Capsule Delayed Release 1 capsule 1/2 to 1 hour before morning meal Orally Once a day; Duration: 30 day(s) 02/17/2025 Active Cyclobenzaprine HCl 10 MG Tablet 1 tablet at bedtime as needed Orally Once a day Not-Taking levoFLOXacin 500 MG Tablet 1 tablet Oral ly Once a day; Duration: 5 days 05/27/2025 06/01/2025 Active Diflucan 150 MG Tablet 1 tablet Orally daily; Duration: 5 days 05/27/2025 06/01/2025 Active Levothyroxine Sodium 25 MCG Tablet 1 tablet in the morning on an empty stomach Orally Once a day Active Flonase Allergy Relief 50 MCG/ACT Suspension 1 spray in each nostril Nasally Twice a day Not-Taking ZyrTEC 10 MG Tablet Chewable 1 tablet Orally Once a day Not-Taking Pristiq 50 MG Tablet Extended Release 24 Hour 1 tablet Orally Once a day Not-Taking Dicyclomine HCl 10 MG Capsule 2 capsules Orally Three times a day prn Not-Taking SUMAtriptan Succinate 100 MG Tablet 1 tablet as needed, may take second dose at least 2 hours after first dose up to 2 tablets per day as needed Orally Once a day Not-Taking LORazepam 0.5 MG Tablet 1 tablet at bedt iris as needed Orally Once a day Not-Taking Concerta 18 MG Tablet Extended Release 1 tablet in the morning Orally Once a day Active Problems Problem Type SNOMED Code ICD Code Onset Dates Problem Status W/U Status Risk Notes Problem Thrombosed hemorrhoids (02084661) Perianal venous thrombosis (K64.5) Active confirmed Vital Signs Blood pressure systolic 134 mm Hg 05/27/20 25 Blood pressure diastolic 98 mm Hg 025 Heart Rate 72 /min 05/27/2025 Height 64 in 05/27/2025 Weight 234.2 lbs 05/27/2025 BMI 40.2 kg/m2 05/27/2025 Height-cm 162.56 cm 05/27/2025 Weight-kg 106.23 kg 05/27/2025 Encounters Encounter Location Date Provider Diagnosis [facility] [address] [facility] [address] [place] [address] 05/27/2025 Jarrett Castro S/P bariatric surgery Z98.84 ; Vitamin deficiency E56.9 ; Gastric reflux K21.9 ; Morbid obesity E66.01 ; Acquired absence of kidney Z90.5 ; Hypothyroidism, unspecified E03.9 ; Hyperlipidemia, mixed E78.2 ; Perianal venous thrombosis K64.5 and Counseling and coordination of care Z71.89 Assessments Encounter Date Diagnosis (ICD Code) Assessment Notes Treatment Notes Treatment Clinical Notes Section Notes 05/27/2025 S/P bariatric surgery (ICD-10 - Z98.84) Surgery: Doing well postoperatively. Wounds healed well. No hernia palpable. Continue vitamins May use fibre supplementation like Bene fiber 1-2 teaspoon twice daily in the protein supplementation to prevent constipation. Surgery: s/p:Robotic sleeve gastrectomy . Date of surgery 02/22/25 . @ [facility] by Jarrett Castro Doing well postoperatively. Wounds healing well. Wounds healed well. No hernia palpable. Continue Actigall. Continue Prilosec for 6 months after surgery. Continue vitamins No lifting restriction . May use fibre supplementation like Bene fiber 1-2 teaspoon twice daily in the protein supplementation to prevent constipation. 05/27/2025 Vitamin deficiency (ICD-10 - E56.9) Post op vitamin protocol. Will check routine post op labs. Will obtain routine post op labs before next visit 05/27/2025 Gastric reflux (ICD-10 - K21.9) No reflux symptoms since surgery 05/27/2025 Morbid obesity (ICD-10 - E66.01) Change in weight as noted in the weight history above. Current BMI 40.2 Index with weight of 234.2 lbs Total weight loss since starting the program: Patient is losing weight. Patient is controlling Carbs and Sugar well. Controlling portions well., Patient has gained weight . Patient is not controlling Carbs/sugar well. Not controlling volumes well. Counseled on the importance of these for weight loss Patient was recommended to take about 60-80 [...] deficiency should they fail to take supplementation. Change in weight as noted in the [...] Continue on liquid protein diet replacement therapy. 05/27/2025 Acquired absence of kidney (ICD-10 - Z90.5) H/o Right nephrectomy 2007. Kidney functions normal now. There is a left flank incision with no hernia. Patient had a Lap endometriosis and Cholecystectomy after this surgery, with minimal adhesions. So Laparoscopic Sleeve Gastrectomy is possible. 05/27/2025 Hypothyroidism, unspecified (ICD-10 - E03.9) Currently managed by primary care doctor. Will recheck TSH and will adjust medication as needed. 05/27/2025 Hyperlipidemia, mixed (ICD-10 - E78.2) Currently on no medication. Will check the Lipid panel. Patient was advised to decrease sugar and carbs in the diet and also fried food. Bariatric surgery will help improve the condition. 05/27/2025 Perianal venous thrombosis (ICD-10 - K64.5) 05/27/2025 Counseling and coordination of care (ICD-10 - Z71.89) Labs: Imaging: Consults: I counseled the patient on continuing Behavior [...] plan, at least 10 minutes per day. Food Service Tray Attendant: Follow up as scheduled Labs: Routine post [...] 10 minutes per day. Follow up with knitting supervisor as scheduled Plan Of Treatment Medication Medication Name Sig Start Date Stop Date Notes levoFLOXacin 500 MG Tablet 1 tablet Oral ly Once a day; Duration: 5 days 05/27/2025 06/01/2025 Diflucan 150 MG Tablet 1 tablet Orally d aily; Duration: 5 days 05/27/2025 06/01/2025 Treatment Notes Assessment Notes S/P bariatric surgery Surgery: Doing well postoperatively. Wounds healed well. No hernia palpable. Continue vitamins May use fibre supplementation like Bene fiber 1-2 teaspoon twice daily in the protein supplementation to prevent constipation. Surgery: s/p:Robotic sleeve gastrectomy . Date of surgery 02/22/25 . @ [facility] by Jarrett Castro Doing well postoperatively. Wounds healing well. Wounds healed well. No hernia palpable. Continue Actigall. Continue Prilosec for 6 months after surgery. Continue vitamins No lifting restriction . May use fibre supplementation like Bene fiber 1-2 teaspoon twice daily in the protein supplementation to prevent constipation. Vitamin deficiency Post op vitamin prot ocol. Will check routine post op labs. Will obtain routine post op labs before next visit Gastric reflux No reflux symptoms s amadou surgery Morbid obesity Change in weight as noted in the weight history above. Current BMI 40.2 Index with weight of 234.2 lbs Total weight loss since starting the program: Patient is losing weight. Patient is controlling Carbs and Sugar well. Controlling portions well., Patient has gained weight . Patient is not controlling Carbs/sugar well. Not controlling volumes well. Counseled on the importance of these for weight loss Patient was recommended to take about 60-80 [...] deficiency should they fail to take supplementation. Change in weight as noted in the [...] Bariatric surgery will help improve the condition. Counseling and coordination of care Labs: Imaging: Consults: I counseled the patient on continuing Behavior [...] plan, at least 10 minutes per day. Food Service Tray Attendant: Follow up as scheduled Labs: Routine post [...] 10 minutes per day. Follow up with knitting supervisor as scheduled Next Appt Details Follow Up: 4 Weeks, Reason: Provider Name:Leena Santiago , 08/22/2025 10:30:00 AM, [address], [place], [address], Provider Name:Jarrett venegas, 02/24/2026 10:30:00 AM, [address], [place], [address], Procedure Notes * Category Sub-Category Detail Notes Incision and drainage Anesthesia: EMLA cream Monitoring: Monitor the patient pre and postprocedure excessive bleeding. Prep: Cleaned the area wit h alcohol prep Procedure: incised thrombosed h emorrhoid with a 15 blade. Squeezed out the clots. Cleaned the area with saline., packed with gauze. Location: Perirectal region th rombosed hemorrhoid. Indication: Thrombosed hemorrhoi d Informed consent: Obtain the verbal co nsent to do the I and D. I explained to her the risks benefits alternatives and details of the procedure which include but not limited to infection bleeding and recurrence. History and Physical Notes * HPI (History of Present Illness) Category Sub-Category Detail Notes Category Not es Hemorrhoids Hemorrhoids were diagnosed 3-4 weeks ago Current symptoms include blood on toilet paper, bloody stools, incomplete bowel movements, lump at rectum, pain on defecation The severity is severe Location of hemorrhoids is external to t he anal canal Aggravating factors include constipation , sitting, straining Alleviating factors include sitz baths Associcated symptoms include constipatio n, incomplete emptying, rectal bleeding Prior colonoscopy showed two internal he morrhoids, that were small Weight History Weight History BIV: 12/27/2024 Weight: 276 lbs 47.37 Index . 01/27/2025: Weight: 273 lbs , BMI: 46.86 Index 02/11/2025: Weight: 273 lbs , BMI: 46.86 Index 02/28/2025: Weight 263.4 lbs , BMI 45.21 Index . 03/07/2025: Weight 254.4 lbs BMI 43.66 Index . 03/25/2025: Weight: 252 lbs BMI: 43.25 Index . 05/27/2025: Weight: 234.2 lbs BMI: 40.2 Index Post Op Post op Patient is Examination Category Sub-Category Detail Notes Category Not [...] * Janet MAYeDOB:1990 ( 35 yo F)Acc No.[id number]:05/27/2025 Progress Notes Patient: Jyoti Jacobs Provider: Tor Castro MD :1990 A ge:35 Y S ex:Female Date:05/27/2025 Address:[address] [place], [place] [id number] Pcp:Angeline Green Check Out:11:36 AM DRIER HELPER Subjective: * Chief Complaints: * H emorrhoid for 3 weeksPost op Weight Loss follow up * HPI: W eight History: Weight History B IV: 0 12/27/2024 Weight: 276 lbs 47.37 Index . ? 01/27/2025: Weight: 273 lbs , BMI: 46.86 Index ? 02/11/2025: Weight: 273 lbs , BMI: 46.86 Index ? 0 02/28/2025: Weight 263.4 lbs , BMI 45.21 Index . ? 03/07/2025: Weight 254.4 lbs BMI 43.66 Index . 0 03/25/2025: Weight: 252 lbs BMI: 43.25 Index . 0 05/27/2025: Weight: 234.2 lbs BMI: 40.2 Index. P ost Op: Post op P atient is . H emorrhoids: Hemorrhoids were diagnosed 3 -4 weeks ago. Current symptoms include b lood on toilet paper, bloody stools, incomplete bowel movements, lump at rectum, pain on defecation. The severity i s severe. Location of hemorrhoids i s external to the anal canal.? Aggravating factors include c onstipation, sitting, straining. Alleviating factors include s adalid baths. Associcated symptoms include c onstipation, incomplete emptying, rectal bleeding. Prior colonoscopy showed t wo internal hemorrhoids, that were small. * ROS: G eneral / Constitutional: - N egative. A llergy / Immunology: - N egative. O phthalmologic: - N egative. E ndocrine: - N egative. R espiratory: - N egative. C ardiovascular: - N egative. G astrointestinal: - N egative. H ematology: - N egative. G enitourinary: - N egative. M usculoskeletal: - N egative. S kin: - N egative. P sychiatric: - N egative. * Surgical History: Right nephrectomy, gallbladder removal, laparoscopic endometriosis exploratory procedure, uterine ablation, tonsillectomy, adenoidectomy gastric sleeve 02/22/25 * Medications: T akingLevothyroxine Sodium 25 MCG Tablet 1 tablet in the morning on an empty stomach Orally Once a day Omeprazole 40 MG Capsule Delayed Release 1 capsule 1/2 to 1 hour before morning meal Orally Once a day traMADol HCl 50 MG Tablet 1 tablet as needed Orally Once a day Vitamin D3 9382561 UNIT/GM Liquid as directed [place]-3 Fish Oil 1000 MG Capsule 1 capsule Orally Three times a day QUEtiapine Fumarate 50 MG Tablet 1 tablet at bedtime Orally Once a day Concerta 18 MG Tablet Extended Release 1 tablet in the morning Orally Once a day Taking Levothyroxine Sodium 25 MCG Tablet 1 tablet in the morning on an empty stomach Orally Once a day Taking Omeprazole 40 MG Capsule Delayed Release 1 capsule 1/2 to 1 hour before morning meal Orally Once a day Taking traMADol HCl 50 MG Tablet 1 tablet as needed Orally Once a day Taking Vitamin D3 2248481 UNIT/GM Liquid as directed Taking [place]-3 Fish Oil 1000 MG Capsule 1 capsule Orally Three times a day Taking QUEtiapine Fumarate 50 MG Tablet 1 tablet at bedtime Orally Once a day Taking Concerta 18 MG Tablet Extended Release 1 tablet in the morning Orally Once a day Not-TakingLORazepam 0.5 MG Tablet 1 tablet at bedtime [...] bedtime as needed Orally Once a day Objective: * Vitals: B P:134/98mm Hg, HR:72/min, Wt:234.2lbs, Wt-k.23 kg, Ht: 64 in, Ht-cm: 162.56 cm, BMI:40.2Index, Body Surface Area: 2.19. * Examination: G eneral Examination: General appearance: [...] . G astric reflux - K21.9? 5. A cquired absence of kidney - Z90.5 6 . H ypothyroidism, unspecified - E03.9 7 . H yperlipidemia, mixed - E78.2 8 . P erianal venous thrombosis - K64.5 9 . C ounseling and coordination of care - Z71.89 Plan: * Treatment: 2. S /P bariatric surgery Notes: Surgery: Doing well postoperatively. Wounds healed well. No hernia palpable. Continue vitamins May use fibre supplementation like Bene fiber 1-2 teaspoon twice daily in the protein supplementation to prevent constipation. Surgery: s/p:Robotic sleeve gastrectomy . Date of surgery 02/22/25 . @ [facility] Kofi Castro Doing well postoperatively. Wounds healing well. Wounds healed well. No hernia palpable. Continue Actigall. Continue Prilosec for 6 months after surgery. Continue vitamins No lifting restriction . May use fibre supplementation like Bene fiber 1-2 teaspoon twice daily in the protein supplementation to prevent constipation. 3. V itamin deficiency Notes: Post op vitamin protocol. Will check routine post op labs. Will obtain routine post op labs before next visit 4. G astric reflux Notes: No reflux symptoms since surgery 5. A cquired absence of kidney Notes: H/o Right nephrectomy 2007. Kidney functions normal now. There is a left flank incision with no hernia. Patient had a Lap endometriosis and Cholecystectomy after this surgery, with minimal adhesions. So Laparoscopic Sleeve Gastrectomy is possible. 6. H ypothyroidism, unspecified Notes: Currently managed by primary care doctor. Will recheck TSH and will adjust medication as needed. 7. H yperlipidemia, mixed Notes: Currently on no medication. Will check the Lipid panel. Patient was advised to decrease sugar and carbs in the diet and also fried food. Bariatric surgery will help improve the condition. 8. P erianal venous thrombosis Start levoFLOXacin Tablet, 500 MG, 1 tablet, Orally, Once a day, 5 days, 5 Tablet, Refills 0; S tart Diflucan Tablet, 150 MG, 1 tablet, Orally, daily, 5 days, 5 Tablet, Refills 0. 9. C ounseling and coordination of care Notes: Labs: Imaging: Consults: I counseled the patient on continuing Behavior [...] plan, at least 10 minutes per day. Food Service Tray Attendant: Follow up as scheduled Labs: Routine post [...] 10 minutes per day. Follow up with knitting supervisor as scheduled * Procedures: I ncision and drainage: Location: P erirectal region thrombosed hemorrhoid. Indication: T hrombosed hemorrhoid. Informed consent: O btain the verbal consent to do the I and D. I explained to her the risks benefits alternatives and details of the procedure which include but not limited to infection bleeding and recurrence. Prep: C leaned the area with alcohol prep. Anesthesia: E MLA cream. Monitoring: M onitor the patient pre and postprocedure excessive bleeding. Procedure: i ncised thrombosed hemorrhoid with a 15 blade. Squeezed out the clots. Cleaned the area with saline., packed with gauze.. * Procedure Codes: 4 6083 INCISE EXTERNAL HEMORRHOID * Follow Up: 4 Weeks * Billing Information: * Visit Code: 49087 Office Visit, Est Pt., Level 4. * Procedure Codes: 88242 INCISE EXTERNAL HEMORRHOID. Images * mobile_05/27/2025 10:54:20 Flow sheet 05-27-2025 * Electronic signature of Gabriel Castro MD on 07/24/2025 at 06:46 PM CDT Sign off status: Pending * Provider: Tor Castro MD Date: 0 05/27/2025 Generated for Porsche oliveira/Lisandra/Da on: 06:46 PM CDT
[2025-07-24 18:44] VITALS: BP 139/93; PULSE 81; RESP 16; TEMP 36.4; O2SAT 100
--- OUTSIDE RECORDS SUMMARY | 2025-07-24 18:45 | XMS_ITS | Clinical Summary ---
Author Organization [facility] Office Center Address [address] [place] [address] Care Team Providers Care Title Lawyer Name Role Phone Addison Berumen MD Unavailable [phone] Angeline Green NP Primary Care Provider [phone] Allergies Active Allergy Reactions Criticality Noted Date [...] Refills after this to come from her prospecting driller helper 360 capsule 08/28/20 Active hydrOXYzine (VISTARIL) 25 [...] her mood is better since seeing a supervisor body assembly. She did not like her psychiatrist so [...] mg Assessment & Plan (12/07/2020 1:09 PM CHILD PROTECTIVE SERVICES SOCIAL WORKER): concerta 18 IBS (irritable bowel syndrome) 06/14/2020 [...] her mood. She is now seeing a supervisor body assembly and notes mood is doing much better. She defers need for medication currently. She is aware that if mood struggles significantly then she will have to get back in with Psychiatry. I did provide her with contact information for an alternative Psychiatry group in the area that she may try. Assessment & Plan (10/23/2021 5:27 PM CHILD PROTECTIVE SERVICES SOCIAL WORKER): Add buspar Morbid obesity with BMI of 45.0-49.9, adult ([facility]) 09/08/2017 Assessment & Plan (07/18/2023 3:30 PM [...] loss Assessment & Plan (11/19/2022 8:53 PM CHILD PROTECTIVE SERVICES SOCIAL WORKER): BMI Follow-up includes: nutrition counseling, exercise counseling [...] famotidine Assessment & Plan (10/23/2021 5:28 PM CHILD PROTECTIVE SERVICES SOCIAL WORKER): Start tagamet Assessment & Plan (01/04/2021 2:19 PM CDT): Currently on PPI, but concerned about usp effects with her kidney - will f/u [...] 07/18/2023 Assessment & Plan (11/19/2022 8:55 PM CHILD PROTECTIVE SERVICES SOCIAL WORKER): A(n) initial well visit to establish care [...] 10/23/2021 Assessment & Plan (08/06/2021 2:41 PM CHILD PROTECTIVE SERVICES SOCIAL WORKER): pablo saldana covid test Flank pain 03/15/2021 [...] 07/18/2023 Assessment & Plan (09/05/2021 3:39 PM CHILD PROTECTIVE SERVICES SOCIAL WORKER): Add zoloft 25 mg Update 3 weeks Call if worsening Assessment & Plan (12/07/2020 1:07 PM CHILD PROTECTIVE SERVICES SOCIAL WORKER): lexapro Cough 07/13/2020 07/18/2023 Assessment & Plan [...] cystitis Assessment & Plan (10/23/2021 5:27 PM CHILD PROTECTIVE SERVICES SOCIAL WORKER): Refer to PT for pelvic floor PT [...] cystectomy for left paratubal/ovarian cyst done at [facility] by Dr. Bhatt LAPAROSCOPIC ENDOMETRIOSIS FULGURATION 07/04/2023 Medical History Medical History Date Comments Kidney stones 2007 GERD (gastroesophageal reflux disease) 2008 IBS (irritable bowel syndrome) ADHD (attention deficit hyperactivity disorder) Depression GBS (group B streptococcus) UTI complicating pre gnancy 04/06/2013 Family History Medical History Relation Name Comments Cancer Father Heart disease Father Hodgkin's lymphoma Father exposure to Agent [place] Leukemia Father Pancreatitis Father Colon polyps Mother [...] on file Legal Sex Female 9:05 PM CHILD PROTECTIVE SERVICES SOCIAL WORKER Gender Identity Not on file Sexual Orientation Not on file 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 on file Not on [...] 36.8 C (98.3 F) 08/22/2023 8:17 AM CHILD PROTECTIVE SERVICES SOCIAL WORKER Respiratory Rate 14 12/15/2023 6:10 PM CDT [...] <65 (1 of 2 - PCV) 01/11/2008 HPV Vaccines (1 - 3-dose SCD M series) 01/11/2016 Cervical Cancer Screening 12/01/2021 12/01/2020 Regular Well Visit/Exam 18-64 11/19/2023, 07/16/2022, 06/12/2021, Additional history exists Depression Screening 07/18/2024 07/18/2023, 07/18/2023, 05/05/2023, Additional history exists Covid-19 Vaccine ( - 2024-2 6 season) 2025 07/08/2022, 10/05/2021, 09/14/2021 Influenza Vaccine (#1) 2025 , 07/08/2022, 07/06/2021 DTaP/Tdap/Td Vaccine (2 - Td or Tdap) 07/07/2025 07/07/2015 Procedures Procedure Name Priority Date/Time Associated Diagnosis Comments HM PAP SMEAR WITH HPV Routine 12/01/2020 from Last 3 Months or Most Recently Relevant to Health Maintenance Results * PAP SMEAR WITH HPV (12/01/2020) Historical Provider HEALTH MAINTENANCE Final Result from Last 3 Months or Most Recently Relevant to Health Maintenance Insurance [facility] Care Teams Title Lawyer Relationship Specialty Start Date End Date Angeline Green NP [address] [place] [address] PCP - General Family Medicine 09/19/23 Addison Berumen MD [address] [place] [address] Referring Physician Psychiatry 05/05/23
--- OUTSIDE RECORDS SUMMARY | 2025-07-24 18:45 | XMS_ITS | Encounter Summary ---
Author Organization [facility] Facility Care Team Providers Care Automatic Door Mechanic Name Role Phone Simon Vance DO Primary Care Provider + Juan Sánchez DO Primary Care Provider + Armaan Chaudhary MD Primary Care Provider [phone] Addison Berumen MD Unavailable [phone] Doretha Morales MD Primary Care Provider Angeline Green NP Primary Care Provider [phone] Encounter Details Date Type Department Care Team (Latest Contact Info) Description 01/29/2017 Orders Only [facility] ProviderDanika MD [address] [place] [id number] Social History Tobacco Use Types Packs/Day Years Used Date Smoking Tobacco: Never Comments Unknown Sex and Gender Information Value Date Recorded Sex Assigned at Not on file Legal Sex Female 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 10/03/2020 11/28/2020 01/31/2021 3:05 AM C DT COVID: Suspected 10/18/2022 10/18/2022 10/18/2022 5:36 PM DRIER BELT CONVEYOR COVID: Suspected 10/18/2022 10/18/2022 10/18/2022 10:16 PM DRIER BELT CONVEYOR COVID: Suspected 10/24/2022 10/24/2022 10/24/2022 2:08 PM DRIER BELT CONVEYOR COVID: Suspected 11/05/2022 11/05/2022 11/05/2022 2:48 PM DRIER BELT CONVEYOR COVID: Suspected 06/05/2023 06/05/2023 06/05/2023 5:32 PM CDT COVID: Suspected 06/05/2023 06/05/2023 06/05/2023 11:23 PM CDT COVID: Suspected 08/22/2023 08/22/2023 08/22/2023 8:20 AM DRIER BELT CONVEYOR COVID: Suspected 08/22/2023 08/22/2023 08/22/2023 8:21 AM DRIER BELT CONVEYOR COVID19 08/22/2023 08/22/2023 09/01/2023 3:06 AM DRIER BELT CONVEYOR COVID: Recovered Comment:Added based on recent COVID infection. 09/01/2023 09/19/2023 11/30/2023 3:[address] COVID: Suspected 12/15/2023 12/15/2023 12/15/2023 6:28 PM CDT Influenza, adult 12/15/2023 12/15/2023 12/22/2023 3:05 AM CDT documented as of this encounter Care Teams Automatic Door Mechanic Relationship Specialty [place] [address] [place], [place] [id number] PCP - General 11/13/18 05/30/20 Juan Sánchez DO [address] [address] PCP - General Family Medicine 05/31/20 11/18/22 Armaan Chaudhary MD [address] [facility] [address] [place] [address] PCP - General Family Medicine 11/19/22 07/17/23 Doretha Morales MD [address] [place] [address] PCP - General Family Medicine 07/18/23 09/18/23 Angeline Green, FACILITY MANAGER HISTOLOGY [address] [place] [address] PCP - General Family Medicine 09/19/23 Addison Berumen MD [address] [place] [address] Referring Physician Psychiatry 05/05/23 documented as of this encounter
--- OUTSIDE RECORDS SUMMARY | 2025-07-24 18:45 | XMS_ITS | Data Portability ---
Author Organization [facility], [place] Address [address] [place] [address] Care Team Providers Care Tar Heater Name Role Phone KASYE LANCASTER Primary Care Provider Assessment Encounter Date [...] Nystop 100,000 unit/gram topical powder 025 025 [id number], [address] [facility], [place], [place], [id number], 17:22:02 Patient TargetsNo targets recorded. Patient InstructionsNo [...] wilberto grimm Provi ja: Finesse red, Monica MancusoLata, ESTEFANÍA Matias cted: 11/17 1727 Order ing Locat ion: [place] [facility] Recei lc: 11/18 0142 First Erica n: Kat Kolb Speci men: Erica lee Pap - Image d, Cervi x [...] by Kat venegas on 2024 at 1425 [employer] ----- ----- ----- ----- ----- ----- ----- [...] as clini francesco joy nted. Not Available [facility] (Lab) [address], [place], [address], 11/21/2024 23:59:00 Result Notes None recorded. Problems Name Problem SNOMED Code Status Onset Date Resolution Date Notes Provider Name and Address Organization Details Recorded Time Chronic intersti tial cystitis 692873848 Active 2018 Intersti tial cystitis (chronic ) with hematuri a;Record ed Elsewher e: No Locat ion: [facility] S ource: EHR Investigation Manager mary: N Shahnaz ce ID: 0001 Huan lable Time: 01:00:00 PM Not Available [employer] 0 18:48:53 Blood leukocyt e number above referenc e range [id number] Completed 201810/05/2020 Elevated white blood cell count, unspecif ied;Prac lola ID: 0001 [address], [facility] 12:46:11 Pain in female genitali a Completed 201810/05/2020 Dysmenor shivani, unspecif ied;Logan rded Elsewher e: No Locat ion: [facility] S ource: EHR Investigation Manager mary: N Practi ce ID: 0001 Huan lable Time: 09:00:00 AM Katie Duffy [facility] 12:46:05 Abnormal uterine bleeding [id number] 100 Completed 201810/05/2020 Other specifie d abnormal uterine and vaginal bleeding ;Recorde d Elsewher e: No Locat ion: [facility] S ource: EHR Prac lola ID: 0001 Huan lable Time: 09:30:00 AM Katie Duffy [facility] 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 12:45:57 Finding of menstrua l bleeding Completed 201810/05/2020 Excessiv e and frequent menstrua tion with regular cycle;Re corded Elsewher e: No Locat ion: [facility] S ource: EHR Investigation Manager mary: N Practi ce ID: 0001 Huan lable Time: 04:30:00 PM Katie Duffy [facility] 12:46:08 Pelvic and perineal pain 562758157 Completed 201810/05/2020 Pelvic and perineal pain;Rec orded Elsewher e: No Locat ion: Sarah mancuso [facility] S ource: EHR Investigation Manager mary: N Practi ce ID: 0001 Huan lable Time: 11:30:00 AM Katie lane [facility] 12:46:28 Acute vaginiti s 77932000 Completed 201910/05/2020 Vaginiti s;Record ed Elsewher e: No Locat ion: Sarah mancuso [facility] S ource: EHR Investigation Manager mary: N Practi ce ID: 0001 Huan lable Time: 04:00:00 PM Katie lane [facility] 12:45:[address] Concept Completed 201910/05/2020 Encntr for interventional technologist exam (general ) (routine ) w/o abn findings ;Recorde d Elsewher e: No Locat ion: Sarah mancuso [facility] S ource: EHR Investigation Manager mary: N Practi ce ID: 0001 Huan lable Time: 10:00:00 AM Katie lane [facility] 12:46:[address] Concept Completed 201910/05/2020 Encntr for routine child health exam w/o abnormal findings ;Recorde d Elsewher e: No Locat ion: Sarah mancuso [facility] S ource: EHR Investigation Manager mary: N Practi ce ID: 0001 Huan lable Time: 10:00:00 AM Katie lane [facility] 12:46:15 Attentio n deficit hyperact ivity disorder 475807370 Active [address] [facility] 4 09:58:21 Anxiety 01356686 Active 2023 [address] [facility] 4 09:58:30 Problem Notes None recorded. Procedures Surgical History Date Name Laterality Status Provider Name and Address Organization Details Recorded Time 11/17/19 25 Date of Last Pap Smear completed Katie Duffy [facility] 11/17/2024 18:18:30 07/02/20 23 LAPAROSCOPY, DIAGNOSTIC (SURG) completed Suad Meek [facility] 07/03/2023 09:51:17 04/12/20 20 completed Katie Duffy [facility] 12/25/2022 16:18:28 04/12/20 20 Date of Last Colonoscopy completed Katie Duffy [facility] 12/25/2022 16:18:28 04/12/20 20 Colonoscopy completed Katieparag Duffy [facility] 01/01/2023 20:36:51 02/18/20 19 Hysteroscopy completed Katieparag Duffy [facility] 02/04/2020 13:52:38 12/24/19 19 endometrial biopsy completed Katieparag Duffy [facility] 01/01/2023 20:37:07 07/30/20 13 [facility] 13:53:20 07/30/20 08 excision of right kidney completed Katieparag Duffy [facility] 02/04/2020 13:45:28 09/29/19 08 procedure on kidney completed Katie Duffy [facility] 11/17/2024 20:26:57 09/29/19 08 procedure on kidney completed Katie Duffy [facility] 11/17/2024 20:27:10 09/29/19 08 procedure on kidney completed Katie Duffy [facility] 11/17/2024 20:27:21 09/29/19 08 procedure on kidney completed Katieparag Duffy [facility] 11/17/2024 20:27:32 09/29/19 08 procedure on kidney completed Katie Duffy [facility] 02/04/2020 13:51:28 09/29/19 06 extraction of wisdom tooth completed Katieparag Duffy [facility] 06/08/2024 10:05:53 06/29/20 02 [facility]/04[facility]2020 13:43:03 09/29/18 95 procedure on toenail completed [facility] 06/08/2024 10:06:15 Imaging Results None recorded. Procedure Notes None recorded. Medical Equipment None Reported. Allergies Allergen ID Allergen Name Allergen Category Reaction Reaction Severity Criticality Documentation Date Start Date Code Code System Note Provider Name and Address Organization Details Recorded Time 510 Non-stero idal anti-infl ammatory agent (substanc e) medicatio n Not available Not available Not available 02/04/2020 [address] [facility], [facility] 0 12:57:07 Medications Name Sig Start [...] Prescrib ed Elsewher e: No Locat ion: [facility] M odify By: [email or web address] ich Enco unter [...] area(s) x 5 days 12/25 completed Prescrib ed Elsewher e: No Locat ion: [facility] M odify By: liang gonzalez DateTime [...] Prescrib ed Elsewher e: Yes Loca tion: [facility] M odify By: barbara ross DateTime : [...] ed Elsewher e: Yes Loca tion: Sarah mancuso [facility] M odify By: barbara ross DateTime : [...] Updated DateTime 11/17/2024 161.93 cm 46.5 kg/m2 215345.35 g 119/84 mm[Hg] Katie Duffy [facility] 11/17/2024 16:28:57 Date Recorded Body height Body mass index (BMI) Body weight Systolic And Diastolic Provider Name and Address Organization Details Last Updated DateTime 06/08/2024 161.93 cm 45.7 kg/m2 345116.39 g 128/82 mm[Hg] Katie Duffy [facility] 06/08/2024 09:55:53 Date Recorded Body height Body mass index (BMI) Body weight Systolic And Diastolic Provider Name and Address Organization Details Last Updated DateTime 06/26/2023 161.93 cm 47.1 kg/m2 173203.12 g 127/83 mm[Hg] Jenifer [facility] 06/26/2023 12:32:55 Date Recorded Body height Body mass index (BMI) Body weight Systolic And Diastolic Provider Name and Address Organization Details Last Updated DateTime 07/09/2023 161.93 cm 47.1 kg/m2 397882.12 g 121/82 mm[Hg] Jenifer Thomas [facility] 07/09/2023 16:59:07 Social History Question Answer Notes LastModified by Organizat ion Details LastModified Time Tobacco Smoking Status Never Smoker Coco Henning ariana [facility] 07/09/2023 16:39:07 If You Are , What Was Your Level Of Alcohol Consumption Prior To ? None [email or web address] Information not available 07/09/2023 How Many Years Have You Consumed Alcohol? 15 Information not available 06/12/2023 Are You Blind Or Do You Have Difficulty Seeing? No [email or web address] Information n ot available 12/01/2020 What Is Your Level Of Caffeine Consumption? Occasional [email or web address] Information not available 12/01/2020 In The 14 Days Before Symptom Onset, Have You Had Close Contact With A Laboratory-confirm ed COVID-19 While That Case Was Ill? No [email or web address] Information n ot available 12/01/2020 In The 14 Days Before Symptom Onset, Have You Had Close Contact With A Person Who Is Under Investigation For COVID-19 While That Person Was Ill? No [email or web address] Information not available 12/01/2020 Have You Been To An Area Known To Be High Risk For COVID-19? No [email or web address] Information not available 12/01/2020 Are You Deaf Or Do You Have Serious Difficulty Hearing? No [email or web address] Information not available 12/01/2020 What Type Of Diet Are You Following? REGULAR [email or web address] Information n ot available 12/01/2020 What Is The Highest Grade Or Level Of School You Have Completed Or The Highest Degree You Have Received? [id number] [email or web address] Information not available 12/25/2022 Are There Any Guns Present In Your Home? No Information not available 12/25/2022 What Was The Date Of Your Most Recent Tobacco Screening? 06/08/2024 Information not available 06/08/2024 Do You Use Protection During Sex? No [email or web address] Information not available 12/25/2022 Do You Use Your Seat Belt Or Car Seat Routinely? Yes Information not available 12/01/2020 Do You Have Smoke And Carbon Monoxide Detectors In Your Home? Yes [email or web address] Information not available 12/01/2020 How Much Tobacco Do You Smoke? No Information not available 02/04/2020 Do You Use Sunscreen Routinely? No Information not available 06/12/2023 Has Tobacco Cessation Counseling Been Provided? No [email or web address] Information not available 07/09/2023 Have You Used IV Drugs? No [email or web address] Information not available 12/25/2022 Do You Have Difficulty Walking Or Climbing Stairs? No [email or web address] Information not available 06/08/2024 Sex: Unknown Functional Status Question Answer Note LastModified by zLenseat ion Details LastModified Time Do you use any illicit or recreational drugs? No [email or web address] Information not available 12/01/2020 Do you or have you ever used any other forms of tobacco or nicotine? No [email or web address] Information not available 07/09/2023 What is your level of alcohol consumption? Occasional [email or web address] Information not available 12/25/2022 Do you or have you ever used smokeless tobacco? Never used smokeless tobacco Information not available 07/09/2023 Are you able to walk independently without assistance or assistive devices? YESWOREST [email or web address] Information not available 12/01/2020 Are you able to care for yourself independently? 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 No [email or web address] Information not available 06/08/2024 Do you or have you ever used e-cigarettes or vape? Never used electronic cigarettes [email or web address] Information not available 07/09/2023 What is your exercise level? Occasional [email or web address] Information not available 02/04/2020 Mental Status Question Answer Note LastModified by Organization D etails LastModified Time Do you feel stressed (tense, restless, nervous, or anxious, or unable to sleep at night)? [id number] [email or web address] Information not available 12/25/2022 Family History Relationship Description Onset Age of this Age Resolved Age Notes LastModified by Organization Details LastModified Time Mother Diabetes mellitus Not available 2022 16:59:12 Mother Malignant neoplasm of skin 50 [email or web address] Not available 11/17 16:30:10 Mother Polyp of colon 60 [email or web address] Not available 11/17 16:30:10 Mother Mental disorder Not available 2022 16:59:12 Mother Disorder of thyroid gland [email or web address] Not available 11/17 16:30:10 Maternal Uncle Diabetes mellitus Not available 2022 16:59:12 Maternal Uncle Mental disorder Not available 2022 16:59:12 Maternal Uncle Disorder of thyroid gland [email or web address] Not available 11/17 16:30:10 Maternal Uncle Diabetes mellitus [email or web address] Not available 11/17 16:30:10 Maternal Uncle Disorder of thyroid gland [email or web address] Not available 11/17 16:30:10 Maternal Uncle Diabetes mellitus [email or web address] Not available 11/17 16:30:10 Maternal Uncle Mental disorder [email or web address] Not available 11/17 16:30:10 Maternal Uncle Disorder of thyroid gland [email or web address] Not available 11/17 16:30:10 Maternal Uncle Diabetes mellitus [email or web address] Not available 11/17 16:30:10 Maternal Uncle Mental disorder [email or web address] Not available 11/17 16:30:10 Paternal Grandmother Hypercholest erolemia Not available 2022 16:59:12 Paternal Grandmother Hypertensive disorder Not available 2022 16:59:12 Paternal Grandmother Heart disease Not available 2022 16:59:12 Sister Asthma Not available 07/09/2023 16:59:12 Sister Pulmonary embolism Not available 11/17 16:30:10 Sister Polycystic ovary syndrome [email or web address] Not available 11/17 16:30:10 Sister Cyst of ovary [email or web address] Not available 11/17 16:30:10 Sister Mental disorder Not available 2022 16:59:12 Sister Disorder of thyroid gland Not available 2022 16:59:12 Sister Asthma Not available 07/09/2023 16:59:12 Sister Disorder of thyroid gland Not available 2022 16:59:12 Sister Asthma Not available 07/09/2023 16:59:12 Sister Mental disorder Not available 2022 16:59:12 Sister Disorder of thyroid gland [email or web address] Not available 11/17 16:30:10 Sister Asthma Not available 07/09/2023 16:59:12 Sister Mental disorder Not available 2022 16:59:12 Sister Substance abuse [email or web address] Not available 11/17 16:30:10 Sister Diabetes mellitus Not available 11/17 16:30:10 Father Leukemia 62 [email or web address] Not availab le 11/17/2024 16:30:10 Father Heart disease Not available 2022 16:59:12 Father Mental disorder Not available 2022 16:59:12 Father Substance abuse Not available 11/17 16:30:10 Brother Mental disorder Not available 2022 16:59:12 Brother Mental disorder [email or web address] Not available 11/17 16:30:10 Brother Mental disorder Not available 11/17 16:30:10 Brother Substance abuse [email or web address] Not available 11/17 16:30:10 Paternal Grandfather Heart disease Not available 2022 16:59:12 Paternal Grandfather Diabetes mellitus [email or web address] Not available 11/17 16:30:10 Paternal Grandfather Kidney disease Not available 11/17 16:30:10 Maternal Grandfather Diabetes mellitus [email or web address] Not available 11/17 16:30:10 Medical History Condition Response Allergies (Food, seasonal, environmental ) Y Other Y Breast Cancer N Drug/Latex Allergies/Reactions Y Blood Transfusion N Dermatologic Disorders N Lung Disease N Defects or Inherited Disease N Breast Problem N Gestational Diabetes N Hematologic disorders N Anesthesia Complications N History of STI N Deep Vein Thrombosis N Polycystic ovary syndrome Y Anxiety Disorder Y Autoimmune disease N Arthritis Y Infertility N Polyps N Acid Reflux (GERD) Y History of abnormal pap N Cancer N Stroke N Varicosities N Neurologic/Epilepsy Y Endometriosis N High Cholesterol Y Headaches Y Fibromyalgia Y Kidney Disease Y Heart Problems N Kidney or Bladder Problems Y Thyroid Problems N GI Problems Y Eating Disorder N Anemia N Art (IVF or FET) N Psychiatric Illness Y Ovarian Cancer N Diabetes N Pulmonary (TB, Asthma) N Hepatitis/Liver Disease N No Past Medical History N Eczema N Urinary Tract Infection Y Abuse/Domestic Violence N Asthma N Trauma/Violence N Depression/ depression Y Heart Disease N Pre-Eclampsia N Hypertension N Osteoporosis N Thrombophilias N Gynecological History Statement/Question Response Date of [...] Diagnosis SNOMED-CT Code Diagnosis ICD10 Code Diagnosis IMO Codes Diagnosis Note [id number] Monica Kaba CNM [facility] [address] [address] 02/04/2020 11:05:58 02/04/2020 12:08:09 Painless rectal bleeding 245182148 K62.5 [id number] Monica Kaba [facility] [address],[place] [address] 10/05/2020 12:10:17 10/06/2020 18:30:50 Cyst of ovary 01111040 N83.209 [id number] Abraham Gomez MD [facility] [address],[place] [address] 10/05/2020 12:10:37 10/05/2020 12:45:20 Pain in pelvis 42633011 R10.2 [id number] Monica Kaba [facility] [address],[place] [address] 12/01/2020 10:12:06 12/01/2020 12:53:13 Gynecologic examination 59745223 Z01.419 Anxiety 64922910 F41.9 discussed laminator meds vs short term, short term can be addictive, will try #20 ativan 0.5mg if using too often will rec daily ssri, pt aware, if any suicidal thoughts to ED [id number] Monica Kaba [facility] [address],[place] [address] 12/25/2022 15:10:57 12/25/2022 16:37:43 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 gomez, monitor sxs [id number] Abraham Gomez MD [facility] [address],[place] [address] 01/09/2023 16:48:17 01/09/2023 17:39:02 Pain in pelvis 88717078 R10.2 [id number] Abraham Gomez MD [facility] [address],[place] [address] 06/12/2023 16:04:39 06/12/2023 17:14:40 Pain in pelvis 80607790 R10.2 33-year-ol d female with pelvic pain. [...] We made a decision to perform surgery. [id number] Abraham Gomez MD [facility] [address],[place] [address] 06/26/2023 12:25:41 06/27/2023 09:33:16 Pain in pelvis 49725300 R10.2 This patient is a 33-year-ol d female with pelvic pain. We have agreed perform diagnostic laparoscop y. She understand s the risks, benefits, and alternativ es. She has completed the informed consent process and is ready to proceed. [id number] Abraham Gomez MD [facility] [address],[place] [address] 07/04/2023 09:23:39 07/04/2023 09:35:55 [id number] Abraham Gomez MD [facility] [address],[place] [address] 07/09/2023 16:38:47 07/10/2023 08:40:05 Postoperative care 153726846 Z48.89 this patient is a 33-year-ol d [...] Her incisions are clean dry and intact. [id number] Abraham Gomez MD [facility] [address] [address] 06/08/2024 09:37:18 06/10/2024 01:20:56 Abscess of vulva 68687176 N76.4 34-year-ol d female presents for vulvar [...] does not want to treat every day [id number] Monica Kaba CNM [facility] [address] [address] 11/17/2024 15:47:10 11/17/2024 17:25:08 Gynecologic examination 55435233 Z01.419 Health Concerns Section Related Observation LastModified by Organization Detai ls LastModified Time None Recorded Concern Status LastModified by Organization Details LastModified Time None Recorded Advance Directives Directive None Recorded Payers Insurance Date Sequence Insurance Name Policy Number Policy Zhu Covered Member ID Zhu Member ID Guarantor Name 11/17/2024 1 [employer] ([place] [id number] Jyoti May [id number] Jyoti May 11/17/2024 1 MACHELLE May [id number] Jyoti May 11/17/2024 1 [facility] - DOS PRIOR TO 2021 (MEDICAID REPLACEMENT - HMO) Jyoti May [id number] Jyoti May 12/16/2022 1 [facility] (PPO) [id number] Marc May [id number] Jyoti May 06/09/2023 1 [facility] - DOS ON OR AFTER 21 (MEDICAID REPLACEMENT - HMO) Marc May [id number] Jyoti May Notes Date Note Type Note Provider Name and Address Organization Details Recorded Time 3 text/html This patient is a 33-year-old female [...] infection. Abraham Gomez MD [address], [place], [address], [facility] 06/26/2023 22:57:40 3 text/html this patient is a 33-year-old female who presents for postoperative follow-up. She is 1 week postop from diagnostic laparoscopy. Her scope was essentially normal. We talked about her pain again. We talked about pain in other areas of her body. She seems to have a more global pain syndrome. She will see a credit administration manager. She is recovering normally from the procedure. Her incisions are clean dry and intact. Abraham Gomez MD [address], [place], [address], [facility] 07/09/2023 19:20:28 4 text/html 34-year-old female presents for vulvar lesion. Patient reports [...] day Abraham Gomez MD [address], [place], [address], [facility] 06/09/2024 22:47:09 5 text/html Annual GYNReported by PatientGenitourinary symptomsFor urinary symptoms, patient reportsno hematuriaandno incontinence. For vulva, patient reportsno genital lesion. For vagina, patient reportsnormal vaginal discharge. For menstrual cycle, (spotting once a month since ablation).Breast symptomsFor breast, (yeast under breast).Endocrine symptomsFor sexual complaints, patient reportsno sexual complaints,no pain during intercourse, andnormal libido. 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 11/17/2024 17:22:13 OBGyn Episode Ob Episode Information Episode Created Date Number of Fetuses Patient Bloodtype Patient rh Status Prepregnancy Weight lbs Domestic Partner Domestic Partner Phone Father Name Insurance Checker Status 02/04/20 20 1 CLOSED Fetus Data [...] Domestic Partner Domestic Partner Phone Father Name Insurance Checker Status 02/04/20 20 1 CLOSED Fetus Data [...] Domestic Partner Domestic Partner Phone Father Name Insurance Checker Status 02/04/20 20 1 CLOSED Fetus Data [...]
--- OUTSIDE RECORDS SUMMARY | 2025-07-24 18:45 | XMS_ITS | Patient Health Record ---
Author Organization [facility] Address [address] [place], [place] [id number] Care Team Providers Care Sap Payroll Consultant Name Role Phone NICK Dawson Unavailable [phone] Reason For Referral No Information Plan Of Treatment No Information Insurance Providers Payer Name Payer Address Payer Phone Subscriber Number Group Number Insured Name Patient Relationship to Insured Coverage Start Date Coverage End Date [facility] ([facility] ATTN CLAIMS [address] [place] [address] [id number] ALINA GANN Self - patient is the insured
--- OUTSIDE RECORDS SUMMARY | 2025-07-24 18:45 | XMS_ITS | Patient Health Record ---
Author Organization [facility] Office Address [address] [place] [address] Care Team Providers Care Architectural Practice Manager Name Role Phone Angeline Green Primary Care Provider Unavailab Jarrett Mcleod Unavailable [phone] Leena Santiago Unavailable [phone] Allergies Allergen (clinical drug ingredient) Drug/Non Drug Allergy documented on EMR Reaction Allergy Type Onset Date Status diazepam Valium Unknown Drug Allergy Active doxycycline Doxycycline hives Drug Allergy Act cammie Non-steroidal anti-inflammatory agent (FN) NSAIDs Unknown Drug Allergy Active Results Component Value Reference Range Flag Notes VITAMIN D,25-OH,TOTAL,IA (17 306) Reviewed date:06/02/2025 10:49:03 AM Interpretation: Performing Lab:[facility]-[id number] Yolanda Caballero, [id number] Stefanie Cordova MD Notes/Report: NON-FASTING; NON-FASTING FASTING:YES FASTING: YES VITAMIN D,25-OH,TOTAL,IA 41 30-100 ng/mL N Vitamin D Status 25-OH Vitamin D: Deficiency: <20 ng/mL Insufficiency: 20 - 29 ng/mL Optimal: > or = 30 ng/mL For 25-OH Vitamin D testing on patients on D2-supplementation and patients for whom quantitation of D2 and D3 fractions is required, the QuestAssureD(TM) 25-OH VIT D, (D2,D3), LC/MS/MS is recommended: order code 58045 (patients >2yrs). See Note 1 Note 1 For additional information, please refer to http://education.[employer].com/faq/CUA117 (This link is being provided for informational/ educational purposes only.) VITAMIN B12 (927) Reviewed date:06/02/2025 10:49:03 AM Interpretation: Performing Lab:Quan [facility]-[id number] Kelsey NuraKS[address] Stefanie Cordova MD Notes/Report: NON-FASTING; NON-FASTING FASTING:YES FASTING: YES VITAMIN B12 250 237-7201 pg/mL N Please Note: Although the reference range for vitamin B12 is 200-1100 pg/mL, it has been reported that between 5 and 10% of patients with values between 200 and 400 pg/mL may experience neuropsychiatric and hematologic abnormalities due to occult B12 deficiency; less than 1% of patients with values above 400 pg/mL will have symptoms. VITAMIN B1 (THIAMINE), BLOOD , LC/MS/MS (5042) Reviewed date:01/31/2025 11:32:47 AM Interpretation: Performing Lab:Z3E, [facility]-SzbBmygar[address] [address], [address] HospitalFblebpouezHE[address] She Barros MD,PhD Notes/Report: NON-FASTING; NON-FASTING; NON-FASTING; NON-FASTING; NON-FAST VITAMIN B1 (THIAMINE), BLOOD, LC/MS/MS 148 78-185 nmol/L (Note) Vitamin supplementation within 24 hours prior to blood draw may affect the accuracy of the results. This test was developed and its analytical performance characteristics have been determined by [employer]. It has not been cleared or approved by FDA. This assay has been validated pursuant to the CLIA regulations and is used for clinical purposes. [facility] med fusion [address] [address],[address] [facility] [address] She Barros MD, PhD PTH, INTACT WITHOUT CALCIUM (55143) Reviewed date:01/31/2025 11:32:47 AM Interpretation: Performing Lab:Quan [facility]-Xzmnbe40639 Kelsey NuraKS[address] Stefanie Cordova MD Notes/Report: NON-FASTING; NON-FASTING; NON-FASTING; NON-FASTING; NON-FAST PARATHYROID HORMONE, INTACT 33 16-77 pg/mL N Interpretive Guide Intact PTH Calcium ------- Normal Parathyroid Normal Normal Hypoparathyroidism Low or Low Normal Low Hyperparathyroidism Primary Normal or High High Secondary High Normal or Low Tertiary High High Non-Parathyroid Hypercalcemia Low or Low Normal High VITAMIN D,25-OH,TOTAL,IA (17 306) Reviewed date:01/31/2025 11:32:47 AM Interpretation: Performing Lab:KT [facility]-[id number] Kelsey NuraKS[address] Stefanie Cordova MD Notes/Report: NON-FASTING; NON-FASTING; NON-FASTING; NON-FASTING; NON-FAST VITAMIN D,25-OH,TOTAL,IA 36 30-100 ng/mL N Vitamin D Status 25-OH Vitamin D: Deficiency: <20 ng/mL Insufficiency: 20 - 29 ng/mL Optimal: > or = 30 ng/mL For 25-OH Vitamin D testing on patients on D2-supplementation and patients for whom quantitation of D2 and D3 fractions is required, the QuestAssureD(TM) 25-OH VIT D, (D2,D3), LC/MS/MS is recommended: order code 13596 (patients >2yrs). See Note 1 Note 1 For additional information, please refer to http://education.MedCenterDisplay/faq/IWM238 (This link is being provided for informational/ educational purposes only.) VITAMIN B12/FOLATE, SERUM PA SOL (1152) Reviewed date:01/31/2025 11:32:47 AM Interpretation: Performing Lab:KT [facility]-Luxqaw96241 Blue NurSdylydVB[address] Stefanie Cordova MD Notes/Report: NON-FASTING; NON-FASTING; NON-FASTING; NON-FASTING; NON-FAST VITAMIN B12 765 818-0257 pg/mL N Please Note: Although the reference range for vitamin B12 is 200-1100 pg/mL, it has been reported that between 5 and 10% of patients with values between 200 and 400 pg/mL may experience neuropsychiatric and hematologic abnormalities due to occult B12 deficiency; less than 1% of patients with values above 400 pg/mL will have symptoms. FOLATE, SERUM >24.0 N Reference Range Low: <3.4 Borderline: 3.4-5.4 Normal: >5.4 HEMOGLOBIN A1c (496) Reviewed date:01/31/2025 11:32:47 AM Interpretation: Performing Lab:Quan BARBOUR [address] [address] [address] [address] [facility] Cent[facility] Notes/Report: NON-FASTING; NON-FASTING; NON-FASTING; NON-FASTING; NON-FAST HEMOGLOBIN A1c 5.5 <5.7 % of total Hgb N For the purpose of screening for the presence of diabetes: <5.7% Consistent with the absence of diabetes 5.7-6.4% Consistent with increased risk for diabetes (prediabetes) > or =6.5% Consistent with diabetes This assay result is consistent with a decreased risk of diabetes. Currently, no consensus exists regarding use of hemoglobin A1c for diagnosis of diabetes in children. According to [place] Diabetes Association (ADA) guidelines, hemoglobin A1c <7.0% represents optimal control in non- diabetic patients. Different metrics may apply to specific patient populations. Standards of Medical Care in Diabetes(ADA). PARTIAL THROMBOPLASTIN TIME, ACTIVATED (763) Reviewed date:01/31/2025 11:32:47 AM Interpretation: Performing Lab:ANGLE Artic[facility] TechnologiesCrystal [place] [address] [address] [address] [facility] Rachna Notes/Report: NON-FASTING; NON-FASTING; NON-FASTING; NON-FASTING; NON-FAST PARTIAL THROMBOPLASTIN TIME, ACTIVATED 30 23-32 sec N This test has not been validated for monitoring unfractionated heparin therapy. For testing that is validated for this type of therapy, please refer to the Heparin Anti-Xa assay (test code 30946). For additional information, please refer to http://education.[employer] Corporation/faq/VCV945 (This link is being provided for informational/educational purposes only.) PROTHROMBIN TIME-INR (8847) Reviewed date:01/31/2025 11:32:47 AM Interpretation: Performing Lab:Quan BARBOUR [address] [address] [address] [place] [address] ClaritaAntoninaSt[facility] Elizabeth[facility] Cent[facility] Notes/Report: NON-FASTING; NON-FASTING; NON-FASTING; NON-FASTING; NON-FAST INR 1.0 N Reference Range 0.9-1.1 Moderate-intensity Warfarin Therapy 2.0-3.0 Higher-intensity Warfarin Therapy 3.0-4.0 PT 10.8 9.0-11.5 sec N For additional information, please refer to http://education.Branch2/faq/XSA561 (This link is being provided for informational/ educational purposes only.) CBC (H/H, RBC, INDICES, WBC, PLT) (1759) Reviewed date:01/31/2025 11:32:47 AM Interpretation: Performing Lab:Quan BARBOUR [facility] [id number] Administration Fred Lucio [address] Notes/Report: NON-FASTING; NON-FASTING; NON-FASTING; NON-FASTING; NON-FAST WHITE BLOOD CELL COUNT 11.2 3.8-10.8 Thousand/uL H RED BLOOD CELL COUNT 4.72 3.80-5.10 Million/uL N HEMOGLOBIN 13.7 11.7-15.5 g/dL N HEMATOCRIT 42.2 35.0-45.0 % N MCV 89.4 80.0-100.0 fL N MCH 29.0 27.0-33.0 pg N MCHC 32.5 32.0-36.0 g/dL N For adults, a slight decrease in the calculated MCHC value (in the range of 30 to 32 g/dL) is most likely not clinically significant; however, it should be interpreted with caution in correlation with other red cell parameters and the patient's clinical condition. RDW 12.9 11.0-15.0 % N PLATELET COUNT 310 140-400 Thousand/uL N MPV 9.4 7.5-12.5 fL N PHOSPHATE ( PHOSPHORUS) (7 18) Reviewed date:01/31/2025 11:32:47 AM Interpretation: Performing Lab:Quan BARBOUR RithmioSendinBlue [id number] Administration Fred Lucio [address] Notes/Report: NON-FASTING; NON-FASTING; NON-FASTING; NON-FASTING; NON-FAST PHOSPHATE ( PHOSPHORUS) 3.1 2.5-4.5 mg/dL N MAGNESIUM (622) Reviewed date:01/31/2025 11:32:47 AM Interpretation: Performing Lab:Quan BARBOUR RithmioSt [id number] Administration Fred Lucio [address] Notes/Report: NON-FASTING; NON-FASTING; NON-FASTING; NON-FASTING; NON-FAST MAGNESIUM 2.1 1.5-2.5 mg/dL N COMPREHENSIVE METABOLIC PANE L (55606) Reviewed date:01/31/2025 11:32:47 AM Interpretation: Performing Lab:ANGLE Artic[facility] TechnologiesCrystal [place] [address] [address] Lucio [id number] [facility] Notes/Report: NON-FASTING; NON-FASTING; NON-FASTING; NON-FASTING; NON-FAST GLUCOSE 87 65-99 mg/dL N Fasting reference interval UREA NITROGEN (BUN) 19 7-25 mg/dL N CREATININE 0.70 0.50-0.97 mg/dL N EGFR 115 > OR = 60 mL/min/1.73m2 N BUN/CREATININE RATIO SEE NOTE: 6-22 (calc) Not Reported: BUN and Creatinine are within reference range. SODIUM 136 135-146 mmol/L N POTASSIUM 4.3 3.5-5.3 mmol/L N CHLORIDE 101 98-110 mmol/L N CARBON DIOXIDE 28 20-32 mmol/L N CALCIUM 9.2 8.6-10.2 mg/dL N PROTEIN, TOTAL 6.9 6.1-8.1 g/dL N ALBUMIN 4.1 3.6-5.1 g/dL N GLOBULIN 2.8 1.9-3.7 g/dL (calc) N ALBUMIN/GLOBULIN RATIO 1.5 1.0-2.5 (calc) N BILIRUBIN, TOTAL 0.5 0.2-1.2 mg/dL N ALKALINE PHOSPHATASE 83 31-125 U/L N AST 13 10-30 U/L N ALT 18 6-29 U/L N LIPID PANEL, STANDARD (7600) Reviewed date:01/31/2025 11:32:47 AM Interpretation: Performing Lab:ANGLE Art[facility] TechnologiesC[place] [address] [address] Fred Lucio ZyivloxQO[address] [facility] Notes/Report: NON-FASTING; NON-FASTING; NON-FASTING; NON-FASTING; NON-FAST CHOLESTEROL, TOTAL 198 <200 mg/dL N HDL CHOLESTEROL 63 > OR = 50 mg/dL N TRIGLYCERIDES 81 <150 mg/dL N LDL-CHOLESTEROL 117 H Reference range: <100 Desirable range <100 mg/dL for primary prevention; <70 mg/dL for patients with CHD or diabetic patients with > or = 2 CHD risk factors. LDL-C is now calculated using the Hayden calculation, which is a validated novel method providing better accuracy than the Friedewald equation in the estimation of LDL-C. Crow FLYNN et al. OTILIO. 2013;310(19): 4252-2938 (http://education.Xsigo/faq/VUT155) CHOL/HDLC RATIO 3.1 <5.0 (calc) N NON HDL CHOLESTEROL 135 <130 mg/dL (calc) H For patients with diabetes plus 1 major ASCVD risk factor, treating to a non-HDL-C goal of <100 mg/dL (LDL-C of <70 mg/dL) is considered a therapeutic option. IRON, TIBC AND FERRITIN YULIANAJulienne Giuliano (5616) Reviewed date:01/31/2025 11:32:47 AM Interpretation: Performing Lab:KS, [employer] [facility]-[id number] Yolanda Caballero, [id number] Stefanie Cordova MD Notes/Report: NON-FASTING; NON-FASTING; NON-FASTING; NON-FASTING; NON-FAST IRON, TOTAL 85 40-190 mcg/dL N IRON BINDING CAPACITY 329 250-450 mc g/dL (calc) N % SATURATION 26 16-45 % (calc) N FERRITIN 75 16-154 ng/mL N Reason For Referral Reason Pre - Bariatric Surg iwona Clearance Diagnosis 1 Morbid obesity (E66. 01) Referral Organization [facility] Office Referring Provider First Name Jarrett Referring Provider Last Name Matthew Referring Provider Speciality Surgery Referred Provider Claus Abdi Referred Provider Specialty Cardiology Referral Priority Routine Reason Referral for Evaluat ion and Treatment Diagnosis 1 Pain in right knee ( M25.561) Diagnosis 2 Pain in left knee (M 25.562) Referral Organization [facility] Office Referring Provider First Name Jarrett Referring Provider Last Name Matthew Referring Provider Speciality Surgery Referred Provider Aramis berry Referred Provider Specialty Orthopedic S urgery Referral Priority Routine Medications Medication SIG (Take, Route, Frequency, Duration) Notes Start Date End Date Status Cyclobenzaprine HCl 10 MG Tablet 1 tablet at bedtime as needed Orally Once a day Active LORazepam 0.5 MG Tablet 1 tablet at bedt iris as needed Orally Once a day Active SUMAtriptan Succinate 100 MG Tablet 1 tablet as needed, may take second dose at least 2 hours after first dose up to 2 tablets per day as needed Orally Once a day Active ZyrTEC 10 MG Tablet Chewable 1 tablet Or ally Once a day Active Pristiq 50 MG Tablet Extende d Release 24 Hour 1 tablet Orally Once a day Active Vitamin D3 2746633 UNIT/GM Liquid as directed Active Yulan-3 Fish Oil 1000 MG Capsule 1 capsule Orally Three times a day Active QUEtiapine Fumarate 50 MG Tablet 1 tablet at bedtime Orally Once a day Active Concerta 18 MG Tablet Extended Release 1 tablet in the morning Orally Once a day Active Levothyroxine Sodium 25 MCG Tablet 1 tablet in the morning on an empty stomach Orally Once a day Active Dicyclomine HCl 10 MG Capsule 2 capsules Orally Three times a day prn Active Omeprazole 40 MG Capsule Delayed Release 1 capsule 1/2 to 1 hour before morning meal Orally Once a day; Duration: 30 day(s) 02/17/2025 Active Flonase Allergy Relief 50 MCG/ACT Suspension 1 spray in each nostril Nasally Twice a day Active traMADol HCl 50 MG Tablet 1 tablet as ne eded Orally Once a day Active Social History Tobacco Use: Social History Observation Description Date Details (start date - stop date) Never Smoker NA - NA Social History Drug/Alcohol: Social Info Question Answer Notes Alcohol Screen (Audit-C) Did you have a drink containing alcohol in the past year? Yes How often did you have 6 or more drinks on one occasion in the past year? Never (0 point) How many drinks did you have on a typical day when you were drinking in the past year? 1 or 2 drinks (0 point) How often did you have a drink containing alcohol in the past year? Monthly or less (1 point) Drugs Have you used drugs other than those for medical reasons in the past 12 months? 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 Problems Problem Type SNOMED Code ICD Code Onset Dates Problem Status W/U Status Risk Notes Problem Hypothyroidism (29235147) Hypothyroidism, unspecified (E03.9) Active confirmed Problem Vitamin deficiency (99757049) Deficiency of other vitamins (E56.8) Active confirmed Problem Anxiety disorder (680491715) Anxiety disorder, unspecified (F41.9) Active confirmed Problem Thrombosed hemorrhoids (35762871) Perianal venous thrombosis (K64.5) Active confirmed Problem Absent kidney (218017087) Acquired absence of kidney (Z90.5) Active confirmed Problem Vitamin D deficiency (61329933) Vitamin D deficiency (E55.9) Active confirmed Problem Vitamin deficiency (38538921) Vitamin deficiency (E56.9) Active confirmed Problem Gastric reflux (806399906) Gastric reflux (K21.9) Active confirmed Problem Type II diabetes mellitus without complication (149182342) Type 2 diabetes mellitus without complication, without long-term current use of insulin (E11.9) Active confirmed Problem Morbid obesity (124433055) Morbid obesity (E66.01) Active confirmed Problem Tendency to bleed (310429296) Tendency to bleed (D69.9) Active confirmed Problem Mixed hyperlipidemia (101581926) Hyperlipidemia, mixed (E78.2) Active confirmed Vital Signs Heart Rate 72 /min 05/27/2025 Height-cm 162.56 cm 05/27/2025 Blood pressure diastolic 98 mm Hg 05/27/2025 Weight-kg 106.23 kg 05/27/2025 Height 64 in 05/27/2025 Blood pressure systolic 134 mm Hg 05/27/2025 Weight 234.2 lbs 05/27/2025 BMI 40.2 kg/m2 05/27/2025 Encounters Encounter Location Date Provider Diagnosis [facility] [address] [place] [address] 02/28/2025 Jarrett Castro Morbid obesity E66.01 ; S/P bariatric surgery Z98.84 ; Vitamin deficiency E56.9 ; Counseling and coordination of care Z71.89 ; Gastric reflux K21.9 ; Anxiety disorder, unspecified F41.9 ; Deficiency of other vitamins E56.8 ; Acquired absence of kidney Z90.5 ; Hypothyroidism, unspecified E03.9 and Hyperlipidemia, mixed E78.2 [facility] [address] [place] [address] 03/07/2025 Leena Santiago Morbid obesity E66.01 ; S/P bariatric surgery Z98.84 ; Vitamin deficiency E56.9 ; Counseling and coordination of care Z71.89 ; Gastric reflux K21.9 ; Anxiety disorder, unspecified F41.9 ; Deficiency of other vitamins E56.8 ; Acquired absence of kidney Z90.5 ; Hypothyroidism, unspecified E03.9 and Hyperlipidemia, mixed E78.2 [facility] [address] [facility] [address] [address] 03/25/2025 Leena Santiago S/P bariatric surgery Z98.84 ; Vitamin deficiency E56.9 ; Gastric reflux K21.9 ; Counseling and coordination of care Z71.89 ; Morbid obesity E66.01 ; Acquired absence of kidney Z90.5 ; Hypothyroidism, unspecified E03.9 and Hyperlipidemia, mixed E78.2 [facility] [address] [facility] [address] [place] [address] 05/27/2025 Jarrett Sudhakaran S/P bariatric surgery Z98.84 ; Vitamin deficiency E56.9 ; Gastric reflux K21.9 ; Morbid obesity E66.01 ; Acquired absence of kidney Z90.5 ; Hypothyroidism, unspecified E03.9 ; Hyperlipidemia, mixed E78.2 ; Perianal venous thrombosis K64.5 and Counseling and coordination of care Z71.89 [facility] [address] [facility] [address] [address] 12/27/2024 Jarrett Sudhakaran Morbid obesity E66.01 ; Gastric reflux K21.9 ; Anxiety disorder, unspecified F41.9 ; Acquired absence of kidney Z90.5 ; Vitamin deficiency E56.9 ; Hypothyroidism, unspecified E03.9 ; Hyperlipidemia, mixed E78.2 and Counseling and coordination of care Z71.89 [facility] [address] [facility] [address] [place] [address] 01/27/2025 Leena Santiago Morbid obesity E66.01 ; Gastric reflux K21.9 ; Anxiety disorder, unspecified F41.9 ; Vitamin deficiency E56.9 ; Counseling and coordination of care Z71.89 ; Acquired absence of kidney Z90.5 ; Hypothyroidism, unspecified E03.9 and Hyperlipidemia, mixed E78.2 [facility] [address] [place] [address] 02/11/2025 Jarrett Sudhakaran Morbid obesity E66.01 ; Gastric reflux K21.9 ; Anxiety disorder, unspecified F41.9 ; Deficiency of other vitamins E56.8 ; Acquired absence of kidney Z90.5 ; Hypothyroidism, unspecified E03.9 ; Hyperlipidemia, mixed E78.2 and Counseling and coordination of care Z71.89 [facility] [address] [place] [address] 01/05/2025 Jarrett Sudhakaran Morbid obesity E66.01 [facility] [address] [place] [address] 01/31/2025 Jarrett Sudhakaran B12 deficiency E53.8 and Vitamin D deficiency E55.9 [facility] [address] [place] [address] 02/08/2025 Jarrett Sudhakaran [facility] [address] [place] [address] 02/17/2025 Jarrett Sudhakaran [facility] [address] [place] [address] 02/24/2025 Jarrett Sudhakaran [facility] [address] [place] [address] 03/21/2025 Jarrett Sudhakaran [facility] [address] [place] [address] 04/03/2025 Jarrett Sudhakaran [facility] [address] [place] [address] 05/26/2025 Jarrett Sudhakaran [facility] [address] [place] [address] 05/31/2025 Jarrett Sudhakaran Pain in right knee M25.561 and Pain in left knee M25.562 [facility] [address] [place] [address] 06/16/2025 Jarrett Castro Assessments Encounter Date Diagnosis (ICD Code) Assessment [...] gastric bypass. The use of a skilled logistics assistant will be required in the operating room due to the complexity of the case. Will plan to have physician assistant credit manager or another highly trained surgeon coordinator skill training program for this case. 01/05/2025 Morbid obesity (ICD-10 [...] sleeve gastrectomy. The use of a skilled logistics assistant will be required in the operating room due to the complexity of the case. Will plan to have physician assistant credit manager or another highly trained surgeon coordinator skill training program for this case. 01/31/2025 Vitamin D deficiency (ICD-10 - E55.9) 01/31/2025 B12 deficiency (ICD-10 - E53.8) 02/11/2025 Gastric reflux (ICD-10 - K21.9) No current symptoms. EGD done on 01/20/[address] Jarrett Castro reported no abnormalities, hiatal hernia. 02/11/2025 Morbid obesity (ICD-10 - E66.01) Weight change as in weight history. Total Weight lost since start of the program: -3lbs Based on the assessment of her obesity history and comorbid conditions, I recommend it is medically necessary for the patient to have bariatric surgery. The use of a skilled logistics assistant will be required in the operating room due to the complexity of the case. Will plan to have physician assistant credit manager or another highly trained surgeon coordinator skill training program for this case. 02/28/2025 Morbid obesity (ICD-10 - E66.01) Change [...] gastric bypass. The use of a skilled logistics assistant will be required in the operating room due to the complexity of the case. Will plan to have physician assistant credit manager or another highly trained surgeon coordinator skill training program for this case. Weight change as in [...] achieved it. The use of a skilled logistics assistant will be required in the operating room due to the complexity of the case. Will plan to have physician assistant credit manager or another highly trained surgeon coordinator skill training program for this case. Patient was recommended to [...] gastric bypass. The use of a skilled logistics assistant will be required in the operating room due to the complexity of the case. Will plan to have physician assistant credit manager or another highly trained surgeon coordinator skill training program for this case. 03/07/2025 Morbid obesity (ICD-10 [...] . Date of surgery 02/22/25 . @ [facility] by Jarrett Castro Doing well postoperatively. Wounds healing well. Wounds healed well. No hernia palpable. Continue Actigall. Continue Prilosec for 6 months after surgery. Continue vitamins No lifting restriction . May use fibre supplementation like Bene fiber 1-2 teaspoon twice daily in the protein supplementation to prevent constipation. 05/27/2025 S/P bariatric surgery (ICD-10 - Z98.84) Surgery: Doing well postoperatively. Wounds healed well. No hernia palpable. Continue vitamins May use fibre supplementation like Bene fiber 1-2 teaspoon twice daily in the protein supplementation to prevent constipation. Surgery: s/p:Robotic sleeve gastrectomy . Date of surgery 02/22/25 . @ [facility] by Jarrett Castro Doing well postoperatively. Wounds healing well. Wounds healed well. No hernia palpable. Continue Actigall. Continue Prilosec for 6 months after surgery. Continue vitamins No lifting restriction . May use fibre supplementation like Bene fiber 1-2 teaspoon twice daily in the protein supplementation to prevent constipation. 05/31/2025 Pain in right knee (ICD-10 - M25.561) 05/31/2025 Pain in left knee (ICD-10 - M25.562) 05/27/2025 Vitamin deficiency (ICD-10 - E56.9) Post op vitamin protocol. Will check routine post op labs. Will obtain routine post op labs before next visit 03/25/2025 Vitamin deficiency (ICD-10 - E56.9) Will obtain routine post op labs before next visit 03/07/2025 S/P bariatric surgery (ICD-10 - Z98.84) s/p:Robotic sleeve gastrectomy . Date of surgery 02/22/25 . @ [facility] by Jarrett Castro Doing well postoperatively. Wounds [...] the protein supplementation to prevent constipation. 02/11/2025 Anxiety disorder, unspecified (ICD-10 - F41.9) Patient anxious about surgery and the course. Explained in detail the surgery. If on SSRI or anxiety medication, I will continue the same now and perioperatively. Psychiatric evaluation for pre-operative clearance obtained. 02/28/2025 S/P bariatric surgery (ICD-10 - Z98.84) s/p:. Date of surgery . @ [facility] , by Dr. Jarrett Castro Doing well [...] in the protein supplementation to prevent constipation. 01/27/2025 Gastric reflux (ICD-10 - K21.9) EGD [...] obtain a psychiatric evaluation for pre-operative clearance 02/28/2025 Vitamin deficiency (ICD-10 - E56.9) Obesity is associated with high incidence of vitamin deficiency. Will check blood for Vitamin D, Thiamin and B12 deficiency. Obesity is associated with high incidence of vitamin deficiency. Will check blood for Vitamin D, Thiamin and B12 deficiency. 02/11/2025 Deficiency of other vitamins (ICD-10 - E56.8) Labs completed to check for vitamin and mineral deficiencies. Replaced as necessary. 03/07/2025 Vitamin deficiency (ICD-10 - E56.9) Starting patient on post op vitamin protocol Obesity is associated with high incidence of vitamin deficiency. Will check blood for Vitamin D, Thiamin and B12 deficiency. Obesity is associated with high incidence of vitamin deficiency. Will check blood for Vitamin D, Thiamin and B12 deficiency. 05/27/2025 Gastric reflux (ICD-10 - K21.9) No reflux symptoms since surgery 03/25/2025 Gastric reflux (ICD-10 - K21.9) No reflux symptoms since surgery 05/27/2025 Acquired absence of kidney (ICD-10 - Z90.5) H/o Right nephrectomy 2007. Kidney functions normal now. There is a left flank incision with no hernia. Patient had a Lap endometriosis and Cholecystectomy after this surgery, with minimal adhesions. So Laparoscopic Sleeve Gastrectomy is possible. 03/25/2025 Morbid obesity (ICD-10 - E66.01) Change [...] on liquid protein diet replacement therapy. 05/27/2025 Morbid obesity (ICD-10 - E66.01) Change [...] care (ICD-10 - Z71.89) Follow up with beekeeper as scheduled I counseled the patient on [...] 10 minutes per day. Follow up with beekeeper as scheduled Labs: None. Routine post op [...] Surgery, Date and Place. Surgery: Date: Place: [facility] Patient should qualify for staying more than 2 midnights in hospital. Patient education, risk explained and consent : The patient meets the criteria as set by the [employer] [place] [employer] that recommends bariatric surgery on [...] and having very close follow-up with a beekeeper and me. In addition they must continue [...] has attended pre operative education class by director of content and programming and the dietitian, but they will have additional education provided by the director of content and programming and beekeeper at [facility]. Because of the significant changes in eating habits they will have to see a beekeeper following surgery. I have informed them that [...] and coordination of care (ICD-10 - Z71.89) Loom Stop Checker: Follow up as scheduled Labs: Routine post [...] 10 minutes per day. Follow up with beekeeper as scheduled 02/28/2025 Counseling and coordination of care (ICD-10 - Z71.89) Follow up with beekeeper as scheduled Labs: None. Routine post op [...] Surgery, Date and Place. Surgery: Date: Place: [facility] Patient should qualify for staying more than 2 midnights in hospital. Patient education, risk explained and consent : The patient meets the criteria as set by the [employer] [place] [employer] that recommends bariatric surgery on [...] and having very close follow-up with a beekeeper and me. In addition they must continue [...] has attended pre operative education class by director of content and programming and the dietitian, but they will have additional education provided by the director of content and programming and beekeeper at [facility]. Because of the significant changes in eating habits they will have to see a beekeeper following surgery. I have informed them that [...] after this surgery, with minimal adhesions. So robotic Sleeve Gastrectomy is possible. 01/27/2025 Vitamin deficiency (ICD-10 - E56.9) Obesity [...] and will adjust medication as needed. 02/11/2025 Hypothyroidism, unspecified (ICD-10 - E03.9) Currently managed by primary care doctor. On thyroxine supplementation. 02/28/2025 Gastric reflux (ICD-10 - K21.9) EGD [...] So Laparoscopic Sleeve Gastrectomy is possible. 03/07/2025 Gastric reflux (ICD-10 - K21.9) EGD [...] out H. pylori and any anatomic abnormality. 05/27/2025 Hypothyroidism, unspecified (ICD-10 - E03.9) Currently managed by primary care doctor. Will recheck TSH and will adjust medication as needed. 05/27/2025 Hyperlipidemia, mixed (ICD-10 - E78.2) Currently on no medication. Will check the Lipid panel. Patient was advised to decrease sugar and carbs in the diet and also fried food. Bariatric surgery will help improve the condition. 03/25/2025 Hypothyroidism, unspecified (ICD-10 - E03.9) Currently [...] a psychiatric evaluation for pre-operative clearance. 02/11/2025 Hyperlipidemia, mixed (ICD-10 - E78.2) Currently on no medication. Patient was advised to decrease sugar and carbs in the diet and also fried food. Bariatric surgery will help improve the condition. 01/27/2025 Acquired absence of kidney (ICD-10 - [...] Dietitian consult for diet counseling EGD 02/11/2025 Counseling and coordination of care (ICD-10 - Z71.89) Proposed Surgery, Date and Place. Surgery: Robotic Sleeve Gastrectomy Date: 02/22/2025 Place: [facility] Patient should qualify for staying more than 2 midnights in hospital. Patient education, risk explained and consent : The patient meets the criteria as set by the [employer] [place] [employer] that recommends bariatric surgery on [...] and having very close follow-up with a beekeeper and me. In addition they must continue [...] has attended pre operative education class by director of content and programming and the dietitian, but they will have additional education provided by the director of content and programming and beekeeper at [facility]. Because of the significant changes in eating habits they will have to see a beekeeper following surgery. I have informed them that [...] procedure. Patient has signed a consent form. 02/28/2025 Deficiency of other vitamins (ICD-10 - E56.8) Labs completed to check for vitamin and mineral deficiencies. Replaced as necessary. 03/07/2025 Deficiency of other vitamins (ICD-10 - E56.8) Labs completed to check for vitamin and mineral deficiencies. Replaced as necessary. 05/27/2025 Perianal venous thrombosis (ICD-10 - K64.5) 03/25/2025 Hyperlipidemia, mixed (ICD-10 - E78.2) Currently on no medication. Will check the Lipid panel. Patient was advised to decrease sugar and carbs in the diet and also fried food. Bariatric surgery will help improve the condition. 05/27/2025 Counseling and coordination of care (ICD-10 [...] plan, at least 10 minutes per day. Loom Stop Checker: Follow up as scheduled Labs: Routine post [...] 10 minutes per day. Follow up with beekeeper as scheduled 03/07/2025 Acquired absence of kidney (ICD-10 - Z90.5) H/o Right nephrectomy 2007. Kidney functions normal now. There is a left flank incision with no hernia. Patient had a Lap endometriosis and Cholecystectomy after this surgery, with minimal adhesions. So Laparoscopic Sleeve Gastrectomy is possible. 02/28/2025 Acquired absence of kidney (ICD-10 - [...] the criteria as set by the [employer] [place] [employer] that recommends bariatric surgery on [...] and having very close follow-up with a beekeeper and me. In addition they must attend [...] will have additional education provided by the director of content and programming and beekeeper at [facility]. Because of the significant changes in eating habits they will have to see a beekeeper prior to and following surgery. I have [...] the criteria as set by the [employer] [place] [employer] that recommends bariatric surgery on [...] and having very close follow-up with a beekeeper and me. In addition they must attend [...] will have additional education provided by the director of content and programming and beekeeper at [facility]. Because of the significant changes in eating habits they will have to see a beekeeper prior to and following surgery. I have [...] as improve or resolve comorbid medical conditions. 12/27/2024 Other The patient meets the criteria as set by the [employer] [place] [employer] that recommends bariatric surgery on [...] and having very close follow-up with a beekeeper and me. In addition they must attend [...] will have additional education provided by the director of content and programming and beekeeper at [facility]. Because of the significant changes in eating habits they will have to see a beekeeper prior to and following surgery. I have [...] resolve comorbid medical conditions. Plan Of Treatment Pending Test Test Name Order Date Electrocardiogram (ECG) 12/27/2024 Chest X-ray PA and lateral 12/27/2024 Next Appt Details Provider Name:Leena Santiago , 08/22/2025 10:30:00 AM, [address], [place], [address], Provider Name:Jarrett Cade theo, 02/24/2026 10:30:00 AM, [address], [place], [address], Insurance Providers Payer Name Payer Address Payer Phone Subscriber Number Group Number Insured Name Patient Relationship to Insured Coverage Start Date Coverage End Date [facility] [address] [place] [phone] [id number] Jyoti May Self - patient is the [...]
--- OUTSIDE RECORDS SUMMARY | 2025-07-24 18:45 | XMS_ITS | Patient Health Record ---
Author Organization [facility] Address [address] [place] [address] Care Team Providers Care Power Plant Operators Supervisor Name Role Phone Addison Berumen Unavailable [phone] Reason For Referral No Information Medications Medication SIG (Take, Route, Frequency, Duration) Notes Start Date End Date Status Ergocalciferol 1.25 MG (64881 UT) Capsule Oral 05/12/2023 Active traZODone HCl 50 MG Tablet Oral 05/12/2023 Active Rizatriptan Benzoate 10 MG Tablet Oral 05/12/2023 Active Desvenlafaxine Succinate ER 25 MG Tablet Extended Release 24 Hour Oral 05/12/2023 Active Dicyclomine HCl 10 MG Capsule Oral 05/12/2023 Active QUEtiapine Fumarate 25 MG Tablet Oral 05/12/2023 Active SUMAtriptan Succinate 25 MG Tablet Oral 05/12/2023 Active traMADol HCl 50 MG Tablet Oral 05/12/2023 Active Strattera 40 MG Capsule Oral 05/12/2023 Active SUMAtriptan 5 MG/ACT Solution Nasal 05/12/2023 Active CYCLOBENZAPRINE *Reorder from [employer] for eRx and Interaction Alerts* 05/12/2023 Active Cimetidine 400 MG Tablet Oral 05/12/2023 Active Fluconazole 150 MG Tablet Oral 05/12/2023 Active Social History Social History Additional Details Category Social Info Options Details Migrated Social History Migrated Social History Alcohol Intake: Occasional 04/14/2023,Tobacco Years: Never smoker 04/14/2023 Plan Of Treatment No Information Insurance Providers Payer Name Payer Address Payer Phone Subscriber Number Group Number Insured Name Patient Relationship to Insured Coverage Start Date Coverage End Date [employer] [address] [place] [phone] [id number] ALINA GANN Self - patient is the insured Medical (General) History Surgical History Surgery Date(Month/Year) Endometrial ablation (33898) 09/29/2017 Other 06/29/2003 Tonsilectomy/adenoids 07/01/2003 Any surgical history 08/05/2008 Removal of gallbladder (86219) 3
--- OUTSIDE RECORDS SUMMARY | 2025-07-24 18:46 | XMS_ITS | Encounter Summary ---
Author Organization [facility] Address [address] [place] [address] Care Team Providers Care Lace Pinner Name Role Phone None, Provider Primary Care Provider Elva dubose Encounter Details Date Type Department Care Team (Late st Contact Info) Description 04/14/2020 Prep for Procedure [facility] [place], [place] [id number] Yue Harris MD [address] [place] [address] Social History Tobacco Use Types [...] DETECTED NOT DETECTED 04/13/2020 1:50 PM CDT [facility] CORONAVIRUS 229E PCR (RESP) NOT DETECTED NOT DETECTED 04/13/2020 1:50 PM CDT [facility] CORONAVIRUS HKU1 PCR (RESP) NOT DETECTED NOT DETECTED 04/13/2020 1:50 PM CDT [facility] CORONAVIRUS NL63 PCR (RESP) NOT DETECTED NOT DETECTED 04/13/2020 1:50 PM CDT [facility] CORONAVIRUS OC43 PCR (RESP) NOT DETECTED NOT DETECTED 04/13/2020 1:50 PM CDT [facility] METAPNEUMOVIRUS PCR (RESP) NOT DETECTED NOT DETECTED 04/13/2020 1:50 PM CDT [facility] RHINOVIRUS/ENTEROV IRUS PCR (RESP) NOT DETECTED NOT DETECTED 04/13/2020 1:50 PM CDT [facility] INFLUENZA A PCR (RESP) NOT DETECTED NOT DETECTED 04/13/2020 1:50 PM CDT [facility] INFLUENZA B PCR (RESP) NOT DETECTED NOT DETECTED 04/13/2020 1:50 PM CDT [facility] PARAINFLUENZA 1 PCR (RESP) NOT DETECTED NOT DETECTED 04/13/2020 1:50 PM CDT [facility] PARAINFLUENZA 2 PCR (RESP) NOT DETECTED NOT DETECTED 04/13/2020 1:50 PM CDT [facility] PARAINFLUENZA 3 PCR (RESP) NOT DETECTED NOT DETECTED 04/13/2020 1:50 PM CDT [facility] PARAINFLUENZA 4 PCR (RESP) NOT DETECTED NOT DETECTED 04/13/2020 1:50 PM CDT [facility] RSV PCR (RESP) NOT DETECTED NOT DETECTED 04/13/2020 1:50 PM CDT [facility] B PARAPERTUSIS PCR (RESP) NOT DETECTED NOT DETECTED 04/13/2020 1:50 PM CDT [facility] BORDETELLA PERTUSSIS PCR (RESP) NOT DETECTED NOT DETECTED 04/13/2020 1:50 PM CDT [facility] CHLAMYDOPHILA PNEUMONIAE PCR (RESP) NOT DETECTED NOT DETECTED 04/13/2020 1:50 PM CDT [facility] MYCOPLASMA PNEUMONIAE PCR (RESP) NOT DETECTED NOT DETECTED 04/13/2020 1:50 PM CDT [facility] CORONAVIRUS SARS COV 2 PCR (RESP) NOT DETECTED NOT DETECTED 04/13/2020 1:50 PM CDT [facility] Comment: THE SARS-CoV-2 TEST HAS BEEN AUTHORIZED BY THE FDA UNDER AN EUA FOR USE BY AUTHORIZED LABORATORIES. NASOPHARYNGEAL STRUCTURE / Unknown 04/13/2020 9:25 AM CDT Yue Harris MD MICROBIOLOGY - GENERAL ORDERAB LES Final Result [facility] [address] [place] [address], [place] [phone] documented in this encounter Visit Diagnoses Diagnosis Heartburn- Primary documented in this encounter Care Teams Lace Pinner Relationship Specialty Start Date End Date None, Provider, PCP - General 07/08/19 documented as of this encounter
--- OUTSIDE RECORDS SUMMARY | 2025-07-24 18:46 | XMS_ITS | Patient Health Record ---
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 (ICD-10 - S47.2XXD) 09/08/2024 Injury of back, subsequent encounter (ICD-10 [...] -Discussed joint injection today which patient declined 11/24/2024 MELANY (generalized anxiety disorder) (ICD-10 - [...] current plan of care. -Refilling medications today 10/28/2024 Attention deficit hyperactivity disorder (ADHD), unspecified [...] done this in the past after Thanksgiving. 01/04/2025 MELANY (generalized anxiety disorder) (ICD-10 - F41.1) -Doing well on current medications -No panic attacks or recent increase in anxiety 04/13/2025 Cervical cancer screening (ICD-10 - Z12.4) - Patient is between 21 and 65, does not have a family history of cervical cancer or personal history of hysterectomy-Annette ent completed a PAP w HPV on 11.17.24 with ESTEFANÍA Kaba and was negative for intraepithelial lesion or malignancy. PAP due 2.19.202706/07/2025 Right foot pain (ICD -10 - M79.671) -uses tramadol on and off for fibromylagia pain -Previously high uric acid, although she only has 1 kidney -Ordering uric acid to rule out Gout concerns -previous BHAVANI, ESR and Crp normal 06/07/2025 On skilled nursing drug therapy (ICD-10 - Z79.899) -Long-term use of mulitple medications reported by chart and confirmed by patient - Ordering baseline labs consisting of CBC, CMP, A1c, Thyroid Panel, and Lipid Panel. 04/13/2025 Attention deficit hyperactivity disorder (ADHD), combined type (ICD-10 - F90.2) -Continue on concerta, verified with surgeon she can start retaking this medication -She is not allowed to have caffiene and has had increased fatigue - Denies agitation, psychosis, SI or behavioral disturbances, rapid heart rate, palpitations, or insomnia reported.- Patient confirms to issues with attention, focus and hyperactivity when unmedicated- Advised to contact emergency services if they have sudden SOB, chest pains, or thoughts of SI/harming themselves or others. 11/24/2024 Intractable migraine without aura and without [...] has not resumed this as of yet 01/04/2025 Fibromyalgia (ICD-10 - M79.7) -Continue pain medications as needed 10/28/2024 Insomnia, unspecifie d type (ICD-10 - [...] . The patient tolerated the procedure well. [facility] Kenalog [id number] Exp: 06/07/2025 Pain in right knee (ICD-10 - M25.561) -Previously gave steroid injections -Following up with ortho this week for ongoing pain despite 40 pound weight loss -She denies any new exercises -continue tramadol as needed -H/O of fibromyalgia 04/13/2025 MELANY (generalized anxiety disorder) (ICD-10 - F41.1) [...] thoughts of harm to themselves or others 04/13/2025 Fibromyalgia (ICD-10 - M79.7) Patient is clinically stable with complaints of breakthrough pains. - Patient reports no new or worsening symtoms and patient cognitive abilities are not impaired - Current regimen remains effective for chronic pain management - No adverse effects reported, patient does not confirm to somnolence, RECRUIT INSTRUCTOR depression, use of Narcan or ED visit r/t the same - Continue with current plan of care with medication and therapy; Consider pain management if symptoms persist past work-up 06/07/2025 Pain in left knee (ICD-10 - M25.562) -as above 01/04/2025 Primary osteoarthrit is of right knee (ICD-10 - M17.11) -with informed consent and under all aseptic measures 60 mg of Kenalog along with 2 cc of 2% Lidocaine injected into the joint space using a lateral approach with a 30 gague 1/2 inch . The patient tolerated the procedure well. [facility] Kenalog [id number] Exp: 10/28/2024 COVID-19 (ICD-10 - U07.1) - Was positve for covid on 10/21 - Has lots of sinus pressure and ear pain - Is taking otc sudafed - Advised mucinex and flonase - Will order Flonase - Advised supportive measures 10/28/2024 Acute infection of right ear (ICD-10 - H66.91) - Will order antibiotics 01/04/2025 Familial hypercholesterolemia (ICD-10 - E78.01) -was unable to tolerate a statin -has been taking omega 3 -LDL high on 1.25.25 133 -Total Cholesterol high at 213 1.25.25 -eleavted tryglycerides at 240 1.25.25 -Going to try and get her appoved for repatha 04/13/2025 Primary insomnia (ICD-10 - F51.01) -recent job change, she is now getting up at 3am -Discussed establishing a new bedtime routine -Stopping the Ativan and starting Restoril 10/28/2024 On skilled nursing drug therapy (ICD-10 - Z79.899) Long-term use of multiple medications reported by chart and confirmed by patient - Ordering baseline labs consisting of CBC, CMP, A1c, Thyroid Panel, and Lipid Panel. 09/02/2024 Other - 34 minutes spent obtaining HPI/ROS, examining patient and coordinating plan of care -Follow up in 1-2 months 09/08/2024 Other - 34 spent obtaining HPI/ROS, examining patient and coordinating plan of care - Follow up in 1 months or sooner if needed 10/28/2024 Other - 47 minutes spent obtaining HPI/ROS, examining patient and coordinating plan of care - Follow up in 3 months or sooner if needed 11/24/2024 Other - 31 minutes spent obtaining HPI/ROS, examining patient and coordinating plan of care - Follow up in 2 months or sooner if needed 01/04/2025 Other - 45 minutes spent obtaining HPI/ROS, examining patient and coordinating plan of care - Follow up in 4 months or sooner if needed r 04/13/2025 Other - Time spent obtaining HPI/ROS, examining patient and coordinating plan of care - Follow up in 4 months or sooner if needed 06/07/2025 Other - 36 minutes spent obtaining HPI/ROS, examining patient and coordinating plan of care - Follow up in 1-2 months or sooner if needed Plan Of Treatment Pending Test Test Name Order Date LIPID PANEL WITH REFLEX TO DIRECT LDL (1 2255) 08/19/2023 COMPREHENSIVE METABOLIC PANEL (67576) CBC (H/H, RBC, INDICES, WBC, PLT) (REFL) (71852) 08/19/2023 HEMOGLOBIN A1c (496) 08/19/2023 TSH W/REFLEX TO FT4 (52799) 08/19/2023 PRESCRIBED DRUGS medMATCH(r) (73732) 01/2024 DRUG MONITOR, PANEL 6 W/CONF(21354) 01/2024 Urine Drug Screen, 7-Panel w/ BUP Ref. t o Conf. A 04/29/2024 CBC With Differential/Platelet 5 eGFR 04/29/2024 Lipid Panel With LDL/HDL Ratio Lipid Panel With LDL/HDL Ratio 5 TSH+Free [...] 10/04/2024 Next Appt Details Provider Name:AMANDA Ferreira, 07/26/2025 02:00:00 PM, [address], [place], [address], Insurance Providers Payer Name Payer Address Payer Phone Subscriber Number Group Number Insured Name Patient Relationship to Insured Coverage Start Date Coverage End Date [facility] [address] [place] [address] [id number] Marc May Spouse - patient is the spouse of the insured 4 Medical (General) History Medical History History ICD Code Migraines Kidney Stones One Kidney Vitamin D Deficiency Grief (resolved 11/24/2024) undefined COVID-19 (resolved 11/24/2024) Surgical History Surgery Date(Month/Year) Right Nephrectomy: Cherise Balbuena 07/2008 Cholecystectomy 07/2013 Uterine Ablation 2018 Tonsillectomy/Adenoids 2002 Hospitalization History Reason Date(Month/Year) with Gall Stones and Elevated E abeles 03/2013
--- OUTSIDE RECORDS SUMMARY | 2025-07-24 18:46 | XMS_ITS | Clinical Summary ---
Author Organization [facility] Address [address] [place] [id number] Phone Care Team Providers Care Log Operations Coordinator Name Role Phone Bertin Medley MD Primary Care Provider [phone] Allergies Active Allergy Reactions Criticality Noted Date [...] saliva every 8 hours as needed for Nausea/Vomiting. 20 Tablet 02/23/2025 12:48 PM CDT 5 Active naloxone (NARCAN) 4 mg/spray [place], Non-Aerosol EMERGENCY USE ONLY: Administer 1 spray (4 mg) in one nostril one time. May repeat in alternating nostrils every 2-3 min until responsive or EMS arrives. 2 Each 3 5 Active Active Problems Problem Noted Date Diagnosed Date Morbid obesity due to excess calories 02/22/2025 S/P laparoscopic sleeve gastrectomy 02/22/2025 Leukocytosis 02/22/2025 Anxiety and depression 02/22/2025 Encounters Date Type Department Care Team Description 07/20/2025 External Device Data ST[facility] ABSTRACTION Provider, Abstract 05/18/2025 External Device Data ST[facility] ABSTRACTION Provider, Abstract 05/17/2025 External Device Data ST[facility] ABSTRACTION Provider, Abstract from Last 3 Months Social History Tobacco [...] 19+ 3-dose series) 01/11/2008 HPV/Cotest (21-29) 2010 HPV VACCINES (1 - 3-dose SCDM series) 01/11/2016 HPV/Cotest (30-65) 2019 INFLUENZA VACCINE (#1) 2025 , 07/08/2022, 07/06/2021 COVID-19 Vaccine (2024- season) 2025 07/08/2022, 10/05/2021, 09/14/2021 DTAP/TDAP/TD VACCINES (2 - T d or Tdap) 07/07/2025 07/07/2015 DIABETES HBA1C Q 6 MONTHS 08/03/2025 01/31/2025 CERVICAL CANCER SCREENING 11/17/2027 PAP SMEAR 11/17/2027 11/17/2024 Insurance BCBS OUT OF STATE RX PRIME [employer]ERAPE[employer] Commercial RX [employer] PLANS (INTERNAL) [facility] Advance Directives For more information, please contact: [phone] * Full Code (Latest Code Status on File) Date Activated Date Inactivated Comments 02/22/2025 1:23 PM 02/23/2025 3:14 PM * Full Code Date Activated Date Inactivated Comments 02/22/2025 8:18 AM 02/22/2025 1:23 PM Care Teams Log Operations Coordinator Relationship Specialty Start Date End Date Bertin Medley MD [address] [place] [address] PCP - General Internal Medicine 02/22/25
--- OUTSIDE RECORDS SUMMARY | 2025-07-24 18:46 | XMS_ITS | Clinical Summary ---
Author Organization [facility] Address [address] [place] [address] Care Team Providers Care Airport Manager Name Role Phone None, Provider MD Primary [...] of 3 - 19+ 3-dose series) 01/11/2008 HPV Vaccines (1 - 3-dose SCD M series) 01/11/2016 Cervical Cancer Screening Pa p with HPV Testing (Age 30 to 64) Every 5 Years 2019 Cervical Cancer Screening wi th HPV 2019 COVID-19 Vaccine (2024-2 6 season) 2025 07/08/2022, 10/05/2021, 09/14/2021 Influenza Adult (#1) 2025 06/09/2023, 07/08/2022, 07/06/2021 DTaP, Tdap and Td Vaccines ( 2 - Td or Tdap) 07/07/2025 07/07/2015 Hepatitis A Vaccines Aged Out No long er eligible based [...] this topic Insurance [employer] Care Teams Airport Manager Relationship Specialty Start Date End Date None, Provider, PCP - General 07/08/19
--- OUTSIDE RECORDS SUMMARY | 2025-07-24 18:46 | XMS_ITS | Clinical Summary ---
Author Organization [facility] Address [address] [place] [address] Care Team Providers Care Postal Superintendent Name Role Phone Unavailable Primary Care Provider Unavailabl e Source Comments [facility],non-owned Affiliates and Associated Physician Practices is amultiple site organization consisting of ambulatory clinics and hospital sitesin [place], [place], [place] and [place]. This disclosure is being madepursuant to the Care Everywhere program and may not contain all information available regarding this patient. Last updated 18.[facility] Allergies No known active allergies Medications * [...] (04/06/2013): Dating by 10wk documented US in [facility] Family history of cardiomyopathy 04/06/2013 Cholecystitis 04/06/2013 Family History Medical History Relation Name Comments Heart Disease Father Hypertension Father CT Father Diabetes Maternal Grandfather Heart Disease Maternal Grandfather Hypertension Maternal Grandfather CT Maternal Grandfather Thyroid Disease Mother hypothyroidi sm [...] 19+ 3-dose series) 01/11/2008 PAP SMEAR 2010 HPV VACCINE (1 - 3-dose SCDM series) 01/11/2016 DEPRESSION SCREENING 09/29/2024 COVID-19 VACCINE (2023-2 5 season) 2025 INFLUENZA VACCINE (#1) 2025 ZOSTER VACCINE (1 of 2) 2039 [...] patient's age to complete this topic Insurance [facility] Advance Directives * FULL RESUSCITATION (Latest Code Status on File) Date Activated Date Inactivated Comments 04/06/2013 4:40 PM 04/09/2013 2:12 PM
--- OUTSIDE RECORDS SUMMARY | 2025-07-24 18:46 | XMS_ITS | Encounter Summary ---
Author Organization [facility] Care Team Providers Care Auto Glass Technician Name Role Phone Simon Vance DO Primary Care Provider + Juan Sánchez DO Primary Care Provider + Armaan Chaudhary MD Primary Care Provider [phone] Addison Berumen MD Unavailable [phone] Doretha Morales MD Primary Care Provider Angeline Green NP Primary Care Provider [phone] Encounter Details Date Type Department Care Team (Latest Contact Info) Description 11/29/2016 Orders Only [facility] ProviderDanika MD [address] [place] [id number] Social History Tobacco Use Types Packs/Day Years Used Date Smoking Tobacco: Never Comments Unknown Sex and Gender Information Value Date Recorded Sex Assigned at Not on file Legal Sex Female 9:05 PM PRODUCT SCIENTIST Gender Identity Not on file Sexual Orientation [...] COVID: Suspected 09/18/2020 09/19/2020 09/20/2020 6:26 AM PRODUCT SCIENTIST COVID19 09/19/2020 09/19/2020 10/03/2020 3:07 AM PRODUCT SCIENTIST COVID: Recovered Comment:Added based on recent COVID infection. 10/03/2020 11/28/2020 01/31/2021 3:05 AM C DT COVID: Suspected 10/18/2022 10/18/2022 10/18/2022 5:36 PM PRODUCT SCIENTIST COVID: Suspected 10/18/2022 10/18/2022 10/18/2022 10:16 PM PRODUCT SCIENTIST COVID: Suspected 10/24/2022 10/24/2022 10/24/2022 2:08 PM PRODUCT SCIENTIST COVID: Suspected 11/05/2022 11/05/2022 11/05/2022 2:48 PM PRODUCT SCIENTIST COVID: Suspected 06/05/2023 06/05/2023 06/05/2023 5:32 PM CDT COVID: Suspected 06/05/2023 06/05/2023 06/05/2023 11:23 PM CDT COVID: Suspected 08/22/2023 08/22/2023 08/22/2023 8:20 AM PRODUCT SCIENTIST COVID: Suspected 08/22/2023 08/22/2023 08/22/2023 8:21 AM PRODUCT SCIENTIST COVID19 08/22/2023 08/22/2023 09/01/2023 3:06 AM PRODUCT SCIENTIST COVID: Recovered Comment:Added based on recent COVID infection. 09/01/2023 09/19/2023 11/30/2023 3:[address] COVID: Suspected 12/15/2023 12/15/2023 12/15/2023 6:28 PM CDT Influenza, adult 12/15/2023 12/15/2023 12/22/2023 3:05 AM CDT documented as of this encounter Care Teams Auto Glass Technician Relationship Specialty [place] [address] [place], [place] [id number] PCP - General 11/13/18 05/30/20 Juan Sánchez DO [address] [address] PCP - General Family Medicine 05/31/20 11/18/22 Armaan Chaudhary MD [address] [facility] [place] [address] PCP - General Family Medicine 11/19/22 07/17/23 Doretha Morales MD [address] [place] [address] PCP - General Family Medicine 07/18/23 09/18/23 Angeline Green, METAL RECLAMATION KETTLE TENDER [address] [place] [address] PCP - General Family Medicine 09/19/23 Addison Berumen MD [address] [place] [address] Referring Physician Psychiatry 05/05/23 documented as of this encounter
--- OUTSIDE RECORDS SUMMARY | 2025-07-24 19:10 | XMS_ITS | Clinical Summary ---
Author Organization [facility] Address [address] [place] [address] Care Team Providers Care Energy Operations Vice President Name Role Phone Addison Berumen MD Unavailable [phone] Angeline Green NP Primary Care Provider [phone] Allergies Active Allergy Reactions Criticality Noted Date [...] Refills after this to come from her systems analysis manager 360 capsule 08/28/20 Active hydrOXYzine (VISTARIL) 25 [...] her mood is better since seeing a food porter. She did not like her psychiatrist so [...] mg Assessment & Plan (12/07/2020 1:09 PM METAL CLEANER): concerta 18 IBS (irritable bowel syndrome) 06/14/2020 [...] her mood. She is now seeing a food porter and notes mood is doing much better. She defers need for medication currently. She is aware that if mood struggles significantly then she will have to get back in with Psychiatry. I did provide her with contact information for an alternative Psychiatry group in the area that she may try. Assessment & Plan (10/23/2021 5:27 PM METAL CLEANER): Add buspar Morbid obesity with BMI of 45.0-49.9, adult ([facility]) 09/08/2017 Assessment & Plan (07/18/2023 [...] loss Assessment & Plan (11/19/2022 8:53 PM METAL CLEANER): BMI Follow-up includes: nutrition counseling, exercise counseling [...] famotidine Assessment & Plan (10/23/2021 5:28 PM METAL CLEANER): Start tagamet Assessment & Plan (01/04/2021 2:19 PM CDT): Currently on PPI, but concerned about fci effects with her kidney - will f/u [...] 07/18/2023 Assessment & Plan (11/19/2022 8:55 PM METAL CLEANER): A(n) initial well visit to establish care [...] 10/23/2021 Assessment & Plan (08/06/2021 2:41 PM METAL CLEANER): pablo saldana covid test Flank pain 03/15/2021 [...] 07/18/2023 Assessment & Plan (09/05/2021 3:39 PM METAL CLEANER): Add zoloft 25 mg Update 3 weeks Call if worsening Assessment & Plan (12/07/2020 1:07 PM METAL CLEANER): lexapro Cough 07/13/2020 07/18/2023 Assessment & Plan [...] cystitis Assessment & Plan (10/23/2021 5:27 PM METAL CLEANER): Refer to PT for pelvic floor PT [...] cystectomy for left paratubal/ovarian cyst done at [facility] by Dr. Bhatt LAPAROSCOPIC ENDOMETRIOSIS FULGURATION 07/04/2023 Medical History Medical History Date Comments Kidney stones 2007 GERD (gastroesophageal reflux disease) 2008 IBS (irritable bowel syndrome) ADHD (attention deficit hyperactivity disorder) Depression GBS (group B streptococcus) UTI complicating pre gnancy 04/06/2013 Family History Medical History Relation Name Comments Cancer Father Heart disease Father Hodgkin's lymphoma Father exposure to Agent [place] Leukemia Father Pancreatitis Father Colon polyps Mother [...] on file Legal Sex Female 9:05 PM METAL CLEANER Gender Identity Not on file Sexual Orientation Not on file 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 Care Teams Energy Operations Vice President Relationship Specialty Start Date End Date Angeline Green NP [address] [place] [address] PCP - General Family Medicine 09/19/23 Addison Berumen MD [address] [place] [address] Referring Physician Psychiatry 05/05/23
--- OUTSIDE RECORDS SUMMARY | 2025-07-24 19:10 | XMS_ITS | Clinical Summary ---
Author Organization [facility] Address [address] [place] [address] Care Team Providers Care Screening Tech Name Role Phone Unavailable Primary Care Provider Unavailabl e Source Comments [facility],non-owned Affiliates and Associated Physician Practices is amultiple site organization consisting of ambulatory clinics and hospital sitesin [place], [place], [place] and [place]. This disclosure is being madepursuant to the Care Everywhere program and may not contain all information available regarding this patient. Last updated 18.[facility] Allergies No known active allergies Medications * [...] (04/06/2013): Dating by 10wk documented US in [facility] Family history of cardiomyopathy 04/06/2013 Cholecystitis 04/06/2013 Family History Medical History Relation Name Comments Heart Disease Father Hypertension Father [place] Father Diabetes Maternal Grandfather Heart Disease Maternal Grandfather Hypertension Maternal Grandfather [place] Maternal Grandfather Thyroid Disease Mother hypothyroidi sm [...] patient's age to complete this topic Insurance [facility] Advance Directives * FULL RESUSCITATION (Latest Code Status on File) Date Activated Date Inactivated Comments 04/06/2013 4:40 PM 04/09/2013 2:12 PM
--- OUTSIDE RECORDS SUMMARY | 2025-07-24 19:10 | XMS_ITS | Encounter Summary ---
Author Organization [facility] Facility Care Team Providers Care Wool Fleece Grader Name Role Phone Simon Vance DO Primary Care Provider + Juan Sánchez DO Primary Care Provider + Armaan Chaudhary MD Primary Care Provider [phone] Addison Berumen MD Unavailable [phone] Doretha Morales MD Primary Care Provider Angeline Green NP Primary Care Provider [phone] Encounter Details Date Type Department Care Team (Latest Contact Info) Description 01/29/2017 Orders Only [facility] CLINCONV ProviderDanika MD [address] [place] [address] Social History Tobacco Use Types Packs/Day Years Used Date Smoking Tobacco: Never Comments Unknown Sex and Gender Information Value Date Recorded Sex Assigned at Not on file Legal Sex Female 9:05 PM CRANE MANAGER Gender Identity Not on file Sexual [...] COVID: Suspected 09/18/2020 09/19/2020 09/20/2020 6:26 AM CRANE MANAGER COVID19 09/19/2020 09/19/2020 10/03/2020 3:07 AM CRANE MANAGER COVID: Recovered Comment:Added based on recent COVID infection. 10/03/2020 11/28/2020 01/31/2021 3:05 AM C DT COVID: Suspected 10/18/2022 10/18/2022 10/18/2022 5:36 PM CRANE MANAGER COVID: Suspected 10/18/2022 10/18/2022 10/18/2022 10:16 PM CRANE MANAGER COVID: Suspected 10/24/2022 10/24/2022 10/24/2022 2:08 PM CRANE MANAGER COVID: Suspected 11/05/2022 11/05/2022 11/05/2022 2:48 PM CRANE MANAGER COVID: Suspected 06/05/2023 06/05/2023 06/05/2023 5:32 PM CDT COVID: Suspected 06/05/2023 06/05/2023 06/05/2023 11:23 PM CDT COVID: Suspected 08/22/2023 08/22/2023 08/22/2023 8:20 AM CRANE MANAGER COVID: Suspected 08/22/2023 08/22/2023 08/22/2023 8:21 AM CRANE MANAGER COVID19 08/22/2023 08/22/2023 09/01/2023 3:06 AM CRANE MANAGER COVID: Recovered Comment:Added based on recent COVID infection. 09/01/2023 09/19/2023 11/30/2023 3:[address] COVID: Suspected 12/15/2023 12/15/2023 12/15/2023 6:28 PM CDT Influenza, adult 12/15/2023 12/15/2023 12/22/2023 3:05 AM CDT documented as of this encounter Care Teams Wool Fleece Grader Relationship Specialty [place] [address] [place], [place] [id number] PCP - General 11/13/18 05/30/20 Juan Sánchez DO [address] [address] PCP - General Family Medicine 05/31/20 11/18/22 Armaan Chaudhary MD [address] [facility] [address] [place] [address] PCP - General Family Medicine 11/19/22 07/17/23 Doretha Morales MD [address] [place] [address] PCP - General Family Medicine 07/18/23 09/18/23 Angeline Green, GENERATION TECHNICIAN [address] [place] [address] PCP - General Family Medicine 09/19/23 Addison Berumen MD [address] [place] [address] Referring Physician Psychiatry 05/05/23 documented as of this encounter
--- OUTSIDE RECORDS SUMMARY | 2025-07-24 19:11 | XMS_ITS | Clinical Summary ---
Author Organization [facility] Address [address] [place] [address] Care Team Providers Care Rn Advice Name Role Phone None, Provider MD Primary [...] this topic Insurance [employer] Care Teams Rn Advice Relationship Specialty Start Date End Date None, Provider, PCP - General 07/08/19
--- OUTSIDE RECORDS SUMMARY | 2025-07-24 19:12 | XMS_ITS | Clinical Summary ---
Author Organization [facility] Address [address] [place] [id number] Phone Care Team Providers Care Steam Drier Tender Name Role Phone Bertin Medley MD Primary Care Provider [phone] Allergies Active Allergy Reactions Criticality Noted Date [...] CDT 5 Active naloxone (NARCAN) 4 mg/spray [place], Non-Aerosol EMERGENCY USE ONLY: Administer 1 spray [...] Advance Directives For more information, please contact: [phone] * Full Code (Latest Code Status on File) Date Activated Date Inactivated Comments 02/22/2025 1:23 PM 02/23/2025 3:14 PM * Full Code Date Activated Date Inactivated Comments 02/22/2025 8:18 AM 02/22/2025 1:23 PM Care Teams Steam Drier Tender Relationship Specialty Start Date End Date Bertin Medley MD [address] [facility] [address] [place] [address] PCP - General Internal Medicine 02/22/25
--- OUTSIDE RECORDS SUMMARY | 2025-07-24 19:12 | XMS_ITS | Encounter Summary ---
Author Organization [facility] Facility Care Team Providers Care Solar Lab Technician Name Role Phone Simon Vance DO Primary Care Provider + Juan Sánchez DO Primary Care Provider + Armaan Chaudhary MD Primary Care Provider [phone] Addison Berumen MD Unavailable [phone] Doretha Morales MD Primary Care Provider Angeline Green NP Primary Care Provider [phone] Encounter Details Date Type Department Care Team (Latest Contact Info) Description 11/29/2016 Orders Only [facility] CLINCONV ProviderDanika MD [address] [place] [address] Social History Tobacco Use Types Packs/Day Years Used Date Smoking Tobacco: Never Comments Unknown Sex and Gender Information Value Date Recorded Sex Assigned at Not on file Legal Sex Female 9:05 PM RADIOISOTOPE TECHNICIAN Gender Identity Not on file Sexual Orientation [...] COVID: Suspected 09/18/2020 09/19/2020 09/20/2020 6:26 AM RADIOISOTOPE TECHNICIAN COVID19 09/19/2020 09/19/2020 10/03/2020 3:07 AM RADIOISOTOPE TECHNICIAN COVID: Recovered Comment:Added based on recent COVID infection. 10/03/2020 11/28/2020 01/31/2021 3:05 AM C DT COVID: Suspected 10/18/2022 10/18/2022 10/18/2022 5:36 PM RADIOISOTOPE TECHNICIAN COVID: Suspected 10/18/2022 10/18/2022 10/18/2022 10:16 PM RADIOISOTOPE TECHNICIAN COVID: Suspected 10/24/2022 10/24/2022 10/24/2022 2:08 PM RADIOISOTOPE TECHNICIAN COVID: Suspected 11/05/2022 11/05/2022 11/05/2022 2:48 PM RADIOISOTOPE TECHNICIAN COVID: Suspected 06/05/2023 06/05/2023 06/05/2023 5:32 PM CDT COVID: Suspected 06/05/2023 06/05/2023 06/05/2023 11:23 PM CDT COVID: Suspected 08/22/2023 08/22/2023 08/22/2023 8:20 AM RADIOISOTOPE TECHNICIAN COVID: Suspected 08/22/2023 08/22/2023 08/22/2023 8:21 AM RADIOISOTOPE TECHNICIAN COVID19 08/22/2023 08/22/2023 09/01/2023 3:06 AM RADIOISOTOPE TECHNICIAN COVID: Recovered Comment:Added based on recent COVID infection. 09/01/2023 09/19/2023 11/30/2023 3:[address] COVID: Suspected 12/15/2023 12/15/2023 12/15/2023 6:28 PM CDT Influenza, adult 12/15/2023 12/15/2023 12/22/2023 3:05 AM CDT documented as of this encounter Care Teams Solar Lab Technician Relationship Specialty [place] [address] [place], [place] [id number] PCP - General 11/13/18 05/30/20 Juan Sánchez DO [address] [address] PCP - General Family Medicine 05/31/20 11/18/22 Armaan Chaudhary MD [address] [facility] [address] [place] [address] PCP - General Family Medicine 11/19/22 07/17/23 Doretha Morales MD [address] [place] [address] PCP - General Family Medicine 07/18/23 09/18/23 Angeline Green, ASSOCIATE PROFESSOR OF ENGLISH [address] [place] [address] PCP - General Family Medicine 09/19/23 Addison Berumen MD [address] [place] [address] Referring Physician Psychiatry 05/05/23 documented as of this encounter
--- OUTSIDE RECORDS SUMMARY | 2025-07-24 19:12 | XMS_ITS | Encounter Summary ---
Author Organization [facility] Address [address] [place] [address] Care Team Providers Care Semiconductor Lab Technician Name Role Phone None, Provider Primary Care Provider Elva dubose Encounter Details Date Type Department Care Team (Late st Contact Info) Description 04/14/2020 Prep for Procedure [facility] [place], [place] [phone] Yue Harris MD [address] [facility] [address] [place] [address] Social History Tobacco Use Types [...] DETECTED NOT DETECTED 04/13/2020 1:50 PM CDT [facility] CORONAVIRUS 229E PCR (RESP) NOT DETECTED NOT DETECTED 04/13/2020 1:50 PM CDT [facility] CORONAVIRUS HKU1 PCR (RESP) NOT DETECTED NOT DETECTED 04/13/2020 1:50 PM CDT [facility] CORONAVIRUS NL63 PCR (RESP) NOT DETECTED NOT DETECTED 04/13/2020 1:50 PM CDT [facility] CORONAVIRUS OC43 PCR (RESP) NOT DETECTED NOT DETECTED 04/13/2020 1:50 PM CDT [facility] METAPNEUMOVIRUS PCR (RESP) NOT DETECTED NOT DETECTED 04/13/2020 1:50 PM CDT [facility] RHINOVIRUS/ENTEROV IRUS PCR (RESP) NOT DETECTED NOT DETECTED 04/13/2020 1:50 PM CDT [facility] INFLUENZA A PCR (RESP) NOT DETECTED NOT DETECTED 04/13/2020 1:50 PM CDT [facility] INFLUENZA B PCR (RESP) NOT DETECTED NOT DETECTED 04/13/2020 1:50 PM CDT [facility] PARAINFLUENZA 1 PCR (RESP) NOT DETECTED NOT DETECTED 04/13/2020 1:50 PM CDT [facility] PARAINFLUENZA 2 PCR (RESP) NOT DETECTED NOT DETECTED 04/13/2020 1:50 PM CDT [facility] PARAINFLUENZA 3 PCR (RESP) NOT DETECTED NOT DETECTED 04/13/2020 1:50 PM CDT [facility] PARAINFLUENZA 4 PCR (RESP) NOT DETECTED NOT DETECTED 04/13/2020 1:50 PM CDT [facility] RSV PCR (RESP) NOT DETECTED NOT DETECTED 04/13/2020 1:50 PM CDT [facility] B PARAPERTUSIS PCR (RESP) NOT DETECTED NOT DETECTED 04/13/2020 1:50 PM CDT [facility] BORDETELLA PERTUSSIS PCR (RESP) NOT DETECTED NOT DETECTED 04/13/2020 1:50 PM CDT [facility] CHLAMYDOPHILA PNEUMONIAE PCR (RESP) NOT DETECTED NOT DETECTED 04/13/2020 1:50 PM CDT [facility] MYCOPLASMA PNEUMONIAE PCR (RESP) NOT DETECTED NOT DETECTED 04/13/2020 1:50 PM CDT [facility] CORONAVIRUS SARS COV 2 PCR (RESP) NOT DETECTED NOT DETECTED 04/13/2020 1:50 PM CDT [facility] Comment: THE SARS-CoV-2 TEST HAS BEEN AUTHORIZED BY THE FDA UNDER AN EUA FOR USE BY AUTHORIZED LABORATORIES. NASOPHARYNGEAL STRUCTURE / Unknown 04/13/2020 9:25 AM CDT Yue Harris MD MICROBIOLOGY - GENERAL ORDERAB LES Final Result [facility] [address] [place] [address], [place] [phone] documented in this encounter Visit Diagnoses Diagnosis Heartburn- Primary documented in this encounter Care Teams Semiconductor Lab Technician Relationship Specialty Start Date End Date None, Provider, PCP - General 07/08/19 documented as of this encounter
--- NOTE | 2025-07-24 19:39 | ED.GENADULT ---
HPI - General Adult General Chief complaint: Unspecified Stated complaint: I have a massive hemmerhoid Time Seen by Provider: 07/24/25 19:01 History of Present Illness HPI narrative: this is a 35-year-old female with history of bariatric surgery and nephrectomy who presents the ED for hemorrhoid. Patient states that this morning she woke up with severe anal pain. This worsened throughout the day and is now 10/10. She has had a prior hemorrhoidectomy by her bariatric surgeon. She tried Anusol at home with minimal relief prompting her to come to the ED. Related Data Home Medications ?Medication ?Instructions ?Recorded ?Confirmed ?Last Taken ?Type sumatriptan 5 mg/actuation nasal 5 mg intranasal DAILY PRN Migraine 06/23/23 12/03/24 07/01/23 History spray Headache desvenlafaxine succinate 50 mg 50 mg PO Q24H 12/03/24 12/03/24 Unknown History tablet,extended release 24 hr levothyroxine 25 mcg tablet 25 mcg PO DAILY 12/03/24 12/03/24 Unknown History methylphenidate HCl 18 mg 18 mg PO DAILY 12/03/24 12/03/24 Unknown History tablet,extended release 24 hr sumatriptan succinate 100 mg tablet 100 mg PO Q2H PRN migraine headache 12/03/24 12/03/24 Unknown History Allergies Allergy/AdvReac Type Severity Reaction Status Date / Time doxycycline Allergy Intermediate HIVES Verified 12/03/24 14:38 NSAIDS (Non-Steroidal Allergy Mild S/O Verified 12/03/24 14:38 Anti-Inflamma NEPHRECTOMY-ADVISED TO REFRAIN BY SEMICONDUCTOR WAFERS SAW OPERATOR Review of Systems Review of Systems: Gen.: Denies fevers or chills Eyes: Denies eye pain or visual change ENT: Denies congestion Respiratory: Denies shortness of breath or cough CV: Denies chest pain or palpitations GI: Denies abdominal pain nausea, emesis or diarrhea denies burning, urgency, frequency or hematuria Musculoskeletal: Denies back pain or muscle pain Neuro: Denies numbness, tingling, weakness or focal weakness Skin: Denies rash Except as documented, all other systems reviewed and negative PMFSH Past Medical History Medical History History of migraine GERD (gastroesophageal reflux disease) Morbid obesity Surgical History Surgical History History of nephrectomy Social History Social History Smoking status: Never smoker Alcohol intake: current Other substance usage details: thc gummies for anxiety. Living arrangements: with family Spiritual care concerns: No Exam Narrative: APPEARANCE: No acute distress, nontoxic, resting in bed EYES: EOMI HEENT: Normocephalic, atraumatic, OMM RESPIRATORY: No respiratory distress Clear to auscultation bilaterally with no rhonchi wheezing or rales. CARDIOVASCULAR: Regular rate and rhythm without murmurs rubs or gallops. ABDOMINAL: Soft, nontender, nondistended, no rebound or guarding. Security Operations Engineer present: thrombosed external hemorrhoid at 3 o' clock MUSCULOSKELETAl: Moves all extremities. No clubbing, cyanosis or edema. NEURO: Awake and alert. Following commands, speech normal, no focal deficits SKIN:: Warm, dry. No rashes lesions or abrasions PSYCHIATRIC: Normal affect/mood, Course Vital Signs Vital signs: Vital Signs Temperature 97.6 F 07/24/25 18:44 Pulse Rate 81 07/24/25 18:44 Respiratory Rate 16 07/24/25 18:44 Blood Pressure 139/93 H 07/24/25 18:44 Pulse Oximetry 100 07/24/25 18:44 Oxygen Delivery Room Air 07/24/25 18:44 Temperature 97.6 F 07/24/25 18:44 Pulse Rate 82 07/24/25 21:36 Respiratory Rate 18 07/24/25 21:36 Blood Pressure 136/86 07/24/25 21:36 Pulse Oximetry 99 07/24/25 21:36 Oxygen Delivery Room Air 07/24/25 18:44 Procedures Other Procedure Procedure 1: Other Procedure: The patient was placed in a lateral recumbent position. The buttock cheeks were and the area was visualized with light. It was cleansed as best as I could. Then utilizing 0.5% benzocaine with epinephrine, I then injected a 3 mls at dome of the thrombosed hemorrhoid. ? Then utilizing a sterile #15 blade scalpel, I then made a surgical incision over the most prominent part of the thrombosed hemorrhoid. I then expressed multiple small thrombi from the vein. Bleeding was minimal. Dressing was placed. Patient tolerated the procedure well. ? I discussed treatment specific to this patient, as well as keeping the area clean several times a day using a sitz bath. I also informed them that they may require definitive surgical treatment in the future. However if they've any concerns or problems they are to return back to this emergency department as we discussed. Medical Decision Making MDM Narrative Medical decision making narrative: 35-year-old female Presenting for anal pain in thrombosed external hemorrhoid. On initial evaluation patient was in mild distress, afebrile, hemodynamic stable. Notable exam findings: 0.5 x 2 cm thrombosed hemorrhoid at 3 o clock. Patient was given morphine oxycodone prior to the procedure. Hemorrhoid was coated with let gel. Thrombosed hemorrhoid was drained as above. Patient tolerated procedure well. She was advised to follow-up with her surgeon tomorrow as scheduled. Patient was agreeable to this plan. Given strict return precautions. Differential Diagnosis Differential Diagnosis: External hemorrhoid, internal hemorrhoid, anal fissure, perianal abscess Medical Records Medical records reviewed: Yes I reviewed the external patient's medical records. Vital Signs Vital Signs: Vital Signs Temperature 97.6 F 07/24/25 18:44 Pulse Rate 81 07/24/25 18:44 Respiratory Rate 16 07/24/25 18:44 Blood Pressure 139/93 H 07/24/25 18:44 Pulse Oximetry 100 07/24/25 18:44 Oxygen Delivery Room Air 07/24/25 18:44 Temperature 97.6 F 07/24/25 18:44 Pulse Rate 82 07/24/25 21:36 Respiratory Rate 18 07/24/25 21:36 Blood Pressure 136/86 07/24/25 21:36 Pulse Oximetry 99 07/24/25 21:36 Oxygen Delivery Room Air 07/24/25 18:44 Discharge Plan Discharge Clinical Impression: External hemorrhoid, thrombosed Patient Disposition: Home Condition: Stable Instructions: Antibiotic Form, Thrombosed Hemorrhoid (ED) Additional Instructions: User sitz baths tonight. Take Tylenol for her pain. Follow-up with your surgeon tomorrow as scheduled. Return to the ED for any new or worsening symptoms. Patient Language: St Helenian Prescriptions: No Action cyclobenzaprine 10 mg tablet 10 mg PO Q8H PRN (Reason: muscle spasm) Qty: 30 0RF sumatriptan succinate 100 mg tablet 100 mg PO Q2H PRN (Reason: migraine headache) desvenlafaxine succinate 50 mg tablet extended release 24 hr 50 mg PO Q24H levothyroxine 25 mcg tablet 25 mcg PO DAILY methylphenidate HCl 18 mg tablet extended release 24hr 18 mg PO DAILY ondansetron 4 mg tablet,disintegrating 4 mg PO Q8H PRN (Reason: nausea and vomiting) Qty: 12 0RF sumatriptan 5 mg/actuation spray,non-aerosol 5 mg INTRANASAL DAILY PRN (Reason: Migraine Headache) tramadol 50 mg tablet 50 mg PO Q6H PRN (Reason: pain) Qty: 10 0RF methocarbamol 750 mg tablet 1,500 mg PO TID PRN (Reason: muscle spasm) Qty: 15 0RF Follow-up/Referrals: Peter,ESTEFANÍA Marcus [Primary Care Provider, Unknown]
[2025-07-24] MEDS: LIDOCAINE, EPINEPHRINE, TETRACAINE VISCOUS SOLN 3 ML TOPICAL (19:56)
[2025-07-24] MEDS: BUPIVACAINE/EPINEPHRINE 0.5% 30 ML VIAL 5 ML INFILTRATE (19:57)
[2025-07-24] MEDS: MORPHINE SULFATE (*CRX) 4 MG/ML INJ IM (20:27)
[2025-07-24] MEDS: oxyCODONE HCL (*CRX) 5 MG TAB IR PO (20:28)
--- NOTE | 2025-07-24 21:34 | PC.NURSE ---
2049--assisted with procedure to reduce thrombosed hemorrhoid
[2025-07-24 21:35] VITALS: BP 136/86; PULSE 82; RESP 18; O2SAT 99
--- NOTE | 2025-07-24 21:35 | PC.NURSE ---
2109-Gauze dressing applied to perirectal area
[2025-07-24 21:36] VITALS: BP 136/86; PULSE 82; RESP 18; O2SAT 99
== END 2025-07-24 21:38 | disposition home or self-care (01) ==
PROVIDERS: Emergency Provider Student in an Organized Health Care Education/Training Program; PCP Internal Medicine Rheumatology
DX: K64.5 Perianal venous thrombosis (principal); K21.9 Gastro-esophageal reflux disease without esophagitis; E66.9 Obesity, unspecified; Z68.37 Body mass index [BMI] 37.0-37.9, adult; Z98.84 Bariatric surgery status
CPT/HCPCS: 46083; 96372; 99283; A9270; J2270